=== PATIENT | female | born 1970 | race Caucasian/White ===

== ENCOUNTER → 2017-10-07 16:50 | Outpatient (CLI) | payer OTHER, SELFPAY ==
--- NOTE | 2017-10-07 16:54 | HPBI_ITS ---
MAMMOGRAPHY - BILATERAL SCREENING REASON FOR EXAM: Female, 47 years old. Routine annual screening examination. PERTINENT HISTORY: Grandmother with breast cancer. Aunt with breast cancer. TECHNIQUE: Digital bilateral breast briana (3D mammographic acquisition) in the CC and MLO projections. 2-D mediolateral oblique (MLO) and craniocaudad (CC) views of both breasts were obtained. CAD: Full Field Digital Mammography with Computer Added Detection was performed. COMPARISON: Comparison is made with prior examination dated November 21, 2015. FINDINGS: Breast Composition: The breasts are heterogeneously dense, which may obscure small masses. There are no dominant masses or suspicious calcifications. No other significant abnormalities are identified. There has been no significant change since the prior study. HPBI/SCREENING MAMM (CAD), BILAT IMPRESSION: Stable bilateral screening mammogram. Yearly follow-up mammogram recommended. (A) ASSESSMENT CATEGORY: BIRADS Category 1: Negative. A letter regarding these results will be sent to the patient by the facility within 30 days. Approximately 10% of breast cancers are not detected by mammography. A normal mammogram should not delay biopsy of a clinically suspicious abnormality. [id number] Electronically Signed: Jaydon Up MD at 8:28 EST Tel [phone], Service support ,
== END ==
PROVIDERS: Family Provider Internal Medicine; PCP Internal Medicine; Visit Provider Internal Medicine
DX: Z12.31 Encounter for screening mammogram for malignant neoplasm of breast (principal)
CPT/HCPCS: 77063; 77067

== ENCOUNTER 2019-06-01 16:04 | Emergency (ER) | payer OTHER, SELFPAY ==
[2019-06-01 16:07] VITALS: BP 162/98; PULSE 84; RESP 17; TEMP 36.8; O2SAT 97; BMI 26.4
--- NOTE | 2019-06-01 16:09 | RAD_ITS ---
STUDY: X-RAY - RIGHT WRIST REASON FOR EXAM: Female, 48 years old. Injury. TECHNIQUE: 3 view(s) of the wrist were obtained. COMPARISON: None. FINDINGS: Normal visualized distal radius and ulna. Normal radiocarpal articulation. Normal distal radioulnar articulation. Normal carpal bones. Normal carpal articulations. Normal carpometacarpal articulation of the thumb. Normal second through fifth carpometacarpal articulations. Normal visualized metacarpal bones. The soft tissue structures are unremarkable. There is no demonstrated acute fracture. RAD/Wrist min 3 Views IMPRESSION: Normal x-ray examination of the wrist. Electronically Signed: Jonathan Bloom MD at 16:24 EDT , Service support ,
--- NOTE | 2019-06-01 16:28 | ED.VISSUMM ---
- ER Visit Summary Date of Service: 06/01/19 Chief Complaint: [Injury to right wrist] History of Present Illness: The patient is a 48 F [the emergency department with an injury to the right wrist that initially occurred 2 weeks ago. Patient states that she slipped in her driveway and injured her wrist. Patient has history of osteoporosis. Patient yesterday lifted the bottom of a fish tank and noticed increased discomfort to the same area of her wrist. Today she was advised by coworkers to get her wrist evaluated. Patient is right-hand dominant.] Physical Examination: [Wrist-patient has point tenderness over the ulnar styloid. There is no obvious deformity. Patient has good range of motion flexion extension of the wrist. She is neurovascular intact distally. Normal range of motion of all digits. No pain over the distal radius.] Test Results: [X-rays of the right wrist obtained were normal] Emergency Department Course and Treatment: [Patient states that she has a wrist splint and does not need one from the emergency department.] Treatment Plan: [Patient will follow-up with her primary care physician in 5 to 7 days. Patient will use ibuprofen for discomfort.] Disposition: [Discharged home in stable condition.] Impression: [Right wrist sprain] This note was generated with [employer] dictation software. It may contain incorrect words, spelling, and punctuation that were not noted in review of the chart prior to signing ED Disposition - Plan for ED Patient: Referrals: Yanely Thayer DO [Primary Care Provider] -
--- NOTE | 2019-06-01 16:30 | ED.DEP ---
ED Disposition - Plan for ED Patient: Instructions: Wrist Sprain Referrals: Yanely Thayer DO [Primary Care Provider] - 5-7 Days
== END 2019-06-01 16:47 | disposition home or self-care (01) ==
LOC: ED 16:30
PROVIDERS: Emergency Provider Emergency Medicine; Family Provider Internal Medicine; PCP Internal Medicine
DX: S63.501A Unspecified sprain of right wrist, initial encounter (principal); W01.0XXA Fall on same level from slipping, tripping and stumbling without subsequent striking against object, initial encounter; Y93.9 Activity, unspecified; Y92.008 Other place in unspecified non-institutional (private) residence as the place of occurrence of the external cause; M81.0 Age-related osteoporosis without current pathological fracture; F32.9 Major depressive disorder, single episode, unspecified; F41.9 Anxiety disorder, unspecified; Z79.899 Other long term (current) drug therapy
CPT/HCPCS: 73110; 99282

== ENCOUNTER → 2019-11-28 10:22 | Outpatient (CLI) | payer OTHER, SELFPAY ==
--- NOTE | 2019-11-28 10:24 | BI_ITS ---
MAMMOGRAPHY - BILATERAL SCREENING REASON FOR EXAM: Female, 49 years old. Routine annual screening examination. PERTINENT HISTORY: Grandmother with breast cancer. Aunt with breast cancer. TECHNIQUE: Digital bilateral breast rowena (3D mammographic acquisition) in the CC and MLO projections. 2-D mediolateral oblique (MLO) and craniocaudad (CC) views of both breasts were obtained. CAD: Full Field Digital Mammography with Computer Added Detection was performed. COMPARISON: Comparison is made with prior study dated October 07, 2017 and November 21, 2015. FINDINGS: Breast Composition: The breasts are heterogeneously dense, which may obscure small masses. There are no dominant masses or suspicious calcifications. No other significant abnormalities are identified. There has been no significant change since the prior study. BI/SCREEN MAMM (CAD) W/ROWENA BILAT IMPRESSION: Stable bilateral screening mammogram. Yearly follow-up mammogram recommended. (A) ASSESSMENT CATEGORY: BIRADS Category 1: Negative. A letter regarding these results will be sent to the patient by the facility within 30 days. Approximately 10% of breast cancers are not detected by mammography. A normal mammogram should not delay biopsy of a clinically suspicious abnormality. [id number] Electronically Signed: Jaydon Up, at 11:40 EDT , Service support ,
--- NOTE | 2019-11-28 10:27 | BD_ITS ---
STUDY: DUAL ENERGY X-RAY ABSORPTIOMETRY / DXA REASON FOR EXAM: Female, 49 years old. 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 COMPARISON: Comparison is made with prior study dated June 17, 2017. FINDINGS: Lumbar Spine (L1-L4): g/cm2 (0.931) / T-score (-2.2) / Z-score (-1.7) Findings are suggestive of osteopenia with a high fracture risk. Right Femur Total: g/cm2 (0.749) / T-score (-2.0) / Z-score (-1.5) Right Femoral Neck: g/cm2 (0.682) / T-score (-2.6) / Z-score (-1.7) The T-Scores on the most recent prior examination were: Lumbar Spine (L1-L4): There has been improvement of bone density since the previous examination. Right Femur Total: which represents a worsening of 0.3%. BD/Dexa Bone Density Study IMPRESSION: The patient is considered osteoporotic as outlined below according to World See Organization (WHO) criteria with a high fracture risk. There has been of bone density since the previous examination. Reference Information: The T-score is the number of standard deviations above or below the standard which is normal for young adults at their peak bone mineral density. The World Health Organization (WHO) interprets the T-scores as follows: Above -1 Normal bone density Between -1 and -2.5 Osteopenia Equal to / or below -2.5 Osteoporosis As a practical clinical guideline, osteopenia may be graded as follows: Mild -1 through -1.5 Moderate -1.6 through -2.0 Severe -2.1 through -2.4 The Z-score is the number of standard deviations above or below age-matched controls. A Z-score of less than -1.5 would be considered abnormal. References: 1. NIH Osteoporosis and Related Bone Diseases http://www.osteo.org 2. International Society for Clinical Densitometry http://www.iscd.org 3. National Osteoporosis Foundation http://www.nof.org Electronically Signed: Jaydon Up, at 11:06 EDT , Service support ,
== END ==
PROVIDERS: PCP Internal Medicine; Referring Provider Internal Medicine; Visit Provider Internal Medicine
DX: M81.0 Age-related osteoporosis without current pathological fracture (principal); Z78.0 Asymptomatic menopausal state; Z12.31 Encounter for screening mammogram for malignant neoplasm of breast
CPT/HCPCS: 77063; 77067; 77080

== ENCOUNTER → 2022-04-07 | Outpatient (CLI) | payer OTHER, SELFPAY ==
--- NOTE | 2022-04-07 12:05 | BI_ITS ---
MAMMOGRAPHY - BILATERAL SCREENING 3-D TOMOSYNTHESIS REASON FOR EXAM: Female, 51 years old. Annual screening mammogram. PERTINENT HISTORY: Grandmother and aunt with breast cancer. TECHNIQUE: 2-D mammograms and 3-D Tomosynthesis of the breast (s) were performed. CAD was performed. COMPARISON: 11/28/2019, 10/07/2017, 11/21/2015. FINDINGS: The breast composition is heterogeneously dense that can obscure small breast masses. Several lymph nodes. No dense spiculated masses or suspicious microcalcifications are identified. No architectural distortion is identified. There is no skin thickening or retraction. BI/SCRN MAMM (CAD)W/ROWENA BILAT IMPRESSION: No interval change and no mammographic signs of malignancy. Routine yearly mammograms recommended. ASSESSMENT CATEGORY: BIRADS Category 2: Benign. A letter regarding these results will be sent to the patient by the facility within 30 days. FOLLOW UP RECOMMENDATION: Yearly follow up mammogram recommended. (A) Approximately 10% of breast cancers are not detected by mammography. A normal mammogram should not delay biopsy of a clinically suspicious abnormality. Electronically Signed: Sae Borja MD at 10:34 EDT ,
== END | disposition home or self-care (01) ==
LOC: OPBI 12:03
PROVIDERS: PCP Internal Medicine; Visit Provider Internal Medicine
DX: Z12.31 Encounter for screening mammogram for malignant neoplasm of breast (principal); Z80.3 Family history of malignant neoplasm of breast
CPT/HCPCS: 77063; 77067

== ENCOUNTER 2022-05-08 15:50 | Emergency (ER) | payer OTHER, SELFPAY ==
[2022-05-08 15:51] VITALS: BP 185/97; PULSE 77; RESP 16; TEMP 36.5; O2SAT 98; BMI 32.0
--- NOTE | 2022-05-08 16:33 | US_ITS ---
EXAM: US ABDOMEN LIMITED, RIGHT UPPER QUADRANT CLINICAL INDICATION: pain -- RT ABD PAIN TECHNIQUE: Real-time ultrasound of the right upper quadrant with image documentation. This report was created using [employer] report [employer] technology. COMPARISON: None. FINDINGS: LIVER: Liver is normal in size and echogenicity measuring 12.5 cm. No intrahepatic biliary ductal dilation. GALLBLADDER: Unremarkable. No shadowing gallstone. No gallbladder wall thickening is demonstrated. No pericholecystic fluid. Negative sonographic Mcmullen''s sign. COMMON BILE DUCT: Unremarkable as visualized. The proximal common bile duct is within normal limits for the patient''s age. PANCREAS: Unremarkable as visualized. No focal abnormality is demonstrated in the pancreas. No pancreatic ductal dilatation. RIGHT KIDNEY: Right kidney is normal in size and echogenicity measuring 10.3 x 5.5 x 5.3 cm. Renal cortical thickness is normal. Mild hydronephrosis. Shadowing renal calculi are noted measuring up to 8 mm in diameter. No focal lesion or perinephric collection is demonstrated. US/Gallbladder IMPRESSION: Right renal calculi with mild hydronephrosis. Electronically Signed: Ermelinda Cai MD at 19:19 EDT Reading Location ID and State: [id number] / Tel , Service support ,
--- NOTE | 2022-05-08 16:34 | EX.ED.DYSGE1 ---
HPI History of Present Illness Chief Complaint: Abd Pain Informant: patient Onset/Context/Timing Onset: Today Current Severity: Moderate Maximum Severity: Moderate Narrative Narrative: Patient present secondary to right upper quadrant abdominal pain with nausea and vomiting. She states symptoms for started after eating breakfast this morning. She had cereal and milk. After eating lunch pain worsened again. She is had nausea and vomiting. No fever. No known history of gallbladder disease. No urinary symptoms. [facility] Medical History (Updated 05/08/22 @ 20:[address] Dayana Bains MD) History of endometriosis Home Medications bupropion HCl 100 mg tablet 100 mg PO DAILY 06/01/19 [History Last Taken Unknown] calcium carbonate 600 mg-vitamin D3 5 mcg (200 unit) tablet 2 ea PO DAILY 06/01/19 [History Last Taken Unknown] escitalopram oxalate 20 mg tablet 20 mg PO DAILY 06/01/19 [History Last Taken Unknown] multivitamin 1 ea PO DAILY 06/01/19 [History Last Taken Unknown] hydrocodone-acetaminophen 5-325mg 5mg-325mg 1 tab PO Q6H PRN pain 3 days #10 tabs 05/08/22 [Rx Last Taken Unknown] ibuprofen 600 mg tablet 600 mg PO Q8H PRN PRN pain #20 tabs 05/08/22 [Rx Last Taken Unknown] ondansetron 4 mg disintegrating tablet 4 mg PO Q8H PRN nausea and vomiting #10 tabs 05/08/22 [Rx Last Taken Unknown] Allergy/AdvReac Type Severity Reaction Status Date / Time No Known Allergies Allergy Verified 05/08/22 15:52 Surgical History (Updated 05/08/22 @ 16:[address] Dayana Bains MD) History of hysterectomy Social History Smoking Status: Never smoker ROS ROS ED Constitutional Constitutional ED: Denies chills or fever(s) Eyes Eyes: Denies change in vision or discharge from eye(s) ENT ENT ED: Denies discharge from eye(s), rhinorrhea or sore throat Cardiovascular Cardiovascular: Denies chest pain or palpitations Respiratory/Chest Respiratory/Chest: Denies cough or dyspnea Gastrointestinal Gastrointestinal: Reports abdominal pain, nausea and vomiting; Denies diarrhea Genitourinary Genitourinary ED: Denies difficulty urinating or dysuria Musculoskeletal Musculoskeletal: Denies back pain or extremity pain Integumentary Denies Abrasions or rash Neurologic Neurologic: Denies headache(s) or weakness Psychiatric Psychiatric: Denies anxiety or depression Allergic/Immunologic Allergic/Immunologic ED: Denies lip swelling or urticaria EXAM Physical Exam Const Vital Signs: 05/08/22 15:51 05/08/22 18:51 Temperature 97.7 F L Temperature Source Temporal Pulse Rate 77 72 Respiratory Rate 16 18 Blood Pressure 185/97 H 176/93 H Blood Pressure Mean 126 120 Pulse Ox 98 96 Oxygen Delivery Method Room Air Room Air Positive well nourished and well developed General Appearance ED: well developed HEENT Reports normocephalic and head/scalp atraumatic Eyes PERRL and EOMs intact bilaterally Neck supple Chest Wall inspection of chest normal and palpation of chest normal Resp normal respiratory effort and clear to auscultation bilaterally Cardio regular rate and regular rhythm GI Palpation: soft and tender RUQ Back/Spine no CVA tenderness Extremity normal to inspection Neuro oriented x3 and no sensory deficits noted Sensorium / Orientation: alert Motor Exam: strength 5/5 throughout Psych mental status grossly normal Skin no rashes or lesions noted MDM MDM MDM Narrative Medical decision making narrative: Patient given morphine and Zofran along with IV fluids. Lab work obtained along with right upper quadrant ultrasound. Lab Data Attestation: I reviewed the patient's lab results. Labs: Laboratory Results - last 24 hr 05/08/22 05/08/22 16:51 16:51 WBC 10.1 RBC 4.91 Hgb 14.4 Hct 42.7 MCV 87.0 MCH 29.3 MCHC 33.7 RDW Std Deviation 41.9 RDW Coeff of Key 13.1 Plt Count 266 MPV 9.3 Immature Gran % (Auto) 0.200 Neut % (Auto) 83.1 H Lymph % (Auto) 11.6 L [place] % (Auto) 4.3 Eos % (Auto) 0.6 Baso % (Auto) 0.2 Absolute Neuts (auto) 8.4 H Absolute Lymphs (auto) 1.18 Nucleated RBC % 0 Sodium 142 Potassium 4.4 Chloride 109 H Carbon Dioxide 25.0 Anion Gap 8 BUN 20 H Creatinine 1.17 H Estim Creat Clear Calc 43.98 Est GFR (MDRD) Af Amer 62 Est GFR (MDRD) Non-Af 51 L BUN/Creatinine Ratio 17.1 Glucose 100 Calcium 9.7 Total Bilirubin 0.50 Direct Bilirubin 0.14 AST 25 ALT 35 Alkaline Phosphatase 99 Total Protein 8.1 Albumin 4.2 Globulin 3.9 Lipase 201 Radiography Diagnostic Testing: Clinical Impression(s) from Imaging Studies Gallbladder Ultrasound 05/08/22 16:33 IMPRESSION: Right renal calculi with mild hydronephrosis. Electronically Signed: Ermelinda Cai MD at 19:19 EDT , Treatment and Re-Evaluation Narrative: On repeat evaluation patient much improved. Lab work is unremarkable. Right upper quadrant ultrasound reveals right renal calculi with mild hydronephrosis. Test results are discussed with patient and family at bedside. I believe she likely does have a kidney stone, however with her symptoms well controlled at this time I do not think getting a CT scan at this time will change her treatment. If she is not improving and returns we can always obtain imaging at that time. Patient agrees with this plan. I will write her pain and nausea medication to sent to the pharmacy. Return instructions provided. Discharge Plan Triage Chief Complaint: Abd Pain ED Provider: Dayana Bains Dx/Rx/DC Orders Clinical Impression: Kidney stone Instructions: ED Kidney Stone w/ Colic Prescriptions: New ibuprofen 600 mg tablet 600 mg PO Q8H PRN PRN (Reason: pain) Qty: 20 0RF hydrocodone-acetaminophen 5-325 mg tablet 1 tab PO Q6H PRN (Reason: pain) 3 Days Qty: 10 0RF ondansetron 4 mg tablet,disintegrating 4 mg PO Q8H PRN (Reason: nausea and vomiting) Qty: 10 0RF No Action multivitamin 1 EACH tablet 1 ea PO DAILY calcium carbonate-vitamin D3 1 EACH tablet 2 ea PO DAILY bupropion HCl 100 MG tablet 100 mg PO DAILY escitalopram oxalate 20 MG tablet 20 mg PO DAILY Primary Care Provider: Yanely Thayer Referrals: Yusuf Ghosh MD [Med Staff - Active Staff] - 1 Week if not improving Yanely Thayer DO [Primary Care Provider] - Disposition Disposition: Home, Self Care
[2022-05-08] MEDS: Morphine 4 MG/ML Syringe IV (16:44)
[2022-05-08] MEDS: 0.9% Normal Saline 1,000 ML 150 ML IV (16:49)
[2022-05-08] MEDS: Ondansetron 4 MG/2 ML Vial IV (16:49)
[2022-05-08 17:03] LABS: Absolute Lymphocyte Count 1.18 X10^3/uL (0.83-4.51); Absolute Neutrophil Count 8.4 X10^3/uL (2.0-7.7); Basophil# 0.02 X10^3/uL; Basophil% 0.2 % (0-1); Eosinophil# 0.06 X10^3/uL; Eosinophils% 0.6 % (0-5); Hematocrit 42.7 % (37-47); Hemoglobin 14.4 g/dL (12.0-15.0); Lymphocyte # 1.18 X10^3/ul (0.83-4.51); Lymphocyte % 11.6 % (19-41); Mean Corp Hgb Conc 33.7 g/dL (32-36); Mean Corpuscular Hgb 29.3 pg (27.0-32.0); Mean Platelet Vol. 9.3 fl (6.2-12.0); Monocyte# 0.44 X10^3/uL; Monocyte% 4.3 % (0-10); NRBC Flagged by Analyzer 0 % (0-5); Neutrophil # 8.42 X10^3/uL (2.7-7.7); Neutrophil % 83.1 % (47-70); Platelet Count 266 K/mm3 (150-450); RBC Distribution Width CV 13.1 % (11.6-14.6); RBC Distribution Width SD 41.9 fl (35.1-43.9); Red Blood Count 4.91 M/mm3 (4.2-5.4); White Blood Count 10.1 K/mm3 (4.4-11.0)
[2022-05-08 17:20] LABS: AST(SGOT) 25 U/L (15-37); Alanine Aminotransfer ALT/SGPT 35 U/L (13-56); Albumin, Serum 4.2 g/dL (3.2-5.0); Alkaline Phosphatase 99 U/L (45-117); Anion Gap 8 (5-15); BUN 20 mg/dL (7-18); BUN/Creat Ratio 17.1 RATIO (10-20); Bilirubin, Direct 0.14 mg/dL (0.00-0.30); Calcium,Total 9.7 mg/dL (8.5-10.1); Chloride 109 mmol/L (98-107); Creatinine, Serum 1.17 mg/dL (0.55-1.02); EST Glomerular Filtration Rate 51 mL/min (>60); Est Glom Filt Rate - Afr Amer 62 mL/min (>60); Estimated Creatinine Clearance 43.98 ml/min; Globulin 3.9 g/dL (2.2-4.2); Glucose 100 mg/dL (74-106); Lipase 201 U/L (73-393); Potassium 4.4 mmol/L (3.5-5.1); Protein, Total 8.1 g/dL (6.4-8.2); Sodium Level 142 mmol/L (136-145)
[2022-05-08 18:51] VITALS: BP 176/93; PULSE 72; RESP 18; O2SAT 96
== END 2022-05-08 20:32 | disposition home or self-care (01) ==
PROVIDERS: Emergency Provider Emergency Medicine; PCP Internal Medicine; Visit Provider Emergency Medicine
DX: N20.0 Calculus of kidney (principal)
CPT/HCPCS: 76705; 80048; 80076; 83690; 85025; 96374; 96375; 99283; J7030; A4216; J2405

== ENCOUNTER → 2022-05-14 | Outpatient (CLI) | payer OTHER, SELFPAY ==
--- NOTE | 2022-05-14 15:45 | RAD_ITS ---
INDICATION: ABD PAIN EXAMINATION/TECHNIQUE: X-RAY - XR Abdomen 1 View: 2 images AP abdomen COMPARISON: May 28, 2022 FINDINGS: BOWEL GAS PATTERN: Nonspecific non-obstructive bowel gas pattern. No focal stomach or bowel distention. Large colonic stool burden. FREE AIR: Not well assessed on a supine view. ORGANOMEGALY: Not seen. CALCIFICATIONS: Right renal 7 mm 3 mm stones. No suspicious calcification along the expected ureteral course. Mild pelvic atherosclerosis. LOWER CHEST: Mild subsegmental atelectasis in the left lower lung.. BONES AND SOFT TISSUES: No acute pathology. Prior left femoral neck internal fixation without evidence of hardware failure. RAD/Abdomen Single View IMPRESSION: Large colonic stool burden as can be seen with constipation. Right nephrolithiasis. Non-obstructive bowel gas pattern. Electronically Signed: Jorge Luis Hall MD at 3:04 EDT ,
== END | disposition home or self-care (01) ==
LOC: RAD 15:36
PROVIDERS: PCP Internal Medicine; Referring Provider Registered Nurse; Visit Provider Registered Nurse
DX: R10.9 Unspecified abdominal pain (principal)
CPT/HCPCS: 74018

== ENCOUNTER 2022-06-10 11:46 | Day surgery (SDC) | payer OTHER, SELFPAY ==
--- NOTE | 2022-06-10 11:50 | RAD_ITS ---
INDICATION: PREOP EXAMINATION/TECHNIQUE: X-RAY - XR Abdomen 1 View COMPARISON: None FINDINGS: BOWEL GAS PATTERN: Non-obstructive. No bowel or stomach distention. FREE AIR: Not assessed on a single supine view. ORGANOMEGALY: Not seen. CALCIFICATIONS: 6 mm and 4 mm calcifications project over the right kidney. LOWER CHEST: No acute pathology. BONES AND SOFT TISSUES: No acute pathology. Intertrochanteric screws in the left proximal femur. RAD/Abdomen Single View IMPRESSION: Non-obstructive bowel gas pattern. 6 mm and 4 mm calcifications project over the right kidney. Electronically Signed: Kaden Fong MD at 18:05 EDT ,
[2022-06-10 12:29] VITALS: BP 152/89; PULSE 66; RESP 18; TEMP 36.3; O2SAT 100; BMI 29.2
[2022-06-10] MEDS: Lactated Ringers 1,000 ML 15 ML IV (12:39)
[2022-06-10] MEDS: Cefazolin 2 GM in 0.9% Normal Saline 100 ML IV (13:25)
--- NOTE | 2022-06-10 14:32 | PCM.HP.STD ---
HPI - General General Date of Service: 06/10/22 HPI Narrative FANY MULLER, is a 52 F who presents for treatment of a right kidney stone and stent placement [facility] Medical History (Updated 06/10/22 @ 14:[address] Yusuf Ghosh MD) Anxiety Depression Gastric reflux Heartburn High cholesterol History of echocardiogram History of endometriosis History of stress test Non-smoker Restless legs Wears glasses Home Medications bupropion HCl 100 mg tablet 100 mg PO DAILY 06/01/19 [History Last Taken 06/10/22 10:00] calcium carbonate 600 mg-vitamin D3 5 mcg (200 unit) tablet 2 ea PO DAILY 06/01/19 [History Last Taken Unknown] escitalopram oxalate 20 mg tablet 20 mg PO DAILY 06/01/19 [History Last Taken Unknown] multivitamin 1 ea PO DAILY 06/01/19 [History Last Taken Unknown] hydrocodone-acetaminophen 5-325mg 5mg-325mg 1 tab PO Q6H PRN pain 3 days #10 tabs 05/08/22 [Rx Last Taken Unknown] ibuprofen 600 mg tablet 600 mg PO Q8H PRN PRN pain #20 tabs 05/08/22 [Rx Last Taken Unknown] ondansetron 4 mg disintegrating tablet 4 mg PO Q8H PRN nausea and vomiting #10 tabs 05/08/22 [Rx Last Taken Unknown] buspirone 15 mg tablet 15 mg PO DAILY 06/03/22 [History Last Taken Unknown] rosuvastatin 10 mg tablet 10 mg PO DAILY 06/03/22 [History Last Taken Unknown] ciprofloxacin HCl 500 mg tablet (Cipro) 500 mg PO BID #6 tabs 06/10/22 [Rx Last Taken Unknown] oxycodone-acetaminophen 5 mg-325 mg tablet 1 tab PO Q6H PRN pain 7 days #14 tabs 06/10/22 [Rx Last Taken Unknown] Allergy/AdvReac Type Severity Reaction Status Date / Time adhesive tape AdvReac Rash Verified 06/10/22 12:24 Surgical History History of hysterectomy Social History Smoking Status: Never smoker Vital Signs Vital Signs Vital Signs: 06/10/22 12:26 06/10/22 12:29 Temperature 97.4 F L Temperature Source Temporal Pulse Rate 66 Respiratory Rate 18 Respiratory Pattern Normal Blood Pressure 152/89 H Blood Pressure Mean 110 Blood Pressure Source Monitor Blood Pressure Position Semi-Fowlers Blood Pressure Location Right Arm Pulse Ox 100 Oxygen Delivery Method Room Air Weight Weight: 74.843 kg Body Mass Index (BMI) 29.2
--- NOTE | 2022-06-10 14:33 | OP.PCM_ITS ---
Report of Operation Date of Procedure: 06/10/22 Pre-Operative Diagnosis: Right kidney stone Post-Operative Diagnosis: Same Surgery/Procedure Performed:: Cystoscopy right stent placement and right extracorporal shockwave lithotripsy Description of Surgical Findings:: Patient presents to the hospital for treatment of a kidney stone with shockwave lithotripsy. In the preoperative area and x-ray was done to confirm the location of the stone. The x-ray was reviewed and the stone location was reviewed. In the preoperative setting I spoke with the patient regarding the treatment of the stone how the treatment would be conducted and the expectations after surgery. The patient understands there is a risk of bleeding and infection. Also discussed the very rare risk of hematoma or damage to the kidney. We also discussed the risk that the shockwave machine will fail to break the stone adequately and that the patient may need other surgical procedures. We also discussed the possibility that the patient may need a stent after the procedure. After reviewing the procedure with the patient, the patient is signed the consent form all the patient's questions were addressed and was taken back to the operating room for treatment of a kidney stone. Patient was taken back to the operating room, patient was identified by the nursing staff, we identified the side of the treatment and the patient side of treatment had been marked by my initials. The patient underwent general anesthetic and was placed supine on the lithotripter table. We then used fluoroscopy to identify the stone on the Right side. The urethra and genitals were prepped and draped in usual sterile fashion. Using a 21 [place] rigid cystourethroscope the entire length of the urethra was normal then went into the bladder. Identified the trigone the left and right ureteral orifice. I then cannulated the right orifice and advanced a wire up into the kidney. I then backloaded a 5 [place] open ended catheter over the wire and injected contrast to delineate the anatomy. After the retrograde was performed I then used fluoroscopic images and guidance to advanced a wire up into the kidney and over the 0.038 glidewire I advanced a 6 [place] by 26 cm double pigtail stent. I then pulled the 0.038 Glidewire off and the stent coiled in the kidney bladder good position. The bladder was then drained. We confirmed the position of the stent by fluoroscopy. We then positioned the patient under the lithotripter and we used triangulation technique to identify the location of the stone and then we made sure that the stone was engaged in the F2 focal point of F2 Donier lithoprior machine. Once the patient was positioned appropriately and the stone was identified and placed in the F2 focal point of the lithotripter machine we then proceeded with shockwave lithotripsy. In the beginning the shockwave was delivered at a rate of 90 shocks per minute, we monitor the EKG for any ectopy. The power was slowly increased to 5 kV and subsequently at the 7 kV. We then proceeded with the treatment we move the therapy had around during the treatment to make sure the stone stayed in the F2 focal point during the entire treatment and after 3000 shockwaves were delivered to the stone under fluoroscopic guidance the treatment was completed. The patient was given instructions to call the office to make an a follow-up appointment with an xray to evaluate the success of the treatment, pateint understands that its possible the stones may need another procedure.At this point the patient's anesthetic was reversed patient was extubated and taken back to the PACU in stable condition. Surgeon: Yusuf Ghosh Type of Anesthesia: General Drains: stent Admit VTE Documentation VTE Present on Admission: No VTE Mechan Device Prophylaxis: SCD's VTE Pharm Prophylaxis ordered?: No
--- NOTE | 2022-06-10 14:33 | DCINST_ITS ---
Discharge Instructions Diet Discharge Diet: No restrictions Activity Discharge Activity: Return to Normal Activity Follow Up Care Please Follow Up With: Yusuf Ghosh MD When: call for appt next week to remove stent Test Results: Test results from this visit will be discussed in further detail at your follow- up appointment, if applicable. Discharge Plan Admission Primary Reason for Your Visit: cysto and right stent and right ESWL Attending Provider: Yusuf Ghosh Primary Care Provider: Yanely Thayer Discharge Orders/Prescriptions Prescriptions: New ciprofloxacin HCl [Cipro] 500 mg tablet 500 mg PO BID Qty: 6 0RF oxycodone-acetaminophen 5-325 mg tablet 1 tab PO Q6H PRN (Reason: pain) 7 Days Qty: 14 0RF No Action multivitamin 1 EACH tablet 1 ea PO DAILY calcium carbonate-vitamin D3 1 EACH tablet 2 ea PO DAILY bupropion HCl 100 MG tablet 100 mg PO DAILY escitalopram oxalate 20 MG tablet 20 mg PO DAILY ibuprofen 600 mg tablet 600 mg PO Q8H PRN PRN (Reason: pain) Qty: 20 0RF hydrocodone-acetaminophen 5-325 mg tablet 1 tab PO Q6H PRN (Reason: pain) 3 Days Qty: 10 0RF ondansetron 4 mg tablet,disintegrating 4 mg PO Q8H PRN (Reason: nausea and vomiting) Qty: 10 0RF buspirone 15 mg tablet 15 mg PO DAILY rosuvastatin 10 mg tablet 10 mg PO DAILY Referrals / Follow Up: Yusuf Ghosh MD [Med Staff - Active Staff] - Yanely Thayer DO [Primary Care Provider] - Disposition Disposition (needs filled in before D/C Order can be placed): Home, Self Care
[2022-06-10 14:34] VITALS: BP 152/89; BP 155/105; PULSE 92; RESP 16; TEMP 36.3; O2SAT 96
[2022-06-10 14:45] VITALS: BP 152/89; BP 160/88; PULSE 75; RESP 16; O2SAT 98
[2022-06-10 15:00] VITALS: BP 152/89; BP 164/87; PULSE 72; RESP 16; TEMP 36.3; O2SAT 97
[2022-06-10 15:30] VITALS: BP 152/89
== END 2022-06-10 15:30 | disposition home or self-care (01) ==
LOC: SDC 11:47 → AC 11:49
PROVIDERS: PCP Internal Medicine; Referring Provider Urology; Visit Provider Urology
PROC: (CPT 50590; principal; 2022-06-10 13:35)
DX: N20.0 Calculus of kidney (principal); I10 Essential (primary) hypertension; E78.00 Pure hypercholesterolemia, unspecified; F32.9 Major depressive disorder, single episode, unspecified; F41.9 Anxiety disorder, unspecified; Z90.710 Acquired absence of both cervix and uterus; Z79.899 Other long term (current) drug therapy
CPT/HCPCS: 74018; J7120; J2405

== ENCOUNTER → 2022-07-13 | Outpatient (CLI) | payer OTHER, SELFPAY ==
[2022-07-13 08:22] LABS: Cholesterol 162 mg/dL (200); High Density Lipoprotein 68 mg/dL; Triglycerides 127 mg/dL; Very Low Density Lipoprotein 25 mg/dL (5-40)
== END | disposition home or self-care (01) ==
LOC: LAB 06:43
PROVIDERS: PCP Internal Medicine; Referring Provider Internal Medicine; Visit Provider Internal Medicine
DX: E78.5 Hyperlipidemia, unspecified (principal)
CPT/HCPCS: 36415; 80061

== ENCOUNTER → 2023-04-09 | Outpatient (CLI) | payer OTHER, SELFPAY ==
--- NOTE | 2023-04-09 10:28 | BI_ITS ---
MAMMOGRAPHY - BILATERAL SCREENING REASON FOR EXAM: Female, 52 years old. Routine annual screening examination. PERTINENT HISTORY: Grandmother with breast cancer. Aunt with breast cancer. TECHNIQUE: Digital bilateral breast rowena (3D mammographic acquisition) in the CC and MLO projections. 2-D mediolateral oblique (MLO) and craniocaudad (CC) views of both breasts were obtained. CAD: Full Field Digital Mammography with Computer Added Detection was performed. COMPARISON: Comparison is made with prior study April 07, 2022 and November 28, 2019. FINDINGS: Breast Composition: The breasts are heterogeneously dense, which may obscure small masses. There are no dominant masses or suspicious calcifications. No other significant abnormalities are identified. There has been no significant change since the prior study. BI/SCRN MAMM (CAD)W/ROWENA BILAT IMPRESSION: Stable bilateral screening mammogram. Yearly follow-up mammogram recommended. (A) ASSESSMENT CATEGORY: BIRADS Category 1: Negative. A letter regarding these results will be sent to the patient by the facility within 30 days. Approximately 10% of breast cancers are not detected by mammography. A normal mammogram should not delay biopsy of a clinically suspicious abnormality. [id number] Electronically Signed: Jaydon Up MD at 11:22 EDT ,
== END | disposition home or self-care (01) ==
LOC: OPBI 10:27
PROVIDERS: PCP Internal Medicine; Referring Provider Internal Medicine; Visit Provider Internal Medicine
DX: Z12.31 Encounter for screening mammogram for malignant neoplasm of breast (principal)
CPT/HCPCS: 77063; 77067

== ENCOUNTER 2023-08-19 22:34 | Emergency (ER) | payer OTHER, SELFPAY ==
[2023-08-19 22:35] VITALS: BP 152/104; PULSE 103; RESP 16; TEMP 36.6; O2SAT 98; BMI 29.2
--- NOTE | 2023-08-19 22:49 | EKG12_ITS ---
Test Reason : OVERDOSE Blood Pressure : / mmHG Vent. Rate : 090 BPM Atrial Rate : 090 BPM P-R Int : 154 ms QRS Dur : 078 ms QT Int : 370 ms P-R-T Axes : 066 059 047 degrees QTc Int : 452 ms Normal sinus rhythm Nonspecific ST abnormality Abnormal ECG Confirmed by AUGUSTA REYES, BONNY ([id number]), city editor MARLEN FORD ([id number]) on 08/23/2023 11:26:56 A M Referred By: Confirmed By:GENE DERAS MD
[2023-08-19 22:58] VITALS: PULSE 92; RESP 16
--- NOTE | 2023-08-19 22:58 | EDS_ITS ---
HPI History of Present Illness Chief Complaint: Overdose Informant: patient and family Narrative Narrative: Presents here concerning accidental ingestion of her nighttime medications around 8 PM. She states her night medicines is Lexapro 20 mg and buspirone 15 mg. She states she started having dizziness and jitteriness with occasional nausea. No chest pains no racing heart. She states her medications are in a pillbox. I had family call they checked her pillbox for Wednesday medications were there. However she thinks she may have missed yesterday's dose and may have taken that today. Sometimes takes it at 8 PM and sometimes takes it before dinner. She has not had similar symptoms in the past. She denies suicidal homicidal ideations. Prior similar symptoms: Yes PFSH PFSH Medical History Anxiety Depression Gastric reflux Heartburn High cholesterol History of echocardiogram History of endometriosis History of stress test Non-smoker Restless legs Wears glasses Home Medications bupropion HCl 100 mg tablet 100 mg PO DAILY 06/01/19 [History Last Taken 06/10/22 10:00] calcium carbonate 600 mg-vitamin D3 5 mcg (200 unit) tablet 2 ea PO DAILY 06/01/19 [History Last Taken Unknown] escitalopram oxalate 20 mg tablet 20 mg PO DAILY 06/01/19 [History Last Taken Unknown] multivitamin 1 ea PO DAILY 06/01/19 [History Last Taken Unknown] hydrocodone-acetaminophen 5-325mg 5mg-325mg 1 tab PO Q6H PRN pain 3 days #10 tabs 05/08/22 [Rx Last Taken Unknown] ibuprofen 600 mg tablet 600 mg PO Q8H PRN PRN pain #20 tabs 05/08/22 [Rx Last Taken Unknown] ondansetron 4 mg disintegrating tablet 4 mg PO Q8H PRN nausea and vomiting #10 tabs 05/08/22 [Rx Last Taken Unknown] buspirone 15 mg tablet 15 mg PO DAILY 06/03/22 [History Last Taken Unknown] rosuvastatin 10 mg tablet 10 mg PO DAILY 06/03/22 [History Last Taken Unknown] ciprofloxacin HCl 500 mg tablet (Cipro) 500 mg PO BID #6 tabs 06/10/22 [Rx Last Taken Unknown] oxycodone-acetaminophen 5 mg-325 mg tablet 1 tab PO Q6H PRN pain 7 days #14 tabs 06/10/22 [Rx Last Taken Unknown] meclizine 25 mg tablet 25 mg PO 4X/DAY PRN PRN Dizziness #20 tabs 08/20/23 [Rx Last Taken Unknown] Allergy/AdvReac Type Severity Reaction Status Date / Time adhesive tape AdvReac Rash Verified 08/19/23 22:35 Surgical History History of hysterectomy Social History Smoking Status: Never smoker ROS ROS ED Constitutional Constitutional ED: Denies chills, fever(s) or sweats Eyes Eyes: Denies change in vision ENT ENT ED: Denies dysphagia or sore throat Cardiovascular Cardiovascular: Denies chest pain, leg edema, palpitations or racing heartbeat Respiratory/Chest Respiratory/Chest: Denies cough, dyspnea or dyspnea on exertion Gastrointestinal Gastrointestinal: Denies abdominal pain, diarrhea, nausea or vomiting Genitourinary Genitourinary ED: Denies dysuria, hematuria or urinary frequency Musculoskeletal Musculoskeletal: Denies back pain, extremity pain or neck pain Integumentary Denies rash or wounds Neurologic Neurologic: Reports other Details: Dizziness, jitteriness ; Denies headache(s), paresthesias or weakness Psychiatric Psychiatric: Denies suicidal ideation or suicidal thoughts EXAM Physical Exam Const Vital Signs: 08/19/23 22:35 08/19/23 22:58 08/20/23 00:38 Temperature 97.8 F Temperature Source Temporal Pulse Rate 103 H 92 77 Respiratory Rate 16 16 16 Blood Pressure 152/104 H 138/60 H Blood Pressure Mean 120 86 Pulse Ox 98 Positive well nourished and well developed Constitutional Narrative: Nontoxic upper extremity tremors. General Appearance ED: well developed and NAD HEENT Reports moist mucous membranes normocephalic and atraumatic Eyes PERRL, EOMs intact bilaterally and conjunctivae normal Eyes Narrative: No nystagmus General Eye ED: Yes normal appearance of both eyes Neck no lymphadenopathy and supple General: Negative for tenderness Chest Wall Chest: Negative for tenderness Resp normal respiratory effort and normal air movement Effort and Inspection: symmetric chest movement; Negative for respiratory distress Cardio regular rate, regular rhythm and no murmurs Peripheral Pulses: pulses 2+ throughout GI normal to inspection, nondistended, normoactive bowel sounds and non-tender Palpation: Negative for guarding or rebound tenderness present Back/Spine no CVA tenderness and no thoracic nor lumbar tenderness Extremity normal to inspection General Extremety ED: Negative for edema or tenderness General Extremity: Negative for edema Neuro oriented x3, CN's II-XII intact bilaterally and no sensory deficits noted Sensorium / Orientation: awake and alert Skin no rashes or lesions noted and no wounds MDM MDM MDM Narrative Medical decision making narrative: Interventions / MDM: Differential diagnosis: Vertigo, medication overdose Diagnosis considered but do not suspect: N/A My EKG interpretation: Sinus rate of 90, no ST or T wave changes QTc 452. Imaging independently reviewed and interpreted by myself: N/A External documents reviewed: N/A Test considered but not ordered:N/A ED course: Patient with tremors after ingestion of her medications. Unclear if she fully took an extra dose however tomorrow's medications were checked and was clear. She states she may have skipped yesterday's dose and that was empty. With her tremors nausea vertigo she was given Ativan. EKG sinus rhythm basic labs ordered and were normal. Reevaluation patient clinically was feeling better. Discussed if medication overdose this should improve in the morning. Discussed vertigo symptoms, she sent prescription for meclizine, discussed worsening vertigo symptoms to return to ED for reevaluation further testing. She had no current nystagmus. No focal deficits. All questions were answered. Re-evaluation: stable Disposition discussed with patient/family/significant other: Patient and significant other Case discussed with consulting clinician: N/A This note was generated with [employer] dictation software. It may contain incorrect words, spelling, and punctuation that were not noted in checking the note before signing. Lab Data Attestation: I reviewed the patient's lab results. Labs: Laboratory Results - last 24 hr 08/19/23 23:00 WBC 8.1 RBC 4.76 Hgb 13.9 Hct 41.7 MCV 87.6 MCH 29.2 MCHC 33.3 RDW Std Deviation 41.5 RDW Coeff of Key 13.0 Plt Count 271 MPV 9.3 Immature Gran % (Auto) 0.200 Neut % (Auto) 63.8 Lymph % (Auto) 26.2 [place] % (Auto) 7.6 Eos % (Auto) 1.6 Baso % (Auto) 0.6 Absolute Neuts (auto) 5.2 Absolute Lymphs (auto) 2.13 Nucleated RBC % 0 Sodium 137 Potassium 3.8 Chloride 105 Carbon Dioxide 28.0 Anion Gap 4 L BUN 21 H Creatinine 1.14 H Estim Creat Clear Calc 48.15 Est GFR (MDRD) Af Amer 64 Est GFR (MDRD) Non-Af 53 L BUN/Creatinine Ratio 18.4 Glucose 125 H Calcium 9.5 Discharge Plan Triage Chief Complaint: Overdose ED Provider: Efra Koehler Dx/Rx/DC Orders Clinical Impression: Dizziness, Overdose Instructions: ED Accidental Ingestion ..., ED Vertigo, Unspecified Prescriptions: New meclizine [meclizine] 25 mg tablet 25 mg PO 4X/DAY PRN PRN (Reason: Dizziness) Qty: 20 0RF No Action multivitamin 1 EACH tablet 1 ea PO DAILY calcium carbonate-vitamin D3 1 EACH tablet 2 ea PO DAILY bupropion HCl 100 MG tablet 100 mg PO DAILY escitalopram oxalate 20 MG tablet 20 mg PO DAILY ibuprofen 600 mg tablet 600 mg PO Q8H PRN PRN (Reason: pain) Qty: 20 0RF hydrocodone-acetaminophen 5-325 mg tablet 1 tab PO Q6H PRN (Reason: pain) 3 Days Qty: 10 0RF ondansetron 4 mg tablet,disintegrating 4 mg PO Q8H PRN (Reason: nausea and vomiting) Qty: 10 0RF buspirone 15 mg tablet 15 mg PO DAILY rosuvastatin 10 mg tablet 10 mg PO DAILY ciprofloxacin HCl [Cipro] 500 mg tablet 500 mg PO BID Qty: 6 0RF oxycodone-acetaminophen 5-325 mg tablet 1 tab PO Q6H PRN (Reason: pain) 7 Days Qty: 14 0RF Primary Care Provider: Yanely Thayer Referrals: Yanely Thayer DO [Primary Care Provider] - 3-5 Days if not improving Disposition Disposition: Home, Self Care Discharge Date/Time: 08/20/23 00:39
[2023-08-19] MEDS: LORazepam 2 MG/ML Syringe 1 MG IV (23:06)
[2023-08-19 23:07] LABS: Absolute Lymphocyte Count 2.13 X10^3/uL (0.83-4.51); Absolute Neutrophil Count 5.2 X10^3/uL (2.0-7.7); Basophil# 0.05 X10^3/uL; Basophil% 0.6 % (0-1); Eosinophil# 0.13 X10^3/uL; Eosinophils% 1.6 % (0-5); Hematocrit 41.7 % (37-47); Hemoglobin 13.9 g/dL (12.0-15.0); Lymphocyte # 2.13 X10^3/ul (0.83-4.51); Lymphocyte % 26.2 % (19-41); Mean Corp Hgb Conc 33.3 g/dL (32-36); Mean Corpuscular Hgb 29.2 pg (27.0-32.0); Mean Corpuscular Volume 87.6 fL (81-99); Mean Platelet Vol. 9.3 fl (6.2-12.0); Monocyte# 0.62 X10^3/uL; Monocyte% 7.6 % (0-10); NRBC Flagged by Analyzer 0 % (0-5); Neutrophil # 5.18 X10^3/uL (2.7-7.7); Neutrophil % 63.8 % (47-70); Platelet Count 271 K/mm3 (150-450); RBC Distribution Width SD 41.5 fl (35.1-43.9); Red Blood Count 4.76 M/mm3 (4.2-5.4); White Blood Count 8.1 K/mm3 (4.4-11.0)
[2023-08-19 23:24] LABS: Anion Gap 4 (5-15); BUN 21 mg/dL (7-18); BUN/Creat Ratio 18.4 RATIO (10-20); Calcium,Total 9.5 mg/dL (8.5-10.1); Chloride 105 mmol/L (98-107); Creatinine, Serum 1.14 mg/dL (0.55-1.02); EST Glomerular Filtration Rate 53 mL/min (>60); Est Glom Filt Rate - Afr Amer 64 mL/min (>60); Estimated Creatinine Clearance 48.15 ml/min; Glucose 125 mg/dL (74-106); Potassium 3.8 mmol/L (3.5-5.1); Sodium Level 137 mmol/L (136-145)
[2023-08-20 00:38] VITALS: BP 138/60; PULSE 77; RESP 16
== END 2023-08-20 00:39 | disposition home or self-care (01) ==
PROVIDERS: Emergency Provider Emergency Medicine; PCP Internal Medicine; Visit Provider Emergency Medicine
DX: T43.221A Poisoning by selective serotonin reuptake inhibitors, accidental (unintentional), initial encounter (principal); R42 Dizziness and giddiness
CPT/HCPCS: 80048; 85025; 93005; 96374; 99283; A4216

== ENCOUNTER → 2024-05-22 | Outpatient (CLI) | payer OTHER, SELFPAY ==
--- NOTE | 2024-05-22 15:41 | BI_ITS ---
MAMMOGRAPHY - BILATERAL SCREENING REASON FOR EXAM: Female, 53 years old. Routine annual screening examination. PERTINENT HISTORY: Grandmother with breast cancer. Aunt with breast cancer. TECHNIQUE: Digital bilateral breast rowena (3D mammographic acquisition) in the CC and MLO projections. 2-D mediolateral oblique (MLO) and craniocaudad (CC) views of both breasts were obtained. CAD: Full Field Digital Mammography with Computer Added Detection was performed. COMPARISON: Comparison is made with prior study April 09, 2023 and April 07, 2022. FINDINGS: Breast Composition: The breasts are heterogeneously dense, which may obscure small masses. There are no dominant masses or suspicious calcifications. Stable small benign-appearing bilateral axillary lymph nodes. No other significant abnormalities are identified. There has been no significant change since the prior study. BI/SCRN MAMM (CAD)W/ROWENA BILAT IMPRESSION: Stable bilateral screening mammogram. Yearly follow-up mammogram recommended. (A) ASSESSMENT CATEGORY: BIRADS Category 2: Benign. A letter regarding these results will be sent to the patient by the facility within 30 days. Approximately 10% of breast cancers are not detected by mammography. A normal mammogram should not delay biopsy of a clinically suspicious abnormality. [id number] Electronically Signed: Jaydon Up MD at 8:38 EDT ,
== END | disposition home or self-care (01) ==
LOC: OPBI 15:41
PROVIDERS: PCP Internal Medicine; Referring Provider Internal Medicine; Visit Provider Internal Medicine
DX: Z12.31 Encounter for screening mammogram for malignant neoplasm of breast (principal)
CPT/HCPCS: 77063; 77067

== ENCOUNTER 2024-05-26 08:36 | Day surgery (SDC) | payer OTHER, SELFPAY ==
[2024-05-26] VITALS (8 sets, daily range): BP systolic 89–158; BP diastolic 57–80; PULSE 51–67; RESP 16–18; TEMP 36.1–36.6; O2SAT 94–99; BMI 29.2
--- NOTE | 2024-05-26 08:57 | PRE.ANES_ITS ---
ASA Classification* ASA Classification ASA Classification: 2 Assessment & Plan Anesthesia* Anesthesia Assessment Anesthesia Assessment: Discussed sedation and/or anesthesia options, risks, benefits, and alternatives with patient/parents/legal guardian/POA. Questions invited. The patient/parents/legal guardian/POA seems to understand and agrees to proceed with anesthesia plan. Reviewed the physical assessment, medical history, allergy history and patient home medications list prior to surgery/procedure/anesthetic and documented any changes. Performed airway and anesthesia risk assessments. Anesthesia Type Anesthesia Type: MAC (see written pre anesthesia record for full assessment) Anesthesia Focused Assessment* Airway Assessment Mouth opens: >3 cm Mallampati Score: II Focused Labs Anesthesia Preop lab: CBC WBC 8.1 K/mm3 (4.4-11.0) 08/19/23 23:00 RBC 4.76 M/mm3 (4.2-5.4) 08/19/23 23:00 Hgb 13.9 g/dL (12.0-15.0) 08/19/23 23:00 Hct 41.7 % (37-47) 08/19/23 23:00 Plt Count 271 K/mm3 (150-450) 08/19/23 23:00 CHEMISTRY Potassium 3.8 mmol/L (3.5-5.1) 08/19/23 23:00 Sodium 137 mmol/L (136-145) 08/19/23 23:00 BUN 21 mg/dL (7-18) H 08/19/23 23:00 Creatinine 1.14 mg/dL (0.55-1.02) H 08/19/23 23:00 Glucose 125 mg/dL (74-106) H 08/19/23 23:00 COAG Pre-Assessment Diagnosis/Proposed Procedure Planned Operative Procedure(s): CSCOPE Anesthesia History 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 When Was Last Pacemaker Check QUESTION #4 FULL TEXT: You/Your Family Experience fever (hyperthermia) with Anesthesia Last Oral Intake Last Oral intake: Last Oral Intake NPO since Meds taken in AM with sips of water? 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 Female Yes 05/23/24 10:40 HX of Motion Sickness Yes 05/23/24 10:40 HX of N/V After Surgery Yes 05/23/24 10:40 Non-Smoker Yes 05/23/24 10:40 Duration of Surgery greater No 05/23/24 10:40 than 60 minutes Number of Risk Factors 4 05/23/24 10:40 PONV Score Severe Risk 05/23/24 10:40 Height & Weight Height & Weight: Anesthesia: Height & Weight Height 5 ft 3 in 05/15/24 16:05 Respiratory Assessment Respiratory Assessment - property maintenance technician: Respiratory Tract Infection Hx - property maintenance technician Hx Respiratory Tract Infection No 05/23/24 10:40 STOP Sleep Apnea STOP Sleep Apnea - property maintenance technician: STOP Sleep Apnea - property maintenance technician Hx Hypertension Yes: NO MEDS 05/23/24 10:40 Hx Sleep Apnea No 05/23/24 10:40 CPAP BIPAP Do you snore loudly (louder No 05/23/24 10:40 than talking or can be heard Do you often feel tired/ No 05/23/24 10:40 fatigued/ sleepy during daytime? Has anyone observed you stop No 05/23/24 10:40 breathing during sleep? STOP Results Negative 05/23/24 10:40 QUESTION #5 FULL TEXT : Do you snore loudly (louder than talking or can be heard through closed doors)? 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 Specify any problems Hx of Preganancy in last 3 N/A 05/23/24 10:40 Months Nurse Filling Out Transfusion NBUCHER 05/23/24 10:40 & Questions: Date: 05/23/24 05/23/24 10:40 Time: 10:42 05/23/24 10:40 Patient unable to answer at this time (ie. confused, unrespo /Reproduction History /Reproductive History - property maintenance technician: /Reproductive Hx- property maintenance technician Hx Now Gestational Age (in weeks): EDC: Hx Hx Para Hx Section SAB No 05/23/24 10:40 Active Medications Active Medications: Current Medications Generic Name Dose Route Start Last Admin Trade Name Freq PRN Reason Stop Dose Admin Lactated Ringer's 1,000 mls @ 15 mls/hr 05/26/24 08:45 IV .Q48H ANTHONY PFSH Medical History PONV (postoperative nausea and vomiting) History of kidney stones Family history of colon cancer Wears glasses Depression Anxiety High cholesterol Restless legs Gastric reflux Heartburn Non-smoker History of echocardiogram History of stress test History of endometriosis Home Medications ?Medication ?Instructions ?Recorded ?Last Taken ?Type bupropion HCl 100 mg tablet 100 mg PO DAILY 06/01/19 06/10/22 10:00 History calcium carbonate 600 mg-vitamin 2 ea PO DAILY 06/01/19 Unknown History D3 5 mcg (200 unit) tablet escitalopram oxalate 20 mg tablet 20 mg PO DAILY 06/01/19 Unknown History multivitamin 1 ea PO DAILY 06/01/19 Unknown History ibuprofen 600 mg tablet 600 mg PO Q8H PRN PRN pain #20 tabs 05/08/22 Unknown Rx buspirone 15 mg tablet 15 mg PO DAILY 06/03/22 Unknown History rosuvastatin 10 mg tablet 10 mg PO DAILY 06/03/22 Unknown History denosumab 60 mg/mL subcutaneous 60 mg subcut [id number] 05/15/24 Unknown History syringe (Prolia) Allergy/AdvReac Type Severity Reaction Status Date / Time adhesive tape AdvReac Rash Verified 05/23/24 10:39 Family History Grandfather Colon cancer Before 60yrs. Surgical History Hx of colonoscopy History of hysterectomy Social History household members: spouse current occupational status: employed current occupation: [id number] Smoking Status: Never smoker substance use type: does not use Review of Systems (Anesthesia) ROS Narrative System reviewed and no additional complaints, except as documented.
[2024-05-26] MEDS: Lactated Ringers 1,000 ML 15 ML IV (09:05)
--- NOTE | 2024-05-26 09:45 | HP.PCM_ITS ---
[facility] - General General Date of Service: 05/26/24 [facility] Narrative FANY MULLER, is a 53 F who presents for screening colonoscopy. Her last colonoscopy was about 10 years ago. She had no polyps at that time. She does have a family history of colon cancer in her paternal grandfather. It sounds as though some other family members had colon polyps. She herself denies any GI issues or complaints currently or recently. [facility] Medical History PONV (postoperative nausea and vomiting) History of kidney stones Family history of colon cancer Wears glasses Depression Anxiety High cholesterol Restless legs Gastric reflux Heartburn Non-smoker History of echocardiogram History of stress test History of endometriosis Home Medications ?Medication ?Instructions ?Recorded ?Last Taken ?Type bupropion HCl 100 mg tablet 100 mg PO DAILY 06/01/19 05/25/24 History calcium carbonate 600 mg-vitamin 2 ea PO DAILY 06/01/19 05/23/24 History D3 5 mcg (200 unit) tablet escitalopram oxalate 20 mg tablet 20 mg PO DAILY 06/01/19 05/26/24 History multivitamin 1 ea PO DAILY 06/01/19 05/25/24 History ibuprofen 600 mg tablet 600 mg PO Q8H PRN PRN pain #20 tabs 05/08/22 Unknown Rx buspirone 15 mg tablet 15 mg PO DAILY 06/03/22 05/26/24 History rosuvastatin 10 mg tablet 10 mg PO DAILY 06/03/22 05/25/24 History denosumab 60 mg/mL subcutaneous 60 mg subcut [id number] 05/15/24 05/23/24 History syringe (Prolia) Allergy/AdvReac Type Severity Reaction Status Date / Time adhesive tape AdvReac Rash Verified 05/26/24 09:02 Family History Grandfather Colon cancer Before 60yrs. Surgical History Hx of colonoscopy History of hysterectomy Social History household members: spouse current occupational status: employed current occupation: [employer] Smoking Status: Never smoker substance use type: does not use Vital Signs Vital Signs Vital Signs: 05/26/24 09:06 05/26/24 09:06 Temperature 97 F L Temperature Source Temporal Pulse Rate 67 Respiratory Rate 18 Respiratory Pattern Normal Blood Pressure 158/80 H Blood Pressure Mean 106 Blood Pressure Source Monitor Blood Pressure Position Semi-Fowlers Blood Pressure Location Right Arm Pulse Ox 99 Oxygen Delivery Method Room Air Weight Weight: 165 lb Body Mass Index (BMI) 29.2 Physical Exam Const alert, oriented x3 and no apparent distress General Appearance: cooperative and comfortable Orientation / Consciousness: awake and oriented to person HEENT normocephalic Eyes PERRL Resp Auscultation: clear to auscultation bilaterally Cardio regular rate and regular rhythm Assessment & Plan Assessment/Plan (1) Encounter for screening for malignant neoplasm of colon: PLAN: Plan The patient is a 53-year-old female who presents today for screening colonoscopy. She does have a family history of colon polyps and colon cancer. We discussed the details of the planned procedure including the risks, benefits and alternatives. She wishes to proceed. Colonoscopy will begin momentarily.
--- NOTE | 2024-05-26 10:27 | OP.CCLET_ITS ---
05/26/2024 Yanely Thayer [address] [place] [address] Re : Colonoscopy procedure for Tomeka Quarles Dear Dr. Thayer This procedure was performed on Sunday, May 26, 2024. My impressions and recommendations are as follows: Impressions : - The entire examined colon is normal on direct and retroflexion views. - No specimens collected. Recommendations : - Discharge patient to home (ambulatory). - High fiber diet indefinitely. - Repeat colonoscopy in 10 years for screening purposes. - Return to my office PRN. - Continue present medications. My findings are described in the full procedure note, which is enclosed. If I can be of further assistance, please feel free to contact me at . Sincerely, Pierre Espinoza MD 05/26/2024 10:26:23 AM This report has been signed electronically.
--- NOTE | 2024-05-26 10:27 | OP.COLON_ITS ---
Patient Name: Tomeka Quarles Procedure Date: 05/26/2024 9:45 AM Date of : 1970 Age: 53 Procedure: Colonoscopy Indications: Screening for colon cancer: Family history of colorectal cancer in distant relative(s) Providers: Pierre Espinoza MD Referring MD: Yanely Thayer Medicines: Propofol per Anesthesia Patient Profile: Refer to note in patient chart for documentation of history and physical. Last Colonoscopy: 10 years ago. Complications: No immediate complications. Estimated blood loss: None. Procedure: Pre-Anesthesia Assessment: - Prior to the procedure, a History and Physical was performed, and patient medications and allergies were reviewed. The patient's tolerance of previous anesthesia was also reviewed. The risks and benefits of the procedure and the sedation options and risks were discussed with the patient. All questions were answered, and informed consent was obtained. Prior Anticoagulants: The patient has taken no anticoagulant or antiplatelet agents. ASA Grade Assessment: II - A patient with mild systemic disease. After reviewing the risks and benefits, the patient was deemed in satisfactory condition to undergo the procedure. After I obtained informed consent, the scope was passed under direct vision. Throughout the procedure, the patient's blood pressure, pulse, and oxygen saturations were monitored continuously. The adult colonoscope was introduced through the anus and advanced to the cecum, identified by the appendiceal orifice, ileocecal valve and palpation. The ileocecal valve, appendiceal orifice, and rectum were photographed. The entire colon was well visualized. The colonoscopy was performed without difficulty. The patient tolerated the procedure well. The quality of the bowel preparation was adequate. Moderate Sedation: See the other procedure note for documentation of moderate sedation with intraservice time. Scope In: 9:55:28 AM Scope Withdrawal Time 0 hours 8 minutes 27 seconds Scope Out: 10:18:28 AM Total Procedure Duration Time 0 hours 23 minutes 0 seconds Findings: The perianal and digital rectal examinations were normal. The entire examined colon appeared normal on direct and retroflexion views. Impression: - The entire examined colon is normal on direct and retroflexion views. - No specimens collected. Recommendation: - Discharge patient to home (ambulatory). - High fiber diet indefinitely. - Repeat colonoscopy in 10 years for screening purposes. - Return to my office PRN. - Continue present medications. Procedure Code(s): --- Professional --- 81676, Colonoscopy, flexible; diagnostic, including collection of specimen(s) by brushing or washing, when performed (separate procedure) Diagnosis Code(s): --- Professional --- Z12.11, Encounter for screening for malignant neoplasm of colon Z80.0, Family history of malignant neoplasm of digestive organs CPT copyright 2021 [employer]. All rights reserved. The codes documented in this report are preliminary and upon cpc coder review may be revised to meet current compliance requirements. Pierre Espinoza MD 05/26/2024 10:26:23 AM This report has been signed electronically. Number of Addenda: 0 Note Initiated On: 05/26/2024 9:45 AM
--- NOTE | 2024-05-26 10:31 | PCM.POST.ANE ---
Anesthesia: Postop Eval I Current Vital Signs Temperature: 98 F Pulse Rate: 55 Blood Pressure: 89/67 Respiratory Rate: 16 Pulse Ox: 95 Oxygen Delivery Method: Room Air Assessment Airway patent: Yes Spontaneous unlabored respirations: Yes Mental status: Asleep nausea: No Vomiting: No Anesthesia Complication: No Fluid Hydration Crystalloid volume administer (ml): 600 Total IV fluid infused: 600 Progress Note Anesthesia document: Postop Eval 1 completed: Yes
--- NOTE | 2024-05-26 11:26 | PCM.POSTANE2 ---
Anesthesia Postop Eval I Sum Postop Eval Completion status Anesthesia document: Postop Eval 1 completed: Yes Anesthesia Postop Eval I Summary Anesthesia Postop Eval I Summary: Anesthesia Postop Eval I: Assessment Summary Airway patent Yes 05/26/24 10:32 [email or web address] Spontaneous unlabored Yes 05/26/24 10:32 [email or web address] respirations Mental status Asleep 05/26/24 10:32 [email or web address] nausea No 05/26/24 10:32 [email or web address] Vomiting No 05/26/24 10:32 [email or web address] Anesthesia Postop Eval I: Fluid Summary Crystalloid volume administer 600 05/26/24 10:32 [email or web address] (ml) Colloids volume administered ( ml) Blood Product volume administered (ml) Total IV fluid infused 600 05/26/24 10:32 [email or web address] Anesthesia Postop Eval I: Summary Notes Anesthesia Complication No 05/26/24 10:32 [email or web address] Anesthesia Complication Comment: Post-operative progress note Anesthesia: Postop Eval II Evaluation Mental status: Awake Pain Level: 0 nausea: No Vomiting: No
== END 2024-05-26 11:27 | disposition home or self-care (01) ==
LOC: EN 08:37 → AC 08:38
PROVIDERS: PCP Internal Medicine; Referring Provider Internal Medicine; Visit Provider Surgery
PROC: 0DJD8ZZ Inspection of Lower Intestinal Tract, Via Natural or Artificial Opening Endoscopic (ICD-10-PCS; CPT 45378; principal; 2024-05-26 09:40)
DX: Z12.11 Encounter for screening for malignant neoplasm of colon (principal); E78.00 Pure hypercholesterolemia, unspecified; F41.9 Anxiety disorder, unspecified; F32.A Depression, unspecified; Z80.0 Family history of malignant neoplasm of digestive organs; Z79.899 Other long term (current) drug therapy
CPT/HCPCS: 45378; J7120; J2405

== ENCOUNTER 2024-11-15 15:46 | Emergency (ER) | payer OTHER, SELFPAY ==
[2024-11-15 15:47] VITALS: BP 182/106; PULSE 71; RESP 15; TEMP 36.7; O2SAT 98; BMI 28.3
--- NOTE | 2024-11-15 16:42 | EX.ED.DYSGE1 ---
HPI History of Present Illness Chief Complaint: Flank Pain Informant: patient Narrative Narrative: Worsening pain right lower quadrant and groin for the past 48 hours. On and off symptoms for past month. No urinary symptoms. No nausea or vomiting. No fever chills or sweats. History of similar with kidney stones in the past 2 years ago required intervention followed by Dr. Ghosh. She takes calcium due to osteoporosis. Medications for anxiety depression. Denies history gastric ulcers or kidney injury. Has not taken any medications. Hysterectomy in the past. Prior similar symptoms: Yes PFSH PFSH Medical History PONV (postoperative nausea and vomiting) History of kidney stones Family history of colon cancer Wears glasses Depression Anxiety High cholesterol Restless legs Gastric reflux Heartburn Non-smoker History of echocardiogram History of stress test History of endometriosis Home Medications ?Medication ?Instructions ?Recorded ?Last Taken ?Type bupropion HCl 100 mg tablet 100 mg PO DAILY 06/01/19 05/25/24 History calcium 600 mg (as 2 ea PO DAILY 06/01/19 05/23/24 History carbonate)-vitamin D3 5 mcg (200 unit) tablet escitalopram oxalate 20 mg tablet 20 mg PO DAILY 06/01/19 05/26/24 History multivitamin 1 ea PO DAILY 06/01/19 05/25/24 History ibuprofen 600 mg tablet 600 mg PO Q8H PRN PRN pain #20 tabs 05/08/22 Unknown Rx buspirone 15 mg tablet 15 mg PO DAILY 06/03/22 05/26/24 History rosuvastatin 10 mg tablet 10 mg PO DAILY 06/03/22 05/25/24 History denosumab 60 mg/mL subcutaneous 60 mg subcut [id number] 05/15/24 05/23/24 History syringe (Prolia) Allergy/AdvReac Type Severity Reaction Status Date / Time adhesive tape AdvReac Rash Verified 11/15/24 15:48 Family History Grandfather Colon cancer Before 60yrs. Surgical History Hx of colonoscopy History of hysterectomy Social History household members: spouse current occupational status: employed current occupation: [employer] Smoking Status: Never smoker substance use type: does not use ROS ROS ED Constitutional Constitutional ED: Denies chills, fever(s) or sweats ENT ENT ED: Denies sore throat Cardiovascular Cardiovascular: Denies chest pain, leg edema, palpitations or racing heartbeat Respiratory/Chest Respiratory/Chest: Denies cough, dyspnea or dyspnea on exertion Gastrointestinal Gastrointestinal: Reports abdominal pain; Denies diarrhea, nausea or vomiting Genitourinary Genitourinary ED: Denies dysuria, hematuria or urinary frequency Musculoskeletal Musculoskeletal: Denies back pain, extremity pain or neck pain Integumentary Denies rash or wounds Neurologic Neurologic: Denies headache(s), paresthesias or weakness EXAM Physical Exam Const Vital Signs: 11/15/24 15:47 11/15/24 17:47 Temperature 98.1 F Temperature Source Temporal Pulse Rate 71 Respiratory Rate 15 Blood Pressure 182/106 H 184/85 H Blood Pressure Mean 131 118 Pulse Ox 98 Oxygen Delivery Method Room Air Positive well nourished and well developed General Appearance ED: well developed and NAD HEENT Reports moist mucous membranes normocephalic and atraumatic Eyes General Eye ED: Yes normal appearance of both eyes Neck full ROM Chest Wall Chest: Negative for tenderness Resp normal respiratory effort and normal air movement Effort and Inspection: symmetric chest movement; Negative for respiratory distress Cardio regular rate, regular rhythm and no murmurs Peripheral Pulses: pulses 2+ throughout GI normal to inspection, nondistended, normoactive bowel sounds and non-tender Palpation: Negative for guarding or rebound tenderness present Back/Spine no CVA tenderness Extremity normal to inspection General Extremety ED: Negative for edema or tenderness General Extremity: Negative for edema Neuro oriented x3 and no sensory deficits noted Sensorium / Orientation: awake and alert Skin no rashes or lesions noted and no wounds MDM MDM MDM Narrative Medical decision making narrative: Interventions / MDM: Differential diagnosis: Nephrolithiasis, abdominal pain. Diagnosis considered but do not suspect: Obstructive stone, appendicitis however CT negative. My EKG interpretation: N/A Imaging independently reviewed and interpreted by myself: CT abdomen pelvis: Left nephrolithiasis no obstructive uropathy on the right side. Normal appendix. External documents reviewed: N/A Test considered but not ordered:N/A ED course: Nontoxic similar presentation of kidney stones worsen over 48 hours. Initial declining medications however agreed with Toradol. Will check labs urine. Flank CT for further evaluation. CT negative for appendicitis or any obstructive uropathy. Left-sided nephrolithiasis. Urine leukocytes noted mild WBCs. She is asymptomatic. Urine culture sent. Will not treat last positive. Should continue Shahriar Motrin. She will follow-up with her PCP. All questions were answered. Re-evaluation: stable Disposition discussed with patient/family/significant other: Patient Case discussed with consulting clinician: N/A This note was generated with Impraise dictation software. It may contain incorrect words, spelling, and punctuation that were not noted in checking the note before signing. Lab Data Attestation: I reviewed the patient's lab results. Labs: Laboratory Results - last 24 hr 11/15/24 17:01 WBC 6.0 RBC 4.76 Hgb 14.4 Hct 41.8 MCV 87.8 MCH 30.3 MCHC 34.4 RDW Std Deviation 42.6 RDW Coeff of Key 13.2 Plt Count 259 MPV 9.4 Immature Gran % (Auto) 0.200 Neut % (Auto) 63.5 Lymph % (Auto) 26.1 [place] % (Auto) 8.4 Eos % (Auto) 1.3 Baso % (Auto) 0.5 Absolute Neuts (auto) 3.8 Absolute Lymphs (auto) 1.55 Nucleated RBC % 0 Sodium 135 Potassium 3.8 Chloride 100 Carbon Dioxide 23.2 Anion Gap 12 BUN 13 Creatinine 0.87 Estim Creat Clear Calc 68.93 Est GFR (MDRD) Non-Af 79 BUN/Creatinine Ratio 14.6 Glucose 91 Calcium 9.2 Urine Color Yellow Urine Clarity Clear Urine pH 6.0 Ur Specific [place] 1.020 Urine Protein Negative Urine Glucose (UA) Normal Urine Ketones Negative Urine Occult Blood Negative Urine Nitrite Negative Urine Bilirubin Negative Urine Urobilinogen Normal Ur Leukocyte Esterase 100 H Urine RBC 0-5 SEEN Urine WBC 10-25 SEEN Ur Squamous Epith Cells 0-5 SEEN Urine Bacteria 1+ Hyaline Casts 0-5 SEEN Urine Mucus 1+ Radiography Diagnostic Testing: Clinical Impression(s) from Imaging Studies Abdomen/Pelvis CT 11/15/24 17:10 IMPRESSION: 1. No acute process. 2. Left nephrolithiasis. One or more dose reduction techniques were used (e.g., Automated exposure control, adjustment of the mA and/or kV according to patient size, use of iterative reconstruction technique). Reading Location: [facility] Discharge Plan Triage Chief Complaint: Flank Pain ED Provider: Efra Koehler Dx/Rx/DC Orders Clinical Impression: Abdominal pain Instructions: Abdominal Pain Prescriptions: No Action Prolia 60 mg/mL syringe 60 mg subcut [id number] multivitamin 1 EACH tablet 1 ea PO DAILY calcium carbonate-vitamin D3 1 EACH tablet 2 ea PO DAILY bupropion HCl 100 MG tablet 100 mg PO DAILY escitalopram oxalate 20 MG tablet 20 mg PO DAILY ibuprofen 600 mg tablet 600 mg PO Q8H PRN PRN (Reason: pain) Qty: 20 0RF buspirone 15 mg tablet 15 mg PO DAILY rosuvastatin 10 mg tablet 10 mg PO DAILY Primary Care Provider: Yanely Thayer Referrals: Yanely Thayer DO [Primary Care Provider] - 1 Week Activity Restrictions/Additional Instructions: Your CT scan no kidney stones that is obstructive on right labs were normal. You have a nonobstructive left-sided stone in the kidney. Urine culture pending. Continue Shahriar Motrin as needed. Follow-up with your doctor. Normal appendix on CT. Print Language: Welsh Disposition Disposition: Home, Self Care Discharge Date/Time: 11/15/24 19:42
[2024-11-15] MEDS: 0.9% Normal Saline (500mL Bag) 500 ML 999 ML IV (17:02)
[2024-11-15] MEDS: Ketorolac 15 MG/ML Vial IV (17:02)
--- NOTE | 2024-11-15 17:10 | CT_ITS ---
PROCEDURE: ABDOMEN/PELVIS WITHOUT CONT REASON FOR EXAM: Pain, calculus TECHNIQUE: Multiple contiguous axial images through the abdomen and pelvis were obtained without the administration of intravenous contrast. Two-dimensional coronal and sagittal reformatted images were reconstructed. Low-dose imaging technique was utilized. COMPARISON: None. FINDINGS: Lung bases are clear. Unenhanced liver, spleen, pancreas and adrenal glands are intact. Gallbladder is contracted. No significant biliary ductal dilation. Punctate nonobstructing left renal calculus. A couple small left peripelvic cysts. No right renal calculi. No hydronephrosis. Urinary bladder is within normal limits. No bowel obstruction, focal bowel wall thickening or significant perienteric inflammation. Normal appendix. No pelvic free fluid. No free air. No abdominal aortic aneurysm or suspicious adenopathy. Superficial soft tissues are within normal limits. No acute osseous abnormality. 2 fixation screws in the left femoral neck. CT/Abdomen/Pelvis without Cont IMPRESSION: 1. No acute process. 2. Left nephrolithiasis. One or more dose reduction techniques were used (e.g., Automated exposure contr ol, adjustment of the mA and/or kV according to patient size, use of iterative reconstruction technique). Reading Location: [facility]
[2024-11-15 17:19] LABS: Absolute Lymphocyte Count 1.55 X10^3/uL (0.83-4.51); Absolute Neutrophil Count 3.8 X10^3/uL (2.0-7.7); Basophil# 0.03 X10^3/uL; Basophil% 0.5 % (0-1); Eosinophil# 0.08 X10^3/uL; Eosinophils% 1.3 % (0-5); Hematocrit 41.8 % (37-47); Hemoglobin 14.4 g/dL (12.0-15.0); Lymphocyte # 1.55 X10^3/ul (0.83-4.51); Lymphocyte % 26.1 % (19-41); Mean Corp Hgb Conc 34.4 g/dL (32-36); Mean Corpuscular Hgb 30.3 pg (27.0-32.0); Mean Corpuscular Volume 87.8 fL (81-99); Mean Platelet Vol. 9.4 fl (6.2-12.0); Monocyte% 8.4 % (0-10); NRBC Flagged by Analyzer 0 % (0-5); Neutrophil # 3.78 X10^3/uL (2.7-7.7); Neutrophil % 63.5 % (47-70); Platelet Count 259 K/mm3 (150-450); RBC Distribution Width CV 13.2 % (11.6-14.6); RBC Distribution Width SD 42.6 fl (35.1-43.9); Red Blood Count 4.76 M/mm3 (4.2-5.4)
[2024-11-15 17:40] LABS: Anion Gap 12 (5-15); BUN 13 mg/dL (4-19); BUN/Creat Ratio 14.6 RATIO (10-20); Calcium,Total 9.2 mg/dL (7.6-11.0); Carbon Dioxide 23.2 mmol/L (21.0-32.0); Chloride 100 mmol/L (98-108); Creatinine, Serum 0.87 mg/dL (0.70-1.20); EST Glomerular Filtration Rate 79 (>60); Estimated Creatinine Clearance 68.93 ml/min (50-250); Glucose 91 mg/dL (70-99); Potassium 3.8 mmol/L (3.3-5.1); Sodium Level 135 mmol/L (133-145)
[2024-11-15 17:47] VITALS: BP 184/85
[2024-11-15 17:54] LABS: Color, Urine Yellow (Yellow); Glucose, Dipstick Normal (Normal); Ketone-Dipstick Negative (Negative); Leukocyte Esterase-Dipstick 100 /ul (Negative); Nitrite-Dipstick Negative (Negative); Occult Blood-Urine Negative /ul (Negative); Protein-Dipstick Negative (Negative); Urine Bilirubin Dipstick Negative (Negative); Urine Clarity Clear (Clear); Urine Urobilinogen Normal (Normal)
[2024-11-15 18:26] LABS: Hyaline Cast 0-5 SEEN /lpf (0-5)
[2024-11-15 18:27] LABS: Bacteria 1+ /hpf (None Seen); Mucous, Urine 1+ /hpf (<or=2+); Red Blood Cells-Urine 0-5 SEEN /hpf (0-5); Squamous Epithelial Cells - UA 0-5 SEEN /hpf (5-10); White Blood Cells 10-25 SEEN /hpf (0-5)
--- NOTE | 2024-11-15 19:39 | ED.RN ---
This RN was informed through a [employer] WATCHER that the patient was very upset and had taken out her own IV and wanted to leave. The patient refused discharge vital signs at this time and states I am stressed, I have been here too long, I need to get home, the doctor already said I could leave. I'm fine but I need to leave. This RN educated the patient on the discharge paperwork and verified that the patient's IV site was intact, the patient denied any questions at this time, and left the department.
== END 2024-11-15 19:42 | disposition home or self-care (01) ==
PROVIDERS: Emergency Provider Emergency Medicine; PCP Internal Medicine; Visit Provider Emergency Medicine
DX: N20.0 Calculus of kidney (principal); M81.0 Age-related osteoporosis without current pathological fracture; F41.9 Anxiety disorder, unspecified; E78.00 Pure hypercholesterolemia, unspecified; F32.A Depression, unspecified; Z87.442 Personal history of urinary calculi; Z90.710 Acquired absence of both cervix and uterus; Z79.899 Other long term (current) drug therapy
CPT/HCPCS: 74176; 80048; 81001; 85025; 87077; 87086; 87088; 87186; 96374; 99283; A4216

== ENCOUNTER 2025-04-10 08:44 | Emergency (ER) | payer OTHER, SELFPAY ==
[2025-04-10 08:45] VITALS: BP 183/93; PULSE 72; RESP 16; TEMP 36; O2SAT 99; BMI 28.0
--- NOTE | 2025-04-10 08:50 | EX.ED.DYSGE1 ---
HPI History of Present Illness Chief Complaint: Flank Pain Informant: patient Onset/Context/Timing Onset: Days (2) Context: Sudden Onset Timing: Intermittent Quality: Stabbing Location: Left flank, left lower abdomen Worsened by: Nothing Relieved by: Curling up into a ball Narrative Narrative: Patient presents with left flank pain that began 2 days ago. Patient states she has a history of prior kidney stones. Patient states her pain is mainly over the left lower abdomen and left lower flank. Patient describes her pain as stabbing. Patient states it is better when she is able to curl up into a ball. Patient states nothing makes it worse. Patient denies any fevers or chills. Patient admits to some nausea and vomiting. Patient also admits to some urinary frequency but denies any dysuria or hematuria. [facility] Medical History PONV (postoperative nausea and vomiting) History of kidney stones Family history of colon cancer Wears glasses Depression Anxiety High cholesterol Restless legs Gastric reflux Heartburn Non-smoker History of echocardiogram History of stress test History of endometriosis Home Medications ?Medication ?Instructions ?Recorded ?Last Taken ?Type bupropion HCl 100 mg tablet 100 mg PO DAILY 06/01/19 05/25/24 History calcium 600 mg (as 2 ea PO DAILY 06/01/19 05/23/24 History carbonate)-vitamin D3 5 mcg (200 unit) tablet escitalopram oxalate 20 mg tablet 20 mg PO DAILY 06/01/19 05/26/24 History multivitamin 1 ea PO DAILY 06/01/19 05/25/24 History ibuprofen 600 mg tablet 600 mg PO Q8H PRN PRN pain #20 tabs 05/08/22 Unknown Rx buspirone 15 mg tablet 15 mg PO DAILY 06/03/22 05/26/24 History rosuvastatin 10 mg tablet 10 mg PO DAILY 06/03/22 05/25/24 History denosumab 60 mg/mL subcutaneous 60 mg subcut [id number] 05/15/24 05/23/24 History syringe (Prolia) hydrocodone-acetaminophen 5-325mg 1 tab PO Q6H PRN PRN Pain 3 days 04/10/25 Unknown Rx 5mg-325mg #10 TABLETS Allergy/AdvReac Type Severity Reaction Status Date / Time adhesive tape AdvReac Rash Verified 11/15/24 15:48 Family History Grandfather Colon cancer Before 60yrs. Surgical History Hx of colonoscopy History of hysterectomy Social History household members: spouse current occupational status: employed current occupation: [employer] Smoking Status: Never smoker substance use type: does not use ROS ROS ED Constitutional Constitutional ED: Denies chills or fever(s) Eyes Eyes: Denies blurry vision or change in vision ENT ENT ED: Denies rhinorrhea or sore throat Cardiovascular Cardiovascular: Denies chest pain or palpitations Respiratory/Chest Respiratory/Chest: Denies cough or dyspnea Gastrointestinal Gastrointestinal: Reports abdominal pain, nausea and vomiting; Denies diarrhea or melena Genitourinary Genitourinary ED: Reports urinary frequency; Denies dysuria or hematuria Musculoskeletal Musculoskeletal: Denies back pain or neck pain Integumentary Denies abscess or rash Neurologic Neurologic: Denies headache(s) or weakness Allergic/Immunologic Allergic/Immunologic ED: Denies mouth swelling or urticaria EXAM Physical Exam Const Vital Signs: 04/10/25 08:45 Temperature 96.8 F L Temperature Source Temporal Pulse Rate 72 Respiratory Rate 16 Blood Pressure 183/93 H Blood Pressure Mean 123 Pulse Ox 99 Oxygen Delivery Method Room Air Positive well nourished and well developed Constitutional Narrative: BMI is 28.1. General Appearance ED: well developed and NAD HEENT Reports moist mucous membranes Neck supple and no JVD Resp normal respiratory effort and clear to auscultation bilaterally Cardio regular rate and regular rhythm GI non-distended Palpation: soft and tender LLQ; Negative for guarding or rebound tenderness present Neuro oriented x3, CN's II-XII intact bilaterally and no sensory deficits noted Sensorium / Orientation: alert Motor Exam: strength 5/5 throughout Psych mental status grossly normal MDM MDM MDM Narrative Medical decision making narrative: Differential diagnosis includes ureteral calculus, pyelonephritis, diverticulitis, colitis, bowel obstruction, perforation, and urinary tract infection. CBC will be obtained to assess for leukocytosis and anemia. Basic metabolic profile will be obtained to assess for electrolyte abnormality and renal function. Urinalysis will be obtained to assess for urinary tract infection and hematuria. CT scan of the abdomen and pelvis will be obtained to assess for ureteral calculus, diverticulitis, bowel obstruction, perforation, and pyelonephritis. History & Record Review Additional record(s) reviewed:: Prior ED visit and Prior labs Lab Data Attestation: I reviewed the patient's lab results. Lab results narrative: CBC was reviewed and was within normal limits. Basic metabolic profile was reviewed and was essentially within normal limits. Urinalysis was reviewed. Occult blood was 250 with 50-100 red blood cells. Leukocyte esterase was 25. There are 0 white blood cells and 0 bacteria noted. Labs: Laboratory Results - last 24 hr 04/10/25 04/10/25 08:55 09:00 WBC 7.8 RBC 4.83 Hgb 14.5 Hct 42.1 MCV 87.2 MCH 30.0 MCHC 34.4 RDW Std Deviation 41.7 RDW Coeff of Key 13.1 Plt Count 239 MPV 9.6 Immature Gran % (Auto) 0.100 Neut % (Auto) 77.4 H Lymph % (Auto) 16.3 L [place] % (Auto) 4.9 Eos % (Auto) 0.8 Baso % (Auto) 0.5 Absolute Neuts (auto) 6.0 Absolute Lymphs (auto) 1.27 Nucleated RBC % 0 Sodium 138 Potassium 4.1 Chloride 102 Carbon Dioxide 23.2 Anion Gap 13 BUN 21 H Creatinine 1.13 Estim Creat Clear Calc 52.83 Est GFR (MDRD) Non-Af 57 L BUN/Creatinine Ratio 18.8 Glucose 106 H Calcium 9.5 Urine Color Yellow Urine Clarity Clear Urine pH 5.0 Ur Specific [place] 1.025 Urine Protein 30 H Urine Glucose (UA) Normal Urine Ketones Negative Urine Occult Blood 250 H Urine Nitrite Negative Urine Bilirubin Negative Urine Urobilinogen Normal Ur Leukocyte Esterase 25 H Urine RBC 50-100 SEEN Urine WBC 0 SEEN Ur Squamous Epith Cells 0 SEEN Urine Bacteria 0 SEEN Urine Mucus 0 SEEN Radiography Diagnostic Testing: Clinical Impression(s) from Imaging Studies Abdomen/Pelvis CT 04/10/25 09:04 IMPRESSION: Mild degree of left hydronephrosis and left hydroureter due to a punctate calculus in the left ureterovesical junction. The previously seen calculus in the inferior pole of the left kidney is not seen at this time. Reading Location: [facility] CT scan of the abdomen and pelvis was obtained. There is mild left hydronephrosis and hydroureter. There is a punctate calculus in the left ureterovesicular junction. There is no other acute abnormality. There is no free air or free fluid. This was interpreted by the radiologist and was also independently reviewed by myself. Treatment and Re-Evaluation :: Patient was given IV fluids, morphine, and Zofran. Patient is feeling better on reevaluation. Patient was advised of her findings. Patient was instructed to drink plenty of fluids. Patient was given a prescription for a short course of [place]. Patient was instructed to follow-up with her primary care physician in 5 to 7 days. Patient was also instructed to follow-up with her urologist in 3 to 5 days. Patient was instructed to return if worse in any way. Patient understood and was agreeable with the plan. All questions were answered. Discharge Plan Triage Chief Complaint: Flank Pain ED Provider: Antonino Gardner Dx/Rx/DC Orders Clinical Impression: Calculus of distal left ureter, Hydronephrosis of left kidney Instructions: ED Kidney Stone with Pain Prescriptions: New hydrocodone-acetaminophen 5-325 mg tablet 1 tab PO Q6H PRN PRN (Reason: Pain) 3 Days Qty: 10 0RF No Action Prolia 60 mg/mL syringe 60 mg subcut [id number] multivitamin 1 EACH tablet 1 ea PO DAILY calcium carbonate-vitamin D3 1 EACH tablet 2 ea PO DAILY bupropion HCl 100 MG tablet 100 mg PO DAILY escitalopram oxalate 20 MG tablet 20 mg PO DAILY ibuprofen 600 mg tablet 600 mg PO Q8H PRN PRN (Reason: pain) Qty: 20 0RF buspirone 15 mg tablet 15 mg PO DAILY rosuvastatin 10 mg tablet 10 mg PO DAILY Primary Care Provider: Yanely Thayer Referrals: Yusuf Ghosh MD [Med Staff - Active Staff] - 3-5 Days Yanely Thayer DO [Primary Care Provider] - 5-7 Days Print Language: Peruvian Disposition Disposition: Home, Self Care
--- NOTE | 2025-04-10 09:04 | CT_ITS ---
PROCEDURE: ABDOMEN/PELVIS WITHOUT CONT 04/10/2025 REASON FOR EXAM: LEFT FLANK PAIN TECHNIQUE: ABDOMEN/PELVIS WITHOUT CONT Noncontrast technique limits evaluation of the abdominal and pelvic viscera. Coronal and Sagittal reconstruction series were provided. One or more dose reduction techniques were used (e.g., Automated exposure control, adjustment of the mA and/or kV according to patient size, use of iterative reconstruction technique). RADIATION DOSE SUMMARY: CTDlvol: 8.04 mGy DLP: 385.41 mGycm COMPARISON: Prior study dated November 15, 2024. FINDINGS: Lung bases: The lung bases are clear. No evidence of coronary artery calcification. Liver: Normal size. No obvious mass. Gallbladder: I suspect small gallstones within the gallbladder lumen. Spleen: Normal size. Pancreas: Normal size. No surrounding inflammation. Adrenals: Unremarkable Kidneys: Mild degree of left hydronephrosis and left hydroureter due to a 2 mm calculus at the left ureterovesical junction. The previously seen calculus in the lower pole of the left kidney is not seen at this time within the kidney. Left parapelvic cysts. Bladder: Urinary bladder is empty. Reproductive Organs: Prior hysterectomy. Adnexal regions are unremarkable. Bowel: No bowel obstruction. Appendix: Unremarkable Lymph nodes: Unremarkable. Vasculature: Mild diffuse atherosclerotic calcifications are noted. Peritoneum / Retroperitoneum: Unremarkable Bones: No significant abnormality is seen. CT/Abdomen/Pelvis without Cont IMPRESSION: Mild degree of left hydronephrosis and left hydroureter due to a punctate calcu latrice in the left ureterovesical junction. The previously seen calculus in the inferior pole of the left kidney is not seen at this time. Reading Location: [id number]
[2025-04-10 09:16] LABS: Mucous, Urine 0 SEEN /hpf (<or=2+); Squamous Epithelial Cells - UA 0 SEEN /hpf (5-10)
[2025-04-10] MEDS: 0.9% Normal Saline (1000mL) 1,000 ML 1000 ML IV (09:17)
[2025-04-10 09:21] LABS: Hematocrit 42.1 % (37-47); Hemoglobin 14.5 g/dL (12.0-15.0); Immature Granulocytes Count 0.010 X10^3/uL (0.0-0.0); Mean Corp Hgb Conc 34.4 g/dL (32-36); Mean Corpuscular Volume 87.2 fL (81-99); Mean Platelet Vol. 9.6 fl (6.2-12.0); NRBC Flagged by Analyzer 0 % (0-5); Platelet Count 239 K/mm3 (150-450); RBC Distribution Width CV 13.1 % (11.6-14.6); RBC Distribution Width SD 41.7 fl (35.1-43.9); Red Blood Count 4.83 M/mm3 (4.2-5.4); White Blood Count 7.8 K/mm3 (4.4-11.0)
[2025-04-10 09:21] LABS: Color, Urine Yellow (Yellow); Glucose, Dipstick Normal (Normal); Ketone-Dipstick Negative (Negative); Leukocyte Esterase-Dipstick 25 /ul (Negative); Nitrite-Dipstick Negative (Negative); Occult Blood-Urine 250 /ul (Negative); Protein-Dipstick 30 mg/dl (Negative); Specific Gravity, Urine 1.025 (1.002-1.030); Urine Bilirubin Dipstick Negative (Negative)
[2025-04-10 09:30] LABS: Red Blood Cells-Urine 50-100 SEEN /hpf (0-5)
[2025-04-10 09:45] VITALS: BP 163/84; PULSE 64; RESP 18; TEMP 36; O2SAT 100
[2025-04-10 09:55] LABS: Anion Gap 13 (5-15); BUN 21 mg/dL (4-19); BUN/Creat Ratio 18.8 RATIO (10-20); Calcium,Total 9.5 mg/dL (7.6-11.0); Carbon Dioxide 23.2 mmol/L (21.0-32.0); Chloride 102 mmol/L (98-108); Estimated Creatinine Clearance 52.83 ml/min (50-250); Glucose 106 mg/dL (70-99); Potassium 4.1 mmol/L (3.3-5.1)
== END 2025-04-10 10:46 | disposition home or self-care (01) ==
PROVIDERS: Emergency Provider Emergency Medicine; PCP Internal Medicine; Visit Provider Emergency Medicine
DX: N13.2 Hydronephrosis with renal and ureteral calculous obstruction (principal); E78.00 Pure hypercholesterolemia, unspecified; Z87.442 Personal history of urinary calculi; K21.9 Gastro-esophageal reflux disease without esophagitis
CPT/HCPCS: 74176; 80048; 81001; 85025; 96361; 96374; 96375; 96376; 99283; A4216; J2405

== ENCOUNTER 2025-04-15 00:51 | Emergency (ER) | payer OTHER, SELFPAY ==
[2025-04-15 00:53] VITALS: BP 202/101; PULSE 72; RESP 22; TEMP 37; O2SAT 100; BMI 28.3
[2025-04-15] MEDS: 0.9% Normal Saline (1000mL) 1,000 ML 999 ML IV (01:20)
[2025-04-15] MEDS: Ketorolac 30 MG/ML Syringe IV (01:20)
[2025-04-15 01:23] LABS: Hematocrit 40.1 % (37-47); Hemoglobin 13.8 g/dL (12.0-15.0); Immature Granulocytes Count 0.040 X10^3/uL (0.0-0.0); Mean Corp Hgb Conc 34.4 g/dL (32-36); Mean Corpuscular Volume 87.2 fL (81-99); Mean Platelet Vol. 9.4 fl (6.2-12.0); NRBC Flagged by Analyzer 0 % (0-5); Platelet Count 243 K/mm3 (150-450); RBC Distribution Width CV 12.9 % (11.6-14.6); RBC Distribution Width SD 40.8 fl (35.1-43.9); Red Blood Count 4.60 M/mm3 (4.2-5.4); White Blood Count 10.6 K/mm3 (4.4-11.0)
[2025-04-15 01:24] LABS: Mucous, Urine 0 SEEN /hpf (<or=2+)
[2025-04-15 01:26] LABS: Color, Urine Yellow (Yellow); Glucose, Dipstick Normal (Normal); Ketone-Dipstick 15 mg/dl (Negative); Leukocyte Esterase-Dipstick 100 /ul (Negative); Nitrite-Dipstick Negative (Negative); Occult Blood-Urine 250 /ul (Negative); Protein-Dipstick 15 mg/dl (Negative); Specific Gravity, Urine 1.015 (1.002-1.030); Urine Bilirubin Dipstick Negative (Negative)
--- OUTSIDE RECORDS SUMMARY | 2025-04-15 01:44 | XMS RPT_ITS | CCD ---
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 Role Phone NORMAN KATE Unavailable Unavailable LAVINIA, NORMAN Unavailable Unavailable LAVINIA, NORMAN Unavailable Unavailable LAVINIA, NORMAN Unavailable Unavailable LAVINIA, NORMAN Unavailable Unavailable LAVINIA, NORMAN Unavailable Unavailable NO REFERRING DR Unavailable Unavailable LAVINIA, NORMAN Unavailable Unavailable LAVINIA, NORMAN Unavailable Unavailable [facility] Unavailable Unavailable LAVINIA, NORMAN Unavailable Unavailable LAVINIA, NORMAN Unavailable Unavailable LAVINIA, NORMAN Unavailable Unavailable LAVINIA, NORMAN Unavailable Unavailable LAVINIA, NORMAN Unavailable Unavailable LAVINIA, NORMAN Unavailable Unavailable Yanely Purdy Unavailable Jayce Arcos S Unavailable Julissa Chino Unavailable Solomon Alejandro Unavailable Yanely Purdy Unavailable Nickie Wagoner Unavailable Unavailable Roland, Neena L Unavailable Unavailable Unavailable Unavailable Yanely Purdy Unavailable Josselyn Jayce S Unavailable Julissa Chino Unavailable Solomon Alejandro Unavailable Yanely Purdy Unavailable Nickie Wagoner Unavailable Unavailable Long, Neena L Unavailable Unavailable Unavailable Unavailable Long, Neena L Unavailable Unavailable Justa, Nilda Unavailable Unavailable Collin Husain Unavailable Unavailable Lena López Unavailable Unavailable Yanely Purdy Primary Care Provider [phone] Yanely Purdy DO Unavailable Jayce Arcos DO S Unavailable [phone] Solomon Alejandro Unavailable Rajwinder DO, Yanely Unavailable Rene RN OTOLARYNGOLOGY, Lena Unavailable Unavailable Justa GLASS BEAD MAKER, Nilda Unavailable Unavailable Rodrigue RN OTOLARYNGOLOGY, Collin Unavailable Unavailable Neena Watkins RN Unavailable Unavailable Unavailable Unavailable Jay RN OTOLARYNGOLOGY, Manjula Unavailable Unavailable Rajwinder DO, Yanely Unavailable Alexandro GLASS BEAD MAKER, Codi Unavailable Unavailable Anna Rm Unavailable Caron RN OTOLARYNGOLOGY, Sandra Unavailable Unavailable Rajwinder DO, Yanely Fu Primary Care Provider Dr. Yanely Purdy Primary Care Provider [phone] Dr. Yuri Soto Attending Provider Ronald ROBLES, Aminata Unavailable Vilma De Souza MA Unavailable Unavailable Rajwinder DO, Yanely Fu Primary Care Provider YANELY PURDY Primary Care Unavailab le RAJWINDERYANELY Primary Care Unavailab le Rajwinder DO, Dr. Ny Primary Care Provider Zakia RAMIREZ, Dr. Kraus Emergency Provider Rajwinder RAMIREZ, Dr. Ny Primary Care Provider Jj RAMIREZ, Dr. Muñiz Emergency Provider [phone] Rajwinder Yanely Referring Unavailable Pierre Espinoza Attending Unavailable RajwinderYanely garcía Primary Care Unavailable Rajwinder Yanely Referring Unavailable Rajwinder, Yanely Primary Care Unavailable Rajwinder Yanely Attending Unavailable Rajwinder, Yanely Primary Care Unavailable Efra Koehler Attending Unavailable Rajwinder, Yanely Primary Care Unavailable Antonino Gardner Attending Unavailable Rajwinder, Yanely Primary Care Unavailable Yusuf Ghosh Attending Unavailable Latasha Irvin Attending Unavailable Rajwinder, Yanely Primary Care Unavailable Rajwinder, Yanely Primary Care Unavailable Wanek, Pierre A Consulting Unavailable Wanek, Pierre A Attending Unavailable Rajwinder, Yanely Referring Unavailable Allergies Allergy Classification Reported Allergen(s) Allergy Type Date of Onset Reaction(s) Facility (3 sources) Adhesive Tape; Translations: [adhesive tape] Propensity to adverse reactions Rash [facility] Repository Medications Current Medications Medication Drug Class(es) Dates Sig (Normalized) Sig (Original) acetaminophen 325 mg / HYDROcodone bitartrate 5 mg oral tablet (9 sources) Opioid Agonist Start: 04-10-2025 take 1 tablet by mouth every six hours as needed for pain Hydrocodone-Aceta minophen 5-325 mg tablet Active 1 {tbl} PO EVERY 6 HOURS NEEDED as needed for Pain 10 3 0 April 10, 2025 Calculus of distal left ureter Calculus of ureter Start: 05-08-2022 End: 05-15-2024 Hydrocodone-Acetaminophen 5- 325 mg tablet Discontinued 1 {tbl} PO EVERY 6 HOURS as needed for pain 10 3 0 May 08, 2022 May 15, 2024 4:00pm Calculus of kidney Calculus of kidney Start: 05-08-2022 take 1 tablet by albina th every six hours Hydrocodone-Acetaminophen Active 1 TABLE T PO EVERY 6 HOURS 10 3 May 08, 2022 buPROPion hydrochloride 100 mg oral tablet (20 sources) Aminoketone Start: 06-01-2019 take 1 tablet by mouth once daily Bupropion Hcl 100 MG tablet Active 100 mg PO DAILY June 01, 2019 12:00am Start: 05-30-2017 buPROPion SR ( WELLBUTRIN SR) 100 mg 12 hr tablet 05/30/2017 Active Comment on above: needs appt Mail order. calcium carbonate 1500 mg / cholecalciferol 200 unt oral tablet (8 sources) Vitamin D Start: 06-01-2019 Calcium Carbonate-Vitamin D3 1 EACH tablet Active 2 NMA PO DAILY June 01, 2019 12:00am Start: 06-01-2019 Calcium Carbon ate-Vitamin D3 Active 2 EACH PO DAILY May 31, 2019 11:00pm 1 ml denosumab 60 mg/ml prefilled syringe (20 sources) RANK Ligand Inhibitor Start: 05-15-2024 Denosuma b (Prolia) 60 mg/mL syringe Active 60 mg SC every 6 months May 15, 2024 12:00am Start: 05-04-2022 Prolia 60 mg/m L subcutaneous syringe 1 (one) Milliliter q6mo for 180 days Quantity: 1 {Milliliter} Refills: 1 Ordered: 23-Apr-2023 Yanely Purdy DO, DO, Kathleen Start : 23-Apr-2023 Active Comments: Mail order. DELIEVER TO PHYSICIAN OFFICE [address] [place] [address] Start: 04-09-2022 Prolia 60 MG/M L Subcutaneous Solution Prefilled Syringe 1 (one) Milliliter q6mo for 0 days Quantity: 1 {Milliliter} Refills: 1 Ordered: 09-Apr-2022 Gravius GLASS BEAD MAKER Nilda Start : 09-Apr-2022 Active Comments: Mail order. DELIEVER TO PHYSICIAN OFFICE [address] [place] [address] Start: 12-01-2019 Prolia 60 MG/M L Subcutaneous Solution Prefilled Syringe 1 (one) Milliliter q6mo for 0 days Quantity: 1 {Milliliter} Refills: 1 Ordered: 01-Dec-2019 Gravius GLASS BEAD MAKER, Nilda Start : 01-Dec-2019 Active Comments: Mail order. inject 60 mg by subc utaneous injection once denosumab (PROLIA) 60 mg/mL Inject 60 mg subcutaneously one time only. Active Comment on above: Mail order. DELIEVER TO PHYSICIA N OFFICE [address] [place] [address] Mail order. DELIEVER TO PHYSICIAN OFFICE [address] [place] [address] Inject 60 mg subcuta neously one time only. escitalopram 20 mg oral tablet (20 sources) Serotonin Reuptake Inhibitor Start: 08-22-20 18 take 1 tablet by mouth once daily Escitalopram Oxalate 20 MG tablet Active 20 mg PO DAILY June 01, 2019 12:00am Start: 06-14-2017 take 1 tablet by albina th once daily Lexapro 20 MG Oral Tablet 1 Tablet QD for 90 days Quantity: 90 {Tablet} Refills: 3 Ordered: 14-Jun-2017 Yanely Purdy DO, DO, Kathleen Start : 14-Jun-2017 Active Start: 03-15-2012 escitalopram ( LEXAPRO) 20 mg tablet take 1/2 pill qam 0 03/15/2012 Active Comment on above: Mail order. take 1/2 pill qam famotidine 10 mg oral tablet (5 sources) Histamine-2 Receptor Antagonist Start: 08-12-2009 famotidine(PEPCID AC 10 MG TAB) Take one tablet daily. 0 08/12/2009 Active Comment on above: Take one tablet connor y. ibuprofen 600 mg oral tablet (9 sources) Nonsteroidal Anti-inflammatory Drug Start: 05-08-2022 take 1 tablet by mouth every eight hours as needed for pain Ibuprofen 600 mg tablet Active 600 mg PO EVERY 8 HOURS NEEDED as needed for pain 20 0 May 08, 2022 12:00am Start: 05-24-2012 End: 06-23-2012 take 1 tablet by mouth every six hours as needed ibuprofen 600 mg tablet Take 1 tablet by mouth every 6 hours as needed for Pain. Take with food. 30 tablet 1 05/24/2012 06/23/2012 Discontinued (Course of therapy completed) Comment on above: Take 1 tablet by albina th every 6 hours as needed for Pain. Take with food. methylPREDNISolone (1 source) Corticosteroid Start: 04-21-20 End: 04-27-20 methylPREDNISolone (MEDROL, CARMEN,) 4 mg Dose-Pack Indications: Bee sting, accidental or unintentional, initial encounter Follow dosing instructions, take with food. 1 Package 0 04/21/2022 04/27/2022 Active Comment on above: Follow dosing instru ctions, take with food. MULTIVIT-MINERALS/FERROUS FUM (MULTI VITAMIN ORAL) (4 sources) MULTIVIT-MINERAL S/FERROUS FUM (MULTI VITAMIN ORAL) Take by mouth. Active MULTIVIT-MINERAL S/FERROUS FUM (MULTI VITAMIN ORAL) Take by mouth. 0 Active Comment on above: Take by mouth. Multivitamin 1 EACH tablet (2 sources) Start: 06-01-2019 Multivitamin 1 EACH tablet Active 1 NMA PO DAILY June 01, 2019 12:00am Multivitamin preparation (6 sources) Start: 06-01-2019 Multivitamin Active 1 EACH PO DAILY May 31, 2019 11:00pm Start: 06-01-2019 Multivitamin A ctive 1 EACH PO DAILY June 01, 2019 12:00am nitrofurantoin, macrocrystals 25 mg / nitrofurantoin, monohydrate 75 mg oral capsule (2 sources) Nitrofuran Antibacterial Start: 11-16-2024 End: 11-21-2024 take 1 capsule by mouth twice daily nitrofurantoin monohydrate and macrocrystal (MACROBID) 100 mg capsule Take 1 capsule by mouth two times a day for 5 days. 10 capsule 11/16/2024 11/21/2024 Active olopatadine 1 mg/ml ophthalmic solution (1 source) Histamine-1 Receptor Inhibitor Start: 01-24-2024 End: 02-23-2024 take 1 drop(s) into the eye(s) twice daily olopatadine (PATANOL) 0.1 % ophthalmic solution Indications: Acute conjunctivitis of both eyes, unspecified acute conjunctivitis type Use 1 Drop in both eyes two times a day for 30 days. 10 mL 0 01/24/2024 02/23/2024 Active omeprazole 20 mg delayed release oral capsule (20 sources) Proton Pump Inhibitor Start: 06-14-2017 omeprazole (PRILOSEC) 20 mg capsule 06/14/2017 Active Start: 06-14-2017 End: 11-22-2019 take 1 tablet by mouth twice daily PriLOSEC OTC 20 MG Oral Tablet Delayed Release [address] two times daily for 90 days Quantity: 180 {Tablet} Refills: 3 Ordered: 22-Nov-2019 Sandra Reardon LPN Start : 14-Jun-2017 End : 22-Nov-2019 Inactive rosuvastatin calcium 10 mg oral tablet (20 sources) HMG-CoA Reductase Inhibitor Start: 06-11-2023 take 1 tablet by mouth once daily at bedtime Crestor 10 mg oral tablet 1 (one) Tablet qhs for 90 days Quantity: 90 {Tablet} Refills: 1 Ordered: 11-Jun-2023 Yanely Purdy DO, DO, Kathleen Start : 11-Jun-2023 Active Comments: Mail order. Start: 06-11-2023 take 1 tablet by albina th once daily at bedtime Crestor 10 mg oral tablet 1 (one) Tablet qhs for 90 days Quantity: 90 {Tablet} Refills: 1 Ordered: 11-Jun-2023 Yanely Purdy DO, DO, Kathleen Start : 11-Jun-2023 Active Comments: Mail order. Start: 04-13-2022 take 1 tablet by albina th once daily Rosuvastatin 10 mg tablet Active 10 mg PO DAILY June 03, 2022 12:00am Comment on above: Take 10 mg by mouth daily at bedtime. Mail order. traMADol hydrochloride 50 mg oral tablet (20 sources) Opioid Agonist Start: 06-10-2017 traMADol (ULTRAM) 50 mg tablet 1 to 2 tab(s) every 8 hours as needed for pain. 30 tablet 06/10/2017 Active take 1 tablet by mouth once connor y TraMADol HCl 50 MG Oral Tablet 1 qd (50 MG) Inactive Comment on above: 1 to 2 tab(s) every 8 hours as needed for pain. Completed/Discontinued Medications Medication Drug Class(es) Dates Sig (Normalized) Sig (Original) acetaminophen 325 mg / oxyCODONE hydrochloride 5 mg oral tablet (11 sources) Opioid Agonist Start: 06-10-2022 End: 05-15-2024 Oxycodone-Acetamino phen 5-325 mg tablet Discontinued 1 {tbl} PO EVERY 6 HOURS as needed for pain 14 7 0 June 10, 2022 May 15, 2024 4:01pm History of constipation Calculus of ureter Personal history of other diseases of the digestive system Calculus of ureter Start: 06-10-2022 take 1 tablet by albina th every six hours Oxycodone-Acetaminophen Active 1 TABLET PO EVERY 6 HOURS 14 7 June 10, 2022 Start: 06-01-2017 oxyCODONE-acet aminophen (PERCOCET) 5-325 mg tablet 06/01/2017 Active Start: 05-24-2012 End: 06-23-2012 take 1-2 tablets by mouth every four hours as needed oxyCODONE-acetaminophen 5-325 mg tablet Take 1-2 tablets by mouth every 4 hours as needed. 40 tablet 0 05/24/2012 06/23/2012 Discontinued (Course of therapy completed) Comment on above: Take 1-2 tablets by mouth every 4 hours as needed. [id number] 200 actuat albuterol 0.09 mg/actuat metered dose inhaler (20 sources) beta2-Adrenergic Agonist Start: 08-10-2011 End: 07-05-2012 take 2 puff(s) by inhalation three times daily PROAIR HFA, 108 (90 Base)MCG/ACT (Inhalation Aerosol Solution) 2 (two) Puff(s) tid for 0 days Quantity: 1 {Aerosol_Soln} Refills: 0 Ordered: 05-Jul-2012 Nickie Wagoner RN Start : 10-Aug-2011 End : 05-Jul-2012 Inactive Start: 08-10-2011 End: 07-05-2012 take 2 puff(s) by inhalation three times daily PROAIR HFA, 108 (90 Base)MCG/ACT (Inhalation Aerosol Solution) 2 (two) Puff(s) tid for 0 days Quantity: 1 {Aerosol_Soln} Refills: 0 Ordered: 05-Jul-2012 Nickie Wagoner RN Start : 10-Aug-2011 End : 05-Jul-2012 Inactive amoxicillin 875 mg / clavulanate 125 mg oral tablet (20 sources) Penicillin-class Antibacterial Start: 08-01-2012 End: 08-15-2012 take 1 tablet by mouth twice daily AUGMENTIN, 875-125MG (Oral Tablet) 1 Tablet bid for 14 days Quantity: 28 {Tablet} Refills: 0 Ordered: 01-Aug-2012 Anna Rm Start : 01-Aug-2012 End : 15-Aug-2012 Inactive azithromycin 250 mg oral tablet (20 sources) Macrolide Antimicrobial Start: 06-29-2011 End: 07-05-2012 ZITHROMAX Z-CARMEN, 250MG (Oral Tablet) 1 Tablet TAD for 0 days Quantity: 1 {Package(s)} Refills: 0 Ordered: 05-Jul-2012 Nickie Wagoner RN Start : 29-Jun-2011 End : 05-Jul-2012 Inactive busPIRone hydrochloride 15 mg oral tablet (20 sources) Start: 06-03-2022 take 1 tablet by mouth once daily Buspirone 15 mg tablet Active 15 mg PO DAILY June 03, 2022 12:00am Start: 02-17-2021 take 1 tablet by albina th twice daily busPIRone HCl 15 MG Oral Tablet 1 (one) Tablet bid for 0 days Quantity: 180 {Tablet} Refills: 2 Ordered: 19-Jun-2022 Yanely Purdy DO, DO, Kathleen Start : 19-Jun-2022 Active Comments: Mail order. Comment on above: Mail order. calcium carbonate 1500 mg oral tablet (1 source) Start: 02-11-2010 End: 09-13-2014 calcium carbonate(CALCIUM 600 600 MG (1,500 MG) TAB) Take one(1) tablet two(2) times daily. 0 02/11/2010 09/13/2014 Discontinued (Discontinued by Patient) Comment on above: Take one(1) tablet t wo(2) times daily. Caltrate 600+D Plus Minerals 600-800 MG-UNIT Oral Tablet (20 sources) Start: 12-01-2019 take 600-800 tablets by mouth once daily Caltrate 600+D Plus Minerals 600-800 MG-UNIT Oral Tablet 1 (one) Tablet qd for 30 days Quantity: 30 {Tablet} Refills: 3 Ordered: 22-Jul-2020 Rajwinder RAMIREZ Yanely Rodriguezraquel RAMIREZ Yanely Start : 01-Dec-2019 Active Start: 12-01-2019 take 600-800 tablets by mouth once daily Caltrate 600+D Plus Minerals 600-800 MG-UNIT Oral Tablet 1 (one) Tablet qd for 30 days Quantity: 30 {Tablet} Refills: 3 Ordered: 01-Dec-2019 Rajwinder RAMIREZ Yanely RajwinderFede garcía DOeen Start : 01-Dec-2019 Active cholecalciferol 0.025 mg oral tablet (20 sources) Vitamin D Start: 12-01-2019 take 1 tablet by mouth once daily Vitamin D3 25 MCG (1000 UT) Oral Tablet 1 (one) Tablet qd for 30 days Quantity: 30 {Tablet} Refills: 3 Ordered: 22-Jul-2020 Rajwinder Yanely RajwinderFede garcía DOeen Start : 01-Dec-2019 Active Start: 07-11-2012 End: 04-16-2014 take 2 tablets by mouth once daily VITAMIN D3, 2000UNIT (Oral Tablet) 2 (two) Tablet qd for 0 days Quantity: 60 {Tablet} Refills: 0 Ordered: 16-Apr-2014 Start : 11-Jul-2012 End : 16-Apr-2014 Discontinued cholecalciferol, vitamin D3, 100 mcg (4,000 unit) cap Take by mouth. Active Comment on above: Take by mouth. ciprofloxacin 500 mg oral tablet (6 sources) Quinolone Antimicrobial Start: 2021 End: 2023 take 1 tablet by mouth twice daily Ciprofloxacin Hcl (Cipro) 500 mg tablet Discontinued 500 mg PO TWICE A DAY 6 0 June 10, 2022 12:00am May 15, 2024 4:00pm citalopram 20 mg oral tablet (20 sources) Serotonin Reuptake Inhibitor End: 2006 take 1 tablet by mouth once daily CITALOPRAM HYDROBROMIDE, 20MG (Oral Tablet) 1 qd for 0 days Refills: 0 Ordered: 25-Feb-2007 SHARON Curry LPN End : 25-Feb-2007 Inactive codeine phosphate 2 mg/ml / guaiFENesin 20 mg/ml oral solution (20 sources) Opioid Agonist Start: 2010 End: 2011 CHERATUSSIN AC, 100-10MG/5ML (Oral Syrup) 1 Teaspoon(s) qhs prn for 0 days Quantity: 6 {Ounce(s)} Refills: 0 Ordered: 05-Jul-2012 Nickie Wagoner RN Start : 29-Jun-2011 End : 05-Jul-2012 Inactive Comments: six ounces Comment on above: six ounces docusate sodium 100 mg oral capsule (1 source) Start: 2011 End: 2014 take 1 capsule by mouth twice daily docusate sodium (COLACE) 100 mg capsule Take 1 capsule by mouth twice daily. 60 capsule 2 05/24/2012 09/13/2014 Discontinued (Course of therapy completed) Comment on above: Take 1 capsule by [facility] twice daily. Ferrous Sulfate (SLOW FE) 47.5 mg iron TbER (1 source) Start: 2011 End: 2011 take 1 tablet by mouth once daily Ferrous Sulfate (SLOW FE) 47.5 mg iron TbER Take 1 tablet by mouth once daily. 0 05/17/2012 06/23/2012 Discontinued (Discontinued by Patient) Comment on above: Take 1 tablet by [facility] once daily. meclizine hydrochloride 25 mg oral tablet (3 sources) Antiemetic Start: 2022 End: 2023 take 1 tablet by mouth four times daily as needed for dizziness Meclizine 25 mg tablet Discontinued 25 mg PO 4 TIMES DAILY NEEDED as needed for Dizziness 20 0 August 20, 2023 1:00am May 15, 2024 4:00pm medroxyPROGESTERone acetate 400 mg/ml injectable suspension (20 sources) Progestin Start: 2009 End: 2009 DEPO-PROVERA, 400MG/ML (Intramuscular Suspension) 1 Suspension q 3 mo for 30 days Refills: 0 Ordered: 08-Sep-2010 Nickie Wagoner RN Start : 16-Jun-2010 End : 16-Jul-2010 Inactive melatonin 3 mg oral tablet (1 source) Start: 2011 End: 2014 melatonin 3 mg Tab Take 3 tablets qhs as needed for sleep 0 03/15/2012 09/13/2014 Discontinued (Discontinued by Patient) Comment on above: Take 3 tablets qhs a s needed for sleep Multivitamin Childrens Oral Tablet Chewable (20 sources) Start: 2019 take 1 tablet by mouth once daily Multivitamin Childrens Oral Tablet Chewable 1 (one) Tablet qd for 30 days Quantity: 30 {Tablet} Refills: 2 Ordered: 14-Apr-2023 Yanely Purdy DO, DO, Kathleen Start : 01-Dec-2019 Active Start: 12-01-2019 take 1 tablet by albina th once daily Multivitamin Childrens Oral Tablet Chewable 1 (one) Tablet qd for 30 days Quantity: 30 {Tablet} Refills: 2 Ordered: 09-Apr-2022 Yanely Purdy DO, DO, Kathleen Start : 01-Dec-2019 Active Start: 12-01-2019 take 1 tablet by albina th once daily Multivitamin Childrens Oral Tablet Chewable 1 (one) Tablet qd for 30 days Quantity: 30 {Tablet} Refills: 2 Ordered: 17-Dec-2021 Yanely Purdy DO, DO, Kathleen Start : 01-Dec-2019 Active Start: 12-01-2019 take 1 tablet by albina th once daily Multivitamin Childrens Oral Tablet Chewable 1 (one) Tablet qd for 30 days Quantity: 30 {Tablet} Refills: 2 Ordered: 10-Feb-2021 Yanely Purdy DO, DO, Kathleen Start : 01-Dec-2019 Active Start: 12-01-2019 take 1 tablet by albina th once daily Multivitamin Childrens Oral Tablet Chewable 1 (one) Tablet qd for 30 days Quantity: 30 {Tablet} Refills: 2 Ordered: 22-Jul-2020 Yanely Purdy DO, DO, Kathleen Start : 01-Dec-2019 Active Start: 12-01-2019 take 1 tablet by albina th once daily Multivitamin Childrens Oral Tablet Chewable 1 (one) Tablet qd for 30 days Quantity: 30 {Tablet} Refills: 2 Ordered: 01-Dec-2019 Yanely Purdy DO, DO, Kathleen Start : 01-Dec-2019 Active nitrofurantoin, macrocrystals 100 mg oral capsule (1 source) Nitrofuran Antibacterial Start: 06-06-2012 End: 06-23-2012 take 1 capsule by mouth twice daily nitrofurantoin (MACRODANTIN) 100 mg capsule Take 1 capsule by mouth twice daily. 10 capsule 0 06/06/2012 06/23/2012 Discontinued (Course of therapy completed) Comment on above: Take 1 capsule by [facility] twice daily. ofloxacin 3 mg/ml ophthalmic solution (20 sources) Quinolone Antimicrobial Start: 11-05-2015 End: 11-12-2015 OCUFLOX, 0.3% (Ophthalmic Solution) 1 (one) Solution UAD for 7 days Quantity: 2 {Bottle} Refills: 0 Ordered: 05-Nov-2015 Marciano Hayden MD Start : 05-Nov-2015 End : 12-Nov-2015 Inactive Comments: 1- 2 drops in both eyesevery 4 hours for 2 days thenevery 6 hours for 5 days.Total 7 days Comment on above: 1- 2 drops in both e yesevery 4 hours for 2 days thenevery 6 hours for 5 days.Total 7 days ondansetron 4 mg disintegrating oral tablet (8 sources) Serotonin-3 Receptor Antagonist Start: 05-08-2022 End: 05-15-2024 take 1 tablet by mouth every eight hours as needed for nausea and vomiting Ondansetron 4 mg tablet,disintegrat ing Discontinued 4 mg PO Q8H as needed for nausea and vomiting 10 0 May 08, 2022 12:00am May 15, 2024 4:01pm polymyxin b [id number] unt/ml / trimethoprim 1 mg/ml ophthalmic solution (20 sources) Dihydrofolate Reductase Inhibitor Antibacterial, Polymyxin-class Antibacterial Start: 08-28-2011 End: 07-05-2012 take 1 drop(s) into the eye(s) four times daily POLYMYXIN B-TRIMETHOPRIM, 84527-1.1UNIT/ML-% (Ophthalmic Solution) 1 Drop(s) qid for 0 days Quantity: 1 {Solution} Refills: 0 Ordered: 05-Jul-2012 Nickie Wagoner RN Start : 28-Aug-2011 End : 05-Jul-2012 Inactive sulfamethoxazole 800 mg / trimethoprim 160 mg oral tablet (1 source) Dihydrofolate Reductase Inhibitor Antibacterial, Sulfonamide Antimicrobial Start: 06-01-2012 End: 06-04-2012 take 1 tablet by mouth twice daily sulfamethoxazole-t rimethoprim (BACTRIM DS) 800-160 mg per tablet Take 1 tablet by mouth twice daily for 3 days. 6 tablet 0 06/01/2012 06/04/2012 Comment on above: Take 1 tablet by albina twice daily for 3 days. 28 actuat teriparatide 0.02 mg/actuat pen injector (20 sources) Parathyroid Hormone Analog Start: 02-06-2019 End: 11-22-2019 inject 1 mL by subcutaneous injection once daily Forteo 600 MCG/2.4ML Subcutaneous Solution 1 (one) Milliliter sc qd for 0 days Quantity: 30 {Milliliter} Refills: 5 Ordered: 22-Nov-2019 Sandra Reardon LPN Start : 06-Feb-2019 End : 22-Nov-2019 Inactive Comments: Mail order. Start: 02-06-2019 End: 11-22-2019 inject 1 mL by subcutaneous injection once daily Forteo 600 MCG/2.4ML Subcutaneous Solution 1 (one) Milliliter sc qd for 0 days Quantity: 30 {Milliliter} Refills: 3 Ordered: 22-Nov-2019 Sandra Reardon LPN Start : 06-Feb-2019 End : 22-Nov-2019 Inactive Comments: 20mcg sq qd Start: 06-20-2018 End: 11-22-2019 inject 1 mL by subcutaneous injection once daily Forteo 600 MCG/2.4ML Subcutaneous Solution 1 (one) Milliliter sc qd for 0 days Quantity: 30 {Milliliter} Refills: 3 Ordered: 22-Nov-2019 Sandra Reardon LPN Start : 06-Feb-2019 End : 22-Nov-2019 Inactive Comments: 20mcg sq qd Comment on above: 20mcg sq qd Mail order. Inject subcutaneousl y. TYMLOS, 80mcg (Subcutaneous Injectable) (Free Text) (20 sources) Start: 11-12-2017 End: 11-19-2017 TYMLOS, 80mcg (Subcutaneous Injectable) (Free Text) 1 (one) Injectable daily injection for 30 days Quantity: 1 {Package} Refills: 5 Ordered: 19-Nov-2017 Nickie Wagoner RN Start : 12-Nov-2017 End : 19-Nov-2017 Inactive Start: 11-12-2017 End: 11-19-2017 TYMLOS, 80mcg (Subcutaneous Injectable) (Free Text) 1 (one) Injectable daily injection for 30 days Quantity: 1 {Package} Refills: 5 Ordered: 19-Nov-2017 Nickie Wagoner RN OTOLARYNGOLOGY Start : 12-Nov-2017 End : 19-Nov-2017 Inactive Problems Active Problems Problem Classification Problem Date Documented Date Episodic/Chronic Administrative/social admission (3 sources) Medical examinations/reports status; Translations: [Well woman exam (Renamed from Encounter for well woman exam)] 06-24-2017 Episodic Comment on above: Grandfather had colo n cancer < age 50. Ref[address] Dr Martindmother had breast cancer <60. Last mammogram 1.5 years ago.MAYA:before hystercetromy.Most recent labs in 2011review labs with the patient.Hemoglobin 14, hematocrit 41.7, WBC 4.1, platelets 270.Sodium 143, potassium 4.3, chloride , bicarbonate 23, creatinine 0.84, glucose 81.AST 21 ELT 17 ALP 90 total bili 0.3.Hemoglobin A1c 5.1 TSH 1.43.Vitamin D 42.9. LDL 125 Anxiety disorders (20 sources) Anxiety; Translations: [Anxiety] 06-24-2017 Chronic Comment on above: Started Wellbutrin 1 00 BID 2 weeks ago and PHQ 9 improved from 13 to 5 today.Some dry mouth, but more functional at work, sadness improved, sleeping betterLexapro 20 mg once a daySeen Anna chino every 2 weeksDenies any suicidal or homicidal ideations.Lexapro 20 mg once a day for the last 4 or 5 years.Sadness, loss of interest in her daily activities. Adopted son 16 yrs old has mental health issues(drugs and alcohol) 2 years ago had ideas that she could see the future that bad things are going to happen in the future.Sister(2 years younger) has schizophrenia, on off medications. Lexapro 20 mg once a day for the last 4 or 5 years.Sadness, loss of interest in her daily activities. Adopted son 16 yrs old has mental health issues(drugs and alcohol) 2 years ago had ideas that she could see the future that bad things are going to happen in the future.Sister(2 years younger) has schizophrenia, on off medications. Calculus of urinary tract (16 sources) Kidney stone; Translations: [Calculus of kidney] Onset: 5 05-16-2022 Episodic Chronic obstructive pulmonary disease and bronchiectasis (20 sources) Bronchitis; Translations: [Bronchitis] 06-24-2017 Episodic Chronic obstructive pulmonary disease and bronchiectasis (12 sources) Chronic obstructive pulmonary disease and bronchiectasis Conditions associated with dizziness or vertigo (3 sources) Dizziness; Translations: [Dizziness and giddiness] 08-20-2023 Episodic Coronary atherosclerosis and other heart disease (20 sources) Coronary atherosclerosis and other heart disease Deficiency and other anemia (20 sources) Iron deficiency anemia, unspecified; Translations: [Iron deficiency anemia] 06-24-2017 Episodic Comment on above: RAJIV took care of iro n defic Deficiency and other anemia (13 sources) Iron deficiency anemia; Translations: [Iron Deficiency Anemia,Unspecified (280.9)] Episodic Disorders of lipid metabolism (20 sources) Hyperlipidemia; Translations: [Hyperlipidemia] 06-24-2017 Chronic Comment on above: LDL 125 elevatedTC 2 07TG 68HDl 68 Endometriosis (20 sources) Endometriosis, site unspecified; Translations: [ENDOMETRIOSIS, NOS] 06-24-2017 Chronic Endometriosis (20 sources) Endometriosis Esophageal disorders (20 sources) Gastroesophageal reflux disease; Translations: [GERD (gastroesophageal reflux disease)] 06-24-2017 Chronic Comment on above: Stableprilosec 20 mg BID.Dietary counselling. Fever of unknown origin (20 sources) Fever; Translations: [Fever] Resolved: 9 08-19-2015 Episodic Fracture of lower limb (20 sources) Fracture of phalanx of foot; Translations: [Closed fracture of femoral condyle of femur] Resolved: 2 06-24-2017 Episodic Comment on above: Xray: non displaced fracture of distal phalynx of 2nd toe of left foot.Not requiring any NSAIDbuddy tapeswelling and pain has decresed Genitourinary symptoms and ill-defined conditions (1 source) Dysuria; Translations: [Dysuria] Episodic Immunizations and screening for infectious disease (20 sources) Need for prophylactic vaccination and inoculation against influenza; Translations: [Needs influenza immunization] 07-22-2020 Episodic Inflammation, infection of eye (20 sources) Eye infection; Translations: [Conjunctivitis] Resolved: 7 06-24-2017 Episodic Comment on above: Ocuflox Eye drops 0. 3 %: 1- 2 drops in both eyesevery 4 hours for 2 days thenevery 6 hours for 5 days.Total 7 daysPatient instructed to instill medication in inner aspect of lower eyelid. Infection is easily spread to unaffected eye and to other household members. Frequent handwashing can limint the spread of ocular infections.Eye secretions are contagious for 24-48 hours after therapy begins. If no improvement in 24 hours, develops eye pain or change in vision pt should call office for referral or see eye doctor TREV.bilateral pink eye 10/16/15 presents again with BL pink eye.Started with gritty sensation in the rt eye 2 days ago and now having gritty sensation in the left eye.Crusting in the eyes this AM.No eye pain or visual problems. 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 Denies nasal congestion, sinus pain, postnasal drip, ear ache, fever, nausea, vomiting, lesly, cough, rash. denies allergies left eye Inflammation; infection of eye (except that caused by tuberculosis or sexually transmitteddisease) (20 sources) Eye infection; Translations: [Infection of both eyes] Resolved: 7 09-19-2018 Chronic Comment on above: Ocuflox Eye drops 0. 3 %: 1- 2 drops in both eyesevery 4 hours for 2 days thenevery 6 hours for 5 days.Total 7 daysPatient instructed to instill medication in inner aspect of lower eyelid. Infection is easily spread to unaffected eye and to other household members. Frequent handwashing can limint the spread of ocular infections.Eye secretions are contagious for 24-48 hours after therapy begins. If no improvement in 24 hours, develops eye pain or change in vision pt should call office for referral or see eye doctor TREV.bilateral pink eye 10/16/15 presents again with BL pink eye.Started with gritty sensation in the rt eye 2 days ago and now having gritty sensation in the left eye.Crusting in the eyes this AM.No eye pain or visual problems. 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 Denies nasal congestion, sinus pain, postnasal drip, ear ache, fever, nausea, vomiting, lesly, cough, rash. denies allergies Malaise and fatigue (20 sources) Malaise and fatigue; Translations: [Other malaise and fatigue] Resolved: 2 06-24-2017 Episodic Menstrual disorders (20 sources) Amenorrhea; Translations: [Amenorrhea] 06-24-2017 Chronic Nutritional deficiencies (20 sources) Vitamin D deficiency, unspecified; Translations: [Vitamin D deficiency] 06-24-2017 Chronic Osteoporosis (20 sources) Osteoporosis; Translations: [Osteoporosis] 06-24-2017 Chronic Comment on above: had secondary work u p in past -- Other and unspecified benign neoplasm (20 sources) Lipoma (clinical); Translations: [Lipoma] 06-24-2017 Episodic Other circulatory disease (20 sources) Elevated blood pressure; Translations: [Elevated blood pressure reading] 02-10-2021 Episodic Other connective tissue disease (20 sources) Pain in lower limb; Translations: [Leg pain] Resolved: 7 06-24-2017 Episodic Other diseases of kidney and ureters (1 source) Hydronephrosis; Translations: [Unspecified hydronephrosis] 04-10-2025 Episodic Other female genital disorders (8 sources) History of gynecological disorder; Translations: [Personal history of other diseases of the female genital tract] 05-08-2022 Episodic Other gastrointestinal disorders (8 sources) H/O: gastrointestinal disease; Translations: [Personal history of other diseases of the digestive system] 10-03-2013 Episodic Other injuries and conditions due to external causes (20 sources) Unspecified injury of left foot, initial encounter; Translations: [Injury of toe of left foot] Resolved: 06-24-2017 Episodic Comment on above: Xray left footWearin g sandals and someone stepped on her left middle toe, blue, Able to move her left toe. Other lower respiratory disease (20 sources) Wheezing; Translations: [Wheezing] Resolved: 7 06-24-2017 Episodic Other lower respiratory disease (20 sources) Cough; Translations: [Cough] Resolved: 7 06-24-2017 Episodic Other nervous system disorders (20 sources) Paresthesia 06-24-2017 Episodic Other nervous system disorders (10 sources) Paresthesia of upper limb; Translations: [Numbness and tingling of right arm] 04-14-2023 Episodic Comment on above: carpal tunnel vs cer vical radiculopathy. getting xrays. nsaids Other non-traumatic joint disorders (20 sources) Knee pain; Translations: [Pain in unspecified knee] Resolved: 7 06-24-2017 Episodic Comment on above: resolved with [facility] Arcos. Other nutritional; endocrine; and metabolic disorders (18 sources) Body mass index 25-29 - overweight; Translations: [BMI 25.0-25.9,adult] Resolved: 0 06-24-2017 Chronic Comment on above: DIET AND EXERCISE: - health recomendations that are to be followed unless otherwise told unable to do are 10,000 steps a day (can buy a pedometer at [employer]), -5 days of week of 30 mins of cardiotraining (increase heartrate around 110-130 and sweating in 10 min), twice a week of 15 min weight lifting. Keep track of daily food intake, watch portion control, must make lifestyle change and not just diet.-limit sugars to 20-30 grams a day. Avoid soda, pop and white starches. Replace refined grains (white bread, white rice, refined sweet cereal with whole grain(whole wheat, whole grain, brown rice, whole grain cereal, oatmeal, barley, bulgar, popcorn oat cereal,muesli cereal, rye quinoa, whole grain anything) Avoid pasta, potatoes, corn syrups. Avoid pasta if you have to have any use spiralizer/spagetti squash/zuchini for pasta and quinoa for rice.(recommend 1/3 of grains whole grains, about 30 gm a day)-Avoid red meat, processed meats. Clean eating is recommend with lean protein like fish, chicken, turkey, lean redmeat (only 2-3 servings a week), baked broiled or grilled.1-2 servings of oily fish per week is recommended to decrease cardiovascular disease.- Type of fat is more important than total fat.Trans fats are linked to coronary heart disease. Saturated fats to avoid are meat, dairy, chips, pastries, hydrogenated veg. oilPolyunsaturated fats are protective , in foods like nuts, avocados, olives- 2 cups of fruit and 2 cups of veggies a day ,double the vegetables over fruits. Fruits and vegetables are a high source of fiber-Eat from refrigerator not pantry. Shop from the outside aisle and produce and not inner aisle.Weigh yourself daily, lose 1-2 pounds per week. In three months if unable to loose atleast 4 pounds a month, then need to talk about further treatment strategies.Can join [facility] programme with [facility] for nutrition counselling. Other nutritional; endocrine; and metabolic disorders (20 sources) Body mass index 25-29 - overweight; Translations: [BMI 27.0-27.9,adult] Resolved: 0 07-26-2020 Episodic Comment on above: DIET AND EXERCISE: - health recomendations that are to be followed unless otherwise told unable to do are 10,000 steps a day (can buy a pedometer at [employer]), -5 days of week of 30 mins of cardiotraining (increase heartrate around 110-130 and sweating in 10 min), twice a week of 15 min weight lifting. Keep track of daily food intake, watch portion control, must make lifestyle change and not just diet.-limit sugars to 20-30 grams a day. Avoid soda, pop and white starches. Replace refined grains (white bread, white rice, refined sweet cereal with whole grain(whole wheat, whole grain, brown rice, whole grain cereal, oatmeal, barley, bulgar, popcorn oat cereal,muesli cereal, rye quinoa, whole grain anything) Avoid pasta, potatoes, corn syrups. Avoid pasta if you have to have any use spiralizer/spagetti squash/zuchini for pasta and quinoa for rice.(recommend 1/3 of grains whole grains, about 30 gm a day)-Avoid red meat, processed meats. Clean eating is recommend with lean protein like fish, chicken, turkey, lean redmeat (only 2-3 servings a week), baked broiled or grilled.1-2 servings of oily fish per week is recommended to decrease cardiovascular disease.- Type of fat is more important than total fat.Trans fats are linked to coronary heart disease. Saturated fats to avoid are meat, dairy, chips, pastries, hydrogenated veg. oilPolyunsaturated fats are protective , in foods like nuts, avocados, olives- 2 cups of fruit and 2 cups of veggies a day ,double the vegetables over fruits. Fruits and vegetables are a high source of fiber-Eat from refrigerator not pantry. Shop from the outside aisle and produce and not inner aisle.Weigh yourself daily, lose 1-2 pounds per week. In three months if unable to loose atleast 4 pounds a month, then need to talk about further treatment strategies.Can join [facility] programme with [facility] for nutrition counselling. Other nutritional; endocrine; and metabolic disorders (20 sources) Overweight in adulthood with body mass index of 25 or more but less than 30; Translations: [BMI 27.0-27.9,adult] Resolved: 0 12-17-2021 Episodic Comment on above: DIET AND EXERCISE: - health recomendations that are to be followed unless otherwise told unable to do are 10,000 steps a day (can buy a pedometer at sport stores), -5 days of week of 30 mins of cardiotraining (increase heartrate around 110-130 and sweating in 10 min), twice a week of 15 min weight lifting. Keep track of daily food intake, watch portion control, must make lifestyle change and not just diet.-limit sugars to 20-30 grams a day. Avoid soda, pop and white starches. Replace refined grains (white bread, white rice, refined sweet cereal with whole grain(whole wheat, whole grain, brown rice, whole grain cereal, oatmeal, barley, bulgar, popcorn oat cereal,muesli cereal, rye quinoa, whole grain anything) Avoid pasta, potatoes, corn syrups. Avoid pasta if you have to have any use spiralizer/spagetti squash/zuchini for pasta and quinoa for rice.(recommend 1/3 of grains whole grains, about 30 gm a day)-Avoid red meat, processed meats. Clean eating is recommend with lean protein like fish, chicken, turkey, lean redmeat (only 2-3 servings a week), baked broiled or grilled.1-2 servings of oily fish per week is recommended to decrease cardiovascular disease.- Type of fat is more important than total fat.Trans fats are linked to coronary heart disease. Saturated fats to avoid are meat, dairy, chips, pastries, hydrogenated veg. oilPolyunsaturated fats are protective , in foods like nuts, avocados, olives- 2 cups of fruit and 2 cups of veggies a day ,double the vegetables over fruits. Fruits and vegetables are a high source of fiber-Eat from refrigerator not pantry. Shop from the outside aisle and produce and not inner aisle.Weigh yourself daily, lose 1-2 pounds per week. In three months if unable to loose atleast 4 pounds a month, then need to talk about further treatment strategies.Can join [facility] programme with [facility] for nutrition counselling. Other skin disorders (20 sources) Changes in skin texture; Translations: [Skin texture changes] 06-24-2017 Episodic Comment on above: lipoma versus varico sity vs clot (unlikely) but will doppler for peace of mind Other upper respiratory infections (20 sources) Chronic sinusitis; Translations: [Sinusitis, chronic] 06-24-2017 Chronic Other upper respiratory infections (20 sources) Acute pharyngitis; Translations: [Pharyngitis, acute] 06-24-2017 Episodic Comment on above: for over a monthdrin ks little water Poisoning by nonmedicinal substances (1 source) Bee sting; Translations: [Toxic effect of venom of bees, accidental (unintentional), initial encounter] Episodic Poisoning by other medications and drugs (3 sources) Poisoning by unspecified drugs, medicaments and biological substances, accidental (unintentional), initial encounter; Translations: [Overdose] 08-20-2023 Episodic Residual codes; unclassified (20 sources) Body mass index (BMI) 24.0-24.9, adult; Translations: [Body mass index 20-24 - normal] Resolved: 0 06-24-2017 Episodic Residual codes; unclassified (11 sources) Needs influenza immunization; Translations: [Need for prophylactic vaccination and inoculation against influenza] 06-24-2017 Episodic Residual codes; unclassified (20 sources) Family history of malignant neoplasm of breast; Translations: [Family history of malignant neoplasm of breast in first degree relative] 06-24-2017 Episodic Comment on above: paternal side Residual codes; unclassified (20 sources) Postmenopausal state; Translations: [Postmenopausal] 06-24-2017 Episodic Comment on above: surgical Residual codes; unclassified (20 sources) Influenza-like symptoms; Translations: [Flu-like symptoms] Resolved: 1 07-22-2020 Episodic Residual codes; unclassified (20 sources) Influenza vaccination declined; Translations: [Influenza vaccination declined (Renamed from Refused influenza vaccine)] 07-26-2020 Episodic Residual codes; unclassified (20 sources) Non-smoker; Translations: [Non-smoker] 02-10-2021 Episodic Residual codes; unclassified (4 sources) Viral syndrome; Translations: [Flu-like symptoms] Resolved: 1 04-25-2022 Episodic Spondylosis; intervertebral disc disorders; other back problems (10 sources) Cervical radiculopathy; Translations: [Cervical radiculopathy] 04-14-2023 Episodic Comment on above: get xray, could be c arpal tunnel. cock-up splint. f/u in a 1-2 months or if worsens come sooner. don't think need NCS yet, acute episode and no prior c/o Unclassified (20 sources) Family history of malignant neoplasm of gastrointestinal tract; Translations: [Needs influenza immunization] Onset: 2 06-24-2017 Episodic Comment on above: surgical grandfather had CRC prior to age 50Colonoscopy february 09, Per Dr Alejandro moderate-high risk of CRC paternal side Unclassified (2 sources) Unknown / UNK(Unknown) Onset: 7 Unclassified (20 sources) Family history of breast cancer in first degree relative Unclassified (20 sources) Encounter for screening mammogram for breast cancer (Renamed from Encounter for screening mammogram for malignant neoplasm of breast) Unclassified (20 sources) Influenza vaccination declined (Renamed from Refused influenza vaccine) Unclassified (20 sources) Unclassified (20 sources) Non-smoker; Translations: [Non-smoker] 06-24-2017 Unclassified (20 sources) Postmenopausal Unclassified (20 sources) Closed nondisplaced fracture of condyle of left femur with routine healing, subsequent encounter Unclassified (20 sources) BMI 24.0-24.9, adult Unclassified (20 sources) GENERAL SYMPTOMS; OTHER MALAISE AND FATIGUE (780.79) Unclassified (20 sources) BMI 27.0-27.9,adult Unclassified (19 sources) Breast cancer screening Unclassified (20 sources) BMI 29.0-29.9,adult Unclassified (13 sources) BRONCHITIS, NOT SPECIFIED ACUTE OR CHRONIC (490.) Unclassified (20 sources) Elevated blood pressure reading Past or Other Problems Problem Classification Problem Date Documented Date Episodic/Chronic Abdominal pain (20 sources) Abdominal pain; Translations: [Unspecified abdominal pain] Onset: 02-11-2010 Resolved: 04-09-2022 02-11-2010 Episodic Comment on above: has Gerd and Rt lowe r quad pain Headache, including migraine (20 sources) Headache; Translations: [Headache] Resolved: 11-22-2019 06-24-2017 Episodic Headache; including migraine (20 sources) Headache; including migraine Hemorrhoids (20 sources) Hemorrhoids; Translations: [Hemorrhoids] Resolved: 06-16-2010 06-18-2015 Episodic Residual codes; unclassified (11 sources) H/O: hysterectomy; Translations: [Hysterectomy] Onset: 05-23-2012 06-24-2017 Episodic Unclassified (20 sources) Breast neoplasm screening status; Translations: [Patient encounter status] Onset: 06-14-2024 06-24-2017 Episodic Comment on above: grandmother had Br t old to call if age<60.Last mammo 1.5 yrs ago Unclassified (1 source) L FEMUR NECK FX Onset: 05-29-2017 Unclassified (20 sources) 2 Adopted children 06-24-2017 Unclassified (20 sources) Unspecified Diagnosis 11-12-2017 Unclassified (20 sources) BMI 25.0-25.9,adult Unclassified (20 sources) Skin texture changes Unclassified (12 sources) Pregnancies (); Translations: [Pregnancies ()] 06-24-2017 Comment on above: 0 Unclassified (12 sources) Screening status; Translations: [Screening for hyperlipidemia] 06-24-2017 Unclassified (20 sources) Fracture, phalanx, foot Unclassified (20 sources) Conjunctivitis NOS (372.30) Unclassified (20 sources) Trauma left toe Unclassified (20 sources) Infection of both eyes Unclassified (20 sources) D&C 06-24-2017 Unclassified (20 sources) Well woman exam (Renamed from Encounter for well woman exam) Unclassified (11 sources) Influenza vaccination declined; Translations: [Influenza vaccination declined (Renamed from Refused influenza vaccine)] 06-24-2017 Unclassified (11 sources) Non-smoker; Translations: [Non-smoker] 06-24-2017 Unclassified (20 sources) Patient encounter status; Translations: [Encounter for screening mammogram for breast cancer (Renamed from Encounter for screening mammogram for malignant neoplasm of breast)] 06-24-2017 Comment on above: grandmother had Br t old to call if age<60.Last mammo 1.5 yrs ago Grandfather had colo n cancer < age 50. Ref[address] Dr Gironother had breast cancer <60. Last mammogram 1.5 years ago.MAYA:before hystercetromy.Most recent labs in 2011review labs with the patient.Hemoglobin 14, hematocrit 41.7, WBC 4.1, platelets 270.Sodium 143, potassium 4.3, chloride , bicarbonate 23, creatinine 0.84, glucose 81.AST 21 ELT 17 ALP 90 total bili 0.3.Hemoglobin A1c 5.1 TSH 1.43.Vitamin D 42.9. LDL 125 Unclassified (8 sources) Body mass index 20-24 - normal; Translations: [BMI 24.0-24.9, adult] Resolved: 11-22-2019 06-24-2017 Unclassified (8 sources) Injury of toe of left foot; Translations: [Trauma left toe] 06-24-2017 Comment on above: Xray left footWearin g sandals and someone stepped on her left middle toe, blue, Able to move her left toe. Unclassified (18 sources) Flu-like symptoms Unclassified (20 sources) Pregnancies (); Translations: [Pregnancies ()] 02-10-2021 Comment on above: 0 Results Test Name Value Interpretation Reference Range Facility Abdomen/Pelvis without Conto n 04-10-2025 Abdomen/Pelvis without Cont [facility] [address] [place] [id number] Abdomen/Pelvis without Cont MR#: [id number] Acct: [id number] Name: TOMEKA QUARLES Rep #: [id number] : 1970 F 54 From: Jaydon suarez MD PCP: Dr. Yanely Purdy, DO Status: REG ER Study: Abdomen/Pelvis without Cont Date of Exam: 01/28 Exam# [id number] Ordering Dr: Antonino Gardner DO PROCEDURE: ABDOMEN/PELVIS WITHOUT CONT 04/10/2025 REASON FOR EXAM: LEFT FLANK PAIN TECHNIQUE: ABDOMEN/PELVIS WITHOUT CONT Noncontrast technique limits evaluation of the abdominal and pelvic viscera. Coronal and Sagittal reconstruction series were provided. One or more dose reduction techniques were used (e.g., Automated exposure control, adjustment of the mA and/or kV according to patient size, use of iterative reconstruction technique). RADIATION DOSE SUMMARY: CTDlvol: 8.04 mGy DLP: 385.41 mGycm COMPARISON: Prior study dated November 15, 2024. FINDINGS: Lung bases: The lung bases are clear. No evidence of coronary artery calcification. Liver: Normal size. No obvious mass. Gallbladder: I suspect small gallstones within the gallbladder lumen. Spleen: Normal size. Pancreas: Normal size. No surrounding inflammation. Adrenals: Unremarkable Kidneys: Mild degree of left hydronephrosis and left hydroureter due to a 2 mm calculus at the left ureterovesical junction. The previously seen calculus in the lower pole of the left kidney is not seen at this time within the kidney. Left parapelvic cysts. Bladder: Urinary bladder is empty. Reproductive Organs: Prior hysterectomy. Adnexal regions are unremarkable. Bowel: No bowel obstruction. Appendix: Unremarkable Lymph nodes: Unremarkable. Vasculature: Mild diffuse atherosclerotic calcifications are noted. Peritoneum / Retroperitoneum: Unremarkable Bones: No significant abnormality is seen. CT/Abdomen/Pelvis without Cont IMPRESSION: Mild degree of left hydronephrosis and left hydroureter due to a punctate calculus in the left ureterovesical junction. The previously seen calculus in the inferior pole of the left kidney is not seen at this time. Reading Location: [id number] CC: Dr. Antonino Gardner, DO; Dr. Yanely Purdy, DO Job Change Crew Member: Signed Normal [facility] Absolute lymphocyte countOrd ered By: Antonino Gardner on 04-10-2025 Lymphocytes Auto (Unsp spec) [#/Vol] 1.27 10*3/uL 0.83-4.51 [facility] Absolute neutrophil countOrd ered By: Antonino Gardner on 04-10-2025 Neutrophils (Bld) [#/Vol] 6.0 10*3/uL 2.0-7.7 [facility] Anion gap in Serum or Plasma Ordered By: Antonino Gardner on 04-10-2025 Anion gap [Moles/Vol] 13 mmol/L 5-15 [facility] Automated blood erythrocyte countOrdered By: Antonino Gardner on 04-10-2025 RBC (Bld) [#/Vol] 4.83 10*6/uL Normal 4.2-5.4 [facility] Comment on above: Performed By: #### L 100.0100, L500.2500 #### [facility] [address] [facility] [address] Automated blood hematocrit ( percentage)Ordered By: Antonino Gardner on 04-10-2025 Hematocrit (Bld) [Volume fraction] 42.1 % Normal 37-47 [facility] Comment on above: Performed By: #### L 100.0100, L500.2500 #### [facility] [address] [place], [place], [id number] Automated lymphocyte count a s percentage of total leukocytesOrdered By: Antonino Gardner on 04-10-2025 Lymphocytes/100 WBC Auto (Unsp spec) 16.3 % Low 19-41 [facility] BUN/creatinine ratioOrdered By: Antonino Gardner on 04-10-2025 Urea nitrogen/Creatinine [Mass ratio] 18.8 mg/mg 10- [facility] Basic Metabolic Profile (BMP )on 04-10-2025 BUN/CRE 18.8 RATIO Normal - [facility] Comment on above: Performed By: #### L 100.0100, L500.2500 #### [facility] [address] [place], [address] ECRCL 52.83 ml/min Normal 50-250 [facility] Comment on above: Performed By: #### L 100.0100, L500.2500 #### [facility] [address] [place], [address] GAP 13 Normal 5-15 [facility] Comment on above: Performed By: #### L 100.0100, L500.2500 #### [facility] [address] [place], [address] Potassium [Moles/Vol] 4.1 mmol/L Normal 3.3-5.1 [facility] Comment on above: Performed By: #### L 100.0100, L500.2500 #### [facility] [address] [place], [address] Basophil percentageOrdered B y: Antonino Jj on 04-10-2025 Basophils/100 WBC (Bld) 0.5 % Normal 0-1 [facility] Comment on above: Performed By: #### L 100.0100, L500.2500 #### [facility] [address], [address] Bilirubin Test strip Ql (U)O rdered By: Antonino Gardner on 04-10-2025 Bilirubin Ql (U) Negative Negative [facility] CBC W/Diff, Automatedon Absolute Lymph 1.27 X10 3/uL Normal 0.83-4.51 [facility] Comment on above: Performed By: #### L 100.0100, L500.2500 #### [facility] [address] [place], [address] Absolute Neut 6.0 X10 3/uL Normal 2.0-7.7 [facility] Comment on above: Performed By: #### L 100.0100, L500.2500 #### [facility] [address] [place], [address] IG% 0.100 Normal 0.0-0.9 [facility] Comment on above: Result Comment: IG% - Immature Granulocytes (promyelocytes, myelocytes and metamyelocytes) > 1% indicates that a LEFT SHIFT is Present. Performed By: #### L 100.0100, L500.2500 #### [facility] [address] [place], [address] Lymphocytes/100 WBC (Bld) 16.3 % Low 19-41 [facility] Comment on above: Performed By: #### L 100.0100, L500.2500 #### [facility] [address] [place], [address] Nucleated RBC (Bld) [#/Vol] 0 10*3/uL Normal 0-5 [facility] Comment on above: Performed By: #### L 100.0100, L500.2500 #### [facility] [address] [place], [address] RDW SD 41.7 fl Normal 35.1-43.9 [facility] Comment on above: Performed By: #### L 100.0100, L500.2500 #### [facility] [address] [place], [address] Carbon dioxide, total [Moles /volume] in Central venous bloodOrdered By: Antonino Gardner on 04-10-2025 CO2 [Moles/Vol] 23.2 mmol/L Normal 21.0-32.0 [facility] Comment on above: Performed By: #### L 100.0100, L500.2500 #### [facility] [address] [place], [address] Chloride assayOrdered By: Joaquín Gardner on 04-10-2025 Chloride [Moles/Vol] 102 mmol/L Normal 98-108 [facility] Comment on above: Performed By: #### L 100.0100, L500.2500 #### [facility] [address] [place], [address] Emergency Department Summary on 04-10-2025 Emergency Department Summary [facility] Medical Records Department [address] [place] [address] Emergency Department Summary 04/10/25 MR#: [id number] Acct: [id number] Name: TOMEKA QUARLES Linda Rep #: [id number] : 1970 54 From: Antonino Gardner DO PCP: Dr. Yanely Purdy, DO Status:DEP ER Location: ED HPI History of Present Illness Chief Complaint: Flank Pain Informant: patient Onset/Context/Timing Onset: Days (2) Context: Sudden Onset Timing: Intermittent Quality: Stabbing Location: Left flank, left lower abdomen Worsened by: Nothing Relieved by: Curling up into a ball Narrative Narrative: Patient presents with left flank pain that began 2 days ago. Patient states she has a history of prior kidney stones. Patient states her pain is mainly over the left lower abdomen and left lower flank. Patient describes her pain as stabbing. Patient states it is better when she is able to curl up into a ball. Patient states nothing makes it worse. Patient denies any fevers or chills. Patient admits to some nausea and vomiting. Patient also admits to some urinary frequency but denies any dysuria or hematuria. [facility] Medical History PONV (postoperative nausea and vomiting) History of kidney stones Family history of colon cancer Wears glasses Depression Anxiety High cholesterol Restless legs Gastric reflux Heartburn Non-smoker History of echocardiogram History of stress test History of endometriosis Home Medications ???Medication ???Instructions ???Recorded ???Last Taken ???Type bupropion HCl 100 mg tablet 100 mg PO DAILY 06/01/19 05/25/24 History calcium 600 mg (as 2 ea PO DAILY 06/01/19 05/23/24 Hi story carbonate)-vitamin D3 5 mcg (200 unit) tablet escitalopram oxalate 20 mg tablet 20 mg PO DAILY 06/01/19 05/26/24 History multivitamin 1 ea PO DAILY 06/01/19 05/25/24 Hi story ibuprofen 600 mg tablet 600 mg PO Q8H PRN PRN pain #20 tab s 05/08/22 Unknown Rx buspirone 15 mg tablet 15 mg PO DAILY 06/03/22 05/26/24 H istory rosuvastatin 10 mg tablet 10 mg PO DAILY 06/03/22 05/25/24 H istory denosumab 60 mg/mL subcutaneous 60 mg subcut [id number] 05/15/24 History syringe (Prolia) hydrocodone-acetaminophen 5-325mg 1 tab PO Q6H PRN PRN Pain 3 days 04/10/25 Unknown Rx 5mg-325mg #10 TABLETS Allergy/AdvReac Type Severity Reaction Status Date / Time adhesive tape AdvReac Rash Verified 11/15/24 15:48 Family History Grandfather Colon cancer Before 60yrs. Surgical History Hx of colonoscopy History of hysterectomy Social History household members: spouse current occupational status: employed current occupation: [employer] Smoking Status: Never smoker substance use type: does not use ROS ROS ED Constitutional Constitutional ED: Denies chills or fever(s) Eyes Eyes: Denies blurry vision or change in vision ENT ENT ED: Denies rhinorrhea or sore throat Cardiovascular Cardiovascular: Denies chest pain or palpitations Respiratory/Chest Respiratory/Chest: Denies cough or dyspnea Gastrointestinal Gastrointestinal: Reports abdominal pain, nausea and vomiting; Denies diarrhea or melena Genitourinary Genitourinary ED: Reports urinary frequency; Denies dysuria or hematuria Musculoskeletal Musculoskeletal: Denies back pain or neck pain Integumentary Denies abscess or rash Neurologic Neurologic: Denies headache(s) or weakness Allergic/Immunologic Allergic/Immunologic ED: Denies mouth swelling or urticaria EXAM Physical Exam Const Vital Signs: 04/10/25 08:45 Temperature 96.8 F L Temperature Source Temporal Pulse Rate 72 Respiratory Rate 16 Blood Pressure 183/93 H Blood Pressure Mean 123 Pulse Ox 99 Oxygen Delivery Method Room Air Positive well nourished and well developed Constitutional Narrative: BMI is 28.1. General Appearance ED: well developed and NAD HEENT Reports moist mucous membranes Neck supple and no JVD Resp normal respiratory effort and clear to auscultation bilaterally Cardio regular rate and regular rhythm GI non-distended Palpation: soft and tender LLQ; Negative for guarding or rebound tenderness present Neuro oriented x3, CN's II-XII intact bilaterally and no sensory deficits noted Sensorium / Orientation: alert Motor Exam: strength 5/5 throughout Psych mental status grossly normal MDM MDM MDM Narrative Medical decision making narrative: Differential diagnosis includes ureteral calculus, pyelonephritis, diverticulitis, colitis, bowel obstruction, perforation, and urinary tract infection. (more content not included)... Normal [facility] Eosinophil percentageOrdered By: Antonino Gardner on 04-10-2025 Eosinophils/100 WBC (Bld) 0.8 % Normal 0-5 [facility] Comment on above: Performed By: #### L 100.0100, L500.2500 #### [facility] [address] [place], [address] Erythrocyte distribution wid th ratioOrdered By: Antonino Gardner on 04-10-2025 Erythrocyte distribution width (RBC) [Ratio] 13.1 % Normal 11.6-14.6 [facility] Comment on above: Performed By: #### L 100.0100, L500.2500 #### [facility] [address] [place], [address] Erythrocyte distribution wid th standard deviationOrdered By: Antonino Gardner on 04-10-2025 Erythrocyte distribution width (RBC) [Ratio] 41.7 fl 35.1-43.9 [facility] Glomerular filtration rate ( GFR) estimation/1.73 sq m using serum, plasma, or whole bOrdered By: Antonino Gardner on 04-10-2025 GFR/1.73 sq M.predicted among non-blacks MDRD (S/P/Bld) [Vol rate/Area] 57 mL/min/{1.73_m2} Low >60 [facility] Comment on above: mL/min/1.73m2 CKD-EP I Creatinine Equation (2020) Result Comment: mL/m in/1.73m2 CKD-EPI Creatinine Equation (2020) Performed By: #### L 100.0100, L500.2500 #### [facility] [address] [place], [address] Hemoglobin measurementOrdere d By: Antonino Gardner on 04-10-2025 Hemoglobin (Bld) [Mass/Vol] 14.5 g/dL Normal 12.0-15.0 [facility] Comment on above: Performed By: #### L 100.0100, L500.2500 #### [facility] [address] [place], [address] Immature granulocytes/100 WB C Auto (Bld)Ordered By: Antonino Gardner on 04-10-2025 Immature granulocytes/100 WBC (Bld) 0.100 % 0.0-0.9 [facility] Comment on above: IG% - Immature Granu locytes (promyelocytes, myelocytes and metamyelocytes) > 1% indicates that a LEFT SHIFT is Present. Ketones Test strip Ql (U)Ord ered By: Antonino Gardner on 04-10-2025 Ketones Ql (U) Negative Negative [facility] MCV (mean corpuscular volume ) determinationOrdered By: Antonino Gardner on 04-10-2025 MCV (RBC) [Entitic vol] 87.2 fL Normal 81-99 [facility] Comment on above: Performed By: #### L 100.0100, L500.2500 #### [facility] [address] [place], [place], [id number] Mean corpuscular hemoglobin (MCH) determinationOrdered By: Antonino Gardner on 04-10-2025 MCH (RBC) [Entitic mass] 30.0 pg Normal 27.0-32.0 [facility] Comment on above: Performed By: #### L 100.0100, L500.2500 #### [facility] [address] [place], [address] Mean corpuscular hemoglobin concentration (MCHC) determinationOrdered By: Antonino Gardner on 04-10-2025 MCHC (RBC) [Mass/Vol] 34.4 g/dL Normal 32-36 [facility] Comment on above: Performed By: #### L 100.0100, L500.2500 #### [facility] [address] [place], [address] Mean platelet volume determi nationOrdered By: Antonino Gardner on 04-10-2025 Platelet mean volume (Bld) [Entitic vol] 9.6 fL Normal 6.2-12.0 [facility] Comment on above: Performed By: #### L 100.0100, L500.2500 #### [facility] [address] [place], [place], [id number] Microscopic analysis of urin e for red blood cells (RBC)Ordered By: Antonino Gardner on 04-10-2025 Microscopic analysis of urine for red blood cells (RBC) 50-100 SEEN /hpf 0-5 [facility] Monocyte percentageOrdered B y: Antonino Gardner on 04-10-2025 Monocytes/100 WBC (Bld) 4.9 % Normal 0-10 [facility] Comment on above: Performed By: #### L 100.0100, L500.2500 #### [facility] [address], [place], [id number] Mucus LM Ql (Urine sed)Order ed By: Antonino Gardner on 04-10-2025 Mucus Ql (Urine sed) 0 SEEN /hpf [facility] Neutrophil percentageOrdered By: Antonino Gardner on 04-10-2025 Neutrophils/100 WBC (Bld) 77.4 % High 47-70 [facility] Comment on above: Performed By: #### L 100.0100, L500.2500 #### [facility] [address], [place], [id number] Nitrite Test strip Ql (U)Ord ered By: Antonino Gardner on 04-10-2025 Nitrite Ql (U) Negative Negative [facility] Nucleated red blood cell per centageOrdered By: Antonino Gardner on 04-10-2025 Nucleated RBC/100 WBC (Bld) [Ratio] 0 % 0-5 [facility] Platelet countOrdered By: Joaquín Gardner on 04-10-2025 Platelets (Bld) [#/Vol] 239 10*3/uL Normal 150-450 [facility] Comment on above: Performed By: #### L 100.0100, L500.2500 #### [facility] [address] [place], [address] Potassium measurement (mass/ volume)Ordered By: Antonino Gardner on 04-10-2025 Potassium (Unsp spec) [Mass/Vol] 4.1 mmol/L 3.3-5.1 [facility] Protein Test strip Ql (U)Ord ered By: Antonino Gardner on 04-10-2025 Protein Ql (U) 30 mg/dl High Negative [facility] Serum creatinine measurement (mass/volume)Ordered By: Antonino Gardner on 04-10-2025 Creatinine [Mass/Vol] 1.13 mg/dL Normal 0.70-1.20 [facility] Comment on above: Performed By: #### L 100.0100, L500.2500 #### [facility] [address] [place], [address] Serum glucose measurement (m ass/volume)Ordered By: Antonino Gardner on 04-10-2025 Glucose [Mass/Vol] 106 mg/dL High 70-99 [facility] Comment on above: Performed By: #### L 100.0100, L500.2500 #### [facility] [address] [place], [address] Serum or plasma calcium paulette urement (mass/volume)Ordered By: Antonino Gardner on 04-10-2025 Calcium [Mass/Vol] 9.5 mg/dL Normal 7.6-11.0 [facility] Comment on above: Performed By: #### L 100.0100, L500.2500 #### [facility] [address] [place], [address] Serum or plasma urea nitroge n measurement (mass/volume)Ordered By: Antonino Gardner on 04-10-2025 Urea nitrogen [Mass/Vol] 21 mg/dL High 4-19 [facility] Comment on above: Performed By: #### L 100.0100, L500.2500 #### [facility] [address] [place], [address] Sodium levelOrdered By: Antonino Gardner on 04-10-2025 Sodium [Moles/Vol] 138 mmol/L Normal 133-145 [facility] Comment on above: Performed By: #### L 100.0100, L500.2500 #### [facility] [address] [place], [address] Squamous epithelial cells de tection in urine sediment by light microscopyOrdered By: Antonino Gardner on 04-10-2025 Epithelial cells.squamous LM Ql (Urine sed) 0 SEEN /hpf 5-10 [facility] Urinalysis, Completeon 04-10 RBC 50-100 SEEN Normal 0-5 [facility] Comment on above: Order Comment: CLEAN CATCH Performed By: #### L 400.0001 #### [facility] [address] [place], [address] BACTERIA 0 SEEN Normal None Seen [facility] Comment on above: Order Comment: CLEAN CATCH Performed By: #### L 400.0001 #### [facility] [address] [place], [address] EPI,SQUAMOUS 0 SEEN Normal 5-10 [facility] Comment on above: Order Comment: CLEAN CATCH Performed By: #### L 400.0001 #### [facility] [address] [place], [address] Mucus Ql (Urine sed) 0 SEEN Normal [facility] Comment on above: Order Comment: CLEAN CATCH Performed By: #### L 400.0001 #### [facility] [address] [place], [address] WBC 0 SEEN Normal 0-5 [facility] Comment on above: Order Comment: CLEAN CATCH Performed By: #### L 400.0001 #### [facility] [address] [place], [address] Urine clarityOrdered By: Kamilah Gardner on 04-10-2025 Clarity (U) Clear Clear [facility] Urine color determinationOrd ered By: Antonino Gardner on 04-10-2025 Color (U) Yellow Yellow [facility] Urine glucose detectionOrder ed By: Antonino Gardner on 04-10-2025 Glucose Ql (U) Normal mg/dl Normal [facility] Urine leukocyte esterase det ection by dipstickOrdered By: Antonino Gardner on 04-10-2025 Leukocyte esterase Test strip Ql (U) 25 /ul High Negative [facility] Urine pHOrdered By: Antonino rhodes on 04-10-2025 pH (U) 5.0 [pH] 5.0 - 8.0 [facility] Urine sediment bacteria coun t by microscopy (number/high power field)Ordered By: Antonino Gardner on 04-10-2025 Bacteria LM.HPF (Urine sed) [#/Area] 0 /[HPF] None Seen [facility] Urine specific gravity measu rementOrdered By: Antonino Gardner on 04-10-2025 Specific gravity (U) [Rel density] 1.025 1.002-1.03 0 [facility] Urine urobilinogen measureme ntOrdered By: Antonino Gardner on 04-10-2025 Urobilinogen Ql (U) Normal mg/dl Normal [facility] White blood cell (WBC) count Ordered By: Antonino Gardner on 04-10-2025 WBC (Bld) [#/Vol] 7.8 10*3/uL Normal 4.4-11.0 [facility] Comment on above: Performed By: #### L 100.0100, L500.2500 #### [facility] [address] [place], [place], [id number] White blood cell countOrdere d By: Antonino Gardner on 04-10-2025 White blood cell count 0 SEEN /hpf 0-5 [facility] Urine Cultureon 11-17-2024 URC Escherichia coli Redford Count 11,000-25,000 Escherichia coli: REACTION Ampicillin Islt MABEL <=2 Ampicillin+Sulbac Islt MABEL <=2 S Cefepime Islt MABEL <=0.12 S cefTRIAXone Islt MABEL <=0.25 S Ciprofloxacin Islt MABEL <=0.06 S B-Lactamase Extended Susc Islt NEG Gentamicin Islt MABEL <=1 S levoFLOXacin Islt MABEL <=0.12 S Meropenem Islt MABEL <=0.25 S Nitrofurantoin Islt MABEL <=16 S Pip+Tazo Islt MABEL <=4 S TMP SMX Islt MABEL <=20 S Normal [facility] Comment on above: Performed By: #### M 100.2200 ####[facility] [id number] [place], [address] BACTERIAL VAGINOSIS NAATon 0 11-16-2024 Lactobacillus crispatus+gasseri+kal senii + Gardnerella vaginalis + Atopobium vaginae rRNA SOY+probe Ql (Vag fld) Not detected Normal Not detected [facility] Comment on above: Order Comment: Speci men Type: SWAB Ordering Facility: [facility] Address: [address] [place] [address] Performed By: #### 3 6902-5, BVAMP #### [facility] CLIA [id number] [address] [place] [address] [place] Bacteria Ur Culton Bacteria identified Cx Nom (U) ORGANISM ID: 1 10,000 -<50,000 CFU/ml Mixed microbiota No further workup. Mixed microbiota can be due to???urine???contaminatio n with skin bacteria at time of collection or presence of a long-term urinary catheter. If a new culture is needed, please consider re-education of the patient on proper midstream collection technique or straight catheterization for???urine???collection. Normal [facility] Comment on above: Performed By: #### 6 30-4 #### [facility] CLIA [id number] [address] [place] [address] [place] C. trachomatis+N. gonorrhoea e DNA SOY+probe Ql (Unsp spec)on 11-16-2024 C. trachomatis rRNA SOY+probe Ql (Unsp spec) Not detected Normal Not detected [facility] Comment on above: Order Comment: Speci men Type: SWAB Ordering Facility: [facility] Address: [address] [place] [address] Performed By: #### 3 6902-5, BVAMP #### [facility] CLIA [id number] [address] [place] [address] [place] N. gonorrhoeae rRNA SOY+probe Ql (Unsp spec) Not detected Normal Not detected [facility] Comment on above: Order Comment: Speci men Type: SWAB Ordering Facility: [facility] Address: [address] [place] [address] Performed By: #### 3 6902-5, BVAMP #### [facility] CLIA [id number] [address] [place] [address] [place] LLUVIA/TRICHOMONAS NAATon 0 11-16-2024 C. glabrata RNA SOY+probe Ql (Vag fld) Not detected Normal Not detected [facility] Comment on above: Order Comment: Speci men Type: SWAB Ordering Facility: [facility] Address: [address] [place] [address] Performed By: #### C VTV #### [facility] CLIA [id number] [address] [place] [address] [place] Lluvia sp DNA SOY+probe Ql (Vag fld) Not detected Normal Not detected [facility] Comment on above: Order Comment: Speci men Type: SWAB Ordering Facility: [facility] Address: [address] [place] [address] Result Comment: The Lluvia species group target includes C. albicans, C. tropicalis, C. parapsilosis, and C. dubliniensis. Performed By: #### C VTV #### [facility] CLIA [id number] [address] [place] [address] [place] T. vaginalis DNA SOY+probe Ql (Unsp spec) Not detected Normal Not detected [facility] Comment on above: Order Comment: Speci men Type: SWAB Ordering Facility: [facility] Address: [address] [place] [address] Performed By: #### C VTV #### [facility] CLIA [id number] [address] [place] [address] [place] CNOVon 03-13-2025 CNOV Office Visit (UCWSTR ) ----- TOMEKA QUARLES ([id number]) 1970 F Date Time Provider Department 11/16/24 1:00 PM ALAINA SCHUMACHER [facility] During your visit today, we recorded the following information about you: Temperature Pulse Respiration Blood pressure 98.4 degrees 75/minute 20/minute 169/102 Weight 76 kg Alaina Schumacher PA 11/16/2024 1:00 PM Signed [facility] Subjective Tomeka Quarles is a 54 year old female. Patient presents with: UTI: R lower abd pain x 3 days HPI 54-year-old female presents for right lower abdominal pain. Patient was seen yesterday at the emergency room and had a CT scan done which was negative. She was concerned about a kidney stone, but CT was normal. She also had a urine done which she states was told was abnormal, they were waiting for urine culture. Patient comes in today due to concern for UTI. She states she started getting dysuria this morning. She denies any fevers, vomiting, back pain. No vaginal discharge or itching. She states she has had kidney stones in the past which is why she thought this pain yesterday was due to that. She states the abdominal pain today is improved. She has not taken anything for symptoms. ER did not give her any prescriptions. No other complaint PAST MEDICAL HISTORY Diagnosis Date Depression Dysmenorrhea Dyspareunia Endometriosis Endometriosis 05/23/12 stage II GERD (gastroesophageal reflux disease) PAST SURGICAL HISTORY Procedure Laterality Date DILATION AND CURETTAGE DXAND/THER NONOBSTETRIC menorhagia EXTRACTION, ERUPTED TOOTH OR EXPOSED ROOT (ELEVATION AND/OR FORCEPS REMOVAL) 1986 wisdom teeth HYSTERECTOMY HX 05/23/2012 endometriosis LAPS ABD PRTMANDOMENTUM DX W/WO SPEC BR/WA SPX [place], [place]. endo., stage III PAST SURGICAL HISTORY OF Left 05/30/2017 Left hip ALLERGIES Patient has no known allergies. MEDICATIONS buPROPion SR (WELLBUTRIN SR) 100 mg 12 hr tablet busPIRone (BUSPAR) 15 mg tablet Take 15 mg by mouth two times a day. denosumab (PROLIA) 60 mg/mL Inject 60 mg subcutaneously one time only. rosuvastatin (CRESTOR) 10 mg tablet Take 10 mg by mouth daily at bedtime. Teriparatide 20 mcg/dose (600mcg/2.4mL) Inject subcutaneously. (Patient not taking: Reported on 04/21/2022) omeprazole (PRILOSEC) 20 mg capsule (Patient not taking: Reported on 04/21/2022) cholecalciferol, vitamin D3, 100 mcg (4,000 unit) cap Take by mouth. MULTIVIT-MINERALS/FERROUS FUM (MULTI VITAMIN ORAL) Take by mouth. oxyCODONE-acetaminophen (PERCOCET) 5-325 mg tablet (Patient not taking: Reported on 01/24/2024) traMADol (ULTRAM) 50 mg tablet 1 to 2 tab(s) every 8 hours as needed for pain. (Patient not taking: Reported on 04/21/2022) escitalopram (LEXAPRO) 20 mg tablet take 1/2 pill qam (Patient taking differently: Take 20 mg by mouth once daily.) famotidine(PEPCID AC 10 MG TAB) Take one tablet daily. (Patient not taking: Reported on 01/24/2024) FAMILY HISTORY Problem Relation Age of Onset Hypertension Mother Cancer Father skin Heart Father stent inserted Cancer Paternal Grandfather colon Breast Cancer Paternal Grandmother Stroke Maternal Grandfather other (scizophrenia) Sister Breast Cancer Paternal Aunt lump removed precancerous lesion Social History Tobacco Use Smoking status: Never Smokeless tobacco: Never Substance Use Topics Alcohol use: Yes Comment: occ Drug use: No Review of Systems Constitutional: Negative for chills and fever. HENT: Negative for congestion, ear pain and sore throat. Respiratory: Negative for cough and shortness of breath. Cardiovascular: Negative for chest pain. Gastrointestinal: Positive for abdominal pain. Negative for diarrhea and vomiting. Genitourinary: Positive for dysuria. Negative for frequency, hematuria and urgency. Objective BP 169/102 Pulse 75 Temp 36.9 ?C (98.4 ?F) Resp 20 Wt 76 kg (167 lb 8.8 oz) LMP 02/25/2012 SpO2 99% BMI 29.68 kg/m? Physical Exam Vitals and nursing note reviewed. Constitutional: General: She is not in acute distress. Appearance: Normal appearance. She is not toxic-appearing. HENT: Nose: Nose normal. Mouth/Throat: Mouth: Mucous membranes are moist. Eyes: Conjunctiva/sclera: Conjunctivae normal. Cardiovascular: Rate and Rhythm: Normal rate and regular rhythm. Pulmonary: Effort: Pulmonary effort is normal. Breath sounds: Normal breath sounds. Abdominal: General: Abdomen is flat. Palpations: Abdomen is soft. Tenderness: There is no abdominal tenderness. There is no right CVA tenderness, left CVA tenderness, guarding or rebound. Skin: General: Skin is warm and dry. Neurological: Mental Status: She is alert. ASSESSMENT/PLAN: 1. Pelvic pain - ICD9: ICP8582, ICD10: R10.2 -Reviewed prior now that patient brought from ER yesterday. She had lab testing and CT com (more content not included)... Normal [facility] UA DIP, URINE (POC)on 2024 BILIRUBIN UA (POCT) Negative Negative [facility] CLARITY UA (POCT) Cloudy [facility] COLOR UA (POCT) Dark yellow [facility] GLUCOSE UA (POCT) Negative Negative mg/dL [facility] Hemoglobin Ql (U) Large Abnormal Negative [facility] Interpretation and review of laboratory results Abnormal [facility] KETONE UA (POCT) Negative Negative mg/dL [facility] LEUKOCYTES UA (POCT) Small Abnormal Negative [facility] NITRITE UA (POCT) Negative Negative [facility] PH UA (POCT) 6 4.5 - 8.0 [facility] Protein Ql (U) 30 mg/dL Abnormal Negative [facility] SPECIFIC GRAVITY UA (POCT) 1.02 1.005 - 1.030 [facility] UROBILINOGEN UA (POCT) 1 Normal E.U./dL [facility] Location:[facility], [address], [place], [address] [facility] POINT OF CARE [facility] Abdomen/Pelvis without Conto n 11-15-2024 Abdomen/Pelvis without Cont [facility] [address] [place] [address] Abdomen/Pelvis without Cont MR#: [id number] Acct: [id number] Name: TOMEKA QUARLES Rep #: [id number] : 1970 F 54 From: Prosper Lee PCP: Dr. Yanely Purdy DO Status: REG ER Study: Abdomen/Pelvis without Cont Date of Exam: 11/04 10/31 Exam# [id number] Ordering Dr: Efra Koehler DO PROCEDURE: ABDOMEN/PELVIS WITHOUT CONT REASON FOR EXAM: Pain, calculus TECHNIQUE: Multiple contiguous axial images through the abdomen and pelvis were obtained without the administration of intravenous contrast. Two-dimensional coronal and sagittal reformatted images were reconstructed. Low-dose imaging technique was utilized. COMPARISON: None. FINDINGS: Lung bases are clear. Unenhanced liver, spleen, pancreas and adrenal glands are intact. Gallbladder is contracted. No significant biliary ductal dilation. Punctate nonobstructing left renal calculus. A couple small left peripelvic cysts. No right renal calculi. No hydronephrosis. Urinary bladder is within normal limits. No bowel obstruction, focal bowel wall thickening or significant perienteric inflammation. Normal appendix. No pelvic free fluid. No free air. No abdominal aortic aneurysm or suspicious adenopathy. Superficial soft tissues are within normal limits. No acute osseous abnormality. 2 fixation screws in the left femoral neck. CT/Abdomen/Pelvis without Cont IMPRESSION: 1. No acute process. 2. Left nephrolithiasis. One or more dose reduction techniques were used (e.g., Automated exposure control, adjustment of the mA and/or kV according to patient size, use of iterative reconstruction technique). Reading Location: [facility] CC: Dr. Yanely Purdy DO; Dr. Efra Koehler DO Job Change Crew Member: Signed Normal [facility] Absolute neutrophil countOrd ered By: Efra Koehler on 11-15-2024 Neutrophils (Bld) [#/Vol] 3.8 10*3/uL 2.0-7.7 [facility] Anion gap in Serum or Plasma Ordered By: Efra Koehler on 11-15-2024 Anion gap [Moles/Vol] 12 mmol/L 5-15 [facility] BUN/creatinine ratioOrdered By: Efra Koehler on 11-15-2024 Urea nitrogen/Creatinine [Mass ratio] 14.6 mg/mg - [facility] Basic Metabolic Profile (BMP )on 11-15-2024 BUN/CRE 14.6 RATIO Normal - [facility] Comment on above: Performed By: #### L 100.0100, L500.2500 #### [facility] [address] [place], [address] Calcium [Mass/Vol] 9.2 mg/dL Normal 7.6-11.0 [facility] Comment on above: Performed By: #### L 100.0100, L500.2500 #### [facility] [address] [place], [address] Chloride [Moles/Vol] 100 mmol/L Normal 98-108 [facility] Comment on above: Performed By: #### L 100.0100, L500.2500 #### [facility] [address] [place], [address] CO2 [Moles/Vol] 23.2 mmol/L Normal 21.0-32.0 [facility] Comment on above: Performed By: #### L 100.0100, L500.2500 #### [facility] [address] [place], [address] Creatinine [Mass/Vol] 0.87 mg/dL Normal 0.70-1.20 [facility] Comment on above: Performed By: #### L 100.0100, L500.2500 #### [facility] [address] [place], [address] ECRCL 68.93 ml/min Normal 50-250 [facility] Comment on above: Performed By: #### L 100.0100, L500.2500 #### [facility] [address] [place], [address] GAP 12 Normal 5-15 [facility] Comment on above: Performed By: #### L 100.0100, L500.2500 #### [facility] [address] [place], [address] GFR/1.73 sq M.predicted among non-blacks MDRD (S/P/Bld) [Vol rate/Area] 79 mL/min/{1.73_m2} Normal >60 [facility] Comment on above: Result Comment: mL/m in/1.73m2 CKD-EPI Creatinine Equation (2020) Performed By: #### L 100.0100, L500.2500 #### [facility] [address] [place], [address] Glucose [Mass/Vol] 91 mg/dL Normal 70-99 [facility] Comment on above: Performed By: #### L 100.0100, L500.2500 #### [facility] [address] [place], [address] Potassium [Moles/Vol] 3.8 mmol/L Normal 3.3-5.1 [facility] Comment on above: Performed By: #### L 100.0100, L500.2500 #### [facility] [address] [place], [address] Sodium [Moles/Vol] 135 mmol/L Normal 133-145 [facility] Comment on above: Performed By: #### L 100.0100, L500.2500 #### [facility] [address] [place], [address] Urea nitrogen [Mass/Vol] 13 mg/dL Normal 4-19 [facility] Comment on above: Performed By: #### L 100.0100, L500.2500 #### [facility] [address] [place], [address] Basophil percentageOrdered B y: Efra Koehler on 11-15-2024 Basophils/100 WBC (Bld) 0.5 % 0-1 [facility] Bilirubin Test strip Ql (U)O rdered By: Efra Koehler on 11-15-2024 Bilirubin Ql (U) Negative Negative [facility] CBC W/Diff, Automatedon 11-04 Absolute Lymph 1.55 X10 3/uL Normal 0.83-4.51 [facility] Comment on above: Performed By: #### L 100.0100, L500.2500 #### [facility] [address] [place], [address] Absolute Neut 3.8 X10 3/uL Normal 2.0-7.7 [facility] Comment on above: Performed By: #### L 100.0100, L500.2500 #### [facility] [address] [place], [address] Basophils/100 WBC (Bld) 0.5 % Normal 0-1 [facility] Comment on above: Performed By: #### L 100.0100, L500.2500 #### [facility] [address] [place], [address] Eosinophils/100 WBC (Bld) 1.3 % Normal 0-5 [facility] Comment on above: Performed By: #### L 100.0100, L500.2500 #### [facility] [address] [place], [address] Erythrocyte distribution width (RBC) [Ratio] 13.2 % Normal 11.6-14.6 [facility] Comment on above: Performed By: #### L 100.0100, L500.2500 #### [facility] [address] [place], [address] Hematocrit (Bld) [Volume fraction] 41.8 % Normal 37-47 [facility] Comment on above: Performed By: #### L 100.0100, L500.2500 #### [facility] [address] [place], [address] Hemoglobin (Bld) [Mass/Vol] 14.4 g/dL Normal 12.0-15.0 [facility] Comment on above: Performed By: #### L 100.0100, L500.2500 #### [facility] [address] [place], [address] IG% 0.200 Normal 0.0-0.9 [facility] Comment on above: Result Comment: IG% - Immature Granulocytes (promyelocytes, myelocytes and metamyelocytes) > 1% indicates that a LEFT SHIFT is Present. Performed By: #### L 100.0100, L500.2500 #### [facility] [address] [place], [address] Lymphocytes/100 WBC (Bld) 26.1 % Normal 19-41 [facility] Comment on above: Performed By: #### L 100.0100, L500.2500 #### [facility] [address] [place], [address] MCH (RBC) [Entitic mass] 30.3 pg Normal 27.0-32.0 [facility] Comment on above: Performed By: #### L 100.0100, L500.2500 #### [facility] [address] [place], [address] MCHC (RBC) [Mass/Vol] 34.4 g/dL Normal 32-36 [facility] Comment on above: Performed By: #### L 100.0100, L500.2500 #### [facility] [address] [place], [address] MCV (RBC) [Entitic vol] 87.8 fL Normal 81-99 [facility] Comment on above: Performed By: #### L 100.0100, L500.2500 #### [facility] [address] [place], [address] Monocytes/100 WBC (Bld) 8.4 % Normal 0-10 [facility] Comment on above: Performed By: #### L 100.0100, L500.2500 #### [facility] [address] [place], [address] Neutrophils/100 WBC (Bld) 63.5 % Normal 47-70 [facility] Comment on above: Performed By: #### L 100.0100, L500.2500 #### [facility] [address] [place], [address] Nucleated RBC (Bld) [#/Vol] 0 10*3/uL Normal 0-5 [facility] Comment on above: Performed By: #### L 100.0100, L500.2500 #### [facility] [address] [place], [address] Platelet mean volume (Bld) [Entitic vol] 9.4 fL Normal 6.2-12.0 [facility] Comment on above: Performed By: #### L 100.0100, L500.2500 #### [facility] [address] [place], [address] Platelets (Bld) [#/Vol] 259 10*3/uL Normal 150-450 [facility] Comment on above: Performed By: #### L 100.0100, L500.2500 #### [facility] [address] [place], [address] RBC (Bld) [#/Vol] 4.76 10*6/uL Normal 4.2-5.4 [facility] Comment on above: Performed By: #### L 100.0100, L500.2500 #### [facility] [address] [place], [address] RDW SD 42.6 fl Normal 35.1-43.9 [facility] Comment on above: Performed By: #### L 100.0100, L500.2500 #### [facility] [address] [place], [address] WBC (Bld) [#/Vol] 6.0 10*3/uL Normal 4.4-11.0 [facility] Comment on above: Performed By: #### L 100.0100, L500.2500 #### [facility] [address] [place], [address] Carbon dioxide, total [Moles /volume] in Central venous bloodOrdered By: Efra Koehler on 11-15-2024 CO2 [Moles/Vol] 23.2 mmol/L 21.0-32.0 [facility] Chloride assayOrdered By: Jm Koehler on 11-15-2024 Chloride [Moles/Vol] 100 mmol/L 98-108 [facility] Emergency Department Summary on 11-15-2024 Emergency Department Summary [facility] Medical Records Department [address] [place] [address] Emergency Department Summary 11/15/24 MR#: [id number] Acct: [id number] Name: TOMEKA QUARLES Rep #: [id number] : 1970 [id number] From: Efra Goldman PCP: Dr. Yanely Purdy, DO Status:DEP ER Location: ED HPI History of Present Illness Chief Complaint: Flank Pain Informant: patient Narrative Narrative: Worsening pain right lower quadrant and groin for the past 48 hours. On and off symptoms for past month. No urinary symptoms. No nausea or vomiting. No fever chills or sweats. History of similar with kidney stones in the past 2 years ago required intervention followed by Dr. hGosh. She takes calcium due to osteoporosis. Medications for anxiety depression. Denies history gastric ulcers or kidney injury. Has not taken any medications. Hysterectomy in the past. Prior similar symptoms: Yes PFSH PFSH Medical History PONV (postoperative nausea and vomiting) History of kidney stones Family history of colon cancer Wears glasses Depression Anxiety High cholesterol Restless legs Gastric reflux Heartburn Non-smoker History of echocardiogram History of stress test History of endometriosis Home Medications ???Medication ???Instructions ???Recorded ???Last Taken ???Type bupropion HCl 100 mg tablet 100 mg PO DAILY 06/01/19 05/25/24 History calcium 600 mg (as 2 ea PO DAILY 06/01/19 05/23/24 Hi story carbonate)-vitamin D3 5 mcg (200 unit) tablet escitalopram oxalate 20 mg tablet 20 mg PO DAILY 06/01/19 05/26/24 History multivitamin 1 ea PO DAILY 06/01/19 05/25/24 Hi story ibuprofen 600 mg tablet 600 mg PO Q8H PRN PRN pain #20 tab s 05/08/22 Unknown Rx buspirone 15 mg tablet 15 mg PO DAILY 06/03/22 05/26/24 H istory rosuvastatin 10 mg tablet 10 mg PO DAILY 06/03/22 05/25/24 H istory denosumab 60 mg/mL subcutaneous 60 mg subcut [id number] 05/15/24 History syringe (Prolia) Allergy/AdvReac Type Severity Reaction Status Date / Time adhesive tape AdvReac Rash Verified 11/15/24 15:48 Family History Grandfather Colon cancer Before 60yrs. Surgical History Hx of colonoscopy History of hysterectomy Social History household members: spouse current occupational status: employed current occupation: [employer] Smoking Status: Never smoker substance use type: does not use ROS ROS ED Constitutional Constitutional ED: Denies chills, fever(s) or sweats ENT ENT ED: Denies sore throat Cardiovascular Cardiovascular: Denies chest pain, leg edema, palpitations or racing heartbeat Respiratory/Chest Respiratory/Chest: Denies cough, dyspnea or dyspnea on exertion Gastrointestinal Gastrointestinal: Reports abdominal pain; Denies diarrhea, nausea or vomiting Genitourinary Genitourinary ED: Denies dysuria, hematuria or urinary frequency Musculoskeletal Musculoskeletal: Denies back pain, extremity pain or neck pain Integumentary Denies rash or wounds Neurologic Neurologic: Denies headache(s), paresthesias or weakness EXAM Physical Exam Const Vital Signs: 11/15/24 15:47 11/15/24 17:47 Temperature 98.1 F Temperature Source Temporal Pulse Rate 71 Respiratory Rate 15 Blood Pressure 182/106 H 184/85 H Blood Pressure Mean 131 118 Pulse Ox 98 Oxygen Delivery Method Room Air Positive well nourished and well developed General Appearance ED: well developed and NAD HEENT Reports moist mucous membranes normocephalic and atraumatic Eyes General Eye ED: Yes normal appearance of both eyes Neck full ROM Chest Wall Chest: Negative for tenderness Resp normal respiratory effort and normal air movement Effort and Inspection: symmetric chest movement; Negative for respiratory distress Cardio regular rate, regular rhythm and no murmurs Peripheral Pulses: pulses 2+ throughout GI normal to inspection, nondistended, normoactive bowel sounds and non-tender Palpation: Negative for guarding or rebound tenderness present Back/Spine no CVA tenderness Extremity normal to inspection General Extremety ED: Negative for edema or tenderness General Extremity: Negative for edema Neuro oriented x3 and no sensory deficits noted Sensorium / Orientation: awake and alert Skin no rashes or lesions noted and no wounds MDM MDM MDM Narrative Medical decision making narrative: Interventions / MDM: Differential diagnosis: Nephrolithiasis, abdominal pain. Diagnosis considered but do not suspect: Obstructive stone, appendicitis however CT negative. My EKG interpretation: N/A Imaging (more content not included)... Normal [facility] Eosinophil percentageOrdered By: Efra Koehler on 11-15-2024 Eosinophils/100 WBC (Bld) 1.3 % 0-5 [facility] Epithelial cells.squamous LM Ql (Urine sed)Ordered By: Efra Koehler on 11-15-2024 Epithelial cells.squamous LM.HPF (Urine sed) [#/Area] 0 /[HPF] 5-10 [facility] Erythrocyte distribution wid th ratioOrdered By: Efra Koehler on 11-15-2024 Erythrocyte distribution width (RBC) [Ratio] 13.2 % 11.6-14.6 [facility] Erythrocyte distribution wid th standard deviationOrdered By: Efra Koehler on 11-15-2024 Erythrocyte distribution width (RBC) [Entitic vol] 42.6 fL 35.1-43.9 [facility] Estimation of creatinine armaan aranceOrdered By: Efra Koehler on 11-15-2024 Estimated Creatinine Clearance Calc 68.93 ml/min 50-250 [facility] GFR/1.73 sq M.predicted diego g non-blacks MDRD (S/P/Bld) [Vol rate/Area]Ordered By: Efra Koehler on 11-15-2024 Estimated GFR (MDRD) Non-Af Amer 79 >60 [facility] Comment on above: mL/min/1.73m2 CKD-EP I Creatinine Equation (2020) Glucose Ql (U)Ordered By: Jm Koehler on 11-15-2024 Urine Glucose (UA) Normal mg/dl Normal [facility] Hematocrit Auto (Bld) [Volum e fraction]Ordered By: Efra Koehler on 11-15-2024 Hematocrit (Bld) [Volume fraction] 41.8 % 37-47 [facility] Hemoglobin measurementOrdere d By: Efra Koehler on 11-15-2024 Hemoglobin (Bld) [Mass/Vol] 14.4 g/dL 12.0-15.0 [facility] Hyaline casts LM.LPF (Urine sed) [#/Area]Ordered By: Efra Koehler on 11-15-2024 Hyaline casts LM Ql (Urine sed) 0-5 SEEN /lpf 0-5 [facility] Immature granulocytes/100 WB C Auto (Bld)Ordered By: Efra Koheler on 11-15-2024 Immature granulocytes/100 WBC (Bld) 0.200 % 0.0-0.9 [facility] Comment on above: IG% - Immature Granu locytes (promyelocytes, myelocytes and metamyelocytes) > 1% indicates that a LEFT SHIFT is Present. Ketones Test strip Ql (U)Ord ered By: Efra Koehler on 11-15-2024 Ketones Ql (U) Negative Negative [facility] Lymphocytes Auto (Unsp spec) [#/Vol]Ordered By: Efra Koehler on 11-15-2024 Lymphocytes (Bld) [#/Vol] 1.55 10*3/uL 0.83-4.51 [facility] Lymphocytes/100 WBC Auto (Un sp spec)Ordered By: Efra Koehler on 11-15-2024 Lymphocytes/100 WBC (Bld) 26.1 % 19-41 [facility] MCV (mean corpuscular volume ) determinationOrdered By: Efra Koehler on 11-15-2024 MCV (RBC) [Entitic vol] 87.8 fL 81-99 [facility] Mean corpuscular hemoglobin (MCH) determinationOrdered By: Efra Koehler on 11-15-2024 MCH (RBC) [Entitic mass] 30.3 pg 27.0-32.0 [facility] Mean corpuscular hemoglobin concentration (MCHC) determinationOrdered By: Efra Koehler on 11-15-2024 MCHC (RBC) [Mass/Vol] 34.4 g/dL 32-36 [facility] Mean platelet volume determi nationOrdered By: Efra Koehler on 11-15-2024 Platelet mean volume (Bld) [Entitic vol] 9.4 fL 6.2-12.0 [facility] Microscopic analysis of urin e for red blood cells (RBC)Ordered By: Efra Koehler on 11-15-2024 Urine RBC 0-5 SEEN /hpf 0-5 [facility] Monocyte percentageOrdered B y: Efra Koehler on 11-15-2024 Monocytes/100 WBC (Bld) 8.4 % 0-10 [facility] Mucus LM Ql (Urine sed)Order ed By: Efra Koehler on 11-15-2024 Mucus Ql (Urine sed) 1+ /hpf [facility] Neutrophil percentageOrdered By: Efra Koehler on 11-15-2024 Neutrophils/100 WBC (Bld) 63.5 % 47-70 [facility] Nitrite Test strip Ql (U)Ord ered By: Efra Koehler on 11-15-2024 Nitrite Ql (U) Negative Negative [facility] Nucleated red blood cell per centageOrdered By: Efra Koehler on 11-15-2024 Nucleated RBC/100 WBC (Bld) [Ratio] 0 % 0-5 [facility] Platelet countOrdered By: Jm Koehler on 11-15-2024 Platelets (Bld) [#/Vol] 259 10*3/uL 150-450 [facility] Potassium (Unsp spec) [Mass/ Vol]Ordered By: Efra Koehler on 11-15-2024 Potassium [Moles/Vol] 3.8 mmol/L 3.3-5.1 [facility] Protein Test strip Ql (U)Ord ered By: Efra Koehler on 11-15-2024 Protein Ql (U) Negative Negative [facility] RBC Auto (Bld) [#/Vol]Ordere d By: Efra Koehler on 11-15-2024 RBC (Bld) [#/Vol] 4.76 10*6/uL 4.2-5.4 [facility] Serum creatinine measurement (mass/volume)Ordered By: Efra Koehler on 11-15-2024 Creatinine [Mass/Vol] 0.87 mg/dL 0.70-1.20 [facility] Serum glucose measurement (m ass/volume)Ordered By: Efra Koehler on 11-15-2024 Glucose [Mass/Vol] 91 mg/dL 70-99 [facility] Serum or plasma calcium paulette urement (mass/volume)Ordered By: Efra Koehler on 11-15-2024 Calcium [Mass/Vol] 9.2 mg/dL 7.6-11.0 [facility] Serum or plasma urea nitroge n measurement (mass/volume)Ordered By: Efra Koehler on 11-15-2024 Urea nitrogen [Mass/Vol] 13 mg/dL 4-19 [facility] Sodium levelOrdered By: Efra Koehler on 11-15-2024 Sodium [Moles/Vol] 135 mmol/L 133-145 [facility] Urinalysis, Completeon 11-15 BACTERIA 1+ /hpf Normal None Seen [facility] Comment on above: Order Comment: NINO CTOR TO SPECIFY Performed By: #### L 400.0001 #### [facility] [address] [place], [place], [id number] EPI,SQUAMOUS 0-5 SEEN Normal 5-10 [facility] Comment on above: Order Comment: NINO CTOR TO SPECIFY Performed By: #### L 400.0001 #### [facility] [address] [place], [address] Mucus Ql (Urine sed) 1+ /hpf Normal [facility] Comment on above: Order Comment: NINO CTOR TO SPECIFY Performed By: #### L [id number] #### [facility] [address] [place], [address] RBC 0-5 SEEN Normal 0-5 [facility] Comment on above: Order Comment: NINO CTOR TO SPECIFY Performed By: #### L [id number] #### [facility] [address] [place], [address] WBC 10-25 SEEN Normal 0-5 [facility] Comment on above: Order Comment: NINO CTOR TO SPECIFY Performed By: #### L [id number] #### [facility] [address] [place], [place], [address] CAST,HYALINE 0-5 SEEN Normal 0-5 [facility] Comment on above: Order Comment: NINO CTOR TO SPECIFY Performed By: #### L [id number] #### [facility] [address] [place], [place], [id number] Urine blood detectionOrdered By: Efra Koehler on 11-15-2024 Urine Occult Blood Negative Negative [facility] Urine clarityOrdered By: Jese Koehler on 11-15-2024 Clarity (U) Clear Clear [facility] Urine color determinationOrd ered By: Efra Koehler on 11-15-2024 Color (U) Yellow Yellow [facility] Urine leukocyte esterase det ection by dipstickOrdered By: Efra Koehler on 11-15-2024 Leukocyte esterase Test strip Ql (U) 100 /ul High Negative [facility] Urine pHOrdered By: Efra Koehler on 11-15-2024 pH (U) 6.0 [pH] 5.0 - 8.0 [facility] Urine sediment bacteria coun t by microscopy (number/high power field)Ordered By: Efra Koehler on 11-15-2024 Bacteria LM.HPF (Urine sed) [#/Area] 1 /[HPF] None Seen [facility] Urine specific gravity measu rementOrdered By: Efra Koehler on 11-15-2024 Specific gravity (U) [Rel density] 1.020 1.002-1.03 0 [facility] Urobilinogen Ql (U)Ordered B y: Efra Koehler on 11-15-2024 Urine Urobilinogen Normal mg/dl Normal [facility] White blood cell (WBC) count Ordered By: Efra Koehler on 11-15-2024 WBC (Bld) [#/Vol] 6.0 10*3/uL 4.4-11.0 [facility] White blood cell countOrdere d By: Efra Koehler on 11-15-2024 Urine WBC 10-25 SEEN /hpf 0-5 [facility] Colonoscopy Reporton 024 Colonoscopy Report [facility] Medical Records Department [address] [place] [address] Colonoscopy Report MR#: [id number] Acct: [id number] Name: TOMEKA QUARLES Rep #: [id number] : 1970 53 From: Pierre Espinoza MD PCP: Dr. Yanely Purdy, DO Status:REG [facility] Patient Name: Tomeka Quarles Procedure Date: 05/26/2024 9:45 AM Date of : 1970 Age: 53 Procedure: Colonoscopy Indications: Screening for colon cancer: Family history of colorectal cancer in distant relative(s) Providers: Pierre Espinoza MD Referring MD: Yanely Purdy Medicines: Propofol per Anesthesia Patient Profile: Refer to note in patient chart for documentation of history and physical. Last Colonoscopy: 10 years ago. Complications: No immediate complications. Estimated blood loss: None. Procedure: Pre-Anesthesia Assessment: - Prior to the procedure, a History and Physical was performed, and patient medications and allergies were reviewed. The patient's tolerance of previous anesthesia was also reviewed. The risks and benefits of the procedure and the sedation options and risks were discussed with the patient. All questions were answered, and informed consent was obtained. Prior Anticoagulants: The patient has taken no anticoagulant or antiplatelet agents. ASA Grade Assessment: II - A patient with mild systemic disease. After reviewing the risks and benefits, the patient was deemed in satisfactory condition to undergo the procedure. After I obtained informed consent, the scope was passed under direct vision. Throughout the procedure, the patient's blood pressure, pulse, and oxygen saturations were monitored continuously. The adult colonoscope was introduced through the anus and advanced to the cecum, identified by the appendiceal orifice, ileocecal valve and palpation. The ileocecal valve, appendiceal orifice, and rectum were photographed. The entire colon was well visualized. The colonoscopy was performed without difficulty. The patient tolerated the procedure well. The quality of the bowel preparation was adequate. Moderate Sedation: See the other procedure note for documentation of moderate sedation with intraservice time. Scope In: 9:55:28 AM Scope Withdrawal Time 0 hours 8 minutes 27 seconds Scope Out: 10:18:28 AM Total Procedure Duration Time 0 hours 23 minutes 0 seconds Findings: The perianal and digital rectal examinations were normal. The entire examined colon appeared normal on direct and retroflexion views. Impression: - The entire examined colon is normal on direct and retroflexion views. - No specimens collected. Recommendation: - Discharge patient to home (ambulatory). - High fiber diet indefinitely. - Repeat colonoscopy in 10 years for screening purposes. - Return to my office PRN. - Continue present medications. Procedure Code(s): --- Professional --- 68458, Colonoscopy, flexible; diagnostic, including collection of specimen(s) by brushing or washing, when performed (separate procedure) Diagnosis Code(s): --- Professional --- Z12.11, Encounter for screening for malignant neoplasm of colon Z80.0, Family history of malignant neoplasm of digestive organs CPT copyright 2021 [employer]. All rights reserved. The codes documented in this report are preliminary and upon dairy clerk review may be revised to meet current compliance requirements. Pierre Espinoza MD 05/26/2024 10:26:23 AM This report has been signed electronically. Number of Addenda: 0 Note Initiated On: 05/26/2024 9:45 AM 05/26/24 1026 Date Pierre Espinoza MD Cosigner Signature: Date (if indicated) CC: Dr. Yanely Purdy DO; Dr. Pierre Espinoza MD Date Dictated: 05/26/2445 Date Transcribed: Job Change Crew Member: BRUCE Signed Normal [facility] MR/POSTOP.Rosemarie 05-26-2024 MR/POSTOP.[facility] Medical Records Department [address] [place] [address] Anesthesia Postop Eval I 05/26/24 1031 MR#: [id number] Acct: [id number] Name: TOMEKA QUARLES Rep #: [id number] : 1970 53 From: Sae Sweet PCP: Dr. Yanely Purdy, DO Status:REG SDC Y Race: C Location: [place] [address] Anesthesia: Postop Eval I Current Vital Signs Temperature: 98 F Pulse Rate: 55 Blood Pressure: 89/67 Respiratory Rate: 16 Pulse Ox: 95 Oxygen Delivery Method: Room Air Assessment Airway patent: Yes Spontaneous unlabored respirations: Yes Mental status: Asleep nausea: No Vomiting: No Anesthesia Complication: No Fluid Hydration Crystalloid volume administer (ml): 600 Total IV fluid infused: 600 Progress Note Anesthesia document: Postop Eval 1 completed: Yes 05/26/24 1032 Date Sae Morris Signature: Date CC: Signed Normal [facility] MR/[id number] 05-26-2024 [facility] Medical Records Department [address] [place] [address] Anesthesia Postop Eval II 05/26/24 1126 MR#: [id number] Acct: [id number] Name: TOMEKA QUARLES Rep #: [id number] : 1970 53 From: Antonino Dunham MD PCP: Dr. Yanely Purdy, DO Status:REG SDC Y Race: C Location: [place] [address] Anesthesia Postop Eval I Sum Postop Eval Completion status Anesthesia document: Postop Eval 1 completed: Yes Anesthesia Postop Eval I Summary Anesthesia Postop Eval I Summary: Anesthesia Postop Eval I: Assessment Summary Airway patent Yes 05/26/24 10:32 [email or web address] Spontaneous unlabored Yes 05/26/24 10:32 [email or web address] respirations Mental status Asleep 05/26/24 10:32 [email or web address] nausea No 05/26/24 10:32 [email or web address] Vomiting No 05/26/24 10:32 [email or web address] Anesthesia Postop Eval I: Fluid Summary Crystalloid volume administer 600 05/26/24 10:32 [email or web address] (ml) Colloids volume administered ( ml) Blood Product volume administered (ml) Total IV fluid infused 600 05/26/24 10:32 [email or web address] Anesthesia Postop Eval I: Summary Notes Anesthesia Complication No 05/26/24 10:32 [email or web address] Anesthesia Complication Comment: Post-operative progress note Anesthesia: Postop Eval II Evaluation Mental status: Awake Pain Level: 0 nausea: No Vomiting: No 05/26/24 1126 Date Antonino Dunham MD Cosigner Signature: Date CC: Signed Normal [facility] SCRN MAMM (CAD)W/ROWENA BILATo n 05-22-2024 SCRN MAMM (CAD)W/ROWENA [facility] Imaging Services [address] [place], [place] [id number] SCRN MAMM (CAD)W/ROWENA BILAT MR#: [id number] Acct: [id number] Name: TOMEKA QUARLES Rep #: [id number] : 1970 F 53 From: Jaydon suarez MD PCP: Dr. Yanely Purdy, DO Status: REG CLI Study: SCRN MAMM (CAD)W/ROWENA BILAT Date of Exam: 05/07 02/27 Exam# [id number] Ordering Dr: Yanely Purdy DO [id number] MAMMOGRAPHY - BILATERAL SCREENING REASON FOR EXAM: Female, 53 years old. Routine annual screening examination. PERTINENT HISTORY: Grandmother with breast cancer. Aunt with breast cancer. TECHNIQUE: Digital bilateral breast rowena (3D mammographic acquisition) in the CC and MLO projections. 2-D mediolateral oblique (MLO) and craniocaudad (CC) views of both breasts were obtained. CAD: Full Field Digital Mammography with Computer Added Detection was performed. COMPARISON: Comparison is made with prior study April 09, 2023 and April 07, 2022. FINDINGS: Breast Composition: The breasts are heterogeneously dense, which may obscure small masses. There are no dominant masses or suspicious calcifications. Stable small benign-appearing bilateral axillary lymph nodes. No other significant abnormalities are identified. There has been no significant change since the prior study. BI/SCRN MAMM (CAD)W/ROWENA BILAT IMPRESSION: Stable bilateral screening mammogram. Yearly follow-up mammogram recommended. (A) ASSESSMENT CATEGORY: BIRADS Category 2: Benign. A letter regarding these results will be sent to the patient by the facility within 30 days. Approximately 10% of breast cancers are not detected by mammography. A normal mammogram should not delay biopsy of a clinically suspicious abnormality. [id number] Electronically Signed: Jaydon Up MD at 8:38 EDT , CC: Dr. 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 Acute conjunctivitis of both eyes, unspecified acute conjunctivitis type - ICD9: 372.00, ICD10: H10.33 Allergic - see medication orders - course and contagiousness issues discussed, including hand washing. - Instructed to call if high fever, development of periorbital redness or swelling, eye pain, visual changes, concerns or if symptoms persist. - OLOPATADINE 0.1 % EYE DROPS - Follow-up with your PCP in 3-5 days if symptoms have not improved or sooner if symptoms worsen - Discussed red flags and need for immediate medical evaluation if any occur. - Discussed supportive care treatment with fluids, rest and analgesia. - Discussed expected course of illness KAREN Cash Kathy, APRN.CNP 01/24/2024 4:29 PM Signed Subjective Eye Problem Pertinent negatives include no fever or rash. Tomeka Quarles is a 53 year old female who presents with bilateral eye redness for the past 2 days. She states she was exposed to pink eye over a week ago. She denies drainage from her eyes. States her eyes were stinging today when she had her windows rolled down in her car. She rolled them up and the stinging resolved. She has not had any medication for this at home. States occasionally has blurred vision due to increased tearing. Review of Systems Constitutional: Negative for fever. HENT: Negative for ear pain. Eyes: Positive for blurred vision, pain (stinging) and redness. Negative for double vision, photophobia and discharge. Skin: Negative for itching and rash. BP 170/100 Pulse 75 Temp 36.9 ?C (98.4 ?F) Resp 21 Wt 78 kg (171 lb 15.3 oz) LMP 02/25/2012 SpO2 97% BMI 30.46 kg/m? PAST MEDICAL HISTORY Diagnosis Date Depression Dysmenorrhea Dyspareunia Endometriosis Endometriosis 05/23/12 stage II GERD (gastroesophageal reflux disease) PAST SURGICAL HISTORY Procedure Laterality Date DILATION AND CURETTAGE DXAND/THER NONOBSTETRIC menorhagia EXTRACTION, ERUPTED TOOTH OR EXPOSED ROOT (ELEVATION AND/OR FORCEPS REMOVAL) 1986 wisdom teeth HYSTERECTOMY HX 05/23/2012 endometriosis LAPS ABD PRTMANDOMENTUM DX W/WO SPEC BR/WA SPX [place], [place]. endo., stage III PAST SURGICAL HISTORY OF Left 05/30/2017 Left hip ALLERGIES Patient has no known allergies. MEDICATIONS denosumab (PROLIA) 60 mg/mL Inject 60 mg subcutaneously one time only. rosuvastatin (CRESTOR) 10 mg tablet Take 10 mg by mouth daily at bedtime. cholecalciferol, vitamin D3, 100 mcg (4,000 unit) cap Take by mouth. MULTIVIT-MINERALS/FERROUS FUM (MULTI VITAMIN ORAL) Take by mouth. buPROPion SR (WELLBUTRIN SR) 100 mg 12 hr tablet escitalopram (LEXAPRO) 20 mg tablet take 1/2 pill qam olopatadine (PATANOL) 0.1 % ophthalmic solution Use 1 Drop in both eyes two times a day for 30 days. Teriparatide 20 mcg/dose (600mcg/2.4mL) Inject subcutaneously. (Patient not taking: Reported on 04/21/2022) omeprazole (PRILOSEC) 20 mg capsule (Patient not taking: Reported on 04/21/2022) oxyCODONE-acetaminophen (PERCOCET) 5-325 mg tablet (Patient not taking: Reported on 01/24/2024) traMADol (ULTRAM) 50 mg tablet 1 to 2 tab(s) every 8 hours as needed for pain. (Patient not taking: Reported on 04/21/2022) famotidine(PEPCID AC 10 MG TAB) Take one tablet daily. (Patient not taking: Reported on 01/24/2024) FAMILY HISTORY Problem Relation Age of Onset Hypertension Mother Cancer Father skin Heart Father stent inserted Cancer Paternal Grandfather colon Breast Cancer Paternal Grandmother Stroke Maternal Grandfather other (scizophrenia) Sister Breast Cancer Paternal Aunt lump removed precancerous lesion Social History Tobacco Use Smoking status: Never Smokeless tobacco: Never Substance Use Topics Alcohol use: Yes Comment: occ Drug use: No Objective Physical Exam Vitals and nursing note reviewed. Constitutional: Appearance: Normal appearance. Eyes: General: Lids are normal. Vision grossly intact. Gaze aligned appropriately. No allergic shiner. Right eye: No foreign body, discharge or hordeolum. Left eye: No foreign body, discharge or hordeolum. Extraocular Movements: Extraocular movements intact. Conjunctiva/sclera: Conjunctivae normal. Right eye: Right conjunctiva is not injected. No chemosis, exudate or hemorrhage. Left eye: Left conjunctiva is not injected. No chemosis, exudate or hemorrhage. Cardiovascular: Rate and Rhythm: Normal rate. Pulmonary: Effort (more content not included)... Normal [facility] Absolute lymphocyte countOrd ered By: Efra Koehler on 08-19-2023 Lymphocytes Auto (Unsp spec) [#/Vol] 2.13 10*3/uL 0.83-4.51 [facility] Basophil percentageOrdered B y: Efra Koehler on 08-19-2023 Basophils/100 WBC (Bld) 0.6 % 0-1 [facility] Chloride [Moles/Vol] 105 mmol/L 98-107 [facility] Eosinophils/100 WBC (Bld) 1.6 % 0-5 [facility] Glucose [Mass/Vol] 125 mg/dL 74-106 [facility] Comment on above: Fasting Glucose resu lt from 100 to 125 mg/dL suggests IMPAIRED HOMEOSTASIS per A.D.A. criteria. Neutrophils (Bld) [#/Vol] 5.2 10*3/uL 2.0-7.7 [facility] Neutrophils/100 WBC (Bld) 63.8 % 47-70 [facility] Potassium [Moles/Vol] 3.8 mmol/L 3.5-5.1 [facility] Sodium [Moles/Vol] 137 mmol/L 136-145 [facility] WBC (Bld) [#/Vol] 8.1 10*3/uL 4.4-11.0 [facility] Blood erythrocytes count (nu mber/volume)Ordered By: Efra Koehler on 08-19-2023 RBC (Bld) [#/Vol] 4.76 10*6/uL 4.2-5.4 [facility] Blood hemoglobin measurement (mass/volume)Ordered By: Efra Koehler on 08-19-2023 Hemoglobin (Bld) [Mass/Vol] 13.9 g/dL 12.0-15.0 [facility] Blood lymphocytes/100 leukoc ytesOrdered By: Efra Koehler on 08-19-2023 Lymphocytes/100 WBC (Bld) 26.2 % 19-41 [facility] Blood monocytes/100 leukocyt esOrdered By: Efra Koehler on 08-19-2023 Monocytes/100 WBC (Bld) 7.6 % 0-10 [facility] Blood platelet mean volumeOr dered By: Efra Koehler on 08-19-2023 Platelet mean volume (Bld) [Entitic vol] 9.3 fL 6.2-12.0 [facility] Determination of erythrocyte mean corpuscular volume (MCV)Ordered By: Efra Koehler on 08-19-2023 MCV (RBC) [Entitic vol] 87.6 fL 81-99 [facility] Hematocrit Auto (Bld) [Volum e fraction]Ordered By: Efra Koehler on 08-19-2023 Hematocrit (Bld) [Volume fraction] 41.7 % 37-47 [facility] Laboratory - Chemistry and C hemistry - challengeOrdered By: Efra Koehler on 08-19-2023 CO2 [Moles/Vol] 28.0 mmol/L 21.0-32.0 [facility] Urea nitrogen/Creatinine [Mass ratio] 18.4 mg/mg 10-20 [facility] - Hematology and Cell countsOrdered By: Efra Koehler on 08-19-2023 Erythrocyte distribution width (RBC) [Entitic vol] 41.5 fL 35.1-43.9 [facility] Erythrocyte distribution width (RBC) [Ratio] 13.0 % 11.6-14.6 [facility] Immature granulocytes/100 WBC (Bld) 0.200 % 0.0-0.9 [facility] Comment on above: IG% - Immature Granu locytes (promyelocytes, myelocytes and metamyelocytes) > 1% indicates that a LEFT SHIFT is Present. MCH (RBC) [Entitic mass] 29.2 pg 27.0-32.0 [facility] Nucleated RBC/100 WBC (Bld) [Ratio] 0 % 0-5 [facility] MCHC Auto (RBC) [Mass/Vol]Or dered By: Efra Koehler on 08-19-2023 MCHC (RBC) [Mass/Vol] 33.3 g/dL 32-36 [facility] No Panel InformationOrdered By: Efra Koehler on 08-19-2023 Estimated Creatinine Clearance Calc 48.15 ml/min [facility] Estimated GFR (MDRD) Amer 64 mL/min >60 [facility] Comment on above: GFR Calc Estimated GFR (MDRD) Non-Af Amer 53 mL/min >60 [facility] Comment on above: Non- GFR Calc Platelets bldOrdered By: Jese Koehler on 08-19-2023 Platelets (Bld) [#/Vol] 271 10*3/uL 150-450 [facility] Serum or plasma calcium paulette urement (mass/volume)Ordered By: Efra Koehler on 08-19-2023 Calcium [Mass/Vol] 9.5 mg/dL 8.5-10.1 [facility] Serum or plasma creatinine m easurement (mass/volume)Ordered By: Efra Koehler on 08-19-2023 Creatinine [Mass/Vol] 1.14 mg/dL 0.55-1.02 [facility] Comment on above: The validity of the calculated GFR & GFRAA in patients over 70 years has not been determined. Clinical correlation is essential. Serum or plasma urea nitroge n measurement (mass/volume)Ordered By: Efra Koehler on 08-19-2023 Urea nitrogen [Mass/Vol] 21 mg/dL 7-18 [facility] Thin prep Papanicolaou smear with manual screeningOrdered By: Efra Koehler on 08-19-2023 Thin prep Papanicolaou smear with manual screening 4 5-15 [facility] Basophil percentageon 2021 Cholesterol [Mass/Vol] 162 mg/dL <200 [facility] Work Phone: Comment on above: <200 mg/dL Desirable 200-240 mg/dL Borderline >240 mg/dL High Risk Triglyceride [Mass/Vol] 127 mg/dL <199 [facility] Work Phone: Comment on above: The drugs N-Acetylcy steine and Metamizole may falsely depress this assay.Serum Triglycerides Reference Interval Normal <150 mg/dL Borderline high 150 - 199 mg/dL High 200 - 499 mg/dL Very High > or = 500 mg/dL Serum or plasma cholesterol in HDL measurement (mass/volume)on 07-13-2022 Cholesterol in HDL [Mass/Vol] 68 mg/dL >40 [facility] Work Phone: Comment on above: The drugs N-Acetylcy steine and Metamizole may falsely depress this assay. Reference Range HDL <40 mg/dL Low HDL Cholesterol HDL >or= 60 mg/dL High HDL Cholesterol Serum or plasma cholesterol in VLDL measurement (mass/volume)on 07-13-2022 Cholesterol in VLDL [Mass/Vol] 25 mg/dL 5-40 [facility] Work Phone: Serum or plasma low density lipoprotein (LDL) cholesterol measurement (mass/volume)on 07-13-2022 Cholesterol in LDL [Mass/Vol] 69 mg/dL 0-130 [facility] Work Phone: Absolute lymphocyte counton 05-08-2022 Lymphocytes Auto (Unsp spec) [#/Vol] 1.18 10*3/uL 0.83-4.51 [facility] Work Phone: Basophil percentageon 2021 Basophils/100 WBC (Bld) 0.2 % 0-1 [facility] Work Phone: Bilirubin [Mass/Vol] 0.50 mg/dL 0.20-1.00 [facility] Work Phone: Comment on above: For patients on eltr ombopag therapy, use of Dimension [place] TBIL is not recommended. Chloride [Moles/Vol] 109 mmol/L 98-107 [facility] Work Phone: Eosinophils/100 WBC (Bld) 0.6 % 0-5 [facility] Work Phone: Glucose [Mass/Vol] 100 mg/dL 74-106 [facility] Work Phone: Comment on above: Fasting Glucose resu lt from 100 to 125 mg/dL suggests IMPAIRED HOMEOSTASIS per A.D.A. criteria. Neutrophils (Bld) [#/Vol] 8.4 10*3/uL 2.0-7.7 [facility] Work Phone: Neutrophils/100 WBC (Bld) 83.1 % 47-70 [facility] Work Phone: Potassium [Moles/Vol] 4.4 mmol/L 3.5-5.1 [facility] Work Phone: Protein [Mass/Vol] 8.1 g/dL 6.4-8.2 [facility] Work Phone: Sodium [Moles/Vol] 142 mmol/L 136-145 [facility] Work Phone: WBC (Bld) [#/Vol] 10.1 10*3/uL 4.4-11.0 [facility] Work Phone: Blood erythrocytes count (nu mber/volume)on 05-08-2022 RBC (Bld) [#/Vol] 4.91 10*6/uL 4.2-5.4 [facility] Work Phone: Blood hemoglobin measurement (mass/volume)on 05-08-2022 Hemoglobin (Bld) [Mass/Vol] 14.4 g/dL 12.0-15.0 [facility] Work Phone: Blood lymphocytes/100 leukoc yteson 05-08-2022 Lymphocytes/100 WBC (Bld) 11.6 % 19-41 [facility] Work Phone: Blood monocytes/100 leukocyt eson 05-08-2022 Monocytes/100 WBC (Bld) 4.3 % 0-10 [facility] Work Phone: Blood platelet mean volumeon 05-08-2022 Platelet mean volume (Bld) [Entitic vol] 9.3 fL 6.2-12.0 [facility] Work Phone: Determination of erythrocyte mean corpuscular volume (MCV)on 05-08-2022 MCV (RBC) [Entitic vol] 87.0 fL 81-99 [facility] Work Phone: Direct bilirubinon Bilirubin.direct [Mass/Vol] 0.14 mg/dL 0.00-0.30 [facility] Work Phone: Hematocrit Auto (Bld) [Volum e fraction]on 05-08-2022 Hematocrit (Bld) [Volume fraction] 42.7 % 37-47 [facility] Work Phone: Laboratory - Chemistry and C hemistry - challengeon 05-08-2022 ALP [Catalytic activity/Vol] 99 U/L 45-117 [facility] Work Phone: ALT [Catalytic activity/Vol] 35 U/L 13-56 [facility] Work Phone: CO2 [Moles/Vol] 25.0 mmol/L 21.0-32.0 [facility] Work Phone: Globulin (S) [Mass/Vol] 3.9 g/dL 2.2-4.2 [facility] [facility] Work Phone: Lipase [Catalytic activity/Vol] 201 U/L 73-393 [facility] Work Phone: Urea nitrogen/Creatinine [Mass ratio] 17.1 mg/mg 10-20 [facility] Work Phone: Laboratory - Hematology and Cell countson 05-08-2022 Erythrocyte distribution width (RBC) [Entitic vol] 41.9 fL 35.1-43.9 [facility] Work Phone: Erythrocyte distribution width (RBC) [Ratio] 13.1 % 11.6-14.6 [facility] Work Phone: Immature granulocytes/100 WBC (Bld) 0.200 % 0.0-0.9 [facility] Work Phone: Comment on above: IG% - Immature Granu locytes (promyelocytes, myelocytes and metamyelocytes) > 1% indicates that a LEFT SHIFT is Present. MCH (RBC) [Entitic mass] 29.3 pg 27.0-32.0 [facility] Work Phone: Nucleated RBC/100 WBC (Bld) [Ratio] 0 % 0-5 [facility] Work Phone: MCHC Auto (RBC) [Mass/Vol]on 05-08-2022 MCHC (RBC) [Mass/Vol] 33.7 g/dL 32-36 [facility] Work Phone: No Panel Informationon 05-08 Estimated Creatinine Clearance Calc 43.98 ml/min [facility] Work Phone: Estimated GFR (MDRD) Amer 62 mL/min >60 [facility] Work Phone: Comment on above: GFR Calc Estimated GFR (MDRD) Non-Af Amer 51 mL/min >60 [facility] Work Phone: Comment on above: Non- GFR Calc Platelets bldon 05-08-2022 Platelets (Bld) [#/Vol] 266 10*3/uL 150-450 [facility] Work Phone: Serum or plasma albumin paulette urement (mass/volume)on 05-08-2022 Albumin [Mass/Vol] 4.2 g/dL 3.2-5.0 [facility] Work Phone: Serum or plasma calcium paulette urement (mass/volume)on 05-08-2022 Calcium [Mass/Vol] 9.7 mg/dL 8.5-10.1 [facility] Work Phone: Serum or plasma creatinine m easurement (mass/volume)on 05-08-2022 Creatinine [Mass/Vol] 1.17 mg/dL 0.55-1.02 [facility] Work Phone: Comment on above: The validity of the calculated GFR & GFRAA in patients over 70 years has not been determined. Clinical correlation is essential. Serum or plasma urea nitroge n measurement (mass/volume)on 05-08-2022 Urea nitrogen [Mass/Vol] 20 mg/dL 7-18 [facility] Work Phone: Thin prep Papanicolaou smear with manual screeningon 05-08-2022 Thin prep Papanicolaou smear with manual screening 25 U/L 15-37 [facility] Work Phone: Thin prep Papanicolaou smear with manual screening 8 5-15 [facility] Work Phone: CALCIFIDIOL (87382) VIT D 25 Ordered By: Billet Inspector on 04-09-2022 25-hydroxyvitamin D [Mass/Vol] 49.6 ng/mL Normal 30.0-100.0 [facility] Work Phone: Comment on above: Vitamin D deficiency has been defined by the [place] of[place] and an Endocrine Society practice guideline as alevel of serum 25-OH vitamin D less than 20 ng/mL (1,2).The Endocrine Society went on to further define vitamin Dinsufficiency as a level between 21 and 29 ng/mL (2).1. IOM ([place] of Medicine). 2010. Dietary reference intakes for calcium and D. [place]: The National Academies Press.2. Natalia MF, Jacklyn NC, Cinthya PEÑA, et al. Evaluation, treatment, and prevention of vitamin D deficiency: an Endocrine Society clinical practice guideline. JCEM. 2010; 96(7):1911-30. PATIENT WAS FASTINGP ERFORMED BY: [employer]70 [facility]GenErl[facility] [id number] CBC W/AUTO DIFF WBC (04106)O rdered By: Billet Inspector on 04-09-2022 Basophils (Bld) [#/Vol] 0.0 10*3/uL Normal 0.0-0.2 [facility]; [facility] Work Phone: Comment on above: PATIENT WAS FASTINGP ERFORMED BY: [employer]70 [address] [facility] [id number] Basophils/100 WBC (Bld) 0 % Normal [facility]; [facility] Work Phone: Comment on above: PATIENT WAS FASTINGP ERFORMED BY: [facility] Jxqrlr9417 [address]is RoadDublin [place] [id number] Eosinophils (Bld) [#/Vol] 0.1 10*3/uL Normal 0.0-0.4 [facility]; [facility] Work Phone: Comment on above: PATIENT WAS FASTINGP ERFORMED BY: [facility] Pabtbm4745 [address] RoadDublin [place] [id number] Eosinophils/100 WBC (Bld) 2 % Normal [facility]; [facility] Work Phone: Comment on above: PATIENT WAS FASTINGP ERFORMED BY: [facility] Qpsluq1796 [address] Roadblin [place] [id number] Erythrocyte distribution width (RBC) [Ratio] 13.0 % Normal 11.7-15.4 [facility]; [facility] Work Phone: Comment on above: PATIENT WAS FASTINGP ERFORMED BY: LabMemorial Healthcare6370 Mathis RoadErlanger [facility] [id number] Hematocrit (Bld) [Volume fraction] 42.0 % Normal 34.0-46.6 [facility]; [facility] Work Phone: Comment on above: PATIENT WAS FASTINGP ERFORMED BY: [facility] Dstsrh4876 Math[address] RoadCone Health Annie Penn Hospitalin [place] [id number] Hemoglobin (Bld) [Mass/Vol] 14.2 g/dL Normal 11.1-15.9 [facility]; [facility] Work Phone: Comment on above: PATIENT WAS FASTINGP ERFORMED BY: [facility] Fysisc7296 [address] RoadDublin [place] [id number] Immature granulocytes (Bld) [#/Vol] 0.0 10*3/uL Normal 0.0-0.1 [facility]; [facility] Work Phone: Comment on above: PATIENT WAS FASTINGP ERFORMED BY: [facility] Bmafsy7615 [address] RoadDublin [place] [id number] Immature granulocytes/100 WBC (Bld) 0 % Normal [facility]; [facility] Work Phone: Comment on above: PATIENT WAS FASTINGP ERFORMED BY: BEKAH [facility] Cqsqxg7528 [address] RoadDublin [place] [id number] Lymphocytes (Bld) [#/Vol] 1.4 10*3/uL Normal 0.7-3.1 [facility]; [facility] Work Phone: Comment on above: PATIENT WAS FASTINGP ERFORMED BY: CB [facility] Jcmzib8579 [address] RoadDublin [place] [id number] Lymphocytes/100 WBC (Bld) 28 % Normal [facility]; [facility] Work Phone: Comment on above: PATIENT WAS FASTINGP ERFORMED BY: BEKAH [facility] Bjbocm1140 [address] Roadblin [place] [id number] MCH (RBC) [Entitic mass] 29.5 pg Normal 26.6-33.0 [facility]; [facility] Work Phone: Comment on above: PATIENT WAS FASTINGP ERFORMED BY: [facility] Jcuxkr6663 [address] RoadDublin [place] [id number] MCHC (RBC) [Mass/Vol] 33.8 g/dL Normal 31.5-35.7 [facility] prehensive Internal Medicine; [facility] Work Phone: Comment on above: PATIENT WAS FASTINGP ERFORMED BY: BEKAH [facility] Vwkchd5082 [address] RoadDublin [place] [id number] MCV (RBC) [Entitic vol] 87 fL Normal 79-97 [facility]; [facility] Work Phone: Comment on above: PATIENT WAS FASTINGP ERFORMED BY: BEKAH [facility] Wlrupl4124 [address] RoadDublin [place] [id number] Monocytes (Bld) [#/Vol] 0.4 10*3/uL Normal 0.1-0.9 [facility]; [facility] Work Phone: Comment on above: PATIENT WAS FASTINGP ERFORMED BY: [facility] Qckxdv8647 [address] RoadDublin [place] [id number] Monocytes/100 WBC (Bld) 7 % Normal [facility]; [facility] Work Phone: Comment on above: PATIENT WAS FASTINGP ERFORMED BY: BEKAH [facility] Ahnwba7959 [address] RoadDublin [place] [id number] Neutrophils (Bld) [#/Vol] 3.1 10*3/uL Normal 1.4-7.0 [facility]; [facility] Work Phone: Comment on above: PATIENT WAS FASTINGP ERFORMED BY: BEKAH [facility] Xocqvj6850 [address] RoadDublin [place] [id number] Neutrophils/100 WBC (Bld) 63 % Normal [facility]; [facility] Work Phone: Comment on above: PATIENT WAS FASTINGP ERFORMED BY: BEKAH [facility] Iihfju3059 [address] RoadDublin [place] [id number] Platelets (Bld) [#/Vol] 270 10*3/uL Normal 150-450 [facility]; [facility] Work Phone: Comment on above: PATIENT WAS FASTINGP ERFORMED BY: BEKAH [facility] Dusasg9614 [address] RoadDublin [place] [id number] RBC (Bld) [#/Vol] 4.81 10*6/uL Normal 3.77-5.28 [facility]; [facility] Work Phone: Comment on above: PATIENT WAS FASTINGP ERFORMED BY: BEKAH [facility] Dcmapp8955 [address] RoadDublin [place] [id number] WBC (Bld) [#/Vol] 5.0 10*3/uL Normal 3.4-10.8 [facility]; [facility] Work Phone: Comment on above: PATIENT WAS FASTINGP ERFORMED BY: BEKAH [facility] Ttzfvg6037 [address] RoadDublin [place] [id number] FERRITIN ([id number])Ordered By: Billet Inspector on 04-09-2022 Ferritin [Mass/Vol] 133 ng/mL Normal 15-150 Compr ensive [facility]; [facility] Work Phone: Comment on above: PATIENT WAS FASTINGP ERFORMED BY: BEKAH [facility] Rvwdan6708 [address] RoadDublin [place] [id number] IRON BINDING CAPACITY (TIBC) (05138)Ordered By: Billet Inspector on 04-09-2022 Iron [Mass/Vol] 121 ug/dL Normal 27-159 [facility]; [facility] Work Phone: Comment on above: PATIENT WAS FASTINGP ERFORMED BY: CB [facility] Luyblw6295 [address] RoadDublin [place] [id number] Iron binding capacity [Mass/Vol] 256 ug/dL Normal 250-450 [facility]; [facility] Work Phone: Comment on above: PATIENT WAS FASTINGP ERFORMED BY: CB [facility] Yulalq4252 [address] RoadDublin [place] [id number] Iron binding capacity.unsaturated [Mass/Vol] 135 ug/dL Normal 131-425 [facility]; [facility] Work Phone: Comment on above: PATIENT WAS FASTINGP ERFORMED BY: CB [facility] Vfivke1999 [address] RoadDublin [place] [id number] Iron saturation [Mass fraction] 47 % Normal 15-55 [facility]; [facility] Work Phone: Comment on above: PATIENT WAS FASTINGP ERFORMED BY: CB [facility] Xryewc9820 [address] RoadDublin [place] [id number] LIPID PANEL (60315)Ordered B y: Billet Inspector on 04-09-2022 Cholesterol [Mass/Vol] 242 mg/dL Abnormal 100-199 [facility]; [facility] Work Phone: Comment on above: PATIENT WAS FASTINGP ERFORMED BY: CB [facility] Cyhwar7356 [address] RoadDublin [place] [id number] Cholesterol in HDL [Mass/Vol] 61 mg/dL Normal [facility]; [facility] Work Phone: Comment on above: PATIENT WAS FASTINGP ERFORMED BY: CB [facility] Pdbzvc6615 [address] RoadDublin [place] [id number] Triglyceride [Mass/Vol] 104 mg/dL Normal 0-149 [facility]; [facility] Work Phone: Comment on above: PATIENT WAS FASTINGP ERFORMED BY: CB [facility] Kqidqe0765 [address] RoadDublin [place] [id number] LIPID PANEL (27145) 18 mg/dL Normal 5-40 [facility]; [facility] Work Phone: Comment on above: PATIENT WAS FASTINGP ERFORMED BY: CB [facility] Ieqnhp6817 [address] RoadDublin [place] [id number] LIPID PANEL (34871) 163 mg/dL Abnormal 0-99 [facility]; [facility] Work Phone: Comment on above: PATIENT WAS FASTINGP ERFORMED BY: CB [facility] Wdfiqp9291 [address] RoadDublin [place] [id number] LIPID PANEL (94020) 2.7 {ratio} Normal 0.0-3.2 [facility]; [facility] Work Phone: Comment on above: LDL/HDL Ratio Men Wo men 1/2 Avg.Risk 1.0 1.5 Avg.Risk 3.6 3.2 2X Avg.Risk 6.2 5.0 3X Avg.Risk 8.0 6.1 PATIENT WAS FASTINGP ERFORMED BY: BEKAH [facility] Vwogfc1515 [address] RoadDublin [place] [id number] METABOLIC PANEL, COMPREHENSI VE (46433)Ordered By: Billet Inspector on 04-09-2022 Albumin [Mass/Vol] 4.6 g/dL Normal 3.8-4.9 [facility]; [facility] Work Phone: Comment on above: PATIENT WAS FASTINGP ERFORMED BY: CB [facility] Xqgqex1387 [address] RoadDublin [place] [id number] Albumin/Globulin [Mass ratio] 1.8 {ratio} Normal 1.2-2.2 [facility]; [facility] Work Phone: Comment on above: PATIENT WAS FASTINGP ERFORMED BY: CB [facility] Zbutrc5529 [address] RoadDublin [place] [id number] ALP [Catalytic activity/Vol] 114 U/L Normal 44-121 [facility]; [facility] Work Phone: Comment on above: PATIENT WAS FASTINGP ERFORMED BY: CB [facility] Nnxcnz7564 [address] RoadDublin [place] [id number] ALT [Catalytic activity/Vol] 19 U/L Normal 0-32 [facility]; [facility] Work Phone: Comment on above: PATIENT WAS FASTINGP ERFORMED BY: CB [facility] Rzbzeq4434 [address] RoadDublin [place] [id number] AST [Catalytic activity/Vol] 24 U/L Normal 0-40 [facility]; [facility] Work Phone: Comment on above: PATIENT WAS FASTINGP ERFORMED BY: CB [facility] Gbdroj6868 [address] RoadDublin [place] [id number] Bilirubin [Mass/Vol] 0.5 mg/dL Normal 0.0-1.2 Comp rehensive [facility]; [facility] Work Phone: Comment on above: PATIENT WAS FASTINGP ERFORMED BY: CB [facility] Mkkwrz0826 [address] RoadDublin [place] [id number] Calcium [Mass/Vol] 9.9 mg/dL Normal 8.7-10.[address] [facility]; [facility] Work Phone: Comment on above: PATIENT WAS FASTINGP ERFORMED BY: CB [facility] Xrvtcc6076 [address] RoadDublin [place] [id number] Chloride [Moles/Vol] 100 mmol/L Normal 96-106 Comp rehensive [facility]; [facility] Work Phone: Comment on above: PATIENT WAS FASTINGP ERFORMED BY: CB [facility] Vjsjzn7510 [address] RoadDublin [place] [id number] CO2 [Moles/Vol] 24 mmol/L Normal 20-29 [facility]; [facility] Work Phone: Comment on above: PATIENT WAS FASTINGP ERFORMED BY: CB [facility] Rfqsgc5548 [address] RoadDublin [place] [id number] Creatinine [Mass/Vol] 1.00 mg/dL Normal 0.57-1.00 [facility] prehensive Internal Medicine; [facility] Work Phone: Comment on above: PATIENT WAS FASTINGP ERFORMED BY: BEKAH [facility] Dciioc0598 [address] RoadDublin [place] [id number] GFR/1.73 sq M.predicted among non-blacks MDRD (S/P/Bld) [Vol rate/Area] 67 mL/min/{1.73_m2} Normal Comprehensiv e [facility]; [facility] Work Phone: Comment on above: PATIENT WAS FASTINGP ERFORMED BY: BEKAH [facility] Rexfyz2175 [address] RoadDublin [place] [id number] Globulin (S) [Mass/Vol] 2.5 g/dL Normal 1.5-4.5 [facility]; [facility] Work Phone: Comment on above: PATIENT WAS FASTINGP ERFORMED BY: BEKAH [facility] Etdgop4833 [address] RoadDublin [place] [id number] Glucose [Mass/Vol] 86 mg/dL Normal 65-[address] [facility]; [facility] Work Phone: Comment on above: PATIENT WAS FASTINGP ERFORMED BY: BEKAH [facility] Uhetyt8891 [address] RoadDublin [place] [id number] Potassium [Moles/Vol] 4.6 mmol/L Normal 3.5-5.2 [facility] prehensive Internal Medicine; [facility] Work Phone: Comment on above: PATIENT WAS FASTINGP ERFORMED BY: BEKAH [facility] Xrtfve0176 [address] RoadDublin [place] [id number] Protein [Mass/Vol] 7.1 g/dL Normal 6.0-8.5 [facility]; [facility] Work Phone: Comment on above: PATIENT WAS FASTINGP ERFORMED BY: CB [facility] Sqsgyq9985 [address] RoadDublin [place] [id number] Sodium [Moles/Vol] 137 mmol/L Normal 134-[address] [facility] ecu healthive [facility]; [facility] Work Phone: Comment on above: PATIENT WAS FASTINGP ERFORMED BY: [facility] Pwlcys2849 [address] RoadDublin [place] [id number] Urea nitrogen [Mass/Vol] 13 mg/dL Normal 6-24 [facility]; [facility] Work Phone: Comment on above: PATIENT WAS FASTINGP ERFORMED BY: [employer] Control SystemsJersey Shore University Medical CenterTytudx2466 [facility] [id number] Urea nitrogen/Creatinine [Mass ratio] 13 mg/mg Normal 9-23 [facility]; [facility] Work Phone: Comment on above: PATIENT WAS FASTINGP ERFORMED BY: [employer] Control SystemsJersey Shore University Medical CenterWsockg8558 [facility] [id number] TSH ([id number])Ordered By: Yohobuy Tugboat Operator on 04-09-2022 TSH Qn 1.630 {uIU/mL} Normal 0.450-4.50 0 [facility]; [facility] Work Phone: Comment on above: PATIENT WAS FASTINGP ERFORMED BY: [employer] Control SystemsJersey Shore University Medical CenterIwvmqa0642 [facility] [id number] HELICO PYLORI, STOOL, INFCT ANTIGEN (32298)Ordered By: Billet Inspector on 12-17-2021 H. pylori Ag IA Ql (Stl) Negative Normal [facility]; [facility] Work Phone: Comment on above: PATIENT NOT FASTINGP ERFORMED BY: [employer] SystemsSaint Francis Medical CenterGlvhfznggn1080 [facility] [id number] Information: SRC:ST CALCIFIDIOL (54622) VIT D 25 Ordered By: Billet Inspector on 02-10-2021 25-hydroxyvitamin D [Mass/Vol] 39.7 ng/mL Normal 30.0-100.0 [facility]; [facility] Work Phone: Comment on above: Vitamin D deficiency has been defined by the [place] of[place]icine and an Endocrine Society practice guideline as alevel of serum 25-OH vitamin D less than 20 ng/mL (1,2).The Endocrine Society went on to further define vitamin Dinsufficiency as a level between 21 and 29 ng/mL (2).1. IOM ([place] of [place]). 2010. Dietary reference intakes for calcium and D. [place]: The National Academies Press.2. Natalia MF, Jacklyn THOMPSON, Cinthya PEÑA, et al. Evaluation, treatment, and prevention of vitamin D deficiency: an Endocrine Society clinical practice guideline. JCEM. 2010; 96(7):1911-30. PATIENT WAS FASTINGP ERFORMED BY: [facility] Cwmzgz9953 [address] RoadDublin [place] [id number] CBC W/AUTO DIFF WBC (63436)O rdered By: Billet Inspector on 02-10-2021 Basophils (Bld) [#/Vol] 0.0 10*3/uL Normal 0.0-0.2 [facility]; [facility] Work Phone: Comment on above: PATIENT WAS FASTINGP ERFORMED BY: [facility] Syodey7132 [address] RoadDublin [place] [id number] Basophils/100 WBC (Bld) 1 % Normal [facility]; [facility] Work Phone: Comment on above: PATIENT WAS FASTINGP ERFORMED BY: [facility] Ptuxrd7846 [address] RoadDublin [place] [id number] Eosinophils (Bld) [#/Vol] 0.1 10*3/uL Normal 0.0-0.4 [facility]; [facility] Work Phone: Comment on above: PATIENT WAS FASTINGP ERFORMED BY: [facility] Xbvamx9372 [address] RoadDublin [place] [id number] Eosinophils/100 WBC (Bld) 2 % Normal [facility]; [facility] Work Phone: Comment on above: PATIENT WAS FASTINGP ERFORMED BY: [facility] Vbddwe2700 [address] RoadDublin [place] [id number] Erythrocyte distribution width (RBC) [Ratio] 13.1 % Normal 11.7-15.4 [facility]; [facility] Work Phone: Comment on above: PATIENT WAS FASTINGP ERFORMED BY: [facility] Mtynho3945 [address] RoadDublin [place] [id number] Hematocrit (Bld) [Volume fraction] 40.4 % Normal 34.0-46.6 [facility]; [facility] Work Phone: Comment on above: PATIENT WAS FASTINGP ERFORMED BY: LabResearch [facility] Center Gnurzs7701 [address] RoadDublin [place] [id number] Hemoglobin (Bld) [Mass/Vol] 13.6 g/dL Normal 11.1-15.9 [facility]; [facility] Work Phone: Comment on above: PATIENT WAS FASTINGP ERFORMED BY: LabSaint Louis University HospitalRphjgt7337 [address] RoadDublin [place] [id number] Immature granulocytes (Bld) [#/Vol] 0.0 10*3/uL Normal 0.0-0.1 [facility]; [facility] Work Phone: Comment on above: PATIENT WAS FASTINGP ERFORMED BY: LabResearch Medical Center Bnbvuy7103 [address] RoadDublin [place] [id number] Immature granulocytes/100 WBC (Bld) 0 % Normal [facility]; [facility] Work Phone: Comment on above: PATIENT WAS FASTINGP ERFORMED BY: LabCorewell Health Blodgett Hospital6370 [address] RoadDublin [place] [id number] Lymphocytes (Bld) [#/Vol] 1.2 10*3/uL Normal 0.7-3.1 [facility]; [facility] Work Phone: Comment on above: PATIENT WAS FASTINGP ERFORMED BY: LabCorewell Health Blodgett Hospital6370 [address] RoadDublin [place] [id number] Lymphocytes/100 WBC (Bld) 21 % Normal [facility]; [facility] Work Phone: Comment on above: PATIENT WAS FASTINGP ERFORMED BY: [facility] Wxejda9135 [address] RoadDublin [place] [id number] MCH (RBC) [Entitic mass] 29.9 pg Normal 26.6-33.0 [facility]; [facility] Work Phone: Comment on above: PATIENT WAS FASTINGP ERFORMED BY: LabResearch Medical Center Uznggq9325 [address] RoadDublin [place] [id number] MCHC (RBC) [Mass/Vol] 33.7 g/dL Normal 31.5-35.7 [facility] prehensive Internal Medicine; [facility] Work Phone: Comment on above: PATIENT WAS FASTINGP ERFORMED BY: CB [facility] Hvjuul8645 [address] RoadDublin [place] [id number] MCV (RBC) [Entitic vol] 89 fL Normal 79-97 [facility]; [facility] Work Phone: Comment on above: PATIENT WAS FASTINGP ERFORMED BY: CB [facility] Esxady1201 [address] RoadDublin [place] [id number] Monocytes (Bld) [#/Vol] 0.4 10*3/uL Normal 0.1-0.9 [facility]; [facility] Work Phone: Comment on above: PATIENT WAS FASTINGP ERFORMED BY: CB [facility] Rgelan5610 [address] RoadDublin [place] [id number] Monocytes/100 WBC (Bld) 7 % Normal [facility]; [facility] Work Phone: Comment on above: PATIENT WAS FASTINGP ERFORMED BY: CB [facility] Tfwbpa6904 [address] RoadDublin [place] [id number] Neutrophils (Bld) [#/Vol] 4.0 10*3/uL Normal 1.4-7.0 [facility]; [facility] Work Phone: Comment on above: PATIENT WAS FASTINGP ERFORMED BY: CB [facility] Pseflh2723 [address] RoadDublin [place] [id number] Neutrophils/100 WBC (Bld) 69 % Normal [facility]; [facility] Work Phone: Comment on above: PATIENT WAS FASTINGP ERFORMED BY: CB [facility] Ggawrm4716 [address] RoadDublin [place] [id number] Platelets (Bld) [#/Vol] 281 10*3/uL Normal 150-450 [facility]; [facility] Work Phone: Comment on above: PATIENT WAS FASTINGP ERFORMED BY: CB [facility] Fuxuux3921 [address] RoadDublin [place] [id number] RBC (Bld) [#/Vol] 4.55 10*6/uL Normal 3.77-5.28 [facility]; [facility] Work Phone: Comment on above: PATIENT WAS FASTINGP ERFORMED BY: BEKAH LabDonna Sutherland6370 [address] RoadDublin [place] [id number] WBC (Bld) [#/Vol] 5.8 10*3/uL Normal 3.4-10.8 [facility]put[facility]; [facility] Work Phone: Comment on above: PATIENT WAS FASTINGP ERFORMED BY: BEKAH LabCobrittany Qmqtgh4668 [address] RoadDublin [place] [id number] LIPID PANEL ([id number])Ordered B y: Billet Inspector on 02-10-2021 Cholesterol [Mass/Vol] 212 mg/dL Abnormal 100-199 [facility]; [facility] Work Phone: Comment on above: PATIENT WAS FASTINGP ERFORMED BY: BEKAH Kellylin6370 [address] RoadDublin [place] [id number] Cholesterol in HDL [Mass/Vol] 57 mg/dL Normal [facility]; [facility] Work Phone: Comment on above: PATIENT WAS FASTINGP ERFORMED BY: BEKAH LabDonna KellyTcucmy0718 [address]is RoadDublin [place] [id number] Triglyceride [Mass/Vol] 116 mg/dL Normal 0-149 [facility]; [facility] Work Phone: Comment on above: PATIENT WAS FASTINGP ERFORMED BY: BEKAH LabCobrittany Diqxsz5650 [address] RoadDublin [place] [id number] LIPID PANEL (05580) 21 mg/dL Normal 5-40 [facility]; [facility] Work Phone: Comment on above: PATIENT WAS FASTINGP ERFORMED BY: BEKAH [facility] Frmvts9861 [address] RoadDublin [place] [id number] LIPID PANEL (11651) 134 mg/dL Abnormal 0-99 Compr ensive Internal Medicine; [facility] Work Phone: Comment on above: PATIENT WAS FASTINGP ERFORMED BY: BEKAH [facility] Itedpd9881 [address] RoadDublin [place] [id number] LIPID PANEL (29823) 2.4 {ratio} Normal 0.0-3.2 [facility] Internal Medicine; [facility] Work Phone: Comment on above: LDL/HDL Ratio Men Wo men 1/2 Avg.Risk 1.0 1.5 Avg.Risk 3.6 3.2 2X Avg.Risk 6.2 5.0 3X Avg.Risk 8.0 6.1 PATIENT WAS FASTINGP ERFORMED BY: BEKAH Sutherland6370 [facility] [id number] METABOLIC PANEL, COMPREHENSI VE (53535)Ordered By: Billet Inspector on 02-10-2021 Albumin [Mass/Vol] 4.4 g/dL Normal 3.8-4.9 [facility] Internal Medicine; [facility] Work Phone: Comment on above: PATIENT WAS FASTINGP ERFORMED BY: BEKAH Sutherland6370 [facility] [id number] Albumin/Globulin [Mass ratio] 1.8 {ratio} Normal 1.2-2.2 [facility]; [facility] Work Phone: Comment on above: PATIENT WAS FASTINGP ERFORMED BY: BEKAH Sutherland6370 [facility] [id number] ALP [Catalytic activity/Vol] 79 U/L Normal 48-121 [facility]; [facility] Work Phone: Comment on above: PATIENT WAS FASTINGP ERFORMED BY: BEKAH Sutherland6370 [facility] [id number] ALT [Catalytic activity/Vol] 22 U/L Normal 0-32 [facility]; [facility] Work Phone: Comment on above: PATIENT WAS FASTINGP ERFORMED BY: BEKAH Sutherland6370 [facility] [id number] AST [Catalytic activity/Vol] 27 U/L Normal 0-40 [facility]; [facility] Work Phone: Comment on above: PATIENT WAS FASTINGP ERFORMED BY: BEKAH Kellylin6370 [facility] [id number] Bilirubin [Mass/Vol] 0.3 mg/dL Normal 0.0-1.2 [facility] rehensive Internal Medicine; [facility] Work Phone: Comment on above: PATIENT WAS FASTINGP ERFORMED BY: [facility]6370 [facility] [id number] Calcium [Mass/Vol] 9.2 mg/dL Normal 8.7-10.2 [facility] Internal [facility]; [facility] Work Phone: Comment on above: PATIENT WAS FASTINGP ERFORMED BY: [facility]6370 [facility] [id number] Chloride [Moles/Vol] 107 mmol/L Abnormal 96-106 Comp rehensive Internal Medicine; [facility] Work Phone: Comment on above: PATIENT WAS FASTINGP ERFORMED BY: [facility]6370 [facility] [id number] CO2 [Moles/Vol] 24 mmol/L Normal 20-29 [facility]; [facility] Work Phone: Comment on above: PATIENT WAS FASTINGP ERFORMED BY: [facility]6370 [facility] [id number] Creatinine [Mass/Vol] 1.03 mg/dL Abnormal 0.57-1.00 [facility] prehensive Internal Medicine; [facility] Work Phone: Comment on above: PATIENT WAS FASTINGP ERFORMED BY: [facility]6370 [facility] [id number] GFR/1.73 sq M.predicted among blacks CKD-EPI (S/P/Bld) [Vol rate/Area] 72 mL/min/1.73 Normal [facility]; [facility] Work Phone: Comment on above: [facility] currently reports eGFR in compliance with the current recommendations of the National Kidney Foundation. [facility] will update reporting as new guidelines are published from the NKF-ASN Task force. PATIENT WAS FASTINGP ERFORMED BY: [facility]6370 [facility] [id number] GFR/1.73 sq M.predicted among non-blacks CKD-EPI (S/P/Bld) [Vol rate/Area] 63 mL/min/1.73 Normal [facility]; [facility] Work Phone: Comment on above: PATIENT WAS FASTINGP ERFORMED BY: [facility] Cdohdd7738 [address] [facility]in [place] [id number] Globulin (S) [Mass/Vol] 2.4 g/dL Normal 1.5-4.5 [facility] Internal Medicine; [facility] Work Phone: Comment on above: PATIENT WAS FASTINGP ERFORMED BY: [facility] Mdmsky[address] [facility]in [place] [id number] Glucose [Mass/Vol] 85 mg/dL Normal 65-99 [facility] Internal Medicine; [facility] Work Phone: Comment on above: PATIENT WAS FASTINGP ERFORMED BY: [facility] Nnowss60[address] [facility] [id number] Potassium [Moles/Vol] 5.1 mmol/L Normal 3.5-5.2 [facility] prehensive Internal Medicine; [facility] Work Phone: Comment on above: PATIENT WAS FASTINGP ERFORMED BY: [facility] Laieqh3470 [facility]in [place] [id number] Protein [Mass/Vol] 6.8 g/dL Normal 6.0-8.5 [facility] Internal Medicine; [facility] Work Phone: Comment on above: PATIENT WAS FASTINGP ERFORMED BY: [facility]Co Weotag[address] [facility]in [place] [id number] Sodium [Moles/Vol] 142 mmol/L Normal 134-144 [facility] Internal Medicine; [facility] Work Phone: Comment on above: PATIENT WAS FASTINGP ERFORMED BY: [facility] Ueftfg[address] [facility]blin [place] [id number] Urea nitrogen [Mass/Vol] 15 mg/dL Normal 6-24 [facility] Internal Medicine; [facility] Work Phone: Comment on above: PATIENT WAS FASTINGP ERFORMED BY: BEKAH [place] Jlbomh[address] [facility] [id number] Urea nitrogen/Creatinine [Mass ratio] 15 mg/mg Normal 9-23 [facility]; [facility] Work Phone: Comment on above: PATIENT WAS FASTINGP ERFORMED BY: [facility]Co Jiswtt7571 [facility] [id number] MICROALBUMINOrdered By: [employer] em Tugboat Operator on 02-10-2021 Albumin DL <= 20 mg/L (U) [Mass/Vol] 9.5 ug/mL Normal [facility]; [facility] Work Phone: Comment on above: PATIENT WAS FASTINGP ERFORMED BY: BEKAH Kellylin6370 [facility] [id number] Albumin/Creatinine (U) [Mass ratio] 6 {mg/g_creat} Normal 0-29 [facility]; [facility] Work Phone: Comment on above: Normal: 0 - 29 Moder ately increased: 30 - 300 Severely increased: >300 PATIENT WAS FASTINGP ERFORMED BY: BEKAH Georgette Snoven9262 [facility] [id number] Creatinine (U) [Mass/Vol] 161.0 mg/dL Normal [facility]; [facility] Work Phone: Comment on above: PATIENT WAS FASTINGP ERFORMED BY: LabAriana Ojnava3198 [facility] [id number] TSH (59940)Ordered By: [employer] m Tugboat Operator on 02-10-2021 TSH Qn 2.160 {uIU/mL} Normal 0.450-4.50 0 [facility]; [facility] Work Phone: Comment on above: PATIENT WAS FASTINGP ERFORMED BY: BEKAH Georgette Iggcbc2220 [facility] [id number] 2019 Novel Coronavirus (COVI D-19), SOY (27438)Ordered By: Billet Inspector on 07-22-20202018 Novel Coronavirus (COVID-19), SOY (86520) Not Detected Normal [facility] Work Phone: Comment on above: This nucleic acid am plification test was developed and its performancecharacteristics determined by [employer]. Nucleic acidamplification tests include PCR and TMA. This test has not been FDAcleared or approved. This test has been authorized by FDA under anEmergency Use Authorization (EUA). This test is only authorized forthe duration of time the declaration that circumstances existjustifying the authorization of the emergency use of in vitrodiagnostic tests for detection of SARS-CoV-2 virus and/or diagnosisof COVID-19 infection under section 564(b)(1) of the Act, 21 U.S.C.360bbb-3(b) (1), unless the authorization is terminated or revokedsooner.When diagnostic testing is negative, the possibility of a falsenegative result should be considered in the context of a patient'srecent exposures and the presence of clinical signs and symptomsconsistent with COVID-19. An individual without symptoms of COVID-19and who is not shedding SARS-CoV-2 virus would expect to have anegative (not detected) result in this assay. PATIENT NOT FASTINGP ERFORMED BY: [employer] Coenom3595 [facility] [id number] 2018 Novel Coronavirus (COVID-19), SOY (92910) Not detected Normal [facility]; [facility] Work Phone: Comment on above: This nucleic acid am plification test was developed and its performancecharacteristics determined by [employer]. Nucleic acidamplification tests include PCR and TMA. This test has not been FDAcleared or approved. This test has been authorized by FDA under anEmergency Use Authorization (EUA). This test is only authorized forthe duration of time the declaration that circumstances existjustifying the authorization of the emergency use of in vitrodiagnostic tests for detection of SARS-CoV-2 virus and/or diagnosisof COVID-19 infection under section 564(b)(1) of the Act, 21 U.S.C.360bbb-3(b) (1), unless the authorization is terminated or revokedsooner.When diagnostic testing is negative, the possibility of a falsenegative result should be considered in the context of a patient'srecent exposures and the presence of clinical signs and symptomsconsistent with COVID-19. An individual without symptoms of COVID-19and who is not shedding SARS-CoV-2 virus would expect to have anegative (not detected) result in this assay. PATIENT NOT FASTINGP ERFORMED BY: [employer] Datam3595 [facility] [id number] Influenza A&B Viral Culture (84477)Ordered By: Billet Inspector on 07-22-2020 FLUV identified Org specific cx Nom (Unsp spec) FLUABN Normal [facility] Work Phone: Comment on above: Negative:No Influenz a A or B detected. PATIENT NOT FASTINGP ERFORMED BY: [employer] Ushsqr7059 [facility] [id number] Information: SRC:NL CALCIFIDIOL (59276) VIT D 25 Ordered By: Billet Inspector on 11-22-2019 25-Hydroxyvitamin D2+25-Hydroxyvitamin D3 [Mass/Vol] 51.7 ng/mL Normal 30.0-100.0 [facility] Work Phone: Comment on above: Vitamin D deficiency has been defined by the [place] of[place]icine and an Endocrine Society practice guideline as alevel of serum 25-OH vitamin D less than 20 ng/mL (1,2).The Endocrine Society went on to further define vitamin Dinsufficiency as a level between 21 and 29 ng/mL (2).1. IOM ([place] of Medicine). 2010. Dietary reference intakes for calcium and D. [place]: The National Academies Press.2. Natalia MF, Jacklyn [place], Davey-Raghu PEÑA, et al. Evaluation, treatment, and prevention of vitamin D deficiency: an Endocrine Society clinical practice guideline. JCEM. 2010; 96(7):1911-30. PATIENT WAS FASTINGP ERFORMED BY: [employer]CoIPS [employer] Xnfxau3219 [facility] [id number] CBC W/AUTO DIFF WBC (17153)O rdered By: Billet Inspector on 11-22-2019 Basophils (Bld) [#/Vol] 0.0 {x10E3/uL} Normal 0.0-0.2 [facility] Work Phone: Comment on above: PATIENT WAS FASTINGP ERFORMED BY: BEKAH LabCobrittany KellyFciuyq4570 [address] RoadDublin [place] [id number] Basophils (Bld) [#/Vol] 0.0 10*3/uL Normal 0.0-0.2 [facility]; [facility] Work Phone: Comment on above: PATIENT WAS FASTINGP ERFORMED BY: BEKAH LabCo Xgxlow6439 [address] RoadDublin [place] [id number] Basophils/100 WBC (Bld) 1 % Normal [facility] Work Phone: Comment on above: PATIENT WAS FASTINGP ERFORMED BY: BEKAH [facility] Eglcra5648 [address] RoadDublin [place] [id number] Eosinophils (Bld) [#/Vol] 0.1 {x10E3/uL} Normal 0.0-0.4 [facility] Work Phone: Comment on above: PATIENT WAS FASTINGP ERFORMED BY: BEKAH [facility] Qljjyi1013 [address] RoadDublin [place] [id number] Eosinophils (Bld) [#/Vol] 0.1 10*3/uL Normal 0.0-0.4 [facility]; [facility] Work Phone: Comment on above: PATIENT WAS FASTINGP ERFORMED BY: [facility] Tcwrfn3724 [address] RoadDublin [place] [id number] Eosinophils/100 WBC (Bld) 3 % Normal [facility] Work Phone: Comment on above: PATIENT WAS FASTINGP ERFORMED BY: BEKAH LabCo Qcuuwv9753 [address] RoadDublin [place] [id number] Erythrocyte distribution width (RBC) [Ratio] 13.1 % Normal 11.7-15.4 [facility] Work Phone: Comment on above: PATIENT WAS FASTINGP ERFORMED BY: [facility] Cgcatc4600 [address] RoadDublin [place] [id number] Hematocrit (Bld) [Volume fraction] 41.9 % Normal 34.0-46.6 [facility] Work Phone: Comment on above: PATIENT WAS FASTINGP ERFORMED BY: BEKAH Georgettebrittany Cnvwce9512 [facility] [id number] Hemoglobin (Bld) [Mass/Vol] 14.1 g/dL Normal 11.1-15.9 [facility] Work Phone: Comment on above: PATIENT WAS FASTINGP ERFORMED BY: BEKAH [facility] Iryqct9726 [facility] [id number] Immature granulocytes (Bld) [#/Vol] 0.0 {x10E3/uL} Normal 0.0-0.1 [facility] Work Phone: Comment on above: PATIENT WAS FASTINGP ERFORMED BY: BEKAH [facility] Hxgyzw[address] [id number] Immature granulocytes (Bld) [#/Vol] 0.0 10*3/uL Normal 0.0-0.1 [facility]; [facility] Work Phone: Comment on above: PATIENT WAS FASTINGP ERFORMED BY: BEKAH [facility] Tisupv6028 [facility] [id number] Immature granulocytes/100 WBC (Bld) 0 % Normal [facility] Work Phone: Comment on above: PATIENT WAS FASTINGP ERFORMED BY: BEKAH [facility] Ekvfwd2759 [facility] [id number] Lymphocytes (Bld) [#/Vol] 1.2 {x10E3/uL} Normal 0.7-3.1 [facility] Work Phone: Comment on above: PATIENT WAS FASTINGP ERFORMED BY: [facility] Cvyoan6878 [facility] [id number] Lymphocytes (Bld) [#/Vol] 1.2 10*3/uL Normal 0.7-3.1 [facility]; [facility] Work Phone: Comment on above: PATIENT WAS FASTINGP ERFORMED BY: BEKAH [facility] [facility]bl[facility] [place] [id number] Lymphocytes/100 WBC (Bld) 23 % Normal [facility] Work Phone: Comment on above: PATIENT WAS FASTINGP ERFORMED BY: BEKAH Georgette Upafko4[address] [facility] Hospitalbl[facility] [place] [id number] MCH (RBC) [Entitic mass] 29.4 pg Normal 26.6-33.0 [facility] Work Phone: Comment on above: PATIENT WAS FASTINGP ERFORMED BY: [facility] [facility]in [place] [id number] MCHC (RBC) [Mass/Vol] 33.7 g/dL Normal 31.5-35.7 [facility] Internal Medicine Work Phone: Comment on above: PATIENT WAS FASTINGP ERFORMED BY: BEKAH [facility]6370 [facility] [id number] MCV (RBC) [Entitic vol] 87 fL Normal 79-97 [facility] Work Phone: Comment on above: PATIENT WAS FASTINGP ERFORMED BY: [facility] [facility]in [place] [id number] Monocytes (Bld) [#/Vol] 0.4 {x10E3/uL} Normal 0.1-0.9 [facility] Work Phone: Comment on above: PATIENT WAS FASTINGP ERFORMED BY: [facility] [facility] [place] [id number] Monocytes (Bld) [#/Vol] 0.4 10*3/uL Normal 0.1-0.9 [facility]; [facility] Work Phone: Comment on above: PATIENT WAS FASTINGP ERFORMED BY: [facility]Core[facility]6370 [address] RoadDublin [place] [id number] Monocytes/100 WBC (Bld) 8 % Normal [facility] Work Phone: Comment on above: PATIENT WAS FASTINGP ERFORMED BY: [facility] Clare6370 [address]Dublin [place] [id number] Neutrophils (Bld) [#/Vol] 3.3 {x10E3/uL} Normal 1.4-7.0 [facility] Work Phone: Comment on above: PATIENT WAS FASTINGP ERFORMED BY: BEKAH [facility] Awzvpc0513 [address] RoadDublin [place] [id number] Neutrophils (Bld) [#/Vol] 3.3 10*3/uL Normal 1.4-7.0 [facility]; [facility] Work Phone: Comment on above: PATIENT WAS FASTINGP ERFORMED BY: BEKAH [facility] Lduuli4856 [address] RoadDublin [place] [id number] Neutrophils/100 WBC (Bld) 65 % Normal [facility] Work Phone: Comment on above: PATIENT WAS FASTINGP ERFORMED BY: BEKAH LabCobrittany KellyWmiyru7161 [address] RoadDublin [place] [id number] Platelets (Bld) [#/Vol] 277 {x10E3/uL} Normal 150-450 [facility] Work Phone: Comment on above: PATIENT WAS FASTINGP ERFORMED BY: BEKAH [facility] Kmpvmb5150 [address] RoadDublin [place] [id number] Platelets (Bld) [#/Vol] 277 10*3/uL Normal 150-450 [facility]; [facility] Work Phone: Comment on above: PATIENT WAS FASTINGP ERFORMED BY: CB [facility] Lmtfhv1608 [address] RoadDublin [place] [id number] RBC (Bld) [#/Vol] 4.80 {x10E6/uL} Normal 3.77-5.28 [facility] Internal Medicine Work Phone: Comment on above: PATIENT WAS FASTINGP ERFORMED BY: CB [facility] Wrfehf2265 [address] RoadDublin [place] [id number] RBC (Bld) [#/Vol] 4.80 10*6/uL Normal 3.77-5.28 [facility] Internal Medicine; [facility] Work Phone: Comment on above: PATIENT WAS FASTINGP ERFORMED BY: BEKAH LabCo Qvnesk8474 [address] RoadDublin [place] [id number] WBC (Bld) [#/Vol] 5.0 {x10E3/uL} Normal 3.4-10.8 [facility] prehensive Internal Medicine Work Phone: Comment on above: PATIENT WAS FASTINGP ERFORMED BY: [facility] Elvnrz2797 [address] RoadDublin [place] [id number] WBC (Bld) [#/Vol] 5.0 10*3/uL Normal 3.4-10.8 [facility] Internal Medicine; [facility] Work Phone: Comment on above: PATIENT WAS FASTINGP ERFORMED BY: BEKAH [facility] Bkxktf7821 [address] RoadDublin [place] [id number] LIPID PANEL (16066)Ordered B y: Billet Inspector on 11-22-2019 Cholesterol [Mass/Vol] 195 mg/dL Normal 100-199 [facility] Work Phone: Comment on above: PATIENT WAS FASTINGP ERFORMED BY: BEKAH [facility] Gtgtnv4972 [address] RoadDublin [place] [id number] Cholesterol in HDL [Mass/Vol] 53 mg/dL Normal [facility] Work Phone: Comment on above: PATIENT WAS FASTINGP ERFORMED BY: BEKAH [facility] Coufzb4061 [address] RoadDublin [place] [id number] Cholesterol in LDL [Mass/Vol] 128 mg/dL Abnormal 0-99 [facility] Work Phone: Comment on above: PATIENT WAS FASTINGP ERFORMED BY: BEKAH [facility] Qlofep5479 [address] [facility]bl[facility] [place] [id number] Cholesterol in LDL/Cholesterol in HDL [Mass ratio] 2.4 {ratio} Normal 0.0-3.2 [facility] Work Phone: Comment on above: LDL/HDL Ratio Men Wo men 1/2 Avg.Risk 1.0 1.5 Avg.Risk 3.6 3.2 2X Avg.Risk 6.2 5.0 3X Avg.Risk 8.0 6.1 PATIENT WAS FASTINGP ERFORMED BY: BEKAH [facility] Gsfyec1611 [address] RoadDublin [place] [id number] Cholesterol in VLDL [Mass/Vol] 14 mg/dL Normal 5-40 [facility] Work Phone: Comment on above: PATIENT WAS FASTINGP ERFORMED BY: BEKAH [facility] Cnwqam3181 [address] RoadDublin [place] [id number] Triglyceride [Mass/Vol] 72 mg/dL Normal 0-149 [facility] Work Phone: Comment on above: PATIENT WAS FASTINGP ERFORMED BY: BEKAH [facility] Nlszbp0587 [address] RoadDublin [place] [id number] METABOLIC PANEL, COMPREHENSI VE (85294)Ordered By: Billet Inspector on 11-22-2019 Albumin [Mass/Vol] 4.4 g/dL Normal 3.8-4.9 [facility] Internal Medicine Work Phone: Comment on above: PATIENT WAS FASTINGP ERFORMED BY: BEKAH [facility] Gpltus6412 [address] RoadDublin [place] [id number] Albumin/Globulin [Mass ratio] 1.8 {ratio} Normal 1.2-2.2 [facility] Work Phone: Comment on above: PATIENT WAS FASTINGP ERFORMED BY: BEKAH [facility] Rqyvbg3833 [address] RoadDublin [place] [id number] ALP [Catalytic activity/Vol] 86 [iU]/L Normal 39-117 [facility] Work Phone: Comment on above: PATIENT WAS FASTINGP ERFORMED BY: BEKAH [facility] Sfkxjq7914 [address] RoadDublin [place] [id number] ALP [Catalytic activity/Vol] 86 U/L Normal 39-117 [facility]; [facility] Work Phone: Comment on above: PATIENT WAS FASTINGP ERFORMED BY: BEKAH [facility] Pwoqkp2674 [address] RoadDublin [place] [id number] ALT [Catalytic activity/Vol] 19 [iU]/L Normal 0-32 [facility] Work Phone: Comment on above: PATIENT WAS FASTINGP ERFORMED BY: BEKAH [facility] Iutope3956 [address] RoadDublin [place] [id number] ALT [Catalytic activity/Vol] 19 U/L Normal 0-32 [facility]; [facility] Work Phone: Comment on above: PATIENT WAS FASTINGP ERFORMED BY: CB [facility] Lptqhu7121 [address] RoadDublin [place] [id number] AST [Catalytic activity/Vol] 25 [iU]/L Normal 0-40 [facility] Internal Medicine Work Phone: Comment on above: PATIENT WAS FASTINGP ERFORMED BY: CB [facility] Mhytdn5072 [address] RoadDublin [place] [id number] AST [Catalytic activity/Vol] 25 U/L Normal 0-40 [facility]; [facility] Internal Medicine Work Phone: Comment on above: PATIENT WAS FASTINGP ERFORMED BY: [facility] Aonjjv7646 [address] RoadDublin [place] [id number] Bilirubin [Mass/Vol] 0.3 mg/dL Normal 0.0-1.2 [facility] Internal Medicine Work Phone: Comment on above: PATIENT WAS FASTINGP ERFORMED BY: [facility] Fjfkef4875 [address] RoadDublin [place] [id number] Calcium [Mass/Vol] 9.5 mg/dL Normal 8.7-10.2 [facility] Internal Medicine Work Phone: Comment on above: PATIENT WAS FASTINGP ERFORMED BY: [facility] Egafno0993 [address] RoadDublin [place] [id number] Chloride [Moles/Vol] 103 mmol/L Normal 96-106 [facility] Internal Medicine Work Phone: Comment on above: PATIENT WAS FASTINGP ERFORMED BY: CB [facility] Kxtoxi0331 [address] RoadDublin [place] [id number] CO2 [Moles/Vol] 24 mmol/L Normal 20-29 [facility] Internal Medicine Work Phone: Comment on above: PATIENT WAS FASTINGP ERFORMED BY: CB [facility] Tvktvh5376 [address] RoadDublin [place] [id number] Creatinine [Mass/Vol] 1.00 mg/dL Normal 0.57-1.00 [facility] Work Phone: Comment on above: PATIENT WAS FASTINGP ERFORMED BY: BEKAH [facility] Qiqcee[address] [facility]in [place] [id number] GFR/1.73 sq M predicted among blacks CKD-EPI (S/P/Bld) [Vol rate/Area] 75 mL/min/1.73 Normal [facility] Work Phone: Comment on above: PATIENT WAS FASTINGP ERFORMED BY: CB [facility] Aexocv4253 [address] Roadblin [place] [id number] GFR/1.73 sq M predicted among non-blacks CKD-EPI (S/P/Bld) [Vol rate/Area] 65 mL/min/1.73 Normal [facility] Work Phone: Comment on above: PATIENT WAS FASTINGP ERFORMED BY: BEKAH [facility] Tyiccl1680 [facility] [id number] Globulin (S) [Mass/Vol] 2.5 g/dL Normal 1.5-4.5 [facility] Internal Medicine Work Phone: Comment on above: PATIENT WAS FASTINGP ERFORMED BY: BEKAH [facility] Pvhqka3919 [facility] [id number] Glucose [Mass/Vol] 92 mg/dL Normal 65-99 [facility] Internal Medicine Work Phone: Comment on above: PATIENT WAS FASTINGP ERFORMED BY: [employer]Co Kejwvt9788 [facility] [id number] Potassium [Moles/Vol] 4.6 mmol/L Normal 3.5-5.2 [facility] Internal Medicine Work Phone: Comment on above: PATIENT WAS FASTINGP ERFORMED BY: [facility] Kbiwmm9900 [address] [facility] [place] [id number] Protein [Mass/Vol] 6.9 g/dL Normal 6.0-8.5 [facility] Internal Medicine Work Phone: Comment on above: PATIENT WAS FASTINGP ERFORMED BY: [facility] Mwofaf6562 [address] [facility] [id number] Sodium [Moles/Vol] 141 mmol/L Normal 134-144 [facility] Internal Medicine Work Phone: Comment on above: PATIENT WAS FASTINGP ERFORMED BY: [employer]6370 [facility] [id number] Urea nitrogen [Mass/Vol] 21 mg/dL Normal 6-24 [facility] Work Phone: Comment on above: PATIENT WAS FASTINGP ERFORMED BY: [employer]6370 [facility] [id number] Urea nitrogen/Creatinine [Mass ratio] 21 mg/mg Normal 9-23 [facility] Work Phone: Comment on above: PATIENT WAS FASTINGP ERFORMED BY: [employer]6370 [facility] [id number] CNOVon 07-23-2017 CNOV Office Visit (AGHWG1) RENZOANDREW NE ([id number]) 1970 [facility] Time Provider Yxcuggrdlx13/17/17 10:15 AM NORMAN KATE AGHWG1 During your visit today, we recorded the following information about you: Respiration Weight Height 14/minute 63.5 kg 1.6 Ashley Kate MD 07/23/2017 12:22 PM SignedFollow-up Patient Visit Tomekatone Quarles is a 47 year old female who presents to follow up for Closedfracture of neck of left femur with routine healing, subsequent encounter(primary encounter diagnosis)She is back at work and doing well, denies any pain, ambulating with a cane,has a slight limp from left leg being shorter, she is getting a shoe lift today.Current or previous treatment regimens: NSAIDSMedications:Current Outpatient Prescriptions:Teriparatid e (FORTEO) 20 mcg/dose - 600 mcg/2.4 mL pnij Inject subcutaneously.omeprazole (PRILOSEC) 20 mg capsulecholecalciferol, vitamin D3, (VITAMIN D3) 4,000 unit cap Take by mouth.MULTIVIT-MINERALS/F ERROUS FUM (MULTI VITAMIN ORAL) Take by mouth.buPROPion SR (WELLBUTRIN SR) 100 mg 12 hr tablettraMADol (ULTRAM) 50 mg tablet 1 to 2 tab(s) every 8 hours as needed for pain.escitalopram (LEXAPRO) 20 mg tablet take 1/2 pill qamfamotidine(PEPCID AC 10 MG TAB) Take one tablet daily.oxyCODONE-acetamino phen (PERCOCET) 5-325 mg tabletNo current facility-administered medications for this visit.Allergies: ALLERGIESNo Known AllergiesPhysical Examination:Resp 14 Ht 5' 3ANDquot; (1.60m) Wt 140 lb (63.5kg) LMP 02/25/2012 BMI24.81 kg/(m2).Left hip no pain with ROM, Left leg 1.5 cm shorter than the right on supinemeasurement, NVIImages: AP pelvis and lateral of the left hip shows stable screw placement andfracture fixation from previous xrays, shortening at fracture site is stable,no evidence of AVNOxford Score: see reportAssessment and Plan:1. Closed fracture of neck of left femur with routine healing, subsequentencounter - ICD9: V54.13, ICD10: S72.002DShoe lift per therapyWean off cane prnAvoid high impact activities, WBATFor pain management purposes they may take OTC NSAIDs such as Advil or Aleve,and Tylenol if tolerated and if the patient knows of no allergies orcontraindications. The risks and complications of these medications werediscussed. The patient understands that if they are currently taking a NSAIDsor are prescribed one in the future they should not take Advil, Aleve,ibuprofen, naproxen or other OTC NSAIDs.?They were also told that if any unusual symptoms develop, that the medicationshould be stopped immediately and that their primary care physician as well asour office should be notified. If they take this medication fci, theyunderstand the need for medication monitoring through their primary carephysician. They are aware of the potential risks and side effects of thismedication as well as the expected benefits, and wishes to proceed with its use.Return in about 6 weeks (around 09/03/2017).Ginette Reynoso Provider: NORMAN KATE [[id number]]Allergies As of Date: 07/23/2017(No Known Allergies)Date Reviewed: 07/23/2017Reviewed by: Norman Kate - Fully AssessedReason for Visit: Follow Up [171] Cmt: Left hip surgery on 05/30/2017Primary Visit Diagnosis:Closed fracture of neck of left femur with routine healing, subsequent encounter [S72.002D]Order(s):XR HIP 1V UNIL W PELVIS WHEN PERFORMED () [[id number]] Order #: [id number] as of 07/23/2017 Sig: TERIPARATIDE 20 MCG/DOSE (600* Inject subcutaneously. OMEPRAZOLE 20 MG CAPSULE,EMELYN* CHOLECALCIFEROL (VITAMIN D3) * Take by mouth. MULTI VITAMIN ORAL Take by mouth. BUPROPION HCL SR 100 MG TABLE* TRAMADOL 50 MG TABLET 1 to 2 tab(s) every 8 hours a* * ESCITALOPRAM 20 MG TABLETtake 1/2 pill qam * PEPCID AC 10 MG TABLET Take one tablet daily. OXYCODONE-ACETAMINOPHEN 5 MG-*Problem List As Of Date 07/23/2017 Noted Resolved Abdominal Pain, Unspecified Site [R10.9] INVALID FOR*Disposition: Return in about 6 weeks (around 09/03/2017).Follow-up and Disposition History RecordedEncounter Number: [id number] Status:Closed by NORMAN KATE MD on 07/23/17 [facility] PROGRESSon 07-23-2017 PROGRESS HNO ID: [id number] thor: Norman Aguilarice: (none)Author Type: PhysicianType: Progress NotesFiled: 07/23/2017 12:22 PMNote Text:Follow-up Patient Visit Tomeka Quarles is a 47 year old female who presents to follow up forClosed fracture of neck of left femur with routine healing, subsequentencounter (primary encounter diagnosis)She is back at work and doing well, denies any pain, ambulating with acane, has a slight limp from left leg being shorter, she is getting a shoelift today.Current or previous treatment regimens: NSAIDSMedications:Current Outpatient Prescriptions:Teriparatid e (FORTEO) 20 mcg/dose - 600 mcg/2.4 mL pnij Injectsubcutaneously.omep razole (PRILOSEC) 20 mg capsulecholecalciferol, vitamin D3, (VITAMIN D3) 4,000 unit cap Take by mouth.MULTIVIT-MINERALS/F ERROUS FUM (MULTI VITAMIN ORAL) Take by mouth.buPROPion SR (WELLBUTRIN SR) 100 mg 12 hr tablettraMADol (ULTRAM) 50 mg tablet 1 to 2 tab(s) every 8 hours as needed forpain.escitalopram (LEXAPRO) 20 mg tablet take 1/2 pill qamfamotidine(PEPCID AC 10 MG TAB) Take one tablet daily.oxyCODONE-acetamino phen (PERCOCET) 5-325 mg tabletNo current facility-administered medications for this visit.Allergies: ALLERGIESNo Known AllergiesPhysical Examination:Resp 14 Ht 5' 3 (1.60m) Wt 140 lb (63.5kg) LMP 02/25/2012 BMI24.81 kg/(m2).Left hip no pain with ROM, Left leg 1.5 cm shorter than the right onsupine measurement, NVIImages: AP pelvis and lateral of the left hip shows stable screw placementand fracture fixation from previous xrays, shortening at fracture site isstable, no evidence of AVNOxford Score: see reportAssessment and Plan:1. Closed fracture of neck of left femur with routine healing, subsequentencounter - ICD9: V54.13, ICD10: S72.002DShoe lift per therapyWean off cane prnAvoid high impact activities, WBATFor pain management purposes they may take OTC NSAIDs such as Advil orAleve, and Tylenol if tolerated and if the patient knows of no allergiesor contraindications. The risks and complications of these medicationswere discussed. The patient understands that if they are currently takinga NSAIDs or are prescribed one in the future they should not take Advil,Aleve, ibuprofen, naproxen or other OTC NSAIDs.?They were also told that if any unusual symptoms develop, that themedication should be stopped immediately and that their primary carephysician as well as our office should be notified. If they take thismedication technician terminal and repeater, they understand the need for medication monitoringthrough their primary care physician. They are aware of the potentialrisks and side effects of this medication as well as the expectedbenefits, and wishes to proceed with its use.Return in about 6 weeks (around 09/03/2017).Norman Kate [facility] Office Visit (AGHWG1) ANDREW QUARLES JODY ([id number]) 1970 FDate Time Provider Yjjujsfkla83/27/17 11:30 AM NORMAN KATE AGHWG1 During your visit today, we recorded the following information about you: Respiration Weight Height 14/minute 63.5 kg 1.6 mPaul MD Lavinia 07/02/2017 12:50 PM SignedFollow-up Patient Visit Tomeka Quarles is a 47 year old female who presents to follow up for Closedfracture of neck of left femur with routine healing, subsequent encounter(primary encounter diagnosis)She is getting around with a cane, back at work, occasional discomfort, biggestcomplaint is limb length discrepancyCurrent or previous treatment regimens: physical therapy, occupational therapyand NSAIDSMedications:Current Outpatient Prescriptions:omeprazole (PRILOSEC) 20 mg capsulecholecalciferol, vitamin D3, (VITAMIN D3) 4,000 unit cap Take by mouth.MULTIVIT-MINERALS/F ERROUS FUM (MULTI VITAMIN ORAL) Take by mouth.buPROPion SR (WELLBUTRIN SR) 100 mg 12 hr tablettraMADol (ULTRAM) 50 mg tablet 1 to 2 tab(s) every 8 hours as needed for pain.escitalopram (LEXAPRO) 20 mg tablet take 1/2 pill qamfamotidine(PEPCID AC 10 MG TAB) Take one tablet daily.oxyCODONE-acetamino phen (PERCOCET) 5-325 mg tabletNo current facility-administered medications for this visit.Allergies: ALLERGIESNo Known AllergiesPhysical Examination:Resp 14 Ht 5' 3ANDquot; (1.60m) Wt 140 lb (63.5kg) LMP 02/25/2012 BMI24.81 kg/(m2).Incision well healed, left leg 1.5cm shorter than right, no pain with log rollor hip flexion, NVIImages: AP pelvis and lateral of the left hip taken today show stable fixationof hardware across left femoral neck fracture no evidence of AVN, left legshorter than the rightOxford Score: see reportAssessment and Plan:1. Closed fracture of neck of left femur with routine healing, subsequentencounter - ICD9: V54.13, ICD10: S72.002DContinue home exerciseShe is going to obtain a shoe lift for her left shoeWean off cane as neededFor pain management purposes they may take OTC NSAIDs such as Advil or Aleve,and Tylenol if tolerated and if the patient knows of no allergies orcontraindications. The risks and complications of these medications werediscussed. The patient understands that if they are currently taking a NSAIDsor are prescribed one in the future they should not take Advil, Aleve,ibuprofen, naproxen or other OTC NSAIDs.?They were also told that if any unusual symptoms develop, that the medicationshould be stopped immediately and that their primary care physician as well asour office should be notified. If they take this medication fci, theyunderstand the need for medication monitoring through their primary carephysician. They are aware of the potential risks and side effects of thismedication as well as the expected benefits, and wishes to proceed with its use.She did get a DEXA scan which revealed osteopenia and is on supplementation forthatFU in 3 weeksReturn in about 3 weeks (around 07/23/2017).Ginette Reynoso Provider: NORMAN KATE [[id number]]Allergies As of Date: 07/02/2017(No Known Allergies)Date Reviewed: 07/02/2017Reviewed by: Norman Kate - Fully AssessedReason for Visit: Follow Up [171] Cmt: Left femur surgery on 05/30/2017Primary Visit Diagnosis:Closed fracture of neck of left femur with routine healing, subsequent encounter [S72.002D]Order(s):XR PELVIS 2V INLET/OUTLET [[id number]] Order #: [id number] as of 07/02/2017 Sig: OMEPRAZOLE 20 MG CAPSULE,EMELYN* CHOLECALCIFEROL (VITAMIN D3) * Take by mouth. MULTI VITAMIN ORAL Take by mouth. BUPROPION HCL SR 100 MG TABLE* TRAMADOL 50 MG TABLET 1 to 2 tab(s) every 8 hours a* * ESCITALOPRAM 20 MG TABLETtake 1/2 pill qam * PEPCID AC 10 MG TABLET Take one tablet daily. OXYCODONE-ACETAMINOPHEN 5 MG-*Problem List As Of Date 07/02/2017 Noted Resolved Abdominal Pain, Unspecified Site [R10.9] INVALID FOR*Disposition: Return in about 3 weeks (around 07/23/2017).Follow-up and Disposition History RecordedEncounter Number: [id number] Status:Closed by NORMAN KATE MD on 07/02/17 [facility] PROGRESSon 07-02-2017 PROGRESS HNO ID: [id number] thor: Norman Gray: (none)Author Type: PhysicianType: Progress NotesFiled: 07/02/2017 12:50 PMNote Text:Follow-up Patient Visit Tomeka Quarles is a 47 year old female who presents to follow up forClosed fracture of neck of left femur with routine healing, subsequentencounter (primary encounter diagnosis)She is getting around with a cane, back at work, occasional discomfort,biggest complaint is limb length discrepancyCurrent or previous treatment regimens: physical therapy, occupationaltherapy and NSAIDSMedications:Current Outpatient Prescriptions:omeprazole (PRILOSEC) 20 mg capsulecholecalciferol, vitamin D3, (VITAMIN D3) 4,000 unit cap Take by mouth.MULTIVIT-MINERALS/F ERROUS FUM (MULTI VITAMIN ORAL) Take by mouth.buPROPion SR (WELLBUTRIN SR) 100 mg 12 hr tablettraMADol (ULTRAM) 50 mg tablet 1 to 2 tab(s) every 8 hours as needed forpain.escitalopram (LEXAPRO) 20 mg tablet take 1/2 pill qamfamotidine(PEPCID AC 10 MG TAB) Take one tablet daily.oxyCODONE-acetamino phen (PERCOCET) 5-325 mg tabletNo current facility-administered medications for this visit.Allergies: ALLERGIESNo Known AllergiesPhysical Examination:Resp 14 Ht 5' 3 (1.60m) Wt 140 lb (63.5kg) LMP 02/25/2012 BMI24.81 kg/(m2).Incision well healed, left leg 1.5cm shorter than right, no pain with logroll or hip flexion, NVIImages: AP pelvis and lateral of the left hip taken today show stablefixation of hardware across left femoral neck fracture no evidence of AVN,left leg shorter than the rightOxford Score: see reportAssessment and Plan:1. Closed fracture of neck of left femur with routine healing, subsequentencounter - ICD9: V54.13, ICD10: S72.002DContinue home exerciseShe is going to obtain a shoe lift for her left shoeWean off cane as neededFor pain management purposes they may take OTC NSAIDs such as Advil orAleve, and Tylenol if tolerated and if the patient knows of no allergiesor contraindications. The risks and complications of these medicationswere discussed. The patient understands that if they are currently takinga NSAIDs or are prescribed one in the future they should not take Advil,Aleve, ibuprofen, naproxen or other OTC NSAIDs.?They were also told that if any unusual symptoms develop, that themedication should be stopped immediately and that their primary carephysician as well as our office should be notified. If they take thismedication fci, they understand the need for medication monitoringthrough their primary care physician. They are aware of the potentialrisks and side effects of this medication as well as the expectedbenefits, and wishes to proceed with its use.She did get a DEXA scan which revealed osteopenia and is onsupplementation for thatFU in 3 weeksReturn in about 3 weeks (around 07/23/2017).Norman Kate MD [facility] URINE CALCIUM TAMMY TIMED 24 Hour ([id number])Ordered By: Billet Inspector on 06-28-2017 Calcium mass conc (24H U) 26.1 mg/dL Normal [facility] Work Phone: Comment on above: PATIENT NOT FASTINGP ERFORMED BY: [employer]rp Ieuclw4365 Math[address] Roadblin [place] [id number] Calcium mass/time (24H U) 221.9 {mg/24_hr} Normal 100.0-300. 0 [facility] Work Phone: Comment on above: PATIENT NOT FASTINGP ERFORMED BY: [facility] Jyhykz0834 [facility] [id number] C-REACTIVE PROTEIN (86170)Or dered By: Billet Inspector on 06-24-2017 CRP mass conc 2.7 mg/L Normal 0.0-4.9 Comprehensi Internal Medicine Work Phone: Comment on above: PATIENT WAS FASTINGP ERFORMED BY: [employer] Jkippv2731 [facility] [id number] BY: [employer] [id number] CALCIUM SERUM (17536)Ordered By: Billet Inspector on 06-24-2017 Calcium mass conc 9.7 mg/dL Normal 8.7-10.2 Compreh [facility] Internal Medicine Work Phone: Comment on above: PATIENT WAS FASTINGP ERFORMED BY: BEKAH LabLogFire6370 [facility] [id number] BY: [employer] [id number] CBC (AUTO) (85940)Ordered By : Billet Inspector on 06-24-2017 Erythrocyte distribution width Auto Ratio (RBC) 13.9 % Normal 12.3-15.4 [facility] Work Phone: Erythrocyte distribution width Ratio (RBC) 13.9 % Normal 12.3-15.4 [facility] Work Phone: Comment on above: PATIENT WAS FASTINGP ERFORMED BY: LabSportsBeep Xvnjpu9864 [facility] [id number] BY: [employer] [id number] Hematocrit Auto Volume Fraction (Bld) 39.0 % Normal 34.0-46.6 Comprehens kelly Internal Medicine Work Phone: Hematocrit Volume Fraction (Bld) 39.0 % Normal 34.0-46.6 [facility] Work Phone: Comment on above: PATIENT WAS FASTINGP ERFORMED BY: BEKAH [employer] Communications SystemsJersey Shore University Medical CenterRqegip4597 [facility] [id number] BY: [employer] [id number] Hemoglobin mass conc (Bld) 13.0 g/dL Normal 11.1-15.9 [facility] Work Phone: Comment on above: PATIENT WAS FASTINGP ERFORMED BY: BEKAH [employer] Pkjpjv44[address] [place] [address] [id number] BY: [employer] [id number] MCH Auto Entitic mass (RBC) 29.5 pg Normal 26.6-33.0 [facility] Work Phone: MCH Entitic mass (RBC) 29.5 pg Normal 26.6-33.0 [facility] Work Phone: Comment on above: PATIENT WAS FASTINGP ERFORMED BY: BEKAH [employer] [id number] BY: [employer] [id number] MCHC Auto mass conc (RBC) 33.3 g/dL Normal 31.5-35.7 [facility] Work Phone: MCHC mass conc (RBC) 33.3 g/dL Normal 31.5-35.7 Comp [facility] Internal Medicine Work Phone: Comment on above: PATIENT WAS FASTINGP ERFORMED BY: ENDYM[employer] [address] [id number] BY: [employer] [id number] MCV Auto Entitic volume (RBC) 88 fL Normal 79-97 [facility] Work Phone: MCV Entitic volume (RBC) 88 fL Normal 79-97 [facility] Work Phone: Comment on above: PATIENT WAS FASTINGP ERFORMED BY: BEKAH [facility] Tnlveb4332 [address] [facility] [id number] BY: Lab[address] [id number] Platelets #/vol (Bld) 272 {x10E3/uL} Normal 150-379 [facility] Work Phone: Comment on above: PATIENT WAS FASTINGP ERFORMED BY: BEKAH [facility] Orntex0820 [address] [facility] [id number] BY: LabCo[address] [id number] Platelets (Bld) [#/Vol] 272 10*3/uL Normal 150-379 [facility]; [facility] Work Phone: Comment on above: PATIENT WAS FASTINGP ERFORMED BY: BEKAH [facility] Bkcugn3624 [facility] [id number] BY: [address] [id number] Platelets Auto #/vol (Bld) 272 {x10E3/uL} Normal 150-379 [facility] Work Phone: RBC #/vol (Bld) 4.41 {x10E6/uL} Normal 3.77-5.28 [facility] Internal Medicine Work Phone: Comment on above: PATIENT WAS FASTINGP ERFORMED BY: BEKAH [facility] Jfvrlx1420 [facility] [id number] BY: Lab[address] [id number] RBC (Bld) [#/Vol] 4.41 10*6/uL Normal 3.77-5.28 [facility]; [facility] Work Phone: Comment on above: PATIENT WAS FASTINGP ERFORMED BY: BEKAH [facility] Xzoyvt9487 [address] [facility] [id number] BY: LabCo[address] [id number] RBC Auto #/vol (Bld) 4.41 {x10E6/uL} Normal 3.77-5.28 [facility] Work Phone: WBC #/vol (Bld) 4.3 {x10E3/uL} Normal 3.4-10.8 [facility] Internal Medicine Work Phone: Comment on above: PATIENT WAS FASTINGP ERFORMED BY: [employer] Communications SystemsMescalero Service UnitEutmti9247 [facility] [id number] BY: [employer] [id number] WBC (Bld) [#/Vol] 4.3 10*3/uL Normal 3.4-10.8 [facility] Internal Medicine; [facility] Work Phone: Comment on above: PATIENT WAS FASTINGP ERFORMED BY: [employer] Iiweyy2840 [facility] [id number] BY: [employer] [id number] WBC Auto #/vol (Bld) 4.3 {x10E3/uL} Normal 3.4-10.8 [facility] Internal Medicine Work Phone: FERRITIN ([id number])Ordered By: Billet Inspector on 06-24-2017 Ferritin mass conc 94 ng/mL Normal 15-150 [facility] Internal Medicine Work Phone: Comment on above: PATIENT WAS FASTINGP ERFORMED BY: [employer] Xteimg0130 [facility] [id number] BY: [employer] [id number] HEPATIC FUNCTION PANEL (8007 6)Ordered By: Billet Inspector on 06-24-2017 Albumin mass conc 4.3 g/dL Normal 3.5-5.5 [facility] Internal Medicine Work Phone: Comment on above: PATIENT WAS FASTINGP ERFORMED BY: [employer] Vqgbpf9320 [facility] [id number] BY: LabCo[address] [id number] ALP [Catalytic activity/Vol] 95 U/L Normal 39-117 [facility]; [facility] Work Phone: Comment on above: PATIENT WAS FASTINGP ERFORMED BY: BEKAH [facility] Hxwbhk4692 Mathis RoadDublin [place] [id number] BY: Lab[address] [id number] ALP enzyme act/vol 95 [iU]/L Normal 39-117 [facility] Internal Medicine Work Phone: Comment on above: PATIENT WAS FASTINGP ERFORMED BY: BEKAH [facility] Ndyuab1785 [address] RoadCone Health [facility] Hospitalin [place] [id number] BY: Lab[address] [id number] ALT [Catalytic activity/Vol] 15 U/L Normal 0-32 [facility]; [facility] Internal Medicine Work Phone: Comment on above: PATIENT WAS FASTINGP ERFORMED BY: BEKAH [facility] Ohmfri1353 [address] RoadCone Health [facility] Hospitalin [place] [id number] BY: [address] [id number] ALT enzyme act/vol 15 [iU]/L Normal 0-32 [facility] Internal Medicine Work Phone: Comment on above: PATIENT WAS FASTINGP ERFORMED BY: BEKAH [facility] Salewu7257 [address] [facility] [place] [id number] BY: LabCo[address] [id number] AST [Catalytic activity/Vol] 20 U/L Normal 0-40 [facility]; [facility] Internal Medicine Work Phone: Comment on above: PATIENT WAS FASTINGP ERFORMED BY: BEKAH [facility] Whcmzr5163 [address]is RoadDublin [place] [id number] BY: Lab[address] [id number] AST enzyme act/vol 20 [iU]/L Normal 0-40 [facility] Internal Medicine Work Phone: Comment on above: PATIENT WAS FASTINGP ERFORMED BY: BEKAH [facility] Xqjokt9399 [address]is RoadDublin [place] [id number] BY: LabCo[address] [id number] Bilirubin mass conc 0.3 mg/dL Normal 0.0-1.2 Compr [facility] Internal Medicine Work Phone: Comment on above: PATIENT WAS FASTINGP ERFORMED BY: CB [facility] Edvkfd9211 Mathis RoadCone Health [facility] Hospitalin [place] [id number] BY: LabCo[address] [id number] Bilirubin.direct mass conc 0.11 mg/dL Normal 0.00-0.40 [facility] Work Phone: Comment on above: PATIENT WAS FASTINGP ERFORMED BY: BEKAH [facility] Eevwhn5583 [facility] [id number] BY: [facility]Co[address] [id number] IRON BINDING CAPACITY (TIBC) ([id number])Ordered By: Billet Inspector on 06-24-2017 Iron binding capacity mass conc 252 ug/dL Normal 250-450 [facility] Work Phone: Comment on above: PATIENT WAS FASTINGP ERFORMED BY: CB [facility] Qwmjzm0275 [facility] [id number] BY: [facility] [id number] Iron binding capacity.unsaturated mass conc 149 ug/dL Normal 131-425 [facility] Work Phone: Comment on above: PATIENT WAS FASTINGP ERFORMED BY: CB [facility] Lkltzn1595 [facility] [place] [id number] BY: [address] [id number] Iron mass conc 103 ug/dL Normal 27-159 Comprehens kelly Internal Medicine Work Phone: Comment on above: PATIENT WAS FASTINGP ERFORMED BY: CB [facility] Mqobeg8686 [facility] [place] [id number] BY: [facility] [address] [id number] Iron saturation mass fraction 41 % Normal 15-55 [facility] Work Phone: Comment on above: PATIENT WAS FASTINGP ERFORMED BY: CB [facility] Qyglis3915 [facility] [id number] BY: BN [facility] [address] [id number] LIPID PANEL ([id number])Ordered B y: Billet Inspector on 06-24-2017 Cholesterol in HDL mass conc 65 mg/dL Normal [facility] Work Phone: Comment on above: PATIENT WAS FASTINGP ERFORMED BY: CB [facility] Cllcbb2124 [facility] [id number] BY: [facility] [address] [id number] Cholesterol in LDL mass conc 117 mg/dL Abnormal 0-99 [facility] Work Phone: Comment on above: PATIENT WAS FASTINGP ERFORMED BY: CB [facility] Frufar5631 [facility] [id number] BY: [facility] [address] [id number] Cholesterol in LDL/Cholesterol in HDL mass ratio 1.8 {ratio_units} Normal 0.0-3.2 [facility] Work Phone: Comment on above: LDL/HDL Ratio Men Wo men 1/2 Avg.Risk 1.0 1.5 Avg.Risk 3.6 3.2 2X Avg.Risk 6.2 5.0 3X Avg.Risk 8.0 6.1 PATIENT WAS FASTINGP ERFORMED BY: CB [facility] Drgnxa2720 [facility] [id number] BY: [facility] [address] [id number] Cholesterol in VLDL mass conc 16 mg/dL Normal 5-40 [facility] Work Phone: Comment on above: PATIENT WAS FASTINGP ERFORMED BY: CB [facility] Xpmwze9116 Mathis RoadDublin [place] [id number] BY: [address] [id number] Cholesterol mass conc 198 mg/dL Normal 100-199 [facility] Internal Medicine Work Phone: Comment on above: PATIENT WAS FASTINGP ERFORMED BY: CB [facility] Syulww4297 Mathis RoadDublin [place] [id number] BY: [facility] [address] [id number] Triglyceride mass conc 79 mg/dL Normal 0-149 [facility] Internal Medicine Work Phone: Comment on above: PATIENT WAS FASTINGP ERFORMED BY: CB [facility] Esjuco7051 Math[address] RoadDublin [place] [id number] BY: [address] [id number] PARATHORMONE ([id number])Ordered By: Billet Inspector on 06-24-2017 Parathyrin.intact mass conc 20 pg/mL Normal 15-65 [facility] Internal Medicine Work Phone: Comment on above: PATIENT WAS FASTINGP ERFORMED BY: CB [facility] Iezldq0832 [address] RoadDublin [place] [id number] BY: [address] [id number] PHOSPHORUS ([id number])Ordered By : Billet Inspector on 06-24-2017 Phosphate mass conc 3.3 mg/dL Normal 2.5-4.5 [facility] Internal Medicine Work Phone: Comment on above: PATIENT WAS FASTINGP ERFORMED BY: CB [facility] Lgmvcv0621 [address] RoadDublin [place] [id number] BY: [address] [id number] SED RATE ERYTHROCYTE ([id number]) Ordered By: Billet Inspector on 06-24-2017 ESR Velocity (Bld) 6 mm/h Normal 0-32 Compre [facility] Internal Medicine Work Phone: Comment on above: PATIENT WAS FASTINGP ERFORMED BY: CB [facility] Gvndop9288 [facility] [id number] BY: [address] [id number] SPEP ([id number])Ordered By: Syst em Tugboat Operator on 06-24-2017 Albumin mass conc 4.1 g/dL Normal 2.9-4.4 [facility] Internal Medicine Work Phone: Comment on above: PATIENT WAS FASTINGP ERFORMED BY: CB [facility] Opcqtq2767 [facility] [id number] BY: [facility] [id number] Albumin/Globulin mass ratio 1.4 {ratio} Normal 0.7-1.7 [facility] Work Phone: Comment on above: PATIENT WAS FASTINGP ERFORMED BY: CB [facility] Tzrzbz1444 [facility] [id number] BY: [facility] [id number] Alpha 1 globulin Elph mass conc 0.3 g/dL Normal 0.0-0.4 [facility] Work Phone: Comment on above: PATIENT WAS FASTINGP ERFORMED BY: CB [facility] Ciqfwd2636 [facility] [id number] BY: [facility] [address] [id number] Alpha 2 globulin Elph mass conc 0.7 g/dL Normal 0.4-1.0 [facility] Work Phone: Comment on above: PATIENT WAS FASTINGP ERFORMED BY: CB [facility] Ggljpb1316 [facility] [id number] BY: [address] [id number] Beta globulin Elph mass conc 0.9 g/dL Normal 0.7-1.3 [facility] Work Phone: Comment on above: PATIENT WAS FASTINGP ERFORMED BY: CB [facility] Gbnccj3969 [facility] [id number] BY: [address] [id number] Gamma globulin Elph mass conc 1.1 g/dL Normal 0.4-1.8 [facility] Work Phone: Comment on above: PATIENT WAS FASTINGP ERFORMED BY: CB [facility] Qtmfxd8317 [facility] [id number] BY: [address] [id number] Globulin Calculated mass conc (S) 3.0 g/dL Normal 2.2-3.9 [facility] Work Phone: Globulin mass conc (S) 3.0 g/dL Normal 2.2-3.9 [facility] Work Phone: Comment on above: PATIENT WAS FASTINGP ERFORMED BY: CB [facility] Thxzrs4097 [facility] [id number] BY: [address] [id number] Laboratory comment Dontae (Report) SPR Normal [facility] Work Phone: Comment on above: Protein electrophore sis scan will follow via computer, mail, orcourier delivery. PATIENT WAS FASTINGP ERFORMED BY: CB [facility] Bsawuy2924 [facility] [id number] BY: [address] [id number] Protein mass conc 7.1 g/dL Normal 6.0-8.5 Compreh ensive Internal Medicine Work Phone: Comment on above: PATIENT WAS FASTINGP ERFORMED BY: CB [facility] Plhftq1429 [facility] [id number] BY: [address] [id number] Protein.monoclonal Elph mass conc Not Observed Normal [facility] Work Phone: Comment on above: PATIENT WAS FASTINGP ERFORMED BY: CB [facility] Ogvwbo5360 [address] [facility] [id number] BY: [address] [id number] TSH ([id number])Ordered By: Xtera Communicationse m Tugboat Operator on 06-24-2017 Thyrotropin Qn 1.940 {uIU/mL} Normal 0.450-4.50 0 [facility] Work Phone: Comment on above: PATIENT WAS FASTINGP ERFORMED BY: CB [facility] Harmqf5606 [facility] [id number] BY: [address] [id number] UPEP (11210)Ordered By: [employer] em Tugboat Operator on 06-24-2017 Albumin/Protein.total Elph mass fraction (U) 26.2 % Normal [facility] Work Phone: Comment on above: PATIENT WAS FASTINGP ERFORMED BY: CB [facility] Paorcm7331 [facility] [id number] BY: [address] [id number] Alpha 1 globulin/Protein.tota l Elph mass fraction (U) 8.3 % Normal [facility] Work Phone: Comment on above: PATIENT WAS FASTINGP ERFORMED BY: CB [facility] Zrsnkk6195 [facility] [id number] BY: [address] [id number] Alpha 2 globulin/Protein.tota l Elph mass fraction (U) 22.1 % Normal [facility] Work Phone: Comment on above: PATIENT WAS FASTINGP ERFORMED BY: CB [facility] Gkppum2948 [facility] [id number] BY: [address] [id number] Beta globulin/Protein.tota l Elph mass fraction (U) 29.7 % Normal [facility] Work Phone: Comment on above: PATIENT WAS FASTINGP ERFORMED BY: CB [facility] Mmmhkf8510 [address] RoadDublin [place] [id number] BY: [address] [id number] Gamma globulin/Protein.tota l Elph mass fraction (U) 13.6 % Normal [facility] Work Phone: Comment on above: PATIENT WAS FASTINGP ERFORMED BY: [employer] [facility] Hiffrp1371 [address] RoadDublin [place] [id number] BY: [address] [id number] Protein mass conc (U) 8.7 mg/dL Normal [facility] Work Phone: Comment on above: PATIENT WAS FASTINGP ERFORMED BY: CB [facility] Iugavn8992 [address] Roadblin [place] [id number] BY: [address] [id number] Protein.monoclonal/Pr otein.total Elph mass fraction (U) Not Observed Normal [facility] Work Phone: Comment on above: PATIENT WAS FASTINGP ERFORMED BY: [employer] [facility] Gnqbne6612 [facility] [facility] [place] [id number] BY: [address] [id number] VITAMIN D, 1, 25-DIHYDROXY ( [id number])Ordered By: Billet Inspector on 06-24-2017 Calcitriol mass conc 52.3 pg/mL Normal 19.9-79.[address] [facility] [address] [facility] Work Phone: Comment on above: PATIENT WAS FASTINGP ERFORMED BY: CB [facility] Pfflkb8414 [address] RoadDublin [place] [id number] BY: [address] [id number] Vitamin D Hydroxy (55637)Ord ered By: Billet Inspector on 06-24-2017 25-Hydroxyvitamin D2+25-Hydroxyvitamin D3 mass conc 32.2 ng/mL Normal 30.0-100.0 [facility] Work Phone: Comment on above: Vitamin D deficiency has been defined by the [place] of[place]icine and an Endocrine Society practice guideline as alevel of serum 25-OH vitamin D less than 20 ng/mL (1,2).The Endocrine Society went on to further define vitamin Dinsufficiency as a level between 21 and 29 ng/mL (2).1. IOM ([place] of Medicine). 2010. Dietary reference intakes for calcium and D. [place]: The National Academies Press.2. Natalia MF, Jacklyn THOMPSON, Cinthya PEÑA, et al. Evaluation, treatment, and prevention of vitamin D deficiency: an Endocrine Society clinical practice guideline. JCEM. 2010; 96(7):1911-30. PATIENT WAS FASTINGP ERFORMED BY: CB [facility] Lkverx0110 [facility] [id number] BY: BN [facility] [address] [id number] [facility]ITALMarilyn 06-14-2017 CNPN Telephone (AGPOB1) RENZOANDREW NE ([id number]) 1970 FDate Time Provider Yrvoreqror13/9/17 [facility] KATE [facility] During your visit today, we recorded the following information about you:Jorge Luis Mclean 06/14/2017 12:05 PM SignedPatient requesting Rx for shower chair. Last visit 06/10/17, next visit07/02/17, procedure 05/27/17 CRPP of her left FNF.Jorge Luis McleanOctober 2016 12:04 PMFollow-up Patient Visit Tomeka Quarles is a 47 year old female who presents to follow up for Nodiagnosis found.She is 2 weeks out from CRPP of her left FNF. Ambulating with the use ofcrutches. She has minimal complaints of pain. Feels a little shorter in herleft leg than right leg. Undergoing home PT.Current or previous treatment regimens: physical therapy, occupational therapyand NSAIDSMedications:buPROPi on SR (WELLBUTRIN SR) 100 mg 12 hr tablet,oxyCODONE-acetamin ophen (PERCOCET) 5-325 mg tablet,traMADol (ULTRAM) 50 mg tablet, 1 to 2 tab(s) every 8 hours as needed for pain.escitalopram (LEXAPRO) 20 mg tablet,take 1/2 pill qamfamotidine(PEPCID AC 10 MG TAB), Take one tablet daily.No current facility-administered medications for this visit.Allergies: ALLERGIESNo Known AllergiesPhysical Examination:LMP 02/25/2012Incision lateral left thigh with steris CDI, left leg slightly shorter than theright, less than 3 mm, minimal discomfort with left hip ROM,Images: AP pelvis and lateral of the left hip show stable hardware fixation ofthe left FNF with slight compression at the fracture site, no evidence ofhealing at this point. Hardware and reduction appear to be stable from previousxrays in the hospitalOxford Score: see reportAssessment and Plan:Continue WBAT with the crutchesHome PTOk to sleep on side, no need for hip dislocation precautionsTramadol Rx prnOk to drive off narcoticsNo Follow-up on file.Shagufta Reynoso As of Date: 06/14/2017(No Known Allergies)Date Reviewed: 06/10/2017Reviewed by: Norman Kate - Fully AssessedReason for Visit: Shower Chair [Other]Primary Visit Diagnosis:Closed fracture of neck of left femur with routine healing, subsequent encounter [S72.002D]Order(s):BATH/S HOWER CHAIR [[id number]] Order #: [id number] as of 06/14/2017 Sig: BUPROPION HCL SR 100 MG TABLE* OXYCODONE-ACETAMINOPHEN 5 MG-* TRAMADOL 50 MG TABLET 1 to 2 tab(s) every 8 hours a* * ESCITALOPRAM 20 MG TABLETtake 1/2 pill qam * PEPCID AC 10 MG TABLET Take one tablet daily.Problem List As Of Date 06/14/2017 Noted Resolved Abdominal Pain, Unspecified Site [R10.9] INVALID FOR* Status:Closed by NORMAN KATE MD on 06/14/17 [facility] CNOVon 06-10-2017 CNOV Office Visit (AGHWN) CLAYTON QUARLES ([id number]) 1970 FDate Time Provider Okqhsjkubt65/5/17 9:30 AM NORMAN KATE AGHWN During your visit today, we recorded the following information about you: Respiration Weight Height 16/minute 63.5 kg 1.6 mPaul MD Lavinia 06/10/2017 10:00 AM SignedFollow-up Patient Visit Tomeka Quarles is a 47 year old female who presents to follow up for Closedfracture of neck of left femur with routine healing, subsequent encounter(primary encounter diagnosis)She is 2 weeks out from CRPP of her left FNF. Ambulating with the use ofcrutches. She has minimal complaints of pain. Feels a little shorter in herleft leg than right leg. Undergoing home PT.Current or previous treatment regimens: physical therapy, occupational therapyand NSAIDSMedications:Current Outpatient Prescriptions:buPROPion SR (WELLBUTRIN SR) 100 mg 12 hr tabletescitalopram (LEXAPRO) 20 mg tablet take 1/2 pill qamfamotidine(PEPCID AC 10 MG TAB) Take one tablet daily.oxyCODONE-acetamino phen (PERCOCET) 5-325 mg tabletNo current facility-administered medications for this visit.Allergies: ALLERGIESNo Known AllergiesPhysical Examination:Resp 16 Ht 5' 3ANDquot; (1.60m) Wt 140 lb (63.5kg) LMP 02/25/2012 BMI24.81 kg/(m2).Incision lateral left thigh with steris CDI, left leg slightly shorter than theright, less than 3 mm, minimal discomfort with left hip ROM,Images: AP pelvis and lateral of the left hip show stable hardware fixation ofthe left FNF with slight compression at the fracture site, no evidence ofhealing at this point. Hardware and reduction appear to be stable from previousxrays in the hospitalOxford Score: see reportAssessment and Plan:1. Closed fracture of neck of left femur with routine healing, subsequentencounter - ICD9: V54.13, ICD10: S72.002DContinue WBAT with the crutchesHome PTOk to sleep on side, no need for hip dislocation precautionsTramadol Rx prnOk to drive off narcoticsReturn in about 2 weeks (around 06/24/2017).ISABELA Reynosoefmonica Provider: SELF [200]Allergies As of Date: 06/10/2017(No Known Allergies)Date Reviewed: 06/10/2017Reviewed by: Norman Kate - Fully AssessedReason for Visit: Surgical Followup [104] Cmt: Left hipPrimary Visit Diagnosis:Closed fracture of neck of left femur with routine healing, subsequent encounter [S72.002D]Order(s):XR HIP 1V LT [[id number]] Order #: [id number] traMADol (ULTRAM) 50 mg tablet1 to 2 tab(s) every 8 hours as needed for pain.Disp: 30 tabletRfl: 0Prescriptions as of 06/10/2017 Sig: BUPROPION HCL SR 100 MG TABLE* * ESCITALOPRAM 20 MG TABLETtake 1/2 pill qam * PEPCID AC 10 MG TABLET Take one tablet daily. OXYCODONE-ACETAMINOPHEN 5 MG-* TRAMADOL 50 MG TABLET 1 to 2 tab(s) every 8 hours a*Medication notes this encounter OXYCODONE-ACETAMINOPHEN 5 MG-325 MG TABLET >> Kenzie VARGHESE 06/10/2017 9:27 AM >> KENZIE MEANS Jun 10, 2017 9:27 AM No longer takingProblem List As Of Date 06/10/2017 Noted Resolved Abdominal Pain, Unspecified Site [R10.9] INVALID FOR*Prescriptions ordered this encounter Disp Refills Start End TRAMADOL 50 MG TABLET 30 t* 0 06/10/2017 Class: Print RX Si to 2 tab(s) every 8 hours as needed for pain.Disposition: Return in about 2 weeks (around 06/24/2017).Follow-up and Disposition History RecordedLetter Text Orthopedics [address], [facility] [id number], [facility] [id number] [facility], [facility] [id number], [facility] [id number] [facility], [place] [id number] ([phone] [email or web address] 06/10/2017Janelletony Quarles1970To whom it may concern:This is to certify that Tomeka Quarles is under my care and was seen in theoffice today. Mr. Quarles had to drive Tomeka to the appointment.Please feel free to contact my office if you have any questions or concerns.Thank you for your assistance in this matter.Norman Kate MDElectronically signed to expedite Ana Espitia MDTrauma, Adult Reconstructive SurgeryESPERANZA Xavierdenver Disorders AND Spine SurgerySteven Mayers DPM, FACFASFoot and Ankle SurgeryTony Jackson MDGeneral Orthopedics, Osteoporosis,Knee AND Hip ReplacementRaantonia Hummel [facility], Sports MedicineNeosho [facility], [facility] Medicine AND Arthroscopy,Knee AND Shoulder SurgeryVilma Pulliam DPMFoot AND Ankle SurgeryJonny Yuen MDOrthopedic TraumaJonny Zuniga MDHand SurgerySandeep Navarrete, [facility] Sports MedicineStecentral harn[facility] Db, [facility] Centerlder / Elbow ReconstructionDenver Rea [facility] Sports MedicineSteven Welch [facility] Medicine AND Arthroscopy,Knee AND Shoulder SurgeryViet Mohan SurgeryMELBA Garciaedical / Non-Operative OrthopedicsJohanna Burgess, [facility] Centerlder and Elbow ReconstructionThshani Dalal MDArthritis, Hip AND Knee ReplacementMaria Alejandra Freeman MDFoot AND Ankle Surgery, Geriatric Fracture, Orthopedic TraumaGregory MD YulianaTotal Joint AND TraumaPhilip MD DelOrthopedic Trauma, Fractures AND Sports MedicineNorman Kate MDGeneral OrthopedicsKnee and Hip ReplacementESPERANZA Cadenaeleanor slater hospital/[facility] MedicineKnee and Shoulder SurgeryEncounter Number: [id number] Status:Closed by NORMAN KATE MD on 06/10/17 [facility] PROGRESSon 06-10-2017 PROGRESS HNO ID: [id number] thor: Norman Haskinservice: (none)Author Type: PhysicianType: Progress NotesFiled: 06/10/2017 10:00 AMNote Text:Follow-up Patient Visit Tomeka Quarles is a 47 year old female who presents to follow up forClosed fracture of neck of left femur with routine healing, subsequentencounter (primary encounter diagnosis)She is 2 weeks out from CRPP of her left FNF. Ambulating with the use ofcrutches. She has minimal complaints of pain. Feels a little shorter inher left leg than right leg. Undergoing home PT.Current or previous treatment regimens: physical therapy, occupationaltherapy and NSAIDSMedications:Current Outpatient Prescriptions:buPROPion SR (WELLBUTRIN SR) 100 mg 12 hr tabletescitalopram (LEXAPRO) 20 mg tablet take 1/2 pill qamfamotidine(PEPCID AC 10 MG TAB) Take one tablet daily.oxyCODONE-acetamino phen (PERCOCET) 5-325 mg tabletNo current facility-administered medications for this visit.Allergies: ALLERGIESNo Known AllergiesPhysical Examination:Resp 16 Ht 5' 3 (1.60m) Wt 140 lb (63.5kg) LMP 02/25/2012 BMI24.81 kg/(m2).Incision lateral left thigh with steris CDI, left leg slightly shorterthan the right, less than 3 mm, minimal discomfort with left hip ROM,Images: AP pelvis and lateral of the left hip show stable hardwarefixation of the left FNF with slight compression at the fracture site, noevidence of healing at this point. Hardware and reduction appear to bestable from previous xrays in the hospitalOxford Score: see reportAssessment and Plan:1. Closed fracture of neck of left femur with routine healing, subsequentencounter - ICD9: V54.13, ICD10: S72.002DContinue WBAT with the crutchesHome PTOk to sleep on side, no need for hip dislocation precautionsTramadol Rx prnOk to drive off narcoticsReturn in about 2 weeks (around 06/24/2017).Norman Kate MD [facility] OPERATIVE REPORTon 7 OPERATIVE REPORT [facility] Operative ReportSURGEON: Norman Kate CLAYTON UMANZOREMRN: [id number] ACCTNUM: [id number] OF SURGERY: 05/29/2017DATE OF : 1970 SEX/AGE: F/46[facility] [id number] DATE: 05/29/2017DATE OF SURGERY: 05/29/2017SURGEON: DAVE ReynosoREOPERATIVE DIAGNOSIS: Left femoral neck fracture.POSTOPERATIVE DIAGNOSIS: Left femoral neck fracture.OPERATION: Closed reduction, percutaneous pinning, left femoral neck fracture.SPORTS COMMENTATOR: Taras Tate MD and Vernon Wu MDANESTHESIA: General.SPECIAL MEDICATIONS: The patient received 2 g of Ancef intravenously within 30 minutes of incision. Thepatient received 30 mL of 0.5% Marcaine without epinephrine at closure as a local anesthetic.HISTORY OF PRESENT ILLNESS: The patient is a 46-year-old female who was running in the 3TEN8 and noticed some left hip pain. She had no history of antecedent pain prior to this. She was unable toambulate and was brought to [facility] Emergency Department prior to finishing the race, and she wasdiagnosed with a partially displaced left femoral neck fracture. She was admitted to my service. I recommendedclosed reduction and percutaneous pinning of her left hip femoral neck fracture. I explained all risks, benefits,complications, and alternatives, and she elected to proceed.OPERATIVE PROCEDURE: The patient was identified in the preoperative holding area. All final questions wereanswered. Preoperative huddle was performed with the patient's family present. She was taken back to theoperating room, moved over onto the OR table. She was sedated and intubated by anesthesia staff. They werein charge of her head, neck, and airway throughout the remainder of the case. She was positioned on thefracture table. All bony prominences were well padded. Her left lower extremity was placed in a traction boot.Traction internal rotation were pulled on the left lower extremity. C-arm fluoroscopy was brought in at this pointto check reduction. I was pleased with the reduction in the AP as well as lateral planes. The left lower extremitywas pre-prepped with alcohol as well as Hibiclens. The left lower extremity was then prepped and draped insterile orthopedic fashion. Prior to incision, a time-out was performed according to [facility] Surgicalsafety standards. Incision was marked out on the lateral aspect of her hip approximately 3 cm in length. Thiswas done with the assistance of C-arm fluoroscopy. Following time out, incision was made down through skinand subcutaneous tissue. I was able to palpate the lateral cortex of the femur. Position of the inferior calcar pinwas found by C-arm fluoroscopy. This pin was then placed. Position was checked by C-arm fluoroscopy in bothplanes and I was pleased with this. 2 superior screws, 1 posterior and 1 anterior were then placed, and I waspleased with the position of these on fluoroscopy. Lateral cortex was drilled and three 7.3 mL cannulated screwsfully threaded were then placed. The guidewires were removed. Final x-rays were taken. I was pleased with thefracture reduction and position of all hardware. The wound was thoroughly irrigated. 30 mL 0.5% Marcaine withepinephrine were used as a local anesthetic. The fascia was closed with 0 Vicryl. Subcutaneous layer wasclosed with 2-0 Vicryl and the skin was closed with 3-0 Monocryl. Finally, a sterile silver dressing was Page [address] [place] [address] Operative ReportPATIENT NAME: EDA QUARLES#: [id number] ACCTNUM: [id number]. The patient was awoken from anesthesia, and taken to recovery room in stable condition. I waspresent for all critical portions of this case. Signed: Jey REYNOSO MD 06/04/2017 15:24 EDTPW:modlD: 05/30/2017 09:40:32T: 05/31/2017 00:10:06Job #: [id number] Page 2 of 1 Normal [facility] OPERATIVE REPORT PDF Normal [facility] Basic Panelon 06-01-2017 Creatinine 0.85 mg/dL Normal 0.51-0.95 [facility] Comment on above: Performed By: #### C BCD1 ####[facility] [place], [place] [address] Anion gap 8 mmol/L Normal 8-16 [facility] Comment on above: Performed By: #### C BCD1 ####[facility] [place], [place] [address] CO2 27 mmol/L Normal 21-32 [facility] Comment on above: Performed By: #### C BCD1 ####[address] [address] Glucose mass conc 86 mg/dL Normal 70-99 [facility] Comment on above: Performed By: #### C BCD1 ####[address] [address] Urea nitrogen 13 mg/dL Normal 7-18 [facility] Comment on above: Performed By: #### C BCD1 ####[address] [address] Calcium 8.0 mg/dL Low 8.5-10.1 [facility] Comment on above: Performed By: #### C BCD1 ####[address] [address] Chloride 109 mmol/L High 98-107 [facility] Comment on above: Performed By: #### C BCD1 ####[address] [address] Potassium molar conc 4.0 mmol/L Normal 3.5-5.1 [facility] Comment on above: Performed By: #### C BCD1 ####[address] [address] Sodium 140 mmol/L Normal 136-145 [facility] Comment on above: Performed By: #### C BCD1 ####[address] [address] CNDSon 06-01-2017 CNDS HNO ID: [id number] thor: Nuvpreet (Res) BhandalService: Orthopaedic SurgeryAuthor Type: ResidentType: Discharge SummariesFiled: 06/30/2017 8:19 AMNote Text:[facility] - Discharge SummaryPATIENT NAME: REESE QUARLES: [id number] CSN: [id number] OF : 1970 SEX/AGE: F/46PATIENT TYPE: I HOSP SVC: LOCATION: [id number] DATE: 05/29/2017 DISCHARGE DATE: 06/01/2017ADMITTING DIAGNOSIS: Left femoral neck fracture.DISCHARGE DIAGNOSIS: Left femoral neck fracture.CONSULTATIONS: [facility].PROCEDURES: Closed reduction, percutaneous pinning, left femoral neck.BRIEF HISTORY OF PRESENT ILLNESS AND HOSPITAL COURSE: This is [id number] female who was [place] the [employer] and noticed someleft hip pain. She denies any history of pain prior. She was unable toambulate and [facility]br[facility]. She wasdiagnosed with a proximally displaced femoral neck fracture. She wasadmitted to the Orthopedic Service. She underwent the above procedure onhospital day 1. The patient was made touchdown weightbearing to the leftlower extremity and transitioned weightbearing as tolerated. The patientwas placed on aspirin 325 mg b.i.d. PT and OT saw the patient andrecommended home with family assistance. The patient was placed onaspirin 325 mg b.i.d. for DVT prophylaxis. The patient wasdischarged home in stable condition on 06/01/2017.DISCHARGE MEDICATIONS: See discharge MRF. The patient was discharged onaspirin 325 mg b.i.d. for DVT prophylaxis.FOLLOWUP: Follow up Dr. Kate in 2-3 weeks.The patient was discharged home in stable condition on 06/01/2017.DISCHARGE INSTRUCTIONS: Included to call the office or come to theemergency department for any fevers, chills, or redness around theincision site.Vernon Wu MDNB:modlD: 06/29/2017 13:16:10T: 06/29/2017 13:57:02Job #: [id number] [facility] CNDS HNO ID: [id number] thor: Norman Gray: Orthopaedic SurgeryAuthor Type: PhysicianType: Discharge SummariesFiled: 06/30/2017 8:38 AMNote Text:[facility] - Discharge SummaryPATIENT NAME: EDA QUARLESN: [id number] CSN: [id number] OF : 1970 SEX/AGE: F/46PATIENT TYPE: I HOSP [facility]: LOCATION: [id number] DATE: 05/29/2017 DISCHARGE DATE: 06/01/2017REASON FOR ADMISSION: Left hip fracture.BRIEF HISTORY OF PRESENT ILLNESS: The patient is a 46-year-old female whowas running in the [employer] and she began experiencing pain in theleft hip, felt a pop, and was unable to ambulate and presented to [facility] where she was found to have left femoral neckfracture.HOSPITAL COURSE: Hospital day 1, the patient was taken to the operatingroom for a closed reduction and percutaneous pinning of her left femoralneck fracture by Dr. Norman Kate. Details of the procedure can be foundon dictated operative report. Following procedure, the patient wasstable and extubated. She was transferred to the PACU where she remainedstable and subsequently transferred to the floor. Postop day 1, thepatient was doing well. She was weightbearing as tolerated in the leftlower extremity. She was started on aspirin for DVTprophylaxis. She was seen and evaluated by Physical and OccupationalTherapy who recommended home at discharge. Postop day 2, the patientcontinued doing well and was discharged to home.CONSULTATIONS ON ADMISSION: [facility].PROCEDURES ON ADMISSION: On 05/29/2017, the patient underwent closedreduction and percutaneous pinning of left femoral neck fracture.Details can be found in dictated operative report.DISCHARGE MEDICATIONS: Please see discharge MRF.DISCHARGE INSTRUCTIONS: The patient was discharged home. She is tofollow up with Dr. Kate in 7-10 days. She is to call or return for anyfevers, chills, nausea, vomiting, diarrhea, numbness, tingling,uncontrolled pain, chest pain, shortness of breath, or difficultybreathing.DISCH ARGE DISPOSITION: Stable to home.Taras Tate MD dictating Rick Kate MDJE:modlD: 06/29/2017 10:59:23T: 06/29/2017 11:40:41Job #: [id number] Normal [facility] Hemogramon 06-01-2017 Erythrocyte distribution width Auto Ratio (RBC) 13.7 % Normal 11.7-14.4 [facility] Comment on above: Performed By: #### C BCD1 ####[facility] [place], [place] [address] Erythrocytes (RBC) 3.42 mil/cmm Low 3.93-5.22 [facility] Comment on above: Performed By: #### C BCD1 ####[address] [address] Hematocrit (HCT) 31.0 % Low 34.1-44.9 [facility] Comment on above: Performed By: #### C BCD1 ####[address] [address] Hemoglobin mass conc (Bld) 10.2 g/dL Low 11.2-15.7 [facility] Comment on above: Performed By: #### C BCD1 ####[address] [address] MCH 29.8 pg Normal 25.6-32.2 [facility] Comment on above: Performed By: #### C BCD1 ####[address] [address] MCHC mass conc (RBC) 32.9 % Normal 31.6-34.8 [facility] Comment on above: Performed By: #### C BCD1 ####[address] [address] MCV 90.6 fL Normal 79.4-94.8 [facility] Comment on above: Performed By: #### C BCD1 ####[address] [address] Platelet mean volume (PMV) 9.7 fL Normal 9.4-12.3 [facility] Comment on above: Performed By: #### C BCD1 ####[address] [address] Platelets 152 thou/cmm Low 182-369 [facility] Comment on above: Performed By: #### C BCD1 ####[address] [address] RDW SD 45.4 fl Normal 36.4-46.3 [facility] Comment on above: Performed By: #### C BCD1 ####[place] [address] WBC (Leukocytes) 5.22 thou/cmm Normal 3.98-10.04 [facility] Comment on above: Performed By: #### C BCD1 ####[place] [address] MDRD GFRon 06-01-2017 eGFR (non-black) mL/min/{1.73_m2} Normal >60mL/m in/ 1.73m2 [facility] Comment on above: Result Comment: If t he patient is , multiply the result by 1.210. Performed By: #### C BCD1 ####[place] [address] ABO/Rh Confirmationon 2016 ABO group A Normal [facility] Comment on above: Performed By: #### C BCD1 ####[place] [address] RH Type Positive Normal [facility] Comment on above: Performed By: #### C BCD1 ####[place] [address] Basic Panelon 05-31-2017 Creatinine 0.96 mg/dL High 0.51-0.95 [facility] Comment on above: Performed By: #### C BCD1 ####[place] [address] Anion gap 9 mmol/L Normal 8-16 [facility] Comment on above: Performed By: #### C BCD1 ####[place] [address] Calcium 7.9 mg/dL Low 8.5-10.1 [facility] Comment on above: Performed By: #### C BCD1 ####[place] [address] CO2 25 mmol/L Normal 21-32 [facility] Comment on above: Performed By: #### C BCD1 ####[facility] [place], [place] [address] Glucose mass conc 90 mg/dL Normal 70-99 [facility] Comment on above: Performed By: #### C BCD1 ####[facility] [place], [place] [address] Urea nitrogen 16 mg/dL Normal 7-18 [facility] Comment on above: Performed By: #### C BCD1 ####[address] [address] Chloride 109 mmol/L High 98-107 [facility] Comment on above: Performed By: #### C BCD1 ####[address] [address] Potassium molar conc 3.7 mmol/L Normal 3.5-5.1 [facility] Comment on above: Performed By: #### C BCD1 ####[place] [address] Sodium 139 mmol/L Normal 136-145 [facility] Comment on above: Performed By: #### C BCD1 ####[place] [address] Hemogramon 05-31-2017 Erythrocyte distribution width Auto Ratio (RBC) 13.3 % Normal 11.7-14.4 [facility] Comment on above: Performed By: #### C BCD1 ####[place] [address] Erythrocytes (RBC) 3.56 mil/cmm Low 3.93-5.22 [facility] Comment on above: Performed By: #### C BCD1 ####[place] [address] Hematocrit (HCT) 32.0 % Low 34.1-44.9 [facility] Comment on above: Performed By: #### C BCD1 ####[place] [address] Hemoglobin mass conc (Bld) 10.7 g/dL Low 11.2-15.7 [facility] Comment on above: Performed By: #### C BCD1 ####[facility] [place], [place] [address] MCH 30.1 pg Normal 25.6-32.2 [facility] Comment on above: Performed By: #### C BCD1 ####[facility] [place], [place] [address] MCHC mass conc (RBC) 33.4 % Normal 31.6-34.8 [facility] Comment on above: Performed By: #### C BCD1 ####[address] [address] MCV 89.9 fL Normal 79.4-94.8 [facility] Comment on above: Performed By: #### C BCD1 ####[place] [address] Platelet mean volume (PMV) 9.6 fL Normal 9.4-12.3 [facility] Comment on above: Performed By: #### C BCD1 ####[address] [address] Platelets 154 thou/cmm Low 182-369 [facility] Comment on above: Performed By: #### C BCD1 ####[address] [address] RDW SD 44.6 fl Normal 36.4-46.3 [facility] Comment on above: Performed By: #### C BCD1 ####[place] [address] WBC (Leukocytes) 6.42 thou/cmm Normal 3.98-10.04 [facility] Comment on above: Performed By: #### C BCD1 ####[place] [address] MDRD GFRon 05-31-2017 eGFR (non-black) mL/min/{1.73_m2} Normal >60mL/m in/ 1.73m2 [facility] Comment on above: Result Comment: If t he patient is , multiply the result by 1.210. Performed By: #### C BCD1 ####[facility] [place], [place] [address] Basic Panelon 05-30-2017 Creatinine 1.10 mg/dL High 0.51-0.95 [facility] Comment on above: Performed By: #### P 8 ####[facility] [place], [place] [address] Glucose mass conc 92 mg/dL Normal 70-99 [facility] Comment on above: Performed By: #### P 8 ####[facility] [place], [place] [address] Urea nitrogen 23 mg/dL High 7-18 [facility] Comment on above: Performed By: #### P 8 ####[address] [address] Anion gap 10 mmol/L Normal 8-16 [facility] Comment on above: Performed By: #### P 8 ####[address] [address] Calcium 8.9 mg/dL Normal 8.5-10.1 [facility] Comment on above: Performed By: #### P 8 ####[address] [address] CO2 26 mmol/L Normal 21-32 [facility] Comment on above: Performed By: #### P 8 ####[address] [address] Chloride 105 mmol/L Normal 98-107 [facility] Comment on above: Performed By: #### P 8 ####[address] [address] Potassium molar conc 3.8 mmol/L Normal 3.5-5.1 [facility] Comment on above: Performed By: #### P 8 ####[address] [address] Sodium 137 mmol/L Normal 136-145 [facility] Comment on above: Performed By: #### P 8 ####[address] [address] FLUORO OVER 1 HOURon 017 FLUORO OVER 1 HOUR Performed at [facility] APPROVED BY: Jeronimo Schumacher MD IMPRESSION: 2 minutes 41 seconds of fluoroscopy time was utilized for this exam. Normal [facility] HIP UNIL 2-3 VIEWS WITH PELV IS WHEN PERFORMEDon 05-30-2017 HIP UNIL 2-3 VIEWS WITH PELVIS WHEN PERFORMED Performed at [facility] APPROVED BY: Hector Edmonds MD EXAMINATION: INTRAOPERATIVE AND POSTOPERATIVE LEFT HIP X-RAYS EXAM DATE: 05/30/2017 08:27 (accession [id number]), 05/30/2017 10:20 (accession [id number]) TECHNIQUE: Total 2 AP and lateral intraoperative, fluoroscopic spot views of the left hip obtained for documentation purposes. Total fluoroscopy time 2 minutes 41 seconds. Postoperative AP view of the pelvis and AP and lateral views of the left hip were obtained. HISTORY: Left femoral neck fracture pinning. COMPARISON: Left hip x-rays the previous day. FINDINGS (combined) : Fine bony detail is limited on the intraoperative views. Images demonstrate interval placement of 3 orthopedic pins stabilizing left femoral neck fracture, with improved, near-anatomic alignment. Postoperative images demonstrate stabilization of left femoral neck fracture with 3 orthopedic pins, with improved, near-anatomic alignment. Postoperative soft tissue swelling and gas laterally. IMPRESSION (combined): Surgical fixation of left femoral neck fracture, with improved, near-anatomic alignment. Intraoperative images obtained for fluoroscopic documentation purposes. Please refer to the operative report for full procedural description. Normal [facility] Hemogramon 05-30-2017 Erythrocyte distribution width Auto Ratio (RBC) 13.4 % Normal 11.7-14.4 [facility] Comment on above: Performed By: #### C BC1 ####[facility] [place], [place] [address] Erythrocytes (RBC) 4.41 mil/cmm Normal 3.93-5.22 [facility] Comment on above: Performed By: #### C BC1 ####[facility] [place], [place] [address] Hematocrit (HCT) 38.8 % Normal 34.1-44.9 [facility] Comment on above: Performed By: #### C BC1 ####[facility] [place], [place] [address] Hemoglobin mass conc (Bld) 13.2 g/dL Normal 11.2-15.7 [facility] Comment on above: Performed By: #### C BC1 ####[facility] [place] [address] MCH 29.9 pg Normal 25.6-32.2 [facility] Comment on above: Performed By: #### C BC1 ####[place] [address] MCHC mass conc (RBC) 34.0 % Normal 31.6-34.8 [facility] Comment on above: Performed By: #### C BC1 ####[place] [address] MCV 88.0 fL Normal 79.4-94.8 [facility] Comment on above: Performed By: #### C BC1 ####[place] [address] Platelet mean volume (PMV) 9.6 fL Normal 9.4-12.3 [facility] Comment on above: Performed By: #### C BC1 ####[place] [address] Platelets 213 thou/cmm Normal 182-369 [facility] Comment on above: Performed By: #### C BC1 ####[place] [address] RDW SD 43.6 fl Normal 36.4-46.3 [facility] Comment on above: Performed By: #### C BC1 ####[place] [address] WBC (Leukocytes) 7.29 thou/cmm Normal 3.98-10.04 [facility] Comment on above: Performed By: #### C BC1 ####[place] [address] MDRD GFRon 05-30-2017 eGFR (non-black) 52.80 mL/min/{1.73_m2} Normal > 60mL/min/ 1.73m2 [facility] Comment on above: Result Comment: If t he patient is , multiply the result by 1.210. Performed By: #### G FR ####[place] [address] Protimeon 05-30-2017 INR Coag RelTime (PPP) 1.07 {INR} Normal [facility] Comment on above: Result Comment: Shawn dard Therapy 2.0-3.0High Dose 2.5-3.5 Performed By: #### P T ####[place] [address] Prothrombin time (PT) Coag time (PPP) 11.4 s Normal 9.3-11.9 [facility] Comment on above: Performed By: #### P T ####[place] [address] Total 25-OH Vitamin Don 05-08 Total 25-OH Vitamin D 33.0 ng/mL Normal 30.0-100.0 [facility] Comment on above: Performed By: #### 2 5VD1 ####[place] [address] Type and Screenon 05-30-2017 ABO group A Normal [facility] Comment on above: Performed By: #### T &S ####[place] [address] Antibody Screen Negative Normal [facility] Comment on above: Performed By: #### T &S ####[place] [address] Comment See Below Normal [facility] Comment on above: Result Comment: Scre en &/or Xmatch expires in 3 days at 12 midnight. Redrawpatient at that time. Performed By: #### T &S ####[place] [address] RH Type Positive Normal [facility] Comment on above: Performed By: #### T &S ####[place] [address] Basic Panelon 05-29-2017 Creatinine 0.86 mg/dL Normal 0.51-0.95 [facility] Comment on above: Performed By: #### P 8 ####[facility] [place], [place] [address] Anion gap 12 mmol/L Normal 8-16 [facility] Comment on above: Performed By: #### P 8 ####[facility] [place], [place] [address] CO2 23 mmol/L Normal 21-32 [facility] Comment on above: Performed By: #### P 8 ####[facility] [place], [place] [address] Glucose mass conc 90 mg/dL Normal 70-99 [facility] Comment on above: Performed By: #### P 8 ####[facility] [place] [address] Urea nitrogen 18 mg/dL Normal 7-18 [facility] Comment on above: Performed By: #### P 8 ####[place] [address] Calcium 9.2 mg/dL Normal 8.5-10.1 [facility] Comment on above: Performed By: #### P 8 ####[address] [address] Chloride 104 mmol/L Normal 98-107 [facility] Comment on above: Performed By: #### P 8 ####[place] [address] Potassium molar conc 3.6 mmol/L Normal 3.5-5.1 [facility] Comment on above: Performed By: #### P 8 ####[facility] [place] [address] Sodium 135 mmol/L Low 136-145 [facility] Comment on above: Performed By: #### P 8 ####[place] [address] HIP UNIL 2-3 VIEWS WITH PELV IS WHEN PERFORMEDon 05-29-2017 HIP UNIL 2-3 VIEWS WITH PELVIS WHEN PERFORMED Performed at [facility] APPROVED BY: Hector Edmonds MD EXAMINATION: LEFT HIP X-RAYS EXAM DATE: 05/29/2017 13:58 TECHNIQUE: AP view of the pelvis and AP and lateral views of the left hip were obtained. HISTORY: Left hip pain while running a marathon, left leg gave out. Unable to bear weight. COMPARISON: None available. FINDINGS: There is an acute transverse left femoral neck fracture. No dislocation. The left femoral head is mildly internally rotated. The soft tissues appear unremarkable. IMPRESSION: Acute left femoral neck fracture. Normal [facility] Hemogram/Diffon 05-29-2017 Basophils Auto #/vol (Bld) 0.02 thou/cmm Normal 0.01-0.08 [facility] Comment on above: Result Comment: Smea r scanned; tech agrees with automated differential Performed By: #### C BCD1 ####[address] [address] Basophils/100 WBC Auto (Bld) 0.2 % Normal [facility] Comment on above: Performed By: #### C BCD1 ####[address] [address] Eosinophils 0.00 thou/cmm Normal 0.00-0.31 [facility] Comment on above: Performed By: #### C BCD1 ####[address] [address] Eosinophils/100 leukocytes 0.0 % Normal [facility] Comment on above: Performed By: #### C BCD1 ####[address] [address] Immature Grans 0.50 % Normal [facility] Comment on above: Performed By: #### C BCD1 ####[address] [address] Immature Grans # 0.06 thou/cmm High 0.00-0.05 [facility] Comment on above: Performed By: #### C BCD1 ####[address] [address] Lymphocytes 0.62 thou/cmm Low 1.18-3.74 [facility] Comment on above: Performed By: #### C BCD1 ####[address] [address] Lymphocytes/100 leukocytes 5.5 % Normal [facility] Comment on above: Performed By: #### C BCD1 ####[facility] [place], [place] [address] Monocytes 0.55 thou/cmm Normal 0.27-0.70 [facility] Comment on above: Performed By: #### C BCD1 ####[facility] [place], [place] [address] Monocytes/100 leukocytes 4.9 % Normal [facility] Comment on above: Performed By: #### C BCD1 ####[facility] [place], [place] [address] Seg Neutrophil 88.9 % Normal [facility] Comment on above: Performed By: #### C BCD1 ####[place] [address] Seg. Neut.# 10.04 thou/cmm High 1.56-6.13 [facility] Comment on above: Performed By: #### C BCD1 ####[place] [address] Erythrocyte distribution width Auto Ratio (RBC) 13.0 % Normal 11.7-14.4 [facility] Comment on above: Performed By: #### C BCD1 ####[place] [address] Erythrocytes (RBC) 4.68 mil/cmm Normal 3.93-5.22 [facility] Comment on above: Performed By: #### C BCD1 ####[place] [address] Hematocrit (HCT) 40.5 % Normal 34.1-44.9 [facility] Comment on above: Performed By: #### C BCD1 ####[place] [address] Hemoglobin mass conc (Bld) 13.9 g/dL Normal 11.2-15.7 [facility] Comment on above: Performed By: #### C BCD1 ####[place] [address] MCH 29.7 pg Normal 25.6-32.2 [facility] Comment on above: Performed By: #### C BCD1 ####[facility] [place], [place] [address] MCHC mass conc (RBC) 34.3 % Normal 31.6-34.8 [facility] Comment on above: Performed By: #### C BCD1 ####[address] [address] MCV 86.5 fL Normal 79.4-94.8 [facility] Comment on above: Performed By: #### C BCD1 ####[address] [address] Platelet mean volume (PMV) 9.7 fL Normal 9.4-12.3 [facility] Comment on above: Performed By: #### C BCD1 ####[address] [address] Platelets 247 thou/cmm Normal 182-369 [facility] Comment on above: Performed By: #### C BCD1 ####[place] [address] RDW SD 40.7 fl Normal 36.4-46.3 [facility] Comment on above: Performed By: #### C BCD1 ####[address] [address] WBC (Leukocytes) 11.29 thou/cmm High 3.98-10.04 [facility] Comment on above: Performed By: #### C BCD1 ####[address] [address] MDRD GFRon 05-29-2017 eGFR (non-black) mL/min/{1.73_m2} Normal >60mL/m in/ 1.73m2 [facility] Comment on above: Result Comment: If t he patient is , multiply the result by 1.210. Performed By: #### G FR ####[address] [address] CBC, PLATELETS & MANUAL DIFF (88445)Ordered By: Billet Inspector on 10-18-2015 Basophils #/vol (Bld) 0.0 {x10E3/uL} Normal 0.0-0.2 [facility] Work Phone: Comment on above: PATIENT WAS FASTINGP ERFORMED BY: BEKAH [place] 6385970 [facility] [id number] BY: [address] [id number] Information: P36651, 682254 Basophils (Bld) [#/Vol] 0.0 10*3/uL Normal 0.0-0.2 [facility]; [facility] Work Phone: Comment on above: PATIENT WAS FASTINGP ERFORMED BY: BEKAH [facility] HospitalSportsBeep Xxscqz5258 [facility] [id number] BY: StemCyte[address] [id number] Information: N04904, 625111 Basophils Auto #/vol (Bld) 0.0 {x10E3/uL} Normal 0.0-0.2 [facility] Work Phone: Basophils/100 WBC (Bld) 1 % Normal [facility] Work Phone: Comment on above: PATIENT WAS FASTINGP ERFORMED BY: BEKAH [facility] HospitalDonna KellyYoibsm46[address] [id number] BY: [address] [id number] Information: G99897, 734010 Basophils/100 WBC Auto (Bld) 1 % Normal [facility] Work Phone: Eosinophils #/vol (Bld) 0.2 {x10E3/uL} Normal 0.0-0.4 [facility] Work Phone: Comment on above: PATIENT WAS FASTINGP ERFORMED BY: BEKAH [place] 6385970 [facility] [id number] BY: [address] [id number] Information: Q53257, 850678 Eosinophils (Bld) [#/Vol] 0.2 10*3/uL Normal 0.0-0.4 [facility]; [facility] Work Phone: Comment on above: PATIENT WAS FASTINGP ERFORMED BY: BEKAH [employer] Nluuxw7402 [facility] [id number] BY: [employer] [id number] Information: H75698 045540 Eosinophils Auto #/vol (Bld) 0.2 {x10E3/uL} Normal 0.0-0.4 [facility] Work Phone: Eosinophils/100 WBC (Bld) 4 % Normal [facility] Work Phone: Comment on above: PATIENT WAS FASTINGP ERFORMED BY: [employer] Kolgkr2425 [facility] [id number] BY: [employer] [id number] Information: H18892, 334401 Eosinophils/100 WBC Auto (Bld) 4 % Normal [facility] Work Phone: Erythrocyte distribution width Auto Ratio (RBC) 13.8 % Normal 12.3-15.4 [facility] Work Phone: Erythrocyte distribution width Ratio (RBC) 13.8 % Normal 12.3-15.4 [facility] Work Phone: Comment on above: PATIENT WAS FASTINGP ERFORMED BY: AlgonomicsJersey Shore University Medical CenterTlfyth7365 [facility] [id number] BY: [employer] [id number] Information: T67283, 059657 Hematocrit Auto Volume Fraction (Bld) 41.7 % Normal 34.0-46.6 Comprehens kelly [facility] Work Phone: Hematocrit Volume Fraction (Bld) 41.7 % Normal 34.0-46.6 [facility] Work Phone: Comment on above: PATIENT WAS FASTINGP ERFORMED BY: [facility]6370 [facility] [id number] BY: [address] [id number] Information: K41700, 956370 Hemoglobin mass conc (Bld) 14.0 g/dL Normal 11.1-15.9 [facility] Work Phone: Comment on above: PATIENT WAS FASTINGP ERFORMED BY: [place] 7113870 [facility] [id number] BY: [address] [id number] Information: V96850, 300834 Immature granulocytes #/vol (Bld) 0.0 {x10E3/uL} Normal 0.0-0.1 [facility] Work Phone: Comment on above: PATIENT WAS FASTINGP ERFORMED BY: [place] 7113870 [facility] [id number] BY: [address] [id number] Information: N80614, 897809 Immature granulocytes (Bld) [#/Vol] 0.0 10*3/uL Normal 0.0-0.1 [facility]; [facility] Work Phone: Comment on above: PATIENT WAS FASTINGP ERFORMED BY: [facility]6370 [facility] [id number] BY: [address] [id number] Information: Z75366, 099628 Immature granulocytes/100 WBC (Bld) 0 % Normal [facility] Work Phone: Comment on above: PATIENT WAS FASTINGP ERFORMED BY: [facility]6370 [facility] [id number] BY: [address] [id number] Information: V88102, 708864 Lymphocytes #/vol (Bld) 0.9 {x10E3/uL} Normal 0.7-3.1 [facility] Work Phone: Comment on above: PATIENT WAS FASTINGP ERFORMED BY: BEKAH [facility] Doxabh1959 [facility] [id number] BY: [address] [id number] Information: J51645, 960582 Lymphocytes (Bld) [#/Vol] 0.9 10*3/uL Normal 0.7-3.1 [facility]; [facility] Work Phone: Comment on above: PATIENT WAS FASTINGP ERFORMED BY: BEKAH [employer]SportsBeep Axodla1012 [facility] [id number] BY: [facility] CenterSportsBeep[address] [id number] Information: G90277, 202842 Lymphocytes Auto #/vol (Bld) 0.9 {x10E3/uL} Normal 0.7-3.1 [facility] Work Phone: Lymphocytes/100 WBC (Bld) 23 % Normal [facility] Work Phone: Comment on above: PATIENT WAS FASTINGP ERFORMED BY: [employer] Communications SystemsMegan Ville 6339670 [facility] [id number] BY: [address] [id number] Information: Z93636, 560595 Lymphocytes/100 WBC Auto (Bld) 23 % Normal [facility] Work Phone: MCH Auto Entitic mass (RBC) 28.9 pg Normal 26.6-33.0 [facility] Work Phone: MCH Entitic mass (RBC) 28.9 pg Normal 26.6-33.0 [facility] Work Phone: Comment on above: PATIENT WAS FASTINGP ERFORMED BY: LabSportsBeepMegan [place]ille 6339670 [facility] [id number] BY: BN LabCo[address] [id number] Information: U37199, 951823 MCHC Auto mass conc (RBC) 33.6 g/dL Normal 31.5-35.7 [facility] Work Phone: MCHC mass conc (RBC) 33.6 g/dL Normal 31.5-35.7 Comp rehensive Internal Medicine Work Phone: Comment on above: PATIENT WAS FASTINGP ERFORMED BY: [employer] Zvijfe1027 [facility] [id number] BY: [employer] [id number] Information: L99061, 811307 MCV Auto Entitic volume (RBC) 86 fL Normal 79-97 [facility] Work Phone: MCV Entitic volume (RBC) 86 fL Normal 79-97 [facility] Work Phone: Comment on above: PATIENT WAS FASTINGP ERFORMED BY: [employer] Snrrqm2625 [facility] [id number] BY: [employer] [id number] Information: I23846, 445663 Monocytes #/vol (Bld) 0.4 {x10E3/uL} Normal 0.1-0.9 [facility] Work Phone: Comment on above: PATIENT WAS FASTINGP ERFORMED BY: [employer] Communications SystemsJersey Shore University Medical CenterWkikod9588 [facility] [id number] BY: [employer] [id number] Information: I44021, 769817 Monocytes (Bld) [#/Vol] 0.4 10*3/uL Normal 0.1-0.9 [facility]; [facility] Work Phone: Comment on above: PATIENT WAS FASTINGP ERFORMED BY: [employer] Ylohwf9295 [facility] [id number] BY: [employer] [id number] Information: R17518, 808702 Monocytes Auto #/vol (Bld) 0.4 {x10E3/uL} Normal 0.1-0.9 [facility] Work Phone: Monocytes/100 WBC (Bld) 9 % Normal [facility] Work Phone: Comment on above: PATIENT WAS FASTINGP ERFORMED BY: [employer] Communications SystemsMegan Ville 6339670 [facility] [id number] BY: [employer] [id number] Information: C87267, 208159 Monocytes/100 WBC Auto (Bld) 9 % Normal [facility] Work Phone: Neutrophils #/vol (Bld) 2.6 {x10E3/uL} Normal 1.4-7.0 [facility] Work Phone: Comment on above: PATIENT WAS FASTINGP ERFORMED BY: AlgonomicsM[place] 6339670 [facility] [id number] BY: [employer] [id number] Information: L37340, 869819 Neutrophils (Bld) [#/Vol] 2.6 10*3/uL Normal 1.4-7.0 [facility]; [facility] Work Phone: Comment on above: PATIENT WAS FASTINGP ERFORMED BY: [employer] Communications SystemsJersey Shore University Medical CenterJhxirk9681 [facility] [id number] BY: StemCyte[address] [id number] Information: M70393, 136332 Neutrophils Auto #/vol (Bld) 2.6 {x10E3/uL} Normal 1.4-7.0 [facility] Work Phone: Neutrophils/100 WBC (Bld) 63 % Normal [facility] Work Phone: Comment on above: PATIENT WAS FASTINGP ERFORMED BY: BEKAH [facility] Qhplaa6507 [facility] [id number] BY: [employer] [id number] Information: C57314, 120816 Neutrophils/100 WBC Auto (Bld) 63 % Normal [facility] Work Phone: Platelets #/vol (Bld) 270 {x10E3/uL} Normal 150-379 [facility] Work Phone: Comment on above: PATIENT WAS FASTINGP ERFORMED BY: BEKAH [facility] Lsxnvb8946 [facility] [id number] BY: [employer] [id number] Information: V61117, 257692 Platelets (Bld) [#/Vol] 270 10*3/uL Normal 150-379 [facility]; [facility] Work Phone: Comment on above: PATIENT WAS FASTINGP ERFORMED BY: BEKAH [facility] Pbndks8994 [facility] [id number] BY: [employer] [id number] Information: P80549, 275186 Platelets Auto #/vol (Bld) 270 {x10E3/uL} Normal 150-379 [facility] Work Phone: RBC #/vol (Bld) 4.85 {x10E6/uL} Normal 3.77-5.28 [facility] Internal Medicine Work Phone: Comment on above: PATIENT WAS FASTINGP ERFORMED BY: BEKAH LabSportsBeeprp Glaags7617 [facility] [id number] BY: [address] [id number] Information: B69029, 188455 RBC (Bld) [#/Vol] 4.85 10*6/uL Normal 3.77-5.28 [facility]; [facility] Work Phone: Comment on above: PATIENT WAS FASTINGP ERFORMED BY: BEKAH [facility] Roptge6863 [facility] [id number] BY: [address] [id number] Information: F19659, 308180 RBC Auto #/vol (Bld) 4.85 {x10E6/uL} Normal 3.77-5.28 [facility] Work Phone: WBC #/vol (Bld) 4.1 {x10E3/uL} Normal 3.4-10.8 [facility] Internal Medicine Work Phone: Comment on above: PATIENT WAS FASTINGP ERFORMED BY: BEKAH [facility] Ofcveu5791 [facility] [id number] BY: [address] [id number] Information: X50801, 806647 WBC (Bld) [#/Vol] 4.1 10*3/uL Normal 3.4-10.8 [facility] Internal [facility]; [facility] Internal Medicine Work Phone: Comment on above: PATIENT WAS FASTINGP ERFORMED BY: BEKAH [facility] Xilket9702 [facility] [id number] BY: [address] [id number] Information: [id number], 969929 WBC Auto #/vol (Bld) 4.1 {x10E3/uL} Normal 3.4-10.8 [facility] Internal Medicine Work Phone: FERRITIN (56660)Ordered By: Billet Inspector on 10-18-2015 Ferritin mass conc 77 ng/mL Normal 15-150 [facility] Internal Medicine Work Phone: Comment on above: PATIENT WAS FASTINGP ERFORMED BY: [facility] Ubwpzt6235 [facility] [id number] BY: [address] [id number] Hemoglobin Glyclated (HGB A1 C) (56067)Ordered By: Billet Inspector on 10-18-2015 Hemoglobin A1c/Hemoglobin.total mass fraction (Bld) 5.1 % Normal 4.8-5.6 Comprehensiv e Internal Medicine Work Phone: Comment on above: . Pre-diabetes: 5.7 - 6.4 Diabetes: >6.4 Glycemic control for adults with diabetes: <7.0 PATIENT WAS FASTINGP ERFORMED BY: CB [facility] Ivwhez9570 Mathis RoadDublin [place] [id number] BY: Lab[address] [id number] IRON BINDING CAPACITY (TIBC) (79133)Ordered By: Billet Inspector on 10-18-2015 Iron binding capacity mass conc 233 ug/dL Abnormal 250-450 [facility] Work Phone: Comment on above: PATIENT WAS FASTINGP ERFORMED BY: CB [facility] Cchwlh1610 Mathis RoadDublin [place] [id number] BY: [facility] [address] [id number] Iron binding capacity.unsaturated mass conc 144 ug/dL Normal 131-425 [facility] Work Phone: Comment on above: PATIENT WAS FASTINGP ERFORMED BY: CB [facility] Irjybz1357 Mathis RoadDublRobley Rex VA Medical Center [id number] BY: [facility] [address] [id number] Iron mass conc 89 ug/dL Normal 27-159 Comprehens kelly Internal Medicine Work Phone: Comment on above: PATIENT WAS FASTINGP ERFORMED BY: CB [facility] Oyfxqt6343 Mathis RoadDublin [place] [id number] BY: [facility] [address] [id number] Iron saturation mass fraction 38 % Normal 15-55 [facility] Work Phone: Comment on above: PATIENT WAS FASTINGP ERFORMED BY: CB [facility] Owvyjp9021 Mathis RoadDublin [place] [id number] BY: [employer] [id number] LIPID PANEL (81632)Ordered B y: Billet Inspector on 10-18-2015 Cholesterol in HDL mass conc 68 mg/dL Normal [facility] Work Phone: Comment on above: According to ATP-III Guidelines, HDL-C >59 mg/dL is considered anegative risk factor for CHD. PATIENT WAS FASTINGP ERFORMED BY: [employer] LabSportsBeeprp Prtmiw8332 [facility] [id number] BY: [employer] [id number] Cholesterol in LDL mass conc 125 mg/dL Abnormal 0-99 [facility] Work Phone: Comment on above: PATIENT WAS FASTINGP ERFORMED BY: [employer]6370 [facility] [id number] BY: [employer] Iiohijrerg[address] [id number] Cholesterol in LDL/Cholesterol in HDL mass ratio 1.8 {ratio_units} Normal 0.0-3.2 [facility] Work Phone: Comment on above: LDL/HDL Ratio Men Wo men 1/2 Avg.Risk 1.0 1.5 Avg.Risk 3.6 3.2 2X Avg.Risk 6.2 5.0 3X Avg.Risk 8.0 6.1 PATIENT WAS FASTINGP ERFORMED BY: Algonomicsrp Tbbwes6970 [facility] [id number] BY: [employer] [id number] Cholesterol in VLDL mass conc 14 mg/dL Normal 5-40 [facility] Work Phone: Comment on above: PATIENT WAS FASTINGP ERFORMED BY: Algonomicsrp Tqbfru1914 [facility] [id number] BY: [employer] [id number] Cholesterol mass conc 207 mg/dL Abnormal 100-199 Com prehensive Internal Medicine Work Phone: Comment on above: PATIENT WAS FASTINGP ERFORMED BY: CB [facility] Xwnezc2442 [address] [facility] [id number] BY: LabCo[address] [id number] Triglyceride mass conc 68 mg/dL Normal 0-149 [facility] Work Phone: Comment on above: PATIENT WAS FASTINGP ERFORMED BY: CB [facility] Rojcmh0441 [facility] [id number] BY: LabCo[address] [id number] METABOLIC PANEL, COMPREHENSI VE (95400)Ordered By: Billet Inspector on 10-18-2015 Albumin mass conc 4.7 g/dL Normal 3.5-5.5 Compreh ensive Internal Medicine Work Phone: Comment on above: PATIENT WAS FASTINGP ERFORMED BY: CB [facility] Iejdwd5960 [facility] [id number] BY: LabCo[address] [id number] Albumin/Globulin mass ratio 2.0 {ratio} Normal 1.1-2.5 [facility] Work Phone: Comment on above: PATIENT WAS FASTINGP ERFORMED BY: CB [facility] Jiusbu8410 [facility] [id number] BY: LabCo[address] [id number] ALP [Catalytic activity/Vol] 90 U/L Normal 39-117 [facility]; [facility] Work Phone: Comment on above: PATIENT WAS FASTINGP ERFORMED BY: CB [facility] Pfpnop3776 [facility] [id number] BY: Lab[address] [id number] ALP enzyme act/vol 90 [iU]/L Normal 39-117 Compre [facility] Internal Medicine Work Phone: Comment on above: PATIENT WAS FASTINGP ERFORMED BY: CB [facility] Gyqsps0291 Mathis RoadDublin [place] [id number] BY: LabCo[address] [id number] ALT [Catalytic activity/Vol] 17 U/L Normal 0-32 [facility]; [facility] Internal Medicine Work Phone: Comment on above: PATIENT WAS FASTINGP ERFORMED BY: CB [facility] Agsebt4956 Mathis RoadDublin [place] [id number] BY: LabCo[address] [id number] ALT enzyme act/vol 17 [iU]/L Normal 0-32 [facility] Internal Medicine Work Phone: Comment on above: PATIENT WAS FASTINGP ERFORMED BY: BEKAH [facility] Ymjzen2308 Mathis RoadDublin [place] [id number] BY: Lab[address] [id number] AST [Catalytic activity/Vol] 21 U/L Normal 0-40 [facility] Internal Medicine; [facility] Internal Medicine Work Phone: Comment on above: PATIENT WAS FASTINGP ERFORMED BY: BEKAH [facility] Blpymh9145 [address] RoadDublin [place] [id number] BY: Lab[address] [id number] AST enzyme act/vol 21 [iU]/L Normal 0-40 [facility] Internal Medicine Work Phone: Comment on above: PATIENT WAS FASTINGP ERFORMED BY: CB [facility] Aujvke0217 [address]is RoadDublin [place] [id number] BY: Lab[address] [id number] Bilirubin mass conc 0.3 mg/dL Normal 0.0-1.2 [facility] Internal Medicine Work Phone: Comment on above: PATIENT WAS FASTINGP ERFORMED BY: CB [facility] Vkjslh0377 Mathis RoadDublin [place] [id number] BY: LabCo[address] [id number] Calcium mass conc 9.5 mg/dL Normal 8.7-10.2 Compreh ensive Internal Medicine Work Phone: Comment on above: PATIENT WAS FASTINGP ERFORMED BY: BEKAH [facility] Nnirpb7283 [address] [facility] [id number] BY: [facility] [address] [id number] Chloride molar conc 102 mmol/L Normal 97-108 Compr ehensive Internal Medicine Work Phone: Comment on above: PATIENT WAS FASTINGP ERFORMED BY: BEKAH [facility] Pbpbon3831 [facility] [id number] BY: LabCo[address] [id number] CO2 molar conc 23 mmol/L Normal 18-29 Comprehens kelly Internal Medicine Work Phone: Comment on above: PATIENT WAS FASTINGP ERFORMED BY: BEKAH [facility] Zjlyzw0608 [facility] [id number] BY: LabCo[address] [id number] Creatinine mass conc 0.84 mg/dL Normal 0.57-1.00 Comp rehensive Internal Medicine Work Phone: Comment on above: PATIENT WAS FASTINGP ERFORMED BY: BEKAH [facility] Lutsbo6437 [facility] [id number] BY: LabCo[address] [id number] GFR/1.73 sq M predicted among blacks CKD-EPI vol rate/area (S/P/Bld) 96 mL/min/1.73 Normal Comprehensiv e Internal Medicine Work Phone: Comment on above: PATIENT WAS FASTINGP ERFORMED BY: BEKAH [facility] Mkviky8183 [facility] [id number] BY: LabCo[address] [id number] GFR/1.73 sq M predicted among non-blacks CKD-EPI vol rate/area (S/P/Bld) 83 mL/min/1.73 Normal [facility] Work Phone: Comment on above: PATIENT WAS FASTINGP ERFORMED BY: BEKAH [facility] Laxzql5006 [facility] [id number] BY: [address] [id number] Globulin Calculated mass conc (S) 2.4 g/dL Normal 1.5-4.5 [facility] Work Phone: Globulin mass conc (S) 2.4 g/dL Normal 1.5-4.5 [facility] Work Phone: Comment on above: PATIENT WAS FASTINGP ERFORMED BY: BEKAH [facility] Fgkcqj0490 [facility] [id number] BY: [address] [id number] Glucose mass conc 89 mg/dL Normal 65-99 Compreh ensive Internal Medicine Work Phone: Comment on above: PATIENT WAS FASTINGP ERFORMED BY: BEKAH [facility] Ibjsrn8849 [facility] [id number] BY: [address] [id number] Potassium molar conc 4.3 mmol/L Normal 3.5-5.2 Comp rehensive Internal Medicine Work Phone: Comment on above: PATIENT WAS FASTINGP ERFORMED BY: BEKAH [facility] Eofwhp9587 [facility] [id number] BY: [address] [id number] Protein mass conc 7.1 g/dL Normal 6.0-8.5 Compreh ensive Internal Medicine Work Phone: Comment on above: PATIENT WAS FASTINGP ERFORMED BY: CB [facility] Pdqmfr5900 [facility] [id number] BY: [employer] [id number] Sodium molar conc 143 mmol/L Normal 134-144 Compreh ensive Internal Medicine Work Phone: Comment on above: PATIENT WAS FASTINGP ERFORMED BY: [facility] Vtejqw9558 [address] RoadDublin [place] [id number] BY: [address] [id number] Urea nitrogen mass conc 17 mg/dL Normal 6-24 [facility] Work Phone: Comment on above: PATIENT WAS FASTINGP ERFORMED BY: [facility] Chtzzi9749 [address] RoadDublin [place] [id number] BY: [employer]em[employer] [id number] Urea nitrogen/Creatinine mass ratio 20 mg/mg Normal 9- [facility] Work Phone: Comment on above: PATIENT WAS FASTINGP ERFORMED BY: LabSportsBeep Joxsxm5403 [address] RoadDublin [place] [id number] BY: Stem[employer]te[address] [id number] TSH (THYROID STIMULATING HOR ELIA) ([id number])Ordered By: Billet Inspector on 10-18-2015 Thyrotropin Qn 1.430 {uIU/mL} Normal 0.450-4.50 0 [facility] Work Phone: Comment on above: PATIENT WAS FASTINGP ERFORMED BY: [facility] Xhwbjx0657 [address] RoadDublin [place] [id number] BY: [address] [id number] VITAMIN D, 1, 25-DIHYDROXY ( 60684)Ordered By: Billet Inspector on 10-18-2015 Calcitriol mass conc 42.9 pg/mL Normal 19.9-79.3 Comp rehensive Internal Medicine Work Phone: Comment on above: PATIENT WAS FASTINGP ERFORMED BY: [facility] Ytvkxx2292 [address] RoadDublin [place] [id number] BY: [facility]1447 [facility] [id number] DEMETRIUS CULTURE-OTHER (77895)Ord ered By: Billet Inspector on 08-01-2012 Bacteria identified Respiratory culture Nom (Unsp spec) Final report Normal [facility] Work Phone: Comment on above: PATIENT NOT FASTINGP ERFORMED BY: LabCoJersey Shore University Medical CenterDcpcak2390 [facility] [id number] Information: SRC:THRCristal [id number] Bacteria identified Respiratory culture Nom (Unsp spec) RRF Normal [facility] Work Phone: Comment on above: Routine respiratory jose PATIENT NOT FASTINGP ERFORMED BY: StemCyteNatalie Ville 8997970 [facility] [id number] Information: SRC:MICHELINE [id number] Rapid Strep Test, Office ([phone])on 08-01-2012 S. pyogenes Ag EIA Ql (Throat) Negative Normal [facility]; [facility] Work Phone: Rapid Strep Test, Office ([phone])Ordered By: Martha Bess on 08-01-2012 S. pyogenes Ag IA Ql (Unsp spec) Negative Normal [facility] Work Phone: FERRITIN ([phone])Ordered By: Billet Inspector on 07-05-2012 Ferritin mass conc 87 ng/mL Normal 13-150 [facility] Internal Medicine Work Phone: Comment on above: PATIENT NOT FASTINGP ERFORMED BY: [facility] [facility] [id number] IRON BINDING CAPACITY (TIBC) ([id number])Ordered By: Billet Inspector on 07-05-2012 Iron binding capacity mass conc 265 ug/dL Normal 250-450 [facility] Work Phone: Comment on above: PATIENT NOT FASTINGP ERFORMED BY: [employer] Hlnidu[address] [facility] [id number] Information: [id number] Iron binding capacity.unsaturated mass conc 174 ug/dL Normal 150-375 [facility] Work Phone: Comment on above: PATIENT NOT FASTINGP ERFORMED BY: CB [facility] Lcbprl[address] RoadDublin [place] [id number] Information: [id number] Iron mass conc 91 ug/dL Normal 35-155 [facility] Work Phone: Comment on above: PATIENT NOT FASTINGP ERFORMED BY: CB [facility] Xtfyuv13[address] RoadDublin [place] [id number] Information: [id number] Iron saturation mass fraction 34 % Normal 15-55 [facility] Work Phone: Comment on above: PATIENT NOT FASTINGP ERFORMED BY: CB [facility] [id number] Mathis RoadDublin [place] [id number] Information: [id number] Vitamin D Hydroxy (15236)Ord ered By: Billet Inspector on 07-05-2012 25-Hydroxyvitamin D2+25-Hydroxyvitamin D3 mass conc 28.8 ng/mL Abnormal 30.0-100.0 [facility] Work Phone: Comment on above: Vitamin D deficiency has been defined by the [place] of[place] and an Endocrine Society practice guideline as alevel of serum 25-OH vitamin D less than 20 ng/mL (1,2).The Endocrine Society went on to further define vitamin Dinsufficiency as a level between 21 and 29 ng/mL (2).1. IOM ([place] of [employer]). 2010. Dietary reference intakes for calcium and D. [place]: The National Academies Press.2. Natalia MF, Jacklyn NC, Cinthya PEÑA, et al. Evaluation, treatment, and prevention of vitamin D deficiency: an Endocrine Society clinical practice guideline. JCEM. 2010; 96(7):1911-30. PATIENT NOT FASTINGP ERFORMED BY: CB [facility] [id number] [address] RoadDublin [place] [id number] Bacteria identified Cx Nom ( U)on 06-03-2012 Accession Number [id number] [facility] Culture <10,000 CFU/ml Possible Enterococcus(*) <10,000 CFU/ml Normal Urogenital jose Abnormal [facility] Culture Report [id number] FINAL [facility] Exam Type Urine Culture [facility] Specimen Description Urine midstream armaan an catch [facility] Specimen Request Byrd Top Armaanevens ricks [facility] VIT D,25 [id number] By: Sy stem Tugboat Operator on 06-17-2010 VIT D,25 81352 49.7 ng/mL Normal 32.0-100.0 Comprehens kelly Internal Medicine Work Phone: Comment on above: Recent studies consi mcaho the lower limit of 32.0 ng/mL to paty threshold for optimal health.Tyron ABREU. J Nutr. 2004;135(2):317-22.Performed at: [facility] [address] [id number] Director: Sue Enciso MD, Phone: [phone] LIPIDOrdered By: System Brandyshravan harrison on 04-16-2009 Cholesterol in HDL mass conc 61 mg/dL Normal [facility] Work Phone: Comment on above: Reference Range HDL <40 mg/dL Low HDL Cholesterol HDL >or= 60 mg/dL High HDL Cholesterol Cholesterol in LDL mass conc 73 mg/dL Normal 0-130 [facility] Work Phone: Cholesterol in VLDL mass conc 8 mg/dL Normal 5-40 [facility] Work Phone: Cholesterol mass conc 142 mg/dL Normal Com prehensive [facility] Work Phone: Comment on above: <200 mg/dL Desirable 200-240 mg/dL Borderline >240 mg/dL High Risk Triglyceride mass conc 41 mg/dL Normal [facility] Work Phone: Comment on above: Serum Triglycerides Reference Interval Normal <150 mg/dL Borderline high 150 - 199 mg/dL High 200 - 499 mg/dL Very High > or = 500 mg/dL TSHOrdered By: System Savalanche r on 04-16-2009 Thyrotropin Qn 1.53 {uIU/mL} Normal 0.358-3.74 Compreh ensive Internal Medicine Work Phone: VIT D,25 [id number] By: Nourish stem Tugboat Operator on 04-16-2009 VIT D,25 [id number] 31.7 ng/mL Abnormal 32.0-100.0 Comprehens kelly [facility] Work Phone: Comment on above: Recent studies consi macho the lower limit of 32.0 ng/mL to paty threshold for optimal health.Tyron ABREU. J Nutr. 2004;135(2):317-22.Performed At: [facility] [place], [place] [id number] VITAMIN P42Ccnattl By: Ilana Hazel on 04-16-2009 Cobalamin (Vitamin B12) mass conc 644 pg/mL Normal 254-1320 [facility] Work Phone: INFLUENZA IMMUNOASSY DIRECT OPTICAL OBSERV ([id number])Ordered By: Maria Alejandra Morris on 10-01-2008 FLUAV Ag IA Ql (Throat) Negative Normal [facility] Work Phone: Comment on above: aw negative INFLUENZA IMMUNOASSY DIRECT OPTICAL OBSERV ([id number])on 10-01-2008 FLUAV Ag IA Ql (Throat) Negative Normal [facility]; [facility] Work Phone: Comment on above: aw negative Urine Test, Office ([id number])Ordered By: SHARON Curry on 09-15-2007 Beta HCG ( test) Ql (U) Negative Normal [facility]; [facility] Work Phone: Comment on above: NEGATIVE HCG.beta subunit ( test) Ql (U) Negative Normal [facility] Work Phone: Comment on above: NEGATIVE Vital Signs Date Time Vital Sign Value Performing Clinician Facility 04-10-2025 09:45-0400 Body temperature 96.8 [degF] Dr. Yanely Purdy DO Work Phone: [facility] 04-10-2025 09:45-0400 Diastolic blood pressure 84 mm[Hg] Dr. Yanely Purdy DO Work Phone: [facility] 04-10-2025 09:45-0400 Heart rate 64 /min Dr. Yanely Purdy DO Work Phone: [facility] 04-10-2025 09:45-0400 Respiratory rate 18 /min Dr. Yanely Purdy DO Work Phone: [facility] 04-10-2025 09:45-0400 SaO2% (BldA) [Mass fraction] 100 % Dr. Yanely Purdy DO Work Phone: [facility] 04-10-2025 09:45-0400 Systolic blood pressure 163 mm[Hg] Dr. Yanely Purdy DO Work Phone: [facility] 04-10-2025 08:45-0400 Body height 160.[address] Yanely Purdy DO Work Phone: [facility] 04-10-2025 08:45-0400 Body mass index (BMI) [Ratio] 28 kg/m2 Dr. Yanely Purdy DO Work Phone: [facility] 04-10-2025 08:45-0400 Body weight 71.[address] Yanely Purdy DO Work Phone: [facility] 11-16-2024 12:35-0400 Body mass index (BMI) [Ratio] 29.68 kg/m2 Krislyn Aberegg PA Work Phone: [facility] 11-16-2024 12:35-0400 Body temperature 98.4 [degF] Krislyn Aberegg PA Work Phone: [facility] 11-16-2024 12:35-0400 Body weight 76 kg Krislyn Aberegg PA Work Phone: [facility] 11-16-2024 12:35-0400 Diastolic blood pressure 102 mm[Hg] Krislyn Aberegg PA Work Phone: [facility] 11-16-2024 12:35-0400 Heart rate 75 /min Krislyn Aberegg PA Work Phone: [facility] 11-16-2024 12:35-0400 Respiratory rate 20 /min Krislyn Aberegg PA Work Phone: [facility] 11-16-2024 12:35-0400 SaO2% (BldA) [Mass fraction] 99 % Alaina Schumacher PA Work Phone: [facility] 11-16-2024 12:35-0400 Systolic blood pressure 169 mm[Hg] Alaina Schumacher PA Work Phone: [facility] 11-15-2024 17:47-0400 Diastolic blood pressure 85 mm[Hg] Dr. Yanely Purdy DO Work Phone: [facility] 11-15-2024 17:47-0400 Systolic blood pressure 184 mm[Hg] Dr. Yanely Purdy DO Work Phone: [facility] 11-15-2024 15:47-0400 Body height 160.[address] Yanely Purdy DO Work Phone: [facility] 11-15-2024 15:47-0400 Body mass index (BMI) [Ratio] 28.3 kg/m2 Dr. Yanely Purdy DO Work Phone: [facility] 11-15-2024 15:47-0400 Body temperature 98.1 [degF] Dr. Yanely Purdy DO Work Phone: [facility] 11-15-2024 15:47-0400 Body weight 72.[address] Yanely Purdy DO Work Phone: [facility] 11-15-2024 15:47-0400 Heart rate 71 /min Dr. Yanely Purdy DO Work Phone: [facility] 11-15-2024 15:47-0400 Respiratory rate 15 /min Dr. Yanely Purdy DO Work Phone: [facility] 11-15-2024 15:47-0400 SaO2% (BldA) [Mass fraction] 98 % Dr. Yanely Purdy DO Work Phone: [facility] 01-24-2024 16:20-0400 Body mass index (BMI) [Ratio] 30.46 kg/m2 Krystal Sin APRN.CNP Work Phone: [facility] 01-24-2024 16:20-0400 Body temperature 98.4 [degF] Krystal Praisler-Wood SPINNING MULE TENDER.REVERSAL PRINT INSPECTOR Work Phone: [facility] 01-24-2024 16:20-0400 Body weight 78 kg Krystal Praisler-Wood SPINNING MULE TENDER.[facility] Work Phone: [facility] 01-24-2024 16:20-0400 Diastolic blood pressure 100 mm[Hg] Krystal Praisler-Wood SPINNING MULE TENDER.REVERSAL PRINT INSPECTOR Work Phone: [facility] 01-24-2024 16:20-0400 Heart rate 75 /min Krystal Praisler-Wood SPINNING MULE TENDER.[facility] Work Phone: [facility] 01-24-2024 16:20-0400 Respiratory rate 21 /min Krystal Praisler-Wood SPINNING MULE TENDER.[facility] Work Phone: [facility] 01-24-2024 16:20-0400 SaO2% (BldA) [Mass fraction] 97 % Krystal Praisler-Wood SPINNING MULE TENDER.[facility] Work Phone: [facility] 01-24-2024 16:20-0400 Systolic blood pressure 170 mm[Hg] Krystal Praisler-Wood SPINNING MULE TENDER.[facility] Work Phone: [facility] 08-20-2023 00:38-0500 Diastolic blood pressure 60 mm[Hg] [facility] 08-20-2023 00:38-0500 Heart rate 77 /min [facility] 08-20-2023 00:38-0500 Respiratory rate 16 /min [facility] 08-20-2023 00:38-0500 Systolic blood pressure 138 mm[Hg] [facility] 08-19-2023 22:35-0500 Body height 162.56 cm [facility] 08-19-2023 22:35-0500 Body mass index (BMI) [Ratio] 29.2 kg/m2 [facility] 08-19-2023 22:35-0500 Body temperature 97.8 [degF] [facility] 08-19-2023 22:35-0500 Body weight 77.15 kg [facility] 08-19-2023 22:35-0500 SaO2% (BldA) [Mass fraction] 98 % [facility] 04-14-2023 09:36-0400 Body height 162.56 cm Sandra Slarb RN OTOLARYNGOLOGY [facility]; [facility] Work Phone: 04-14-2023 09:36-0400 Body mass index (BMI) [Ratio] 29.35 kg/m2 Sandra Slarb RN OTOLARYNGOLOGY [facility]; [facility] Work Phone: 04-14-2023 09:36-0400 Body surface area Derived from formula 1.83 m2 Sandra Slarb RN OTOLARYNGOLOGY [facility]; [facility] Work Phone: 04-14-2023 09:36-0400 Body temperature 97.9 [degF] Sandra Slarb RN OTOLARYNGOLOGY [facility]; [facility] Work Phone: Comment on above: Method: Temporal 04-14-2023 09:36-0400 Body weight 77.57 kg Sandra Slarb RN OTOLARYNGOLOGY [facility]; [facility] Work Phone: 04-14-2023 09:36-0400 Diastolic blood pressure 86 mm[Hg] Sandra Slarb RN OTOLARYNGOLOGY [facility]; [facility] Work Phone: Comment on above: Patient Position: Sitting; Cuff Location : Left Arm; Cuff Size: Standard 04-14-2023 09:36-0400 Heart rate 67 /min Sandra Slarb RN OTOLARYNGOLOGY [facility]; [facility] Work Phone: Comment on above: Pattern: Regular 04-14-2023 09:36-0400 Respiratory rate 16 /min Sandra Slarb RN OTOLARYNGOLOGY [facility]; [facility] Work Phone: Comment on above: Pattern: Unlabored 04-14-2023 09:36-0400 SaO2% (BldA) [Mass fraction] 99 % Sandra Slarb RN OTOLARYNGOLOGY [facility]; [facility] Work Phone: Comment on above: Room air 04-14-2023 09:36-0400 Systolic blood pressure 130 mm[Hg] Sandra Caron RN OTOLARYNGOLOGY [facility]; [facility] Work Phone: Comment on above: Patient Position: Sitting; Cuff Location : Left Arm; Cuff Size: Standard 06-10-2022 15:00-0400 Body temperature 97.4 [degF] [facility] Work Phone: 06-10-2022 15:00-0400 Diastolic blood pressure 87 mm[Hg] [facility] Work Phone: 06-10-2022 15:00-0400 Heart rate 72 /min [facility] Work Phone: 06-10-2022 15:00-0400 Respiratory rate 16 /min [facility] Work Phone: 06-10-2022 15:00-0400 SaO2% (BldA) [Mass fraction] 97 % [facility] Work Phone: 06-10-2022 15:00-0400 Systolic blood pressure 164 mm[Hg] [facility] Work Phone: 06-10-2022 12:29-0400 Body height 160.02 cm [facility] Work Phone: 06-10-2022 12:29-0400 Body mass index (BMI) [Ratio] 29.2 kg/m2 [facility] Work Phone: 06-10-2022 12:29-0400 Body weight 74.84 kg [facility] Work Phone: 05-08-2022 18:51-0400 Diastolic blood pressure 93 mm[Hg] [facility] Work Phone: 05-08-2022 18:51-0400 Heart rate 72 /min [facility] Work Phone: 05-08-2022 18:51-0400 Respiratory rate 18 /min [facility] Work Phone: 05-08-2022 18:51-0400 SaO2% (BldA) [Mass fraction] 96 % [facility] Work Phone: 05-08-2022 18:51-0400 Systolic blood pressure 176 mm[Hg] [facility] Work Phone: 05-08-2022 15:51-0400 Body height 157.48 cm [facility] Work Phone: 05-08-2022 15:51-0400 Body mass index (BMI) [Ratio] 32 kg/m2 [facility] Work Phone: 05-08-2022 15:51-0400 Body temperature 97.7 [degF] [facility] Work Phone: 05-08-2022 15:51-0400 Body weight 79.37 kg [facility] Work Phone: 04-21-2022 10:49-0400 Body temperature 98.6 [degF] Raul Albaro SPINNING MULE TENDER.REVERSAL PRINT INSPECTOR Work Phone: [facility] 04-21-2022 10:49-0400 Body weight 76.66 kg Raul Albaro SPINNING MULE TENDER.REVERSAL PRINT INSPECTOR Work Phone: [facility] 04-21-2022 10:49-0400 Diastolic blood pressure 96 mm[Hg] Raul Albaro SPINNING MULE TENDER.REVERSAL PRINT INSPECTOR Work Phone: [facility] 04-21-2022 10:49-0400 Heart rate 76 /min Raul Albaro SPINNING MULE TENDER.REVERSAL PRINT INSPECTOR Work Phone: [facility] 04-21-2022 10:49-0400 Respiratory rate 16 /min Raul Albaro SPINNING MULE TENDER.REVERSAL PRINT INSPECTOR Work Phone: [facility] 04-21-2022 10:49-0400 SaO2% (BldA) [Mass fraction] 98 % Raul Albaro SPINNING MULE TENDER.REVERSAL PRINT INSPECTOR Work Phone: [facility] 04-21-2022 10:49-0400 Systolic blood pressure 162 mm[Hg] Raul Albaro SPINNING MULE TENDER.REVERSAL PRINT INSPECTOR Work Phone: [facility] 04-09-2022 13:36-0400 Body height 162.56 cm Yanely Rajwinder DO Work Phone: [facility]; [facility] Work Phone: 04-09-2022 13:36-0400 Body mass index (BMI) [Ratio] 29.35 kg/m2 Yanely Rajwinder DO Work Phone: [facility]; [facility] Work Phone: 04-09-2022 13:36-0400 Body surface area Derived from formula 1.83 m2 Yanely Rajwinder DO Work Phone: [facility]; [facility] Work Phone: 04-09-2022 13:36-0400 Body temperature 97.1 [degF] Yanely Rajwinder DO Work Phone: [facility]; [facility] Work Phone: Comment on above: Method: Infrared 04-09-2022 13:36-0400 Body weight 77.57 kg Yanely Rajwinder DO Work Phone: [facility]; [facility] Work Phone: 04-09-2022 13:36-0400 Diastolic blood pressure 88 mm[Hg] Yanely Rajwinder DO Work Phone: [facility]; [facility] Work Phone: Comment on above: Patient Position: Sitting; Cuff Location : Left Arm; Cuff Size: Standard 04-09-2022 13:36-0400 Heart rate 70 /min Yanely Rajwinder DO Work Phone: [facility]; [facility] Work Phone: Comment on above: Pattern: Regular 04-09-2022 13:36-0400 Respiratory rate 18 /min Yanely Rajwinder DO Work Phone: [facility]; [facility] Work Phone: Comment on above: Pattern: Unlabored 04-09-2022 13:36-0400 SaO2% (BldA) [Mass fraction] 98 % Yanely Purdy DO Work Phone: [facility]; [facility] Work Phone: Comment on above: Room air 04-09-2022 13:36-0400 Systolic blood pressure 131 mm[Hg] Yanely Purdy DO Work Phone: [facility]; [facility] Work Phone: Comment on above: Patient Position: Sitting; Cuff Location : Left Arm; Cuff Size: Standard 12-17-2021 09:17-0400 Body height 162.56 cm Codi MullerSkipjump [facility]; [facility] Work Phone: 12-17-2021 09:17-0400 Body mass index (BMI) [Ratio] 29.35 kg/m2 Codi MullerSkipjump [facility]; [facility] Work Phone: 12-17-2021 09:17-0400 Body surface area Derived from formula 1.83 m2 Coid MullerSkipjump [facility]; [facility] Work Phone: 12-17-2021 09:17-0400 Body temperature 97 [degF] Codi Mc [facility]; [facility] Work Phone: Comment on above: Method: Thermal Scan 12-17-2021 09:17-0400 Body weight 77.57 kg Codi Mc [facility]; [facility] Work Phone: 12-17-2021 09:17-0400 Diastolic blood pressure 84 mm[Hg] Codi Mc [facility]; [facility] Work Phone: Comment on above: Patient Position: Sitting; Cuff Location : Left Arm; Cuff Size: Standard 12-17-2021 09:17-0400 Heart rate 69 /min Codi MullerSkipjump [facility]; [facility] Work Phone: Comment on above: Pattern: Regular 12-17-2021 09:17-0400 Respiratory rate 16 /min Codi Mc [facility]; [facility] Work Phone: Comment on above: Pattern: Unlabored 12-17-2021 09:17-0400 SaO2% (BldA) [Mass fraction] 98 % Codi Mc [facility]; [facility] Work Phone: Comment on above: Room air 12-17-2021 09:17-0400 Systolic blood pressure 126 mm[Hg] Codi Mc [facility]; [facility] Work Phone: Comment on above: Patient Position: Sitting; Cuff Location : Left Arm; Cuff Size: Standard 03-19-2021 09:32-0400 Body height 162.56 cm Manjula Thompson [facility]; [facility] Work Phone: Comment on above: reported by pt 03-19-2021 09:32-0400 Body mass index (BMI) [Ratio] 25.92 kg/m2 Manjula Thompson [facility]; [facility] Work Phone: Comment on above: reported by pt 03-19-2021 09:32-0400 Body surface area Derived from formula 1.74 m2 Manjula Thompson [facility]; [facility] Work Phone: Comment on above: reported by pt 03-19-2021 09:32-0400 Body temperature 97.7 [degF] Manjula Thompson [facility]; [facility] Work Phone: Comment on above: reported by pt 03-19-2021 09:32-0400 Body weight 68.49 kg Manjula Thompson RN OTOLARYNGOLOGY [facility]; [facility] Work Phone: Comment on above: reported by pt 02-17-2021 08:14-0400 Body height 162.56 cm Lena López [facility] Work Phone: 02-17-2021 08:14-0400 Body mass index (BMI) [Ratio] 29.18 kg/m2 Lena López [facility]; [facility] Work Phone: 02-17-2021 08:14-0400 Body surface area Derived from formula 1.83 m2 [facility]; [facility] Work Phone: 02-17-2021 08:14-0400 Body weight 77.11 kg [facility] Work Phone: 02-10-2021 08:47-0400 Body height 162.56 cm [facility] Work Phone: 02-10-2021 08:47-0400 Body mass index (BMI) [Ratio] 29.18 kg/m2 [facility] Work Phone: 02-10-2021 08:47-0400 Body surface area Derived from formula 1.83 m2 [facility] Work Phone: 02-10-2021 08:47-0400 Body temperature 96.9 [degF] [facility]; [facility] Work Phone: Comment on above: Method: Thermal Scan 02-10-2021 08:47-0400 Body weight 77.11 kg [facility] Work Phone: 02-10-2021 08:47-0400 Diastolic blood pressure 74 mm[Hg] [facility]; [facility] Work Phone: Comment on above: Patient Position: Sitting; Cuff Location : Left Arm; Cuff Size: Standard 02-10-2021 08:47-0400 Heart rate 82 /min [facility] Work Phone: Comment on above: Pattern: Regular 02-10-2021 08:47-0400 Respiratory rate 16 /min [facility]; [facility] Work Phone: Comment on above: Pattern: Unlabored 02-10-2021 08:47-0400 SaO2% (BldA) [Mass fraction] 94 % [facility]; [facility] Work Phone: Comment on above: Room air 02-10-2021 08:47-0400 Systolic blood pressure 132 mm[Hg] Lena López LPN [facility]; [facility] Work Phone: Comment on above: Patient Position: Sitting; Cuff Location : Left Arm; Cuff Size: Standard 07-22-2020 15:56-0500 BMI (Body Mass Index) 27.29 kg/m2 Nilda Marr [facility] Work Phone: Comment on above: no vs taken as this is phone encounter d ue to covid 07-22-2020 15:56-0500 Body weight 72.12 kg Nilda Marr [facility] Work Phone: Comment on above: no vs taken as this is phone encounter d ue to covid 07-22-2020 15:56-0500 BSA (Body Surface Area) 1.77 m2 Nilda Marr [facility] Work Phone: Comment on above: no vs taken as this is phone encounter d ue to covid 07-22-2020 15:56-0500 Height 162.56 cm Nilda Marr [facility] Work Phone: Comment on above: no vs taken as this is phone encounter d ue to covid 12-01-2019 08:53-0400 BMI (Body Mass Index) 27.29 kg/m2 Neena Watkins RN Comprehens [facility] Internal Medicine Work Phone: 12-01-2019 08:53-0400 Body weight 72.12 kg Neena Watkins RN [facility] Work Phone: 12-01-2019 08:53-0400 BSA (Body Surface Area) 1.77 m2 Neena Watkins RN [facility] Work Phone: 12-01-2019 08:53-0400 Height 162.56 cm Neena Watkins RN [facility] Work Phone: 11-22-2019 09:55-0400 BMI (Body Mass Index) 27.29 kg/m2 Sandra Slarb RN OTOLARYNGOLOGY Comprehen sive Internal Medicine Work Phone: 11-22-2019 09:55-0400 Body Temperature 97.8 [degF] Sandra Bobrb RN OTOLARYNGOLOGY [facility] Work Phone: 11-22-2019 09:55-0400 Body weight 72.12 kg Sandra Bobrb RN OTOLARYNGOLOGY [facility] Work Phone: 11-22-2019 09:55-0400 BP Diastolic 78 mm[Hg] Sandra Slarb RN OTOLARYNGOLOGY [facility] Work Phone: Comment on above: Patient Position: Sitting; Cuff Location : Left Arm; Cuff Size: Standard 11-22-2019 09:55-0400 BP Systolic 118 mm[Hg] Sandra Slarb RN OTOLARYNGOLOGY [facility] Work Phone: Comment on above: Patient Position: Sitting; Cuff Location : Left Arm; Cuff Size: Standard 11-22-2019 09:55-0400 BSA (Body Surface Area) 1.77 m2 Sandra Slarb RN OTOLARYNGOLOGY [facility] Work Phone: 11-22-2019 09:55-0400 Height 162.56 cm Sandra Slarb RN OTOLARYNGOLOGY [facility] Work Phone: 11-22-2019 09:55-0400 Pulse (Heart Rate) 76 /min Sandra Bobrb RN OTOLARYNGOLOGY Comprehensiv e Internal Medicine Work Phone: Comment on above: Pattern: Regular 11-22-2019 09:55-0400 Pulse Oximetry 97 % Yanely Purdy [facility] Work Phone: Comment on above: Room air 11-22-2019 09:55-0400 Respiratory Rate 16 /min Sandra Bobrb RN OTOLARYNGOLOGY [facility] Work Phone: Comment on above: Pattern: Unlabored 11-22-2019 09:55-0400 SaO2% (BldA) [Mass fraction] 97 % Sandra Slarb RN OTOLARYNGOLOGY [facility]; [facility] Work Phone: Comment on above: Room air 06-24-2017 07:18-0400 BMI (Body Mass Index) 24.03 kg/m2 Nickie Wagoner RN [facility] Work Phone: 06-24-2017 07:18-0400 Body weight 63.5 kg Nickie Wagoner RN [facility] Work Phone: 06-24-2017 07:18-0400 BP Diastolic 64 mm[Hg] Nickie Wagoner RN [facility] Work Phone: Comment on above: Patient Position: Sitting; Cuff Location : Left Arm; Cuff Size: Standard 06-24-2017 07:18-0400 BP Systolic 118 mm[Hg] Nickie Wagoner RN [facility] Work Phone: Comment on above: Patient Position: Sitting; Cuff Location : Left Arm; Cuff Size: Standard 06-24-2017 07:18-0400 BSA (Body Surface Area) 1.68 m2 Nickie Wagoner RN [facility] Work Phone: 06-24-2017 07:18-0400 Height 162.56 cm Nickie Wagoner RN [facility] Work Phone: 06-24-2017 07:18-0400 Pulse (Heart Rate) 72 /min Nickie Wagoner RN [facility] Work Phone: Comment on above: Pattern: Regular 06-24-2017 07:18-0400 Pulse Oximetry 99 % Yanely Purdy [facility] Work Phone: Comment on above: Room air 06-24-2017 07:18-0400 Respiratory Rate 18 /min Nickie Wagoner RN [facility] Work Phone: Comment on above: Pattern: Unlabored 06-24-2017 07:18-0400 SaO2% (BldA) [Mass fraction] 99 % Nickie Wagoner RN [facility]; [facility] Work Phone: Comment on above: Room air 06-24-2017 07:18-0400 Weight 63.5 kg Yanely Purdy [facility] Work Phone: 06-14-2017 14:52-0400 BMI (Body Mass Index) 25.12 kg/m2 Nickie Wagoner RN [facility] Work Phone: 06-14-2017 14:52-0400 Body weight 66.4 kg Nickie Wagoner RN [facility] Work Phone: 06-14-2017 14:52-0400 BP Diastolic 82 mm[Hg] Nickie Wagoner RN [facility] Work Phone: Comment on above: Patient Position: Sitting; Cuff Location : Left Arm; Cuff Size: Standard 06-14-2017 14:52-0400 BP Systolic 138 mm[Hg] Nickie Wagoner RN [facility] Work Phone: Comment on above: Patient Position: Sitting; Cuff Location : Left Arm; Cuff Size: Standard 06-14-2017 14:52-0400 BSA (Body Surface Area) 1.71 m2 Nickie Wagoner RN [facility] Work Phone: 06-14-2017 14:52-0400 Height 162.56 cm Nickie Wagoner RN [facility] Work Phone: 06-14-2017 14:52-0400 Pulse (Heart Rate) 84 /min Nickie Wagoner RN [facility] Work Phone: Comment on above: Pattern: Regular 06-14-2017 14:52-0400 Pulse Oximetry 97 % Yanely Purdy [facility] Work Phone: Comment on above: Room air 06-14-2017 14:52-0400 Respiratory Rate 18 /min Nickie Wagoner RN [facility] Work Phone: Comment on above: Pattern: Unlabored 06-14-2017 14:52-0400 SaO2% (BldA) [Mass fraction] 97 % Nickie Wagoner RN [facility]; [facility] Work Phone: Comment on above: Room air 06-14-2017 14:52-0400 Weight 66.4 kg Yanely Rodriguezon [facility] Internal Medicine Work Phone: 12-26-2015 08:08-0400 BMI (Body Mass Index) 25.12 kg/m2 [facility] Work Phone: 12-26-2015 08:08-0400 Body Temperature 97.8 [degF] Celeste Jordan [facility] Internal Medicine Work Phone: Comment on above: Method: Tympanic 12-26-2015 08:08-0400 Body weight 66.4 kg Celeste Jordan [facility] Internal Medicine Work Phone: 12-26-2015 08:08-0400 BP Diastolic 62 mm[Hg] Celeste Jordan [facility] Internal Medicine Work Phone: Comment on above: Patient Position: Sitting; Cuff Location : Left Arm; Cuff Size: Standard 12-26-2015 08:08-0400 BP Systolic 116 mm[Hg] Celeste Jordan [facility] Internal Medicine Work Phone: Comment on above: Patient Position: Sitting; Cuff Location : Left Arm; Cuff Size: Standard 12-26-2015 08:08-0400 BSA (Body Surface Area) 1.71 m2 Celeste Jordan [facility] Internal Medicine Work Phone: 12-26-2015 08:08-0400 Height 162.56 cm Celeste Jordan [facility] Internal Medicine Work Phone: 12-26-2015 08:08-0400 Pulse (Heart Rate) 73 /min Celeste Jordan [facility] Internal Medicine Work Phone: Comment on above: Pattern: Regular 12-26-2015 08:08-0400 Pulse Oximetry 99 % Yanely Purdy [facility] Internal Medicine Work Phone: Comment on above: Room air 12-26-2015 08:08-0400 Respiratory Rate 18 /min Celeste Jordan [facility] Internal Medicine Work Phone: Comment on above: Pattern: Unlabored 12-26-2015 08:08-0400 SaO2% (BldA) [Mass fraction] 99 % Celeste Jordan [facility] Internal Medicine; [facility] Medicine Work Phone: Comment on above: Room air 12-26-2015 08:08-0400 Weight 66.4 kg Yanely Purdy [facility] Internal Medicine Work Phone: 12-11-2015 07:43-0400 BMI (Body Mass Index) 24.99 kg/m2 Neena Watkins RN [facility] Internal Medicine Work Phone: 12-11-2015 07:43-0400 Body Temperature 96.9 [degF] Neena Watkins RN [facility] Work Phone: Comment on above: Method: Temporal 12-11-2015 07:43-0400 Body weight 66.03 kg Neena Watkins RN [facility] Work Phone: 12-11-2015 07:43-0400 BP Diastolic 74 mm[Hg] Neena Watkins RN [facility] Work Phone: Comment on above: Patient Position: Sitting; Cuff Location : Left Arm; Cuff Size: Standard 12-11-2015 07:43-0400 BP Systolic 140 mm[Hg] Neena Watkins RN [facility] Work Phone: Comment on above: Patient Position: Sitting; Cuff Location : Left Arm; Cuff Size: Standard 12-11-2015 07:43-0400 BSA (Body Surface Area) 1.71 m2 Neena Watkins RN [facility] Work Phone: 12-11-2015 07:43-0400 Height 162.56 cm Neena Watkins RN [facility] Work Phone: 12-11-2015 07:43-0400 Pulse (Heart Rate) 85 /min Neena Watkins RN [facility] Work Phone: Comment on above: Pattern: Regular 12-11-2015 07:43-0400 Pulse Oximetry 98 % Yanely Rajwinder [facility] Work Phone: Comment on above: Room air 12-11-2015 07:43-0400 Respiratory Rate 16 /min Neena Watkins RN [facility] Work Phone: Comment on above: Pattern: Unlabored 12-11-2015 07:43-0400 SaO2% (BldA) [Mass fraction] 98 % Neena Watkins RN [facility]; [facility] Work Phone: Comment on above: Room air 12-11-2015 07:43-0400 Weight 66.03 kg Yanely Rajwinder [facility] Work Phone: 11-05-2015 07:56-0500 BMI (Body Mass Index) 24.99 kg/m2 Neena Watkins RN [facility] Internal Medicine Work Phone: 11-05-2015 07:56-0500 Body Temperature 98.2 [degF] Neena Watkins RN [facility] Work Phone: Comment on above: Method: Temporal 11-05-2015 07:56-0500 Body weight 66.03 kg Neena Watkins RN [facility] Work Phone: 11-05-2015 07:56-0500 BP Diastolic 74 mm[Hg] Neena Watkins RN [facility] Work Phone: Comment on above: Patient Position: Sitting; Cuff Location : Left Arm; Cuff Size: Standard 11-05-2015 07:56-0500 BP Systolic 124 mm[Hg] Neena Watkins RN [facility] Work Phone: Comment on above: Patient Position: Sitting; Cuff Location : Left Arm; Cuff Size: Standard 11-05-2015 07:56-0500 BSA (Body Surface Area) 1.71 m2 Neena Watkins RN [facility] Work Phone: 11-05-2015 07:56-0500 Height 162.56 cm Neena Watkins RN [facility] Work Phone: 11-05-2015 07:56-0500 Pulse (Heart Rate) 64 /min Neena Watkins RN [facility] Work Phone: Comment on above: Pattern: Regular 11-05-2015 07:56-0500 Pulse Oximetry 98 % Yanely Purdy [facility] Work Phone: Comment on above: Room air 11-05-2015 07:56-0500 Respiratory Rate 16 /min Neena Watkins RN [facility] Work Phone: Comment on above: Pattern: Unlabored 11-05-2015 07:56-0500 SaO2% (BldA) [Mass fraction] 98 % Neena Watkins RN [facility]; [facility] Work Phone: Comment on above: Room air 11-05-2015 07:56-0500 Weight 66.03 kg Yaenly Purdy [facility] Work Phone: 10-16-2015 15:53-0500 BMI (Body Mass Index) 24.99 kg/m2 Celeste Jordan [facility] Internal Medicine Work Phone: 10-16-2015 15:53-0500 Body Temperature 97.7 [degF] Celeste Jordan [facility] Internal Medicine Work Phone: Comment on above: Method: Tympanic 10-16-2015 15:53-0500 Body weight 66.03 kg Celeste Jordan [facility] Internal Medicine Work Phone: 10-16-2015 15:53-0500 BP Diastolic 80 mm[Hg] Celeste Jordan [facility] Internal Medicine Work Phone: Comment on above: Patient Position: Sitting; Cuff Location : Left Arm; Cuff Size: Standard 10-16-2015 15:53-0500 BP Systolic 140 mm[Hg] Celeste Jordan [facility] Internal Medicine Work Phone: Comment on above: Patient Position: Sitting; Cuff Location : Left Arm; Cuff Size: Standard 10-16-2015 15:53-0500 BSA (Body Surface Area) 1.71 m2 Celeste Jordan [facility] Internal Medicine Work Phone: 10-16-2015 15:53-0500 Height 162.56 cm Celeste Jordan [facility] Internal Medicine Work Phone: 10-16-2015 15:53-0500 Pulse (Heart Rate) 65 /min Celeste Jordan [facility] Internal Medicine Work Phone: Comment on above: Pattern: Regular 10-16-2015 15:53-0500 Pulse Oximetry 99 % Yanely Rodriguezon [facility] Internal Medicine Work Phone: Comment on above: Room air 10-16-2015 15:53-0500 Respiratory Rate 18 /min Celeste Jordan [facility] Internal Medicine Work Phone: Comment on above: Pattern: Unlabored 10-16-2015 15:53-0500 SaO2% (BldA) [Mass fraction] 99 % Celeste Jordan [facility]; [facility] Work Phone: Comment on above: Room air 10-16-2015 15:53-0500 Weight 66.03 kg Yanely Purdy [facility] Work Phone: 06-11-2014 16:30-0400 BMI (Body Mass Index) 21.72 kg/m2 Nickie Wagoner RN [facility] Work Phone: 06-11-2014 16:30-0400 Body weight 57.41 kg Nickie Wagoner RN [facility] Work Phone: 06-11-2014 16:30-0400 BP Diastolic 80 mm[Hg] Nickie Wagoner RN [facility] Work Phone: Comment on above: Patient Position: Sitting; Cuff Location : Left Arm; Cuff Size: Standard 06-11-2014 16:30-0400 BP Systolic 120 mm[Hg] Nickie Wagoner RN [facility] Work Phone: Comment on above: Patient Position: Sitting; Cuff Location : Left Arm; Cuff Size: Standard 06-11-2014 16:30-0400 BSA (Body Surface Area) 1.61 m2 Nickie Wagoner RN [facility] Work Phone: 06-11-2014 16:30-0400 Height 162.56 cm Nickie Wagoner RN [facility] Work Phone: 06-11-2014 16:30-0400 Pulse (Heart Rate) 64 /min Nickie Wagoner RN [facility] Work Phone: Comment on above: Pattern: Regular 06-11-2014 16:30-0400 Pulse Oximetry 98 % Yanely Purdy [facility] Work Phone: Comment on above: Room air 06-11-2014 16:30-0400 Respiratory Rate 18 /min Nickie Wagoner RN [facility] Work Phone: Comment on above: Pattern: Unlabored 06-11-2014 16:30-0400 SaO2% (BldA) [Mass fraction] 98 % Nickie Wagoner RN [facility]; [facility] Work Phone: Comment on above: Room air 06-11-2014 16:30-0400 Weight 57.41 kg Yanely Purdy [facility] Work Phone: 05-01-2014 15:36-0400 BMI (Body Mass Index) 24.95 kg/m2 [facility] Medicine Work Phone: 05-01-2014 15:36-0400 Body Temperature 98.5 [degF] Yanely Purdy [facility] Internal Medicine Work Phone: Comment on above: Method: Oral 05-01-2014 15:36-0400 Body weight 65.94 kg Yanely Purdy [facility] Internal [facility] Work Phone: 05-01-2014 15:36-0400 BP Diastolic 72 mm[Hg] Yanely Purdy [facility] Internal Medicine Work Phone: Comment on above: Patient Position: Sitting; Cuff Location : Left Arm; Cuff Size: Standard 05-01-2014 15:36-0400 BP Systolic 122 mm[Hg] Yanely Purdy [facility] Internal Medicine Work Phone: Comment on above: Patient Position: Sitting; Cuff Location : Left Arm; Cuff Size: Standard 05-01-2014 15:36-0400 BSA (Body Surface Area) 1.71 m2 Yanely Purdy [facility] Internal Medicine Work Phone: 05-01-2014 15:36-0400 Height 162.56 cm Yanely Purdy [facility] Work Phone: 05-01-2014 15:36-0400 Pulse (Heart Rate) 60 /min Yanely Purdy [facility] Internal [facility] Work Phone: Comment on above: Pattern: Regular 05-01-2014 15:36-0400 Pulse Oximetry 98 % Yanely Purdy [facility] Internal Medicine Work Phone: Comment on above: Room air 05-01-2014 15:36-0400 Respiratory Rate 16 /min Yanely Purdy [facility] Internal [facility] Work Phone: 05-01-2014 15:36-0400 SaO2% (BldA) [Mass fraction] 98 % Yanely Purdy DO Work Phone: [facility]; [facility] Work Phone: Comment on above: Room air 05-01-2014 15:36-0400 Weight 65.94 kg Yanely Purdy [facility] Internal Medicine Work Phone: 04-16-2014 08:00-0400 BMI (Body Mass Index) 24.95 kg/m2 Yanely Purdy [facility] Internal Medicine Work Phone: 04-16-2014 08:00-0400 Body Temperature 98.6 [degF] Yanely Purdy [facility] Internal Medicine Work Phone: Comment on above: Method: Oral 04-16-2014 08:00-0400 Body weight 65.94 kg Yanely Purdy [facility] Internal Medicine Work Phone: 04-16-2014 08:00-0400 BP Diastolic 72 mm[Hg] Yanely Purdy [facility] Internal Medicine Work Phone: Comment on above: Patient Position: Sitting; Cuff Location : Left Arm; Cuff Size: Standard 04-16-2014 08:00-0400 BP Systolic 120 mm[Hg] Yanely Purdy [facility] Internal Medicine Work Phone: Comment on above: Patient Position: Sitting; Cuff Location : Left Arm; Cuff Size: Standard 04-16-2014 08:00-0400 BSA (Body Surface Area) 1.71 m2 Yanely Purdy [facility] Internal Medicine Work Phone: 04-16-2014 08:00-0400 Height 162.56 cm Yanely Purdy [facility] Internal Medicine Work Phone: 04-16-2014 08:00-0400 Pulse (Heart Rate) 60 /min Yanely Purdy [facility] Internal Medicine Work Phone: Comment on above: Pattern: Regular 04-16-2014 08:00-0400 Pulse Oximetry 99 % Yanely Purdy [facility] Internal Medicine Work Phone: Comment on above: Room air 04-16-2014 08:00-0400 Respiratory Rate 15 /min Yanely Purdy [facility] Internal Medicine Work Phone: 04-16-2014 08:00-0400 SaO2% (BldA) [Mass fraction] 99 % Yanely Purdy DO Work Phone: [facility]; [facility] Work Phone: Comment on above: Room air 04-16-2014 08:00-0400 Weight 65.94 kg Yanely Purdy [facility] Internal Medicine Work Phone: 08-01-2012 13:43-0500 BMI (Body Mass Index) 24.95 kg/m2 Yanely Purdy [facility] Internal Medicine Work Phone: 08-01-2012 13:43-0500 Body Temperature 98.6 [degF] Yanely Purdy [facility] Internal Medicine Work Phone: Comment on above: Method: Oral 08-01-2012 13:43-0500 Body weight 65.94 kg Yanely Purdy [facility] Internal Medicine Work Phone: 08-01-2012 13:43-0500 BP Diastolic 80 mm[Hg] Yanely Purdy [facility] Internal Medicine Work Phone: Comment on above: Patient Position: Sitting; Cuff Location : Left Arm; Cuff Size: Standard 08-01-2012 13:43-0500 BP Systolic 122 mm[Hg] Yanely Purdy [facility] Internal Medicine Work Phone: Comment on above: Patient Position: Sitting; Cuff Location : Left Arm; Cuff Size: Standard 08-01-2012 13:43-0500 BSA (Body Surface Area) 1.71 m2 Yanely Purdy [facility] Internal Medicine Work Phone: 08-01-2012 13:43-0500 Height 162.56 cm Yanely Purdy [facility] Internal Medicine Work Phone: 08-01-2012 13:43-0500 Pulse (Heart Rate) 66 /min Yanely Purdy [facility] Internal Medicine Work Phone: Comment on above: Pattern: Regular 08-01-2012 13:43-0500 Respiratory Rate 16 /min Yanely Purdy [facility] Internal Medicine Work Phone: 08-01-2012 13:43-0500 Weight 65.94 kg Yanely Purdy [facility] Internal Medicine Work Phone: 07-05-2012 14:35-0400 BMI (Body Mass Index) 24.95 kg/m2 Nickie Wagoner RN [facility] Work Phone: 07-05-2012 14:35-0400 Body weight 65.94 kg Nickie Wagoner RN [facility] Work Phone: 07-05-2012 14:35-0400 BP Diastolic 82 mm[Hg] Nickie Wagoner RN [facility] Work Phone: Comment on above: Patient Position: Sitting; Cuff Location : Left Arm; Cuff Size: Standard 07-05-2012 14:35-0400 BP Systolic 124 mm[Hg] Nickie Wagoner RN [facility] Work Phone: Comment on above: Patient Position: Sitting; Cuff Location : Left Arm; Cuff Size: Standard 07-05-2012 14:35-0400 BSA (Body Surface Area) 1.71 m2 Nickie Wagoner RN [facility] Work Phone: 07-05-2012 14:35-0400 Height 162.56 cm Nickie Wagoner RN [facility] Work Phone: 07-05-2012 14:35-0400 Pulse (Heart Rate) 64 /min Nickie Wagoner RN [facility] Work Phone: Comment on above: Pattern: Regular 07-05-2012 14:35-0400 Respiratory Rate 20 /min Nickie Wagoner RN [facility] Work Phone: Comment on above: Pattern: Unlabored 07-05-2012 14:35-0400 Weight 65.94 kg Yanely Purdy [facility] Internal Medicine Work Phone: 08-28-2011 10:19-0500 BMI (Body Mass Index) 24.96 kg/m2 Noemí Grissom [facility] Internal Medicine Work Phone: 08-28-2011 10:19-0500 Body Temperature 98.7 [degF] Noemí Grissom [facility] Internal Medicine Work Phone: Comment on above: Method: Oral 08-28-2011 10:19-0500 Body weight 65.97 kg Noemí Grissom [facility] Internal Medicine Work Phone: 08-28-2011 10:19-0500 BP Diastolic 78 mm[Hg] [facility] Internal Medicine Work Phone: Comment on above: Patient Position: Supine; Cuff Location: Left Arm; Cuff Size: Standard 08-28-2011 10:19-0500 BP Systolic 130 mm[Hg] [facility] Internal Medicine Work Phone: Comment on above: Patient Position: Supine; Cuff Location: Left Arm; Cuff Size: Standard 08-28-2011 10:19-0500 BSA (Body Surface Area) 1.71 m2 [facility] Internal Medicine Work Phone: 08-28-2011 10:19-0500 Height 162.56 cm [facility] Internal Medicine Work Phone: 08-28-2011 10:19-0500 Pulse (Heart Rate) 60 /min [facility] Internal Medicine Work Phone: Comment on above: Pattern: Regular 08-28-2011 10:19-0500 Respiratory Rate 16 /min [facility] Internal Medicine Work Phone: Comment on above: Pattern: Unlabored 08-28-2011 10:19-0500 Weight 65.97 kg Yanely Purdy [facility] Internal Medicine Work Phone: 06-29-2011 11:49-0400 BMI (Body Mass Index) 24.96 kg/m2 Marry Bai [facility] Internal Medicine Work Phone: 06-29-2011 11:49-0400 Body Temperature 99.3 [degF] Marry Bai [facility] Internal Medicine Work Phone: 06-29-2011 11:49-0400 Body weight 65.97 kg Marry Bai [facility] Internal Medicine Work Phone: 06-29-2011 11:49-0400 BP Diastolic 82 mm[Hg] Marry Bai [facility] Internal Medicine Work Phone: Comment on above: Patient Position: Sitting; Cuff Location : Left Arm; Cuff Size: Standard 06-29-2011 11:49-0400 BP Systolic 138 mm[Hg] Marry Bai [facility] Internal Medicine Work Phone: Comment on above: Patient Position: Sitting; Cuff Location : Left Arm; Cuff Size: Standard 06-29-2011 11:49-0400 BSA (Body Surface Area) 1.71 m2 Marry Bai [facility] Work Phone: 06-29-2011 11:49-0400 Height 162.56 cm Marry Bai [facility] Work Phone: 06-29-2011 11:49-0400 Pulse (Heart Rate) 84 /min Marry Bai [facility] Work Phone: Comment on above: Pattern: Regular 06-29-2011 11:49-0400 Pulse Oximetry 99 % Yanely Purdy [facility] Work Phone: Comment on above: Room air 06-29-2011 11:49-0400 Respiratory Rate 18 /min Marry Bai [facility] Work Phone: Comment on above: Pattern: Unlabored 06-29-2011 11:49-0400 SaO2% (BldA) [Mass fraction] 99 % Marry Pradoan [facility]; [facility] Work Phone: Comment on above: Room air 06-29-2011 11:49-0400 Weight 65.97 kg Yanely Purdy [facility] Work Phone: 06-16-2010 14:55-0400 BMI (Body Mass Index) 21.7 kg/m2 Nickie Wagoner RN [facility] Work Phone: 06-16-2010 14:55-0400 Body weight 57.35 kg Nickie Wagoner RN [facility] Work Phone: 06-16-2010 14:55-0400 BP Diastolic 78 mm[Hg] Nickie Wagoner RN [facility] Work Phone: Comment on above: Patient Position: Sitting; Cuff Location : Left Arm; Cuff Size: Standard 06-16-2010 14:55-0400 BP Systolic 120 mm[Hg] Nickie Wagoner RN [facility] Work Phone: Comment on above: Patient Position: Sitting; Cuff Location : Left Arm; Cuff Size: Standard 06-16-2010 14:55-0400 BSA (Body Surface Area) 1.61 m2 Nickie Wagoner RN [facility] Work Phone: 06-16-2010 14:55-0400 Height 162.56 cm Nickie Wagoner RN [facility] Work Phone: 06-16-2010 14:55-0400 Pulse (Heart Rate) 60 /min Nickie Wagoner RN [facility] Work Phone: Comment on above: Pattern: Regular 06-16-2010 14:55-0400 Respiratory Rate 18 /min Nickie Wagoner RN [facility] Work Phone: Comment on above: Pattern: Unlabored 06-16-2010 14:55-0400 Weight 57.35 kg Yanely Purdy [facility] Work Phone: 04-16-2009 08:48-0400 BMI (Body Mass Index) 22.31 kg/m2 Nickie Wagoner RN [facility] Work Phone: 04-16-2009 08:48-0400 Body weight 58.97 kg Nickie Wagoner RN [facility] Work Phone: 04-16-2009 08:48-0400 BP Diastolic 60 mm[Hg] Nickie Wagoner RN [facility] Work Phone: Comment on above: Patient Position: Sitting; Cuff Location : Left Arm; Cuff Size: Large 04-16-2009 08:48-0400 BP Systolic 122 mm[Hg] Nickie Wagoner RN [facility] Work Phone: Comment on above: Patient Position: Sitting; Cuff Location : Left Arm; Cuff Size: Large 04-16-2009 08:48-0400 BSA (Body Surface Area) 1.63 m2 Nickie Wagoner RN [facility] Work Phone: 04-16-2009 08:48-0400 Head Circumference 0 cm Yanely Purdy [facility] Work Phone: 04-16-2009 08:48-0400 Head Occipital-frontal circumference 0 cm Nickie Wagoner RN [facility]; [facility] Work Phone: 04-16-2009 08:48-0400 Height 162.56 cm Nickie Wagoner RN [facility] Work Phone: 04-16-2009 08:48-0400 Pulse (Heart Rate) 60 /min Nickei Wagoner RN [facility] Work Phone: Comment on above: Pattern: Regular 04-16-2009 08:48-0400 Respiratory Rate 20 /min Nickie Wagoner RN [facility] Work Phone: Comment on above: Pattern: Unlabored 04-16-2009 08:48-0400 Weight 58.97 kg Yanely Purdy [facility] Work Phone: 10-01-2008 11:30-0500 BMI (Body Mass Index) 21.97 kg/m2 Nickie Wagoner RN [facility] Work Phone: 10-01-2008 11:30-0500 Body Temperature 99.4 [degF] Nickie Wagoner RN [facility] Work Phone: Comment on above: Method: Oral 10-01-2008 11:30-0500 Body weight 58.06 kg Nickie Wagoner RN [facility] Work Phone: 10-01-2008 11:30-0500 BP Diastolic 78 mm[Hg] Nickie Wagoner RN [facility] Work Phone: Comment on above: Patient Position: Sitting; Cuff Location : Left Arm; Cuff Size: Standard 10-01-2008 11:30-0500 BP Systolic 138 mm[Hg] Nickie Wagoner RN [facility] Work Phone: Comment on above: Patient Position: Sitting; Cuff Location : Left Arm; Cuff Size: Standard 10-01-2008 11:30-0500 BSA (Body Surface Area) 1.62 m2 Nickie Wagoner RN [facility] Work Phone: 10-01-2008 11:30-0500 Head Circumference 0 cm Yanely Purdy [facility] Work Phone: 10-01-2008 11:30-0500 Head Occipital-frontal circumference 0 cm Nickie Wagoner RN [facility]; [facility] Work Phone: 10-01-2008 11:30-0500 Height 162.56 cm Nickie Wagoner RN [facility] Work Phone: 10-01-2008 11:30-0500 Pulse (Heart Rate) 60 /min Nickie Wagoner RN [facility] Work Phone: Comment on above: Pattern: Regular 10-01-2008 11:30-0500 Respiratory Rate 16 /min Nickie Wagoner RN [facility] Work Phone: Comment on above: Pattern: Unlabored 10-01-2008 11:30-0500 Weight 58.06 kg Yanely Purdy [facility] Work Phone: 09-15-2007 15:26-0500 BMI (Body Mass Index) 21.97 kg/m2 Nickie Wagoner RN [facility] Work Phone: 09-15-2007 15:26-0500 Body weight 58.06 kg Nickie Wagoner RN [facility] Work Phone: 09-15-2007 15:26-0500 BP Diastolic 80 mm[Hg] Nickie Wagoner RN [facility] Work Phone: Comment on above: Patient Position: Sitting; Cuff Location : Left Arm; Cuff Size: Standard 09-15-2007 15:26-0500 BP Systolic 124 mm[Hg] Nickie Wagoner RN [facility] Work Phone: Comment on above: Patient Position: Sitting; Cuff Location : Left Arm; Cuff Size: Standard 09-15-2007 15:26-0500 BSA (Body Surface Area) 1.62 m2 Nickie Wagoner RN [facility] Work Phone: 09-15-2007 15:26-0500 Head Circumference 0 cm Yanely Purdy [facility] Work Phone: 09-15-2007 15:26-0500 Head Occipital-frontal circumference 0 cm Nickie Wagoner RN [facility]; [facility] Work Phone: 09-15-2007 15:26-0500 Height 162.56 cm Nickie Wagoner RN [facility] Work Phone: 09-15-2007 15:26-0500 Pulse (Heart Rate) 80 /min Nickie Wagoner RN [facility] Work Phone: Comment on above: Pattern: Regular 09-15-2007 15:26-0500 Respiratory Rate 20 /min Nickie Wagoner RN [facility] Work Phone: Comment on above: Pattern: Unlabored 09-15-2007 15:26-0500 Weight 58.06 kg Yanely Purdy [facility] Work Phone: 02-25-2007 10:30-0400 BMI (Body Mass Index) 21.11 kg/m2 SHARON Curry LPN [facility] Work Phone: 02-25-2007 10:30-0400 Body Temperature 97.6 [degF] SHARON Curry RN OTOLARYNGOLOGY [facility] Work Phone: Comment on above: Method: Oral 02-25-2007 10:30-0400 Body weight 55.79 kg SHARON Curry LPN [facility] Work Phone: 02-25-2007 10:30-0400 BP Diastolic 74 mm[Hg] SHARON Curry LPN [facility] Work Phone: Comment on above: Patient Position: Sitting; Cuff Location : Left Arm; Cuff Size: Standard 02-25-2007 10:30-0400 BP Systolic 110 mm[Hg] SHARON Curry LPN [facility] Work Phone: Comment on above: Patient Position: Sitting; Cuff Location : Left Arm; Cuff Size: Standard 02-25-2007 10:30-0400 BSA (Body Surface Area) 1.59 m2 SHARON Curry LPN [facility] Work Phone: 02-25-2007 10:30-0400 Head Circumference 0 cm Yanely Purdy [facility] Work Phone: 02-25-2007 10:30-0400 Head Occipital-frontal circumference 0 cm SHARON Curry RN OTOLARYNGOLOGY [facility]; [facility] Work Phone: 02-25-2007 10:30-0400 Height 162.56 cm SHARON Curry LPN [facility] Work Phone: 02-25-2007 10:30-0400 Pulse (Heart Rate) 70 /min SHARON Curry LPN [facility] Work Phone: Comment on above: Pattern: Regular 02-25-2007 10:30-0400 Respiratory Rate 20 /min SHARON Curry YOAV [facility] Work Phone: Comment on above: Pattern: Unlabored 02-25-2007 10:30-0400 Weight 55.79 kg Yanely Purdy [facility] Work Phone: Encounters Encounter Date Encounter Type Care Provider Facility Start: 04-20-2025 ambulatory Yanelydiane Purdy Facilit y:[facility] Start: 04-10-2025 End: 04-10-2025 Emergency department patient visit Dr. Yanely Purdy DO Work Phone: -Emergency Department Work Phone: Start: 11-17-2024 End: 11-17-2024 Follow-up encounter Gallo Garza APRN.REVERSAL PRINT INSPECTOR Work Phone: [facility] Start: 11-16-2024 End: 11-16-2024 ambulatory YANELY PURDY Facility:[facility] Start: 11-16-2024 End: 11-16-2024 Patient encounter procedure Alaina Schumacher PA Work Phone: [facility] Comment on above: Pelvic pain (Primary Dx) Start: 11-15-2024 End: 11-15-2024 Emergency department patient visit Dr. Yanely Purdy DO Work Phone: -Emergency Department Work Phone: Start: 05-26-2024 ambulatory Yanely Rajwinder Facilit y:[facility] Start: 05-26-2024 End: 05-26-2024 ambulatory Yanely Purdy Facility:[facility] Start: 05-22-2024 End: 05-22-2024 ambulatory Yanely Rajwinder Facility:[facility] Start: 05-15-2024 ambulatory [facility] Start: 01-24-2024 End: 01-24-2024 ambulatory YANELY PURDY Facility:[facility] Start: 01-24-2024 End: 01-24-2024 Patient encounter procedure Krystal Sin APRN.REVERSAL PRINT INSPECTOR Work Phone: [facility] Comment on above: Acute conjunctivitis of both eyes, unspecified acute conjunctivitis type (Primary Dx) Start: 08-19-2023 End: 08-20-2023 Emergency department patient visit [facility]-Emergency Department Work Phone: Start: 04-22-2023 End: 04-22-2023 Office outpatient visit 5 minutes Yanely Purdy DO Work Phone: [facility] Start: 04-14-2023 End: 04-14-[address] Yanely Purdy Work Phone: [facility] Comment on above: Grandfather had colo n cancer < age 50. Refer to Dr Martindmother had breast cancer <60. Last mammogram 1.5 years ago.MAYA:before hystercetromy.Most recent labs in 2011review labs with the patient.Hemoglobin 14, hematocrit 41.7, WBC 4.1, platelets 270.Sodium 143, potassium 4.3, chloride , bicarbonate 23, creatinine 0.84, glucose 81.AST 21 ELT 17 ALP 90 total bili 0.3.Hemoglobin A1c 5.1 TSH 1.43.Vitamin D 42.9. LDL 125 Start: 04-14-2023 End: 04-14-2023 Office outpatient visit 15 minutes Yanely Purdy DO Work Phone: [facility] Start: 04-09-2023 End: 04-09-[address] Yanely Purdy Work Phone: [facility] Work Phone: Start: 04-09-2023 End: 04-09-[address] Yanely Purdy Work Phone: [facility]-Outpatient Breast Imaging Work Phone: Start: 04-05-2023 End: 04-05-2023 Phone Encounter Yanely Purdy DO Work Phone: [facility] Start: 11-17-2022 End: 11-18-2022 Office outpatient visit 5 minutes Yanely Purdy DO Work Phone: [facility] Start: 10-29-2022 Review Yanely dye DO Work Phone: [facility] Start: 07-13-2022 End: 07-13-2022 ambulatory [facility] Work Phone: Start: 07-13-2022 End: 07-13-2022 Patient encounter procedure [facility] Start: 06-18-2022 End: 06-18-2022 Lab Order Yanely Purdy DO Work Phone: [facility] Start: 06-10-2022 End: 06-10-2022 Admission to same day surgery center [facility]-Surgical Day Care Start: 06-10-2022 End: 06-10-2022 ambulatory [facility] Work Phone: Start: 05-14-2022 End: 05-14-2022 ambulatory [facility] Work Phone: Start: 05-14-2022 End: 05-14-2022 Patient encounter procedure [facility]Radiology, [facility] Start: 05-08-2022 End: 05-08-2022 Emergency department patient visit [facility]-Emergency Department Start: 05-06-2022 End: 05-06-2022 Office outpatient visit 5 minutes Yanely Purdy DO Work Phone: [facility] Start: 04-21-2022 End: 04-21-2022 Patient encounter procedure Raul King CHANDANREVERSAL PRINT INSPECTOR Work Phone: [facility] Comment on above: Bee sting, accidenta l or unintentional, initial encounter (Primary Dx) Start: 04-13-2022 End: 04-13-2022 Annotation/Addendum Yanely Purdy DO Work Phone: [facility] Start: 04-09-2022 End: 04-09-2022 Office outpatient visit 25 minutes Yanely Purdy DO Work Phone: [facility] Start: 04-09-2022 Review Yanely Kraus n DO Work Phone: [facility] Start: 04-07-2022 End: 04-07-2022 Patient encounter procedure [facility]Outpatient Breast Imaging Start: 03-16-2022 End: 03-16-2022 Phone Encounter Yanely Rajwinder DO Work Phone: [facility] Start: 12-17-2021 End: 12-17-2021 Office outpatient visit 15 minutes Yanely Rajwinder DO Work Phone: [facility] Start: 03-19-2021 End: 03-19-2021 Office outpatient visit 15 minutes Yanely Rajwinder DO Work Phone: [facility] Start: 02-17-2021 End: 02-17-2021 Office outpatient visit 15 minutes Yanely Rajwinder DO Work Phone: [facility] Start: 02-17-2021 Review Yanely Fearo n DO Work Phone: [facility] Start: 02-10-2021 End: 02-10-2021 Office outpatient visit 25 minutes Yanely Rajwinder DO Work Phone: [facility] Start: 02-10-2021 Review Yanely Fearo n DO Work Phone: [facility] Start: 10-28-2020 End: 10-28-2020 Office outpatient visit 5 minutes Yanely Rajwinder [facility] Start: 07-22-2020 End: 07-22-2020 Office outpatient visit 15 minutes Yanely Rajwinder [facility] Start: 01-04-2020 End: 01-04-2020 Office outpatient visit 5 minutes Yanely Rajwinder [facility] Start: 12-01-2019 End: 12-01-2019 Office outpatient visit 15 minutes Yanely Rajwinder [facility] Start: 11-22-2019 End: 11-22-2019 Office outpatient visit 25 minutes Yanely Rajwinder [facility] Start: 11-12-2017 End: 11-12-2017 Phone Encounter Yanely Rajwinder [facility] Start: 09-03-2017 Ambulatory NORMAN KATE Facility:[facility] Start: 07-23-2017 End: 07-23-2017 Ambulatory NORMAN KATE [facility] Start: 07-02-2017 End: 07-02-2017 Ambulatory NORMAN KATE [facility] Start: 06-24-2017 End: 06-24-2017 Office outpatient visit 25 minutes Yanely Purdy [facility] Start: 06-14-2017 End: 06-14-2017 Office outpatient visit 15 minutes Yanely Purdy [facility] Start: 05-29-2017 End: 06-01-2017 Ambulatory NORMAN KATE [facility] Start: 05-29-2017 End: 06-01-2017 Evaluation and management of inpatient NO REFERRING DR Facility:[facility] Start: 02-24-2016 End: 02-24-2016 Phone Encounter Yanely Purdy [facility] Start: 12-26-2015 End: 12-26-2015 Patient encounter Yanely Purdy [facility] Start: 12-11-2015 End: 12-11-2015 Patient encounter Yanely Purdy [facility] Start: 11-05-2015 End: 11-05-2015 Patient encounter Yanely Rajwinder [facility] Start: 10-16-2015 End: 10-16-2015 Patient encounter Yanely Purdy [facility] Start: 06-11-2014 End: 06-11-2014 Office outpatient visit 10 minutes Yanely Purdy [facility] Start: 05-01-2014 End: 05-01-2014 Office outpatient visit 15 minutes Yanely Purdy [facility] Start: 04-16-2014 End: 04-16-2014 Office outpatient visit 10 minutes Yanely Purdy [facility] Start: 08-01-2012 End: 08-01-2012 Office outpatient visit 15 minutes Yanely Purdy [facility] Start: 07-11-2012 End: 07-11-2012 Annotation/Addendum Yanely Purdy [facility] Start: 07-05-2012 End: 07-05-2012 Patient encounter Yanely Purdy [facility] Start: 05-25-2012 End: 05-25-2012 Telephone encounter Adair Lopez Work Phone: Gynecology Start: 08-28-2011 End: 08-28-2011 Office outpatient visit 15 minutes Yanely Purdy [facility] Start: 06-29-2011 End: 06-29-2011 Office outpatient visit 25 minutes Yanely Purdy [facility] Start: 06-16-2010 End: 06-16-2010 Patient encounter Yanely Purdy [facility] Start: 04-16-2009 End: 04-16-2009 Patient encounter Yanely Purdy [facility] Start: 10-02-2008 End: 10-02-2008 Patient encounter Yanely Purdy [facility] Start: 10-01-2008 End: 10-01-2008 Patient encounter Yanely Purdy [facility] Start: 09-15-2007 End: 09-15-2007 Patient encounter Yanely Purdy [facility] Start: 02-25-2007 End: 02-25-2007 Office outpatient visit 15 minutes Yanely Purdy [facility] Start: 02-24-2007 End: 02-24-2007 Historical Summary Yanely Purdy [facility] Patient encounter procedure [facility]; [facility] Work Phone: Comment on above: Grandfather had colo n cancer < age 50. Refer to Dr Martínez had breast cancer <60. Last mammogram 1.5 years ago.MAYA:before hystercetromy.Most recent labs in 2012review labs with the patient.Hemoglobin 14, hematocrit 41.7, WBC 4.1, platelets 270.Sodium 143, potassium 4.3, chloride , bicarbonate 23, creatinine 0.84, glucose 81.AST 21 ELT 17 ALP 90 total bili 0.3.Hemoglobin A1c 5.1 TSH 1.43.Vitamin D 42.9. LDL 125 Patient encounter procedure Lena López [facility] [address] [facility]; [facility] Work Phone: Comment on above: Grandfather had colo n cancer < age 50. Refer [address] Martínez had breast cancer <60. Last mammogram 1.5 years ago.MAYA:before hystercetromy.Most recent labs in 2012review labs with the patient.Hemoglobin 14, hematocrit 41.7, WBC 4.1, platelets 270.Sodium 143, potassium 4.3, chloride , bicarbonate 23, creatinine 0.84, glucose 81.AST 21 ELT 17 ALP 90 total bili 0.3.Hemoglobin A1c 5.1 TSH 1.43.Vitamin D 42.9. LDL 125 Patient encounter procedure Manjula Thompson [facility] [address] [facility]; [facility] Work Phone: Comment on above: Grandfather had colo n cancer < age 50. Refer [address] Martínez had breast cancer <60. Last mammogram 1.5 years ago.MAYA:before hystercetromy.Most recent labs in 2011review labs with the patient.Hemoglobin 14, hematocrit 41.7, WBC 4.1, platelets 270.Sodium 143, potassium 4.3, chloride , bicarbonate 23, creatinine 0.84, glucose 81.AST 21 ELT 17 ALP 90 total bili 0.3.Hemoglobin A1c 5.1 TSH 1.43.Vitamin D 42.9. LDL 125 Patient encounter procedure Antonia Mc [facility]; [facility] Work Phone: Comment on above: Grandfather had colo n cancer < age 50. [address] Martínez had breast cancer <60. Last mammogram 1.5 years ago.MAYA:before hystercetromy.Most recent labs in 2011review labs with the patient.Hemoglobin 14, hematocrit 41.7, WBC 4.1, platelets 270.Sodium 143, potassium 4.3, chloride , bicarbonate 23, creatinine 0.84, glucose 81.AST 21 ELT 17 ALP 90 total bili 0.3.Hemoglobin A1c 5.1 TSH 1.43.Vitamin D 42.9. LDL 125 Patient encounter procedure Nilda urbina [facility]; [facility] Work Phone: Comment on above: Grandfather had colo n cancer < age 50. Refer to [address] Martínez had breast cancer <60. Last mammogram 1.5 years ago.MAYA:before hystercetromy.Most recent labs in 2011review labs with the patient.Hemoglobin 14, hematocrit 41.7, WBC 4.1, platelets 270.Sodium 143, potassium 4.3, chloride , bicarbonate 23, creatinine 0.84, glucose 81.AST 21 ELT 17 ALP 90 total bili 0.3.Hemoglobin A1c 5.1 TSH 1.43.Vitamin D 42.9. LDL 125 Procedures Date Procedure Procedure Detail Performing Clinician Start: 04-10-2025 CT of abdomen and pelvis without contrast Dr. Yanely Purdy DO Work Phone: Start: 04-10-[address] Yanely Purdy DO Work Phone: Start: 04-10-2025 Urnls dip stick/tablet reagent auto microscopy Dr. Yanely Purdy DO Work Phone: Start: 11-16-2024 Urnls dip stick/tablet rgnt auto w/o microscopy Samira Roman APRN.REVERSAL PRINT INSPECTOR Work Phone: Start: 11-15-2024 CT of abdomen and pelvis without contrast Dr. Yanely Purdy DO Work Phone: Start: 04-14-2023 End: 04-15-2023 Cerv Spine 2 or 3 Views Procedure Note: See Note; NOTES: [facility] [address] [place] [address] Cerv Spine 2 or 3 Views MR#: [id number] Acct: [id number] Name: TOMEKA QUARLES Rep #: [id number] : 1970 F 52 From: Vani Ricks PCP: Dr. Yanely Purdy, Status: DEP AMB Study: Cerv Spine 2 or 3 Views Date of Exam: 04/14/23 Exam# [id number] Ordering Dr: Aminata Cardenas [employer] MANAGER[employer] INDICATION: PAIN PAIN AND NUMBNESS INTO RIGHT ARM X 3 WEEKS EXAMINATION/TECHNIQUE: X-RAY - XR Spine Cervical 2 or 3 Views COMPARISON: None. FINDINGS: The vertebral bodies are normal in height. No definite fracture demonstrated. No subluxation. C1-2 alignment is maintained. Mild disc space narrowing with osteophytes C5-C6. Prevertebral soft tissues are unremarkable. RAD/Cerv Spine 2 or 3 Views IMPRESSION: No evidence of fracture or subluxation. Mild degenerative changes. MRI may be helpful for further evaluation. Electronically Signed: Vani Lanza MD at 0:41 EDT , CC: [employer] MANAGER[employer] Cardenas; Dr. Yanely Purdy DO Job Change Crew Member: Signed Aminata Cardenas CNP Work Phone: Start: 04-09-[address] Yanely dye Work Phone: Start: 04-09-2023 End: 04-09-2023 SCRN MAMM (CAD)W/ROWENA BILAT Procedure Note: See Note; NOTES: [facility] Imaging Services [address] [place] [address] SCRN MAMM (CAD)W/ROWENA BILAT MR#: [id number] Acct: [id number] Name: TOMEKA QUARLES Rep #: [id number] : 1970 F 52 From: Jaydon suarez MD PCP: Dr. Yanely Purdy DO Status: REG CLI Study: SCRN MAMM (CAD)W/ROWENA BILAT Date of Exam: 12/27 Exam# [id number] Ordering Dr: Yanely Purdy DO MAMMOGRAPHY - BILATERAL SCREENING REASON FOR EXAM: Female, 52 years old. Routine annual screening examination. PERTINENT HISTORY: Grandmother with breast cancer. Aunt with breast cancer. TECHNIQUE: Digital bilateral breast rowena (3D mammographic acquisition) in the CC and MLO projections. 2-D mediolateral oblique (MLO) and craniocaudad (CC) views of both breasts were obtained. CAD: Full Field Digital Mammography with Computer Added Detection was performed. COMPARISON: Comparison is made with prior study April 07, 2022 and November 28, 2019. FINDINGS: Breast Composition: The breasts are heterogeneously dense, which may obscure small masses. There are no dominant masses or suspicious calcifications. No other significant abnormalities are identified. There has been no significant change since the prior study. BI/SCRN MAMM (CAD)W/ROWENA BILAT IMPRESSION: Stable bilateral screening mammogram. Yearly follow-up mammogram recommended. (A) ASSESSMENT CATEGORY: BIRADS Category 1: Negative. A letter regarding these results will be sent to the patient by the facility within 30 days. Approximately 10% of breast cancers are not detected by mammography. A normal mammogram should not delay biopsy of a clinically suspicious abnormality. [id number] Electronically Signed: Jaydon Up MD at 11:22 EDT , CC: Dr. Yanely Purdy DO Job Change Crew Member: Signed Yanely Purdy DO Work Phone: Start: 06-10-2022 End: 06-10-2022 Discharge Instruction Procedure Note: See Note; NOTES: [facility] Medical Records Department [address] [place] [address] Instructions for Home/Discharge Instructions 06/10/22 1433 MR#: [id number] Acct: [id number] Name: TOMEKA QUARLES Rep #: [id number] : 1970 52 From: Yusuf Ghosh MD PCP: Dr. Yanely Purdy DO Status:REG [facility] Discharge Instructions Diet Discharge Diet: No restrictions Activity Discharge Activity: Return to Normal Activity Follow Up Care Please Follow Up With: Yusuf Ghosh MD When: call for appt next week to remove stent Test Results: Test results from this visit will be discussed in further detail at your follow-up appointment, if applicable. Discharge Plan Admission Primary Reason for Your Visit: cysto and right stent and right ESWL Attending Provider: Yusuf Ghosh Primary Care Provider: Yanely Purdy Discharge Orders/Prescriptions Prescriptions: New ciprofloxacin HCl [Cipro] 500 mg tablet 500 mg PO BID Qty: 6 0RF oxycodone-acetaminophen 5-325 mg tablet 1 tab PO Q6H PRN (Reason: pain) 7 Days Qty: 14 0RF No Action multivitamin 1 EACH tablet 1 ea PO DAILY calcium carbonate-vitamin D3 1 EACH tablet 2 ea PO DAILY bupropion HCl 100 MG tablet 100 mg PO DAILY escitalopram oxalate 20 MG tablet 20 mg PO DAILY ibuprofen 600 mg tablet 600 mg PO Q8H PRN PRN (Reason: pain) Qty: 20 0RF hydrocodone-acetaminophen 5-325 mg tablet 1 tab PO Q6H PRN (Reason: pain) 3 Days Qty: 10 0RF ondansetron 4 mg tablet,disintegrating 4 mg PO Q8H PRN (Reason: nausea and vomiting) Qty: 10 0RF buspirone 15 mg tablet 15 mg PO DAILY rosuvastatin 10 mg tablet 10 mg PO DAILY Referrals / Follow Up: Yusuf Ghosh MD [Med Staff - Active Staff] - Yanely Purdy DO [Primary Care Provider] - Disposition Disposition (needs filled in before D/C Order can be placed): Home, Self Care 06/10/22 1433<Electronically signed by Yusuf Ghosh MD>Yusuf Ghosh MD CC: Dr. Yanely Purdy DO Signed Yanely Purdy DO Work Phone: Start: 06-10-2022 End: 06-10-2022 Operative Report Procedure Note: See Note; NOTES: [facility] Medical Records Department [address] [place] [address] Operative Report 06/10/22 1433 MR#: [id number] Acct: [id number] Name: TOMEKA QUARLES Rep #: [id number] : 1970 52 From: Yusuf Ghosh MD PCP: Dr. Yanely Purdy DO Status:[facility] Location: [place] [address] Report of Operation Date of Procedure: 06/10/22 Pre-Operative Diagnosis: Right kidney stone Post-Operative Diagnosis: Same Surgery/Procedure Performed:: Cystoscopy right stent placement and right extracorporal shockwave lithotripsy Description of Surgical Findings:: Patient presents to the hospital for treatment of a kidney stone with shockwave lithotripsy. In the preoperative area and x-ray was done to confirm the location of the stone. The x-ray was reviewed and the stone location was reviewed. In the preoperative setting I spoke with the patient regarding the treatment of the stone how the treatment would be conducted and the expectations after surgery. The patient understands there is a risk of bleeding and infection. Also discussed the very rare risk of hematoma or damage to the kidney. We also discussed the risk that the shockwave machine will fail to break the stone adequately and that the patient may need other surgical procedures. We also discussed the possibility that the patient may need a stent after the procedure. After reviewing the procedure with the patient, the patient is signed the consent form all the patient's questions were addressed and was taken back to the operating room for treatment of a kidney stone. Patient was taken back to the operating room, patient was identified by the nursing staff, we identified the side of the treatment and the patient side of treatment had been marked by my initials. The patient underwent general anesthetic and was placed supine on the lithotripter table. We then used fluoroscopy to identify the stone on the Right side. The urethra and genitals were prepped and draped in usual sterile fashion. Using a 21 Taiwanese rigid cystourethroscope the entire length of the urethra was normal then went into the bladder. Identified the trigone the left and right ureteral orifice. I then cannulated the right orifice and advanced a wire up into the kidney. I then backloaded a 5 Taiwanese open ended catheter over the wire and injected contrast to delineate the anatomy. After the retrograde was performed I then used fluoroscopic images and guidance to advanced a wire up into the kidney and over the 0.038 glidewire I advanced a 6 Taiwanese by 26 cm double pigtail stent. I then pulled the 0.038 Glidewire off and the stent coiled in the kidney bladder good position. The bladder was then drained. We confirmed the position of the stent by fluoroscopy. We then positioned the patient under the lithotripter and we used triangulation technique to identify the location of the stone and then we made sure that the stone was engaged in the F2 focal point of F2 Donier lithoprior machine. Once the patient was positioned appropriately and the stone was identified and placed in the F2 focal point of the lithotripter machine we then proceeded with shockwave lithotripsy. In the beginning the shockwave was delivered at a rate of 90 shocks per minute, we monitor the EKG for any ectopy. The power was slowly increased to 5 kV and subsequently at the 7 kV. We then proceeded with the treatment we move the therapy had around during the treatment to make sure the stone stayed in the F2 focal point during the entire treatment and after 3000 shockwaves were delivered to the stone under fluoroscopic guidance the treatment was completed. The patient was given instructions to call the office to make an a follow-up appointment with an xray to evaluate the success of the treatment, pateint understands that its possible the stones may need another procedure.At this point the patient's anesthetic was reversed patient was extubated and taken back to the PACU in stable condition. Surgeon: Yusuf Ghohs Type of Anesthesia: General Drains: stent Admit VTE Documentation VTE Present on Admission: No VTE Mechan Device Prophylaxis: SCD's VTE Pharm Prophylaxis ordered?: No 06/10/22 1435 <Electronically signed by Yusuf Ghosh MD> Cosigner Signature (if applicable): CC: Dr. Yusuf Ghosh MD; Dr. Yanely Purdy, Signed Yanely Purdy DO Work Phone: Start: 06-10-2022 End: 06-10-2022 History and Physical Exam Procedure Note: See Note; NOTES: [facility] Medical Records Department [address] [place] [address] History Physical Exam 06/10/22 1432 MR#: [id number] Acct: [id number] Name: TOMEKA QUARLES Rep #: [id number] : 1970 52 From: Yusuf Ghosh MD PCP: Dr. Yanely Purdy DO Status:[facility] Location: [place] [address] HPI - General General Date of Service: 06/10/22 HPI Narrative TOMEKA QUARLES, is a 52 F who presents for treatment of a right kidney stone and stent placement [facility] Medical History (Updated 06/10/22 @ 14:[address] Yusuf Ghosh MD) Anxiety Depression Gastric reflux Heartburn High cholesterol History of echocardiogram History of endometriosis History of stress test Non-smoker Restless legs Wears glasses Home Medications bupropion HCl 100 mg tablet 100 mg PO DAILY 06/01/19 [History Last Taken 06/10/22 10:00] calcium carbonate 600 mg-vitamin D3 5 mcg (200 unit) tablet 2 ea PO DAILY 06/01/19 [History Last Taken Unknown] escitalopram oxalate 20 mg tablet 20 mg PO DAILY 06/01/19 [History Last Taken Unknown] multivitamin 1 ea PO DAILY 06/01/19 [History Last Taken Unknown] hydrocodone-acetaminophen 5-325mg 5mg-325mg 1 tab PO Q6H PRN pain 3 days #10 tabs 05/08/22 [Rx Last Taken Unknown] ibuprofen 600 mg tablet 600 mg PO Q8H PRN PRN pain #20 tabs 05/08/22 [Rx Last Taken Unknown] ondansetron 4 mg disintegrating tablet 4 mg PO Q8H PRN nausea and vomiting #10 tabs 05/08/22 [Rx Last Taken Unknown] buspirone 15 mg tablet 15 mg PO DAILY 06/03/22 [History Last Taken Unknown] rosuvastatin 10 mg tablet 10 mg PO DAILY 06/03/22 [History Last Taken Unknown] ciprofloxacin HCl 500 mg tablet (Cipro) 500 mg PO BID #6 tabs 06/10/22 [Rx Last Taken Unknown] oxycodone-acetaminophen 5 mg-325 mg tablet 1 tab PO Q6H PRN pain 7 days #14 tabs 06/10/22 [Rx Last Taken Unknown] Allergy/AdvReac Type Severity Reaction Status Date / Time adhesive tape AdvReac Rash Verified 06/10/22 12:24 Surgical History History of hysterectomy Social History Smoking Status: Never smoker Vital Signs Vital Signs Vital Signs: 06/10/22 12:26 06/10/22 12:29 Temperature 97.4 F L Temperature Source Temporal Pulse Rate 66 Respiratory Rate 18 Respiratory Pattern Normal Blood Pressure 152/89 H Blood Pressure Mean 110 Blood Pressure Source Monitor Blood Pressure Position Semi-Fowlers Blood Pressure Location Right Arm Pulse Ox 100 Oxygen Delivery Method Room Air Weight Weight: 74.843 kg Body Mass Index (BMI) 29.2 06/10/22 1433 <Electronically signed by Yusuf Ghosh MD> Cosigner Signature (if applicable): CC: Dr. Yusuf Ghosh MD; Dr. Yanely Purdy, DO Signed Yanely Purdy DO Work Phone: Start: 06-10-2022 Extracorporeal shockwave lithotripsy Start: 06-10-2022 Diagnostic radiography of abdomen Start: 06-10-2022 End: 06-10-2022 Abdomen Single View Procedure Note: See Note; NOTES: [facility] Imaging Services [address] [place] [address] Abdomen Single View MR#: [id number] Acct: [id number] Name: TOMEKA QUARLES Rep #: [id number] : 1970 F 52 From: Kaden lares MD PCP: Dr. Yanely Purdy DO Status: [facility] Study: Abdomen Single View Date of Exam: 06/10/22 Exam# [id number] Ordering Dr: Yusuf Ghosh MD INDICATION: PREOP EXAMINATION/TECHNIQUE: X-RAY - XR Abdomen 1 View COMPARISON: None FINDINGS: BOWEL GAS PATTERN: Non-obstructive. No bowel or stomach distention. FREE AIR: Not assessed on a single supine view. ORGANOMEGALY: Not seen. CALCIFICATIONS: 6 mm and 4 mm calcifications project over the right kidney. LOWER CHEST: No acute pathology. BONES AND SOFT TISSUES: No acute pathology. Intertrochanteric screws in the left proximal femur. RAD/Abdomen Single View IMPRESSION: Non-obstructive bowel gas pattern. 6 mm and 4 mm calcifications project over the right kidney. Electronically Signed: Kaden Fong MD at 18:05 EDT , CC: Dr. Yusuf Ghosh MD; Dr. Yanely Purdy DO Job Change Crew Member: Signed Yanely Purdy DO Work Phone: Start: 05-14-2022 End: 05-15-2022 Abdomen Single View Procedure Note: See Note; NOTES: [facility] Imaging Services [address] [place] [address] Abdomen Single View MR#: [id number] Acct: [id number] Name: TOMEKA QUARLES Rep #: [id number] : 1970 F 51 From: Jorge Luis Hall MD PCP: Dr. Yanely Puryd DO Status: REG CLI Study: Abdomen Single View Date of Exam: 05/14/22 Exam# [id number] Ordering Dr: Kasia Giang N P-C INDICATION: ABD PAIN EXAMINATION/TECHNIQUE: X-RAY - XR Abdomen 1 View: 2 images AP abdomen COMPARISON: May 28, 2022 FINDINGS: BOWEL GAS PATTERN: Nonspecific non-obstructive bowel gas pattern. No focal stomach or bowel distention. Large colonic stool burden. FREE AIR: Not well assessed on a supine view. ORGANOMEGALY: Not seen. CALCIFICATIONS: Right renal 7 mm 3 mm stones. No suspicious calcification along the expected ureteral course. Mild pelvic atherosclerosis. LOWER CHEST: Mild subsegmental atelectasis in the left lower lung.. BONES AND SOFT TISSUES: No acute pathology. Prior left femoral neck internal fixation without evidence of hardware failure. RAD/Abdomen Single View IMPRESSION: Large colonic stool burden as can be seen with constipation. Right nephrolithiasis. Non-obstructive bowel gas pattern. Electronically Signed: Jorge Luis Hall MD at 3:04 EDT Reading Location ID and State: [facility] / [place] Tel , Service support , CC: KATHARINA Giang; Dr. Yanely Purdy DO Job Change Crew Member: Signed Yanely Purdy DO Work Phone: Start: 05-14-2022 Diagnostic radiography of abdomen Start: 05-08-2022 End: 05-09-2022 Emergency Department Summary Procedure Note: See Note; NOTES: [facility] Medical Records Department [address] [place] [address] Emergency Department Summary 05/08/22 MR#: [id number] Acct: [id number] Name: TOMEKA QUARLES Rep #: [id number] : 1970 51 From: Dayana Bains MD PCP: Dr. Yanely Purdy, DO Status:DEP ER Location: ED HPI History of Present Illness Chief Complaint: Abd Pain Informant: patient Onset/Context/Timing Onset: Today Current Severity: Moderate Maximum Severity: Moderate Narrative Narrative: Patient present secondary to right upper quadrant abdominal pain with nausea and vomiting. She states symptoms for started after eating breakfast this morning. She had cereal and milk. After eating lunch pain worsened again. She is had nausea and vomiting. No fever. No known history of gallbladder disease. No urinary symptoms. [facility] Medical History (Updated 05/08/22 @ 20:[address] Dayana Bains MD) History of endometriosis Home Medications bupropion HCl 100 mg tablet 100 mg PO DAILY 06/01/19 [History Last Taken Unknown] calcium carbonate 600 mg-vitamin D3 5 mcg (200 unit) tablet 2 ea PO DAILY 06/01/19 [History Last Taken Unknown] escitalopram oxalate 20 mg tablet 20 mg PO DAILY 06/01/19 [History Last Taken Unknown] multivitamin 1 ea PO DAILY 06/01/19 [History Last Taken Unknown] hydrocodone-acetaminophen 5-325mg 5mg-325mg 1 tab PO Q6H PRN pain 3 days #10 tabs 05/08/22 [Rx Last Taken Unknown] ibuprofen 600 mg tablet 600 mg PO Q8H PRN PRN pain #20 tabs 05/08/22 [Rx Last Taken Unknown] ondansetron 4 mg disintegrating tablet 4 mg PO Q8H PRN nausea and vomiting #10 tabs 05/08/22 [Rx Last Taken Unknown] Allergy/AdvReac Type Severity Reaction Status Date / Time No Known Allergies Allergy Verified 05/08/22 15:52 Surgical History (Updated 05/08/22 @ 16:[address] Dayana Bains MD) History of hysterectomy Social History Smoking Status: Never smoker ROS ROS ED Constitutional Constitutional ED: Denies chills or fever(s) Eyes Eyes: Denies change in vision or discharge from eye(s) ENT ENT ED: Denies discharge from eye(s), rhinorrhea or sore throat Cardiovascular Cardiovascular: Denies chest pain or palpitations Respiratory/Chest Respiratory/Chest: Denies cough or dyspnea Gastrointestinal Gastrointestinal: Reports abdominal pain, nausea and vomiting; Denies diarrhea Genitourinary Genitourinary ED: Denies difficulty urinating or dysuria Musculoskeletal Musculoskeletal: Denies back pain or extremity pain Integumentary Denies Abrasions or rash Neurologic Neurologic: Denies headache(s) or weakness Psychiatric Psychiatric: Denies anxiety or depression Allergic/Immunologic Allergic/Immunologic ED: Denies lip swelling or urticaria EXAM Physical Exam Const Vital Signs: 05/08/22 15:51 05/08/22 18:51 Temperature 97.7 F L Temperature Source Temporal Pulse Rate 77 72 Respiratory Rate 16 18 Blood Pressure 185/97 H 176/93 H Blood Pressure Mean 126 120 Pulse Ox 98 96 Oxygen Delivery Method Room Air Room Air Positive well nourished and well developed General Appearance ED: well developed HEENT Reports normocephalic and head/scalp atraumatic Eyes PERRL and EOMs intact bilaterally Neck supple Chest Wall inspection of chest normal and palpation of chest normal Resp normal respiratory effort and clear to auscultation bilaterally Cardio regular rate and regular rhythm GI Palpation: soft and tender RUQ Back/Spine no CVA tenderness Extremity normal to inspection Neuro oriented x3 and no sensory deficits noted Sensorium / Orientation: alert Motor Exam: strength 5/5 throughout Psych mental status grossly normal Skin no rashes or lesions noted MDM MDM MDM Narrative Medical decision making narrative: Patient given morphine and Zofran along with IV fluids. Lab work obtained along with right upper quadrant ultrasound. Lab Data Attestation: I reviewed the patient's lab results. Labs: Laboratory Results - last 24 hr 05/08/22 05/08/22 16:51 16:51 WBC 10.1 RBC 4.91 Hgb 14.4 Hct 42.7 MCV 87.0 MCH 29.3 MCHC 33.7 RDW Std Deviation 41.9 RDW Coeff of Key 13.1 Plt Count 266 MPV 9.3 Immature Gran % (Auto) 0.200 Neut % (Auto) 83.1 H Lymph % (Auto) 11.6 L Forrest % (Auto) 4.3 Eos % (Auto) 0.6 Baso % (Auto) 0.2 Absolute Neuts (auto) 8.4 H Absolute Lymphs (auto) 1.18 Nucleated RBC % 0 Sodium 142 Potassium 4.4 Chloride 109 H Carbon Dioxide 25.0 Anion Gap 8 BUN 20 H Creatinine 1.17 H Estim Creat Clear Calc 43.98 Est GFR (MDRD) Af Amer 62 Est GFR (MDRD) Non-Af 51 L BUN/Creatinine Ratio 17.1 Glucose 100 Calcium 9.7 Total Bilirubin 0.50 Direct Bilirubin 0.14 AST 25 ALT 35 Alkaline Phosphatase 99 Total Protein 8.1 Albumin 4.2 Globulin 3.9 Lipase 201 Radiography Diagnostic Testing: Clinical Impression(s) from Imaging Studies Gallbladder Ultrasound 05/08/22 16:33 IMPRESSION: Right renal calculi with mild hydronephrosis. Electronically Signed: Ermelinda Cai MD at 19:19 EDT Reading Location ID and State: [id number] / Tel , Service support , Treatment and Re-Evaluation Narrative: On repeat evaluation patient much improved. Lab work is unremarkable. Right upper quadrant ultrasound reveals right renal calculi with mild hydronephrosis. Test results are discussed with patient and family at bedside. I believe she likely does have a kidney stone, however with her symptoms well controlled at this time I do not think getting a CT scan at this time will change her treatment. If she is not improving and returns we can always obtain imaging at that time. Patient agrees with this plan. I will write her pain and nausea medication to sent to the pharmacy. Return instructions provided. Discharge Plan Triage Chief Complaint: Abd Pain ED Provider: Dayana Bains Dx/Rx/DC Orders Clinical Impression: Kidney stone Instructions: ED Kidney Stone w/ Colic Prescriptions: New ibuprofen 600 mg tablet 600 mg PO Q8H PRN PRN (Reason: pain) Qty: 20 0RF hydrocodone-acetaminophen 5-325 mg tablet 1 tab PO Q6H PRN (Reason: pain) 3 Days Qty: 10 0RF ondansetron 4 mg tablet,disintegrating 4 mg PO Q8H PRN (Reason: nausea and vomiting) Qty: 10 0RF No Action multivitamin 1 EACH tablet 1 ea PO DAILY calcium carbonate-vitamin D3 1 EACH tablet 2 ea PO DAILY bupropion HCl 100 MG tablet 100 mg PO DAILY escitalopram oxalate 20 MG tablet 20 mg PO DAILY Primary Care Provider: Yanely Purdy Referrals: Yusuf Ghosh MD [Med Staff - Active Staff] - 1 Week if not improving Yanely Purdy DO [Primary Care Provider] - Disposition Disposition: Home, Self Care What to do if you have Problems For any increased pain, shortness of breath, bleeding, nausea or vomiting, chest pain, or any unexpected problems, contact your Primary Care Provider. Call [facility] ([phone]) or report to the closest Emergency Room. Call 911 if necessary. 05/09/22 0004 <Electronically signed by Dayana Bains MD> Cosigner Signature (if applicable): CC: Dr. Yanely Purdy, Signed Yanely Purdy DO Work Phone: Start: 05-08-2022 End: 05-08-2022 Gallbladder Procedure Note: See Note; NOTES: [facility] Imaging Services [address] [place] [address] Gallbladder MR#: [id number] Acct: [id number] Name: TOMEKA QUARLES Rep #: [id number] : 1970 F 51 From: Ermelinda urbina MD PCP: Dr. Yanely Purdy DO Status: REG ER Study: Gallbladder Date of Exam: 05/08/22 Exam# [id number] Ordering Dr: Dayana Bains MD EXAM: US ABDOMEN LIMITED, RIGHT UPPER QUADRANT CLINICAL INDICATION: pain -- RT ABD PAIN TECHNIQUE: Real-time ultrasound of the right upper quadrant with image documentation. This report was created using Banyan report generation technology. COMPARISON: None. FINDINGS: LIVER: Liver is normal in size and echogenicity measuring 12.5 cm. No intrahepatic biliary ductal dilation. GALLBLADDER: Unremarkable. No shadowing gallstone. No gallbladder wall thickening is demonstrated. No pericholecystic fluid. Negative sonographic Mcmullen''s sign. COMMON BILE DUCT: Unremarkable as visualized. The proximal common bile duct is within normal limits for the patient''s age. PANCREAS: Unremarkable as visualized. No focal abnormality is demonstrated in the pancreas. No pancreatic ductal dilatation. RIGHT KIDNEY: Right kidney is normal in size and echogenicity measuring 10.3 x 5.5 x 5.3 cm. Renal cortical thickness is normal. Mild hydronephrosis. Shadowing renal calculi are noted measuring up to 8 mm in diameter. No focal lesion or perinephric collection is demonstrated. US/Gallbladder IMPRESSION: Right renal calculi with mild hydronephrosis. Electronically Signed: Ermelinda Cai MD at 19:19 EDT Reading Location ID and State: [id number] / Tel , Service support , CC: Dr. Dayana Bains MD; Dr. Yanely Purdy DO Job Change Crew Member: Signed Yanely Purdy DO Work Phone: Start: 05-08-2022 US scan of gallbladder Start: 04-07-2022 Screening mammography Start: 04-07-2022 End: 04-08-2022 SCRN MAMM (CAD)W/ROWENA BILAT Comments: See Note; NOTES: [facility] Imaging Services [address] [place] [address] SCRN MAMM (CAD)W/ROWENA BILAT MR#: [id number] Acct: [id number] Name: TOMEKA QUARLES Rep #: [id number] : 1970 F 51 From: Sae Borja MD PCP: Dr. Yanely Purdy DO Status: REG CLI Study: SCRN MAMM (CAD)W/ROWENA BILAT Date of Exam: 10/28 Exam# [id number] Ordering Dr: Yanely Purdy DO MAMMOGRAPHY - BILATERAL SCREENING 3-D TOMOSYNTHESIS REASON FOR EXAM: Female, 51 years old. Annual screening mammogram. PERTINENT HISTORY: Grandmother and aunt with breast cancer. TECHNIQUE: 2-D mammograms and 3-D Tomosynthesis of the breast (s) were performed. CAD was performed. COMPARISON: 11/28/2019, 10/07/2017, 11/21/2015. FINDINGS: The breast composition is heterogeneously dense that can obscure small breast masses. Several lymph nodes. No dense spiculated masses or suspicious microcalcifications are identified. No architectural distortion is identified. There is no skin thickening or retraction. BI/SCRN MAMM (CAD)W/ROWENA BILAT IMPRESSION: No interval change and no mammographic signs of malignancy. Routine yearly mammograms recommended. ASSESSMENT CATEGORY: BIRADS Category 2: Benign. A letter regarding these results will be sent to the patient by the facility within 30 days. FOLLOW UP RECOMMENDATION: Yearly follow up mammogram recommended. (A) Approximately 10% of breast cancers are not detected by mammography. A normal mammogram should not delay biopsy of a clinically suspicious abnormality. Electronically Signed: Sae Borja MD at 10:34 EDT , CC: Dr. Yanely Purdy DO Job Change Crew Member: Signed Yanely Purdy DO Work Phone: Start: 11-28-2019 End: 11-28-2019 Dexa Bone Density Study Comments: See Note; NOTES: [facility] Imaging Services [address] [place] [address] Dexa Bone Density Study MR#: [id number] Acct: [id number] Name: TOMEKA QUARLES Rep #: [id number] : 1970 F 49 From: Jaydon Up MD PCP: Yanely Purdy DO Status: [facility] Study: Dexa Bone Density Study Date of Exam: 11/28/19 Exam# [id number] Ordering Dr: Yanely Purdy DO STUDY: DUAL ENERGY X-RAY ABSORPTIOMETRY / DXA REASON FOR EXAM: Female, 49 years old. 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 COMPARISON: Comparison is made with prior study dated June 17, 2017. FINDINGS: Lumbar Spine (L1-L4): g/cm2 (0.931) / T-score (-2.2) / Z-score (-1.7) Findings are suggestive of osteopenia with a high fracture risk. Right Femur Total: g/cm2 (0.749) / T-score (-2.0) / Z-score (-1.5) Right Femoral Neck: g/cm2 (0.682) / T-score (-2.6) / Z-score (-1.7) The T-Scores on the most recent prior examination were: Lumbar Spine (L1-L4): There has been improvement of bone density since the previous examination. Right Femur Total: which represents a worsening of 0.3%. BD/Dexa Bone Density Study IMPRESSION: The patient is considered osteoporotic as outlined below according to World See Organization (WHO) criteria with a high fracture risk. There has been of bone density since the previous examination. Reference Information: The T-score is the number of standard deviations above or below the standard which is normal for young adults at their peak bone mineral density. The World Health Organization (WHO) interprets the T-scores as follows: Above -1 Normal bone density Between -1 and -2.5 Osteopenia Equal to / or below -2.5 Osteoporosis As a practical clinical guideline, osteopenia may be graded as follows: Mild -1 through -1.5 Moderate -1.6 through -2.0 Severe -2.1 through -2.4 The Z-score is the number of standard deviations above or below age-matched controls. A Z-score of less than -1.5 would be considered abnormal. References: 1. NIH Osteoporosis and Related Bone Diseases http://www.osteo.org 2. International Society for Clinical Densitometry http://www.iscd.org 3. National Osteoporosis Foundation http://www.nof.org Electronically Signed: Jaydon Up, at 11:06 EDT , Service support , CC: Yanely Purdy DO Job Change Crew Member: Signed Yanely Purdy Work Phone: Start: 11-28-2019 End: 11-28-2019 SCREEN MAMM (CAD) W/ROWENA BILAT Comments: See Note; NOTES: [facility] Imaging Services [address] [place] [address] SCREEN MAMM (CAD) W/ROWENA BILAT MR#: [id number] Acct: [id number] Name: TOMEKA QUARLES Rep #: [id number] : 1970 F 49 From: Jaydon Up MD PCP: Yanely Purdy DO Status: REG CLI Study: SCREEN MAMM (CAD) W/ROWENA BILAT Date of Exam: 11/28/19 Exam# [id number] Ordering Dr: Yanely Purdy DO MAMMOGRAPHY - BILATERAL SCREENING REASON FOR EXAM: Female, 49 years old. Routine annual screening examination. PERTINENT HISTORY: Grandmother with breast cancer. Aunt with breast cancer. TECHNIQUE: Digital bilateral breast rowena (3D mammographic acquisition) in the CC and MLO projections. 2-D mediolateral oblique (MLO) and craniocaudad (CC) views of both breasts were obtained. CAD: Full Field Digital Mammography with Computer Added Detection was performed. COMPARISON: Comparison is made with prior study dated October 07, 2017 and November 21, 2015. FINDINGS: Breast Composition: The breasts are heterogeneously dense, which may obscure small masses. There are no dominant masses or suspicious calcifications. No other significant abnormalities are identified. There has been no significant change since the prior study. BI/SCREEN MAMM (CAD) W/ROWENA BILAT IMPRESSION: Stable bilateral screening mammogram. Yearly follow-up mammogram recommended. (A) ASSESSMENT CATEGORY: BIRADS Category 1: Negative. A letter regarding these results will be sent to the patient by the facility within 30 days. Approximately 10% of breast cancers are not detected by mammography. A normal mammogram should not delay biopsy of a clinically suspicious abnormality. [id number] Electronically Signed: Jaydon Up, at 11:40 EDT , Service support , CC: Yanely Purdy DO Job Change Crew Member: Signed Yanely Purdy Work Phone: Start: 06-01-2019 End: 06-04-2019 Discharge Instruction Comments: See Note; NOTES: [facility] Medical Records Department [address] [place] [address] Discharge Instruction 06/01/19 1630 MR#: [id number] Acct: [id number] Name: TOMEKA QUARLES Rep #: [id number] : 1970 48 From: Cleve Vail DO PCP: Yanely Purdy DO Status: REG ER ED Disposition - Plan for ED Patient: Instructions: Wrist Sprain Referrals: Yanely Purdy DO [Primary Care Provider] - 5-7 Days What to do if you have Problems For any increased pain, shortness of breath, bleeding, nausea or vomiting, chest pain, or any unexpected problems, contact your Primary Care Provider. Call [facility] ([phone]) or report to the closest Emergency Room. Call 911 if necessary. 06/01/19 1630 <Electronically signed by Cleve Vail DO> Date Cleve Vail DO Cosigner Signature (If Indicated): Date CC: Yanely Davis Start: 06-01-2019 End: 06-04-2019 Emergency Department Summary Comments: See Note; NOTES: [facility] Medical Records Department [address] [place] [address] Emergency Department Summary 06/01/19 1628 MR#: [id number] Acct: [id number] Name: TOMEKA QUARLES Rep #: [id number] : 1970 48 From: Cleve Vail DO PCP: Yanely Purdy DO Status: PRE ER - ER Visit Summary Date of Service: 06/01/19 Chief Complaint: [Injury to right wrist] History of Present Illness: The patient is a 48 F [the emergency department with an injury to the right wrist that initially occurred 2 weeks ago. Patient states that she slipped in her driveway and injured her wrist. Patient has history of osteoporosis. Patient yesterday lifted the bottom of a fish tank and noticed increased discomfort to the same area of her wrist. Today she was advised by coworkers to get her wrist evaluated. Patient is right-hand dominant.] Physical Examination: [Wrist-patient has point tenderness over the ulnar styloid. There is no obvious deformity. Patient has good range of motion flexion extension of the wrist. She is neurovascular intact distally. Normal range of motion of all digits. No pain over the distal radius.] Test Results: [X-rays of the right wrist obtained were normal] Emergency Department Course and Treatment: [Patient states that she has a wrist splint and does not need one from the emergency department.] Treatment Plan: [Patient will follow-up with her primary care physician in 5 to 7 days. Patient will use ibuprofen for discomfort.] Disposition: [Discharged home in stable condition.] Impression: [Right wrist sprain] This note was generated with [employer] dictation software. It may contain incorrect words, spelling, and punctuation that were not noted in review of the chart prior to signing ED Disposition - Plan for ED Patient: Referrals: Yanely Purdy, [Primary Care Provider] - What to do if you have Problems For any increased pain, shortness of breath, bleeding, nausea or vomiting, chest pain, or any unexpected problems, contact your Primary Care Provider. Call [facility] ([phone]) or report to the closest Emergency Room. Call 911 if necessary. 06/01/19 1630 <Electronically signed by Cleve Vail DO> Date Cleve Vail DO Cosigner Signature (If Indicated): Date CC: Yanely Davis Start: 06-01-2019 End: 06-04-2019 Wrist min 3 Views Comments: See Note; NOTES: [facility] Imaging Services [address] [place] [address] Wrist min 3 Views MR#: [id number] Acct: [id number] Name: TOMEKA QUARLES Rep #: [id number] : 1970 F 48 From: Jonathan Bloom MD PCP: Yanely Purdy DO Status: PRE ER Study: Wrist min 3 Views Date of Exam: 06/01/19 Exam# [id number] Ordering Dr: Cleve Vail DO STUDY: X-RAY - RIGHT WRIST REASON FOR EXAM: Female, 48 years old. Injury. TECHNIQUE: 3 view(s) of the wrist were obtained. COMPARISON: None. FINDINGS: Normal visualized distal radius and ulna. Normal radiocarpal articulation. Normal distal radioulnar articulation. Normal carpal bones. Normal carpal articulations. Normal carpometacarpal articulation of the thumb. Normal second through fifth carpometacarpal articulations. Normal visualized metacarpal bones. The soft tissue structures are unremarkable. There is no demonstrated acute fracture. RAD/Wrist min 3 Views IMPRESSION: Normal x-ray examination of the wrist. Electronically Signed: Jonathan Bloom MD at 16:24 EDT , Service support , CC: Yanely Purdy DO; Cleve Vail DO Job Change Crew Member: Signed Yanely Purdy Start: 10-07-2017 End: 10-08-2017 SCREENING MAMM (CAD), BILAT Comments: See Note; NOTES: [facility] Imaging Services [address] [place] [address] SCREENING MAMM (CAD), BILAT MR#: [id number] Acct: [id number] Name: TOMEKA QUARLES Rep #: [id number] : 1970 F 47 From: Jaydon Up MD PCP: Yanely Purdy DO Status: REG CLI Study: SCREENING MAMM (CAD), BILAT Date of Exam: 10/07/17 Exam# [id number] Ordering Dr: Yanely Purdy DO MAMMOGRAPHY - BILATERAL SCREENING REASON FOR EXAM: Female, 47 years old. Routine annual screening examination. PERTINENT HISTORY: Grandmother with breast cancer. Aunt with breast cancer. TECHNIQUE: Digital bilateral breast rowena (3D mammographic acquisition) in the CC and MLO projections. 2-D mediolateral oblique (MLO) and craniocaudad (CC) views of both breasts were obtained. CAD: Full Field Digital Mammography with Computer Added Detection was performed. COMPARISON: Comparison is made with prior examination dated November 21, 2015. FINDINGS: Breast Composition: The breasts are heterogeneously dense, which may obscure small masses. There are no dominant masses or suspicious calcifications. No other significant abnormalities are identified. There has been no significant change since the prior study. HPBI/SCREENING MAMM (CAD), BILAT IMPRESSION: Stable bilateral screening mammogram. Yearly follow-up mammogram recommended. (A) ASSESSMENT CATEGORY: BIRADS Category 1: Negative. A letter regarding these results will be sent to the patient by the facility within 30 days. Approximately 10% of breast cancers are not detected by mammography. A normal mammogram should not delay biopsy of a clinically suspicious abnormality. [id number] Electronically Signed: Jaydon Up MD at 8:28 EST Tel [phone], Service support , CC: Yanely Purdy DO Job Change Crew Member: Signed Yanely Purdy Work Phone: Start: 07-20-2017 End: 07-20-2017 Bone Length Comments: See Note; NOTES: [facility] Imaging Services [address] [facility] [place] [place] [address] Bone Length MR#: [id number] Acct: [id number] Name: TOMEKA QUARLES Rep #: [id number] : 1970 F 47 From: Aldair uBckley MD PCP: Yanely Purdy DO Status: REG CLI Study: Bone Length Date of Exam: 07/20/17 Exam# [id number] Ordering Dr: Denver English DPM STUDY: X-RAY - BILATERAL LOWER EXTREMITY, SCANOGRAM REASON FOR EXAM: Female, 47 years old. The length difference. Left shorter than the right. Surgery in May. Probable walking since then. TECHNIQUE: AP view(s) of the lower extremity were obtained with the patient standing and a ruler in place COMPARISON: None. FINDINGS: The patient is status post pinning of the left femoral neck with 3 cannulated screws. The right femur measures 47.5 cm. The right tibia measures 36 cm. The right lower extremity measures 83.5 cm. The left femur measures 44.5 cm. The left tibia measures 37.5 cm. The left lower extremity measures 81 cm. RAD/Bone Length IMPRESSION: Leg length discrepancy of about 2.5 cm being the left shorter than the right Electronically Signed: Aldair Buckley MD, FACR at 12:34 EST , Service support , CC: Denver English DPM; Yanely Purdy DO Job Change Crew Member: Signed Yanely Purdy Start: 06-17-2017 End: 06-17-2017 Dexa Bone Density Study (HP) Comments: See Note; NOTES: [facility] Imaging Services [address] [place] [address] Dexa Bone Density Study (HP) MR#: [id number] Acct: [id number] Name: TOMEKA QUARLES Rep #: [id number] : 1970 F 47 From: Jaydon Up MD PCP: Yanely Purdy DO Status: [facility] CLI Study: Dexa Bone Density Study (HP) Date of Exam: 06/17/17 Exam# [id number] Ordering Dr: Yanely Purdy DO STUDY: DUAL ENERGY X-RAY ABSORPTIOMETRY / DXA REASON FOR EXAM: Female, 47 years old. Early menopause. Loss of height. TECHNIQUE: Bone Mineral Density (BMD) measurements of lumbar spine and right hip were obtained. COMPARISON: None. FINDINGS: Lumbar Spine (L1-L4): g/cm2 (0.836) / T-score (-2.9) / Z-score (-2.5) Findings are suggestive of osteoporosis with a high fracture risk. Right Femur Total: g/cm2 (0.751) / T-score (-2.0) / Z-score (-1.6) Right Femoral Neck: g/cm2 (0.729) / T-score (-2.2) / Z-score (-1.5) HPBD/Dexa Bone Density Study (HP) IMPRESSION: The patient is considered osteoporotic as outlined below according to World See Organization (WHO) criteria with a high fracture risk. Reference Information: The T-score is the number of standard deviations above or below the standard which is normal for young adults at their peak bone mineral density. The World Health Organization (WHO) interprets the T-scores as follows: Above -1 Normal bone density Between -1 and -2.5 Osteopenia Equal to / or below -2.5 Osteoporosis As a practical clinical guideline, osteopenia may be graded as follows: Mild -1 through -1.5 Moderate -1.6 through -2.0 Severe -2.1 through -2.4 The Z-score is the number of standard deviations above or below age-matched controls. A Z-score of less than -1.5 would be considered abnormal. References: 1. NIH Osteoporosis and Related Bone Diseases http://www.osteo.org 2. International Society for Clinical Densitometry http://www.iscd.org 3. National Osteoporosis Foundation http://www.nof.org Electronically Signed: Jaydon Up MD at 10:18 EDT Tel [phone], Service support , CC: Yanely Purdy DO Job Change Crew Member: Signed Yanely Purdy Work Phone: Start: 12-11-2015 End: 12-11-2015 Foot min 3 Views Comments: See Note; NOTES: [facility] Imaging Services [address] [place] [address] Verdana 4d Foot min 3 Views MR#: [id number] Acct: [id number] Name: TOMEKA QUARLES Rep #: [id number] : 1970 F 45 From: Aldair Buckley MD PCP: Marciano Hayden Status: REG CLI Study: Foot min 3 Views Date of Exam: 12/11/15 Exam# [id number] Ordering Dr: Marciano Hayden STUDY: X-RAY - LEFT FOOT CLINICAL: Female, 45 years old. Hit second toe 5 weeks ago and still hurting TECHNIQUE: 3 view(s) of the foot. COMPARISON: None. FINDINGS: Normal talus, calcaneus, and tarsal bones. There is a small plantar calcaneal enthesophyte Normal visualized subtalar, talonavicular, calcaneocuboid, tarsal and tarsometatarsal articulations. Normal metatarsi. Normal metatarsophalangeal joint of the great toe. Normal tibial and fibular sesamoid bones. Normal interphalangeal joint of the great toe. Normal phalanges of the great toe. Normal second through fifth metatarsophalangeal joints. There is a nondisplaced fracture of the distal phalanx of the second toe The soft tissue structures are unremarkable. IMPRESSION: Nondisplaced fracture of the distal phalanx of the second toe. Electronically Signed: Aldair Buckley MD, FACR at 19:52 EDT , Service support [phone], RAD/Foot min 3 Views IMPRESSION: Nondisplaced fracture of the distal phalanx of the second toe. Electronically Signed: Aldair Buckley MD, FACR at 19:52 EDT , Service support [phone], CC: Marciano Hayden Job Change Crew Member: Signed Marciano Hayden Work Phone: Start: 11-21-2015 End: 11-22-2015 Bilat Scrn Digital AND CAD Comments: See Note; NOTES: [facility] Imaging Services [address] [place] [address] Verdana 4d Bilat Scrn Digital AND CAD MR#: [id number] Acct: [id number] Name: TOMEKA QUARLES Rep #: [id number] : 1970 F 45 From: Jaydon Up MD PCP: Marciano Hayden Status: REG CLI Study: Maryann Palacios Digital AND CAD Date of Exam: 11/21/15 Exam# [id number] Ordering Dr: Marciano Hayden MAMMOGRAPHY - BILATERAL SCREENING REASON FOR EXAM: Female, 45 years old. Routine annual screening examination. PERTINENT HISTORY: Grandmother with breast cancer. TECHNIQUE: Digital examination. Mediolateral oblique (MLO) and craniocaudad (CC) views of both breasts were obtained. CAD: CAD was performed on this study. COMPARISON: Comparison is made with prior outside examination dated September 13, 2014. FINDINGS: Breast Composition: The breasts are heterogeneously dense, which may obscure small masses. There are no dominant masses or suspicious calcifications. No other significant abnormalities are identified. There has been no significant change since the prior study. IMPRESSION: Stable bilateral screening mammogram. Yearly follow-up mammogram recommended. (A) ASSESSMENT CATEGORY: BIRADS Category 1: Negative. A letter regarding these results will be sent to the patient by the facility within 30 days. Approximately 10% of breast cancers are not detected by mammography. A normal mammogram should not delay biopsy of a clinically suspicious abnormality. [id number] Electronically Signed: Jaydon Up MD at 8:07 EDT Tel [phone], Service support [phone], CC: Marciano Hayden Job Change Crew Member: Katalina Hayden Work Phone: Start: 11-29-2014 End: 11-29-2014 PT Discharge Summary Comments: See Note; NOTES: [facility] [address] [place], [place] [address] Fax REHABILITATION SERVICES DISCHARGE SUMMARY MR#: [id number] Acct: [id number] Name: TOMEKA QUARLES Rep #: [id number] : 1970 44 From: Antonino Cardenas Referring Dr.: Jayce Burch Status: REG RCR Eval Date: Discharge Date: DATE OF SERVICE: PHYSICIAN: Dr. Burch. DIAGNOSIS: Right medial gastroc tear. DATE OF DISCHARGE: November 28, 2014. Tomeka Quarles was seen in my office for a total of 9 visits. She was seen initially on September 14, 2014 with the latest visit being on November 05, 2014 and was treated with ultrasound, stretching, strengthening, range of motion, return to function activities, including a video motion analysis and corrective exercise prescription. Her last visit was November 05, 2014 where she was a little bit sore after running for video motion analysis in the bilateral quads and knees, but did not have any calf symptoms. She had met the goal of being independent in appropriate home exercises and not having her calf pain for a period of 1 week. She had started jogging again and according to her notes felt independent with appropriate corrective exercise prescription, continued stretching and gradual return to jogging. She was to call if she had any problems after that last visit. At this point, it has been over 3 weeks. She has not called and I am discontinuing her from my care, but would be happy to see her again in the future if found appropriate by physician. Antonino Cardenas, PT T: NTS JOB: [id number] <Electronically signed by Antonino Cardenas > 11/29/14 0935 CC: Signed Yanely Purdy Start: 09-17-2014 End: 09-17-2014 Inital Evaluation - PT Comments: See Note; NOTES: [facility] [address] [place] [address] Fax REHABILITATION SERVICES INITIAL EVALUATION MR#: [id number] Acct: [id number] Name: TOMEKA QUARLES Rep #: [id number] : 1970 44 From: Antonino Cardenas Referring DrRomario: Jayce Burch Status: REG RCR Insurance: [employer] Eval Date: DATE OF SERVICE: 09/14/2014 DIAGNOSIS: Right medial gastroc tear. PHYSICIAN: Dr. Burch. SUBJECTIVE: Tomeka Quarles is a 44-year-old female who presents today with right medial knee pain. She states that she was training last April for a half marathon to be run in the fall and the inside of her right knee started hurting. Actually in April, she felt a lump, went to get it checked out, was not a problem, but she kept running on it and it started hurting in June. Whenever she ran that day and the next day it bothered her very much and so she had to stop training. In July, she saw Dr. Burch, he did an MRI, which she says showed right gastroc tear and no other problems, so she had to stop running. It looks like her prescription is dated from July, but she is just getting into therapy now. She has tried to run once about a month ago, but it bothered her right medial knee too much. She states that is 4-5/10. Currently it hurts intermittently. There are days where she has no pain and other days where it is 1 or 2/10. She rates it at 1/ 10 today. 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 Most of her home daily activities are not a problem. Her activities are pretty normal. Steps do not hurt. She is unable to train however for a half marathon, which she would like to do this year. She has not really had any treatments for this. She would like to start training on a treadmill and she is not following up with Dr. Burch. She is otherwise healthy. OBJECTIVE: The patient ambulates into physical therapy, no acute distress. She transfers normally, ambulates normally. No evidence of antalgia today, although she does say it hurts at 1/10. She has tenderness in the right medial gastroc muscle belly up into the tendon as well as in the hamstring tendon and pes anserine area. She has negative Homans test. She is painful with toe walking, not painful with heel walking. She has 0 degrees of dorsiflexion with her knee straight, bilaterally. Flexed knee gives her 5+ degrees of dorsiflexion. She does have some obvious tightness in the gastroc, not necessarily in the soleus. Otherwise, range of motion at the ankle, knee and hip are within normal limits and pain free. Resisted testing shows that she has 4+/5 ankle strength bilaterally without any resisted pain. Knee flexion, knee extension are pain-free at 4/5 and hip rotations are 4-/5 without pain. Hip abduction is 4-/5 without pain. She does have a mild amount of pes planus bilaterally. ASSESSMENT: At this point, the patient does have signs and symptoms consistent with the right medial gastroc diagnosis, appropriate for therapy with a fair prognosis. GOALS: 1. She will have no pain for a period of 1 week with ambulating and have much less tenderness. 2. She will be able to start jogging again without increased pain. 3. She will have appropriate video motion analysis and begin appropriate corrective exercise program appropriately. 4. She will be independent in appropriate corrective exercise program and resume training for half marathon. PLAN: At this point, I plan to see this patient 2-3 times a week as needed for up to 6-8 weeks. I have instructed her on appropriate home exercise and activity modification today. I plan to treat her with ultrasound, massage, stretching and eccentric strengthening initially to help with her healing process and once she is able to jogging, we will consider video motion analysis and corrective exercise prescription and progression of her running for training. She was agreeable to this course of therapy. Antonino Cardenas, PT T: NTS JOB: [id number] <Electronically signed by Antonino Cardenas > 09/17/14 0646 CC: Signed For Medicare only, by signing this I certify the plan of care. Physicians Signature Date Yanely Purdy Start: 09-13-2014 Mammography Adair Lopez Work Phone: Start: 07-18-2014 End: 07-18-2014 Lower Ext Joint Only (Routine) Comments: See Note; NOTES: [facility] Imaging Services [address] [place] [address] MRI Report MR#: [id number] Acct: [id number] Name: TOMEKA QUARLES Rep #: [id number] : 1970 F 44 From: Aldair Buckley MD PCP: Yanely Purdy DO Status: REG CLI Study: Lower Ext Joint Only (Routine) Date of Exam: 07/18/14 Exam# [id number] Ordering Dr: Jayce Burch DO STUDY: MRI RIGHT KNEE REASON FOR EXAM: Female, 44 years old. Lump in the medial anterior aspect of the knee. Pain and some swelling of time since April 2014 TECHNIQUE: Standardized fat and water weighted pulse sequences were obtained in all 3 orthogonal planes. COMPARISON: X-rays of the right knee on 07-06-14 FINDINGS: Normal medial meniscus. Normal hyaline cartilage of the medial femorotibial compartment. Normal medial femoral condyle and tibial plateau. Normal medial collateral ligamentous complex (MCL). Normal distal semimembranosus, gracilis and semitendinosus tendons. Normal lateral meniscus. Normal hyaline cartilage of the lateral femorotibial compartment. Normal lateral femoral condyle and tibial plateau. Normal proximal tibiofibular articulation. Normal lateral collateral (fibular) ligament. Normal popliteus tendon. Normal biceps femoris tendon. Normal anterior cruciate ligament (ACL). Normal posterior cruciate ligament (PCL). Normal congruent patellofemoral articulation. Normal hyaline cartilage of the patellofemoral compartment. Normal medial and lateral patellar retinaculum. Normal quadriceps tendon. Normal patellar tendon. Normal Hoffa's fat pad. There is no joint effusion. There is a myotendinous strain of the medial gastrocnemius with a partial tear and focal edema/hematoma. (coronal T2 series 7 image 8 and axial T2 series image 6) The otherwise visualized osseous structures are unremarkable. IMPRESSION: Myotendinous a strain of the medial gastrocnemius with partial tear and focal edema and hematoma. No signs of internal derangement otherwise noted. No masses are noted in the subcutaneous soft tissues. Electronically Signed: Aldair Buckley MD, FACR at 16:58 EST , Service support [phone], CC: Yanely Purdy DO; Jayce Burch Job Change Crew Member: Signed Yanely Rajwinder Start: 07-06-2014 End: 07-06-2014 Knee 4 or More Views Comments: See Note; NOTES: [facility] Imaging Services [address] [place] [address] Radiology Report MR#: [id number] Acct: [id number] Name: TOMEKA QUARLES Rep #: [id number] : 1970 F 44 From: Jose Loredo MD PCP: Yanely Purdy DO Status: PRE CLI Study: Knee 4 or More Views Date of Exam: 07/06/14 Exam# [id number] Ordering Dr: Jayce Burch DO STUDY: X-RAY - RIGHT KNEE REASON FOR EXAM: Female, 44 years old. Pain. TECHNIQUE: 4 views, AP and lateral views are weightbearing. COMPARISON: None. FINDINGS: Normal visualized distal femur. Normal visualized proximal tibia and fibula. Normal proximal tibiofibular articulation. Normal medial femorotibial compartment. Normal lateral femorotibial compartment. Normal patellofemoral articulation. There is no effusion in the suprapatellar bursa. There is no loose body. The soft tissue structures are unremarkable. IMPRESSION: Normal knee. Electronically Signed: Jose Loredo MD at 19:04 EDT Tel , Service support [phone], RAD/Knee 4 or More Views IMPRESSION: Normal knee. Electronically Signed: Jose Loredo MD at 19:04 EDT Tel , Service support [phone], CC: Yanely Purdy DO; Jayce Burch Job Change Crew Member: Signed Yanely Purdy Start: 06-01-2012 Bacteria identified in Urine by Culture Tasneem Jp Work Phone: Start: 05-23-2012 H/O: hysterectomy Hysterectomy Lena Cross RN OTOLARYNGOLOGY Start: 08-27-2004 Lipid 1996 panel - Serum or Plasma Krystal Sin APRN.REVERSAL PRINT INSPECTOR Work Phone: Plan of Treatment Date Care Activity Detail Author Start: 04-10-2025 [facility] Start: 11-15-2024 End: 11-15-2024 [facility] Start: 05-07-2024 Covid-19 Vaccine ( season) Covid-19 Vaccine () [facility] Start: 05-07-2024 Influenza vaccination [facility] Start: 09-06-2023 Behavioral Health Screening Behavioral Health Screening [facility] Start: 08-20-2023 [facility] Start: 05-07-2023 Covid-19 Vaccine ( season) Covid-19 Vaccine () [facility] Start: 04-14-2023 Patient Education Cervical Radiculop athy [facility] Work Phone: Start: 04-14-2023 Procedure Education Eprescribe d prescriptions (G8553) [facility] Work Phone: Start: 04-14-2023 Provider Instruction s for Treatment Follow up if no improvement or if symptoms worsen [facility] Work Phone: Start: 04-14-2023 X-ray of cervical spine Cerv S pine 2 or 3 Views [facility] Start: 04-14-2023 XR Cervical spine 2 or 3 Views [facility] Start: 11-18-2022 Provider Instruction s for Treatment Continue Current Prescription(s) [facility] Work Phone: Start: 06-18-2022 Lipid panel LIPID PANEL (06291) [facility]; [facility] Work Phone: Start: 06-10-2022 Ambulation without limitation [facility] Work Phone: Start: 06-10-2022 Medication education [facility] Work Phone: Start: 06-10-2022 Patient discharge [facility] Work Phone: Start: 06-10-2022 Taking patient vital signs [facility] Work Phone: Start: 06-10-2022 [facility] Work Phone: Start: 06-10-2022 Anes trurl fragmntj manj&/rmvl ureteral calculus ANESTH STONE REMOVAL [facility] Work Phone: Start: 06-10-2022 Diagnostic radiograp hy of abdomen Abdomen Single View [facility] Work Phone: Start: 06-10-2022 XR Abdomen Single view [facility] Work Phone: Start: 05-07-2022 Influenza vaccination INFLUENZA (#1) [facility] Start: 04-13-2022 Hepatic function panel HEPATIC FUNCTION PANEL (58727) [facility] Work Phone: Comment on above: Do In june Start: 04-13-2022 Lipid panel LIPID PANEL (04974) [facility]; [facility] Work Phone: Start: 04-09-2022 Procedure Education Eprescribe d prescriptions (G8553) [facility] Work Phone: Start: 04-09-2022 Provider Instruction s for Treatment [facility] Work Phone: Start: 04-09-2022 Iron binding capacity IRON BIN DING CAPACITY (TIBC) (09552) [facility] Work Phone: Start: 04-09-2022 Assay of iron IRON (39244) [facility]; [facility] Work Phone: Start: 04-09-2022 Assay of ferritin FERRITIN (06051) [facility] Work Phone: Start: 04-09-2022 25 hydroxy includes fractions if performed CALCIFIDIOL (05487) VIT D 25 [facility]; [facility] Work Phone: Start: 04-09-2022 Assay of thyroid stimulating hormone tsh TSH (23625) [facility]; [facility] Work Phone: Start: 04-09-2022 Comprehensive metabo lic panel METABOLIC PANEL, COMPREHENSIVE (87326) [facility] Work Phone: Start: 04-09-2022 Blood count complete auto&auto difrntl wbc CBC W/AUTO DIFF WBC (88892) [facility] Work Phone: Start: 04-09-2022 Lipid panel LIPID PANEL (55936) [facility] Work Phone: Start: 12-17-2021 Procedure Education Eprescribe d prescriptions (G8553) [facility] Work Phone: Start: 12-17-2021 Provider Instruction s for Treatment Follow up in 1 month with KF [facility] Work Phone: Start: 10-20-2021 COVID-19 VACCINE (4 - Booster for Pfizer series) COVID-19 VACCINE (4 - Booster for Pfizer series) [facility] Start: 05-07-2021 Influenza vaccination INFLUENZ A (Season Ended) [facility] Start: 03-19-2021 Procedure Education Eprescribe d prescriptions (G8553) [facility] Work Phone: Start: 03-19-2021 Provider Instruction s for Treatment [facility] Work Phone: Start: 02-17-2021 Procedure Education Eprescribe d prescriptions (G8553) [facility] Work Phone: Start: 02-17-2021 Provider Instruction s for Treatment [facility] Work Phone: Start: 02-10-2021 Procedure Education Eprescribe d prescriptions (G8553) [facility] Work Phone: Start: 02-10-2021 Provider Instruction s for Treatment [facility] Work Phone: Start: 02-10-2021 Urine albumin quantitative MICROALBUMIN: CREATININE RATIO (73254) AND (74019) [facility] Work Phone: Start: 02-10-2021 25 hydroxy includes fractions if performed CALCIFIDIOL (44475) VIT D 25 [facility] Work Phone: Start: 02-10-2021 Assay of thyroid stimulating hormone tsh TSH (24260) [facility] Work Phone: Start: 02-10-2021 Lipid panel LIPID PANEL (02362) [facility]; [facility] Work Phone: Start: 02-10-2021 Comprehensive metabo lic panel METABOLIC PANEL, COMPREHENSIVE (36028) [facility]; [facility] Work Phone: Start: 02-10-2021 Blood count complete auto&auto difrntl wbc CBC W/AUTO DIFF WBC (12448) [facility]; [facility] Work Phone: Start: 07-22-2020 [place]oo influenza 2019 Novel Coronavirus (COVID-19), SOY (79758) [facility] Work Phone: Start: 07-22-2020 Procedure Education Eprescribe d prescriptions (G8553) [facility] Work Phone: Start: 07-22-2020 Virus centrifuge enh ncd id imfluor stain ea Influenza A&B Viral Culture (04973) [facility] Work Phone: Start: 06-01-2020 DIABETES SCREEN DIABETES SCREEN [facility] Start: 06-01-2020 Diabetes Screening Diabetes Screenin g [facility] Start: 12-01-2019 Provider Instruction s for Treatment Reviewed Diagnostic Tests [facility] Work Phone: Start: 11-22-2019 Procedure Education Eprescribe d prescriptions (G8553) [facility] Work Phone: Start: 11-22-2019 Provider Instruction s for Treatment GERD Education [facility] Work Phone: Start: 2018 Pneumococcal Vaccine : 50+ (1 of 1 - PCV) Pneumococcal Vaccine: 50+ (1 of 1 - PCV) [facility] Start: 2018 Screening for malign ant neoplasm of colon [facility] Start: 2018 SHINGRIX VACCINE (1 of 2) SHINGRIX VACCINE (1 of 2) [facility] Start: 06-24-2017 Procedure Education Eprescribe d prescriptions (G8553) [facility] Work Phone: Start: 06-24-2017 Provider Instruction s for Treatment [facility] Work Phone: Start: 06-24-2017 Assay of iron IRON (28270) [facility]; [facility] Work Phone: Start: 06-24-2017 Iron mass conc IRON (59150) [facility] Work [facility]: Start: 06-24-2017 ALP enzyme act/vol ALKALINE PH OSPHATASE (39550) [facility] Work Phone: Start: 06-24-2017 Assay of phosphatase alkaline ALKALINE PHOSPHATASE (09400) [facility]; [facility] Work Phone: Start: 06-14-2017 25 hydroxy includes fractions if performed CALCIFEDIOL (76650) [facility] Work Phone: Start: 06-14-2017 Provider Instruction s for Treatment Reviewed [employer] Licensee Letter [facility] Work Phone: Start: 12-26-2015 Procedure Education Eprescribe d prescriptions (G8553) [facility] Work Phone: Start: 12-26-2015 Provider Instruction s for Treatment Follow up in 2 months [facility] Work Phone: Start: 12-11-2015 Procedure Education Eprescribe d prescriptions (G8553) [facility] Work Phone: Start: 12-11-2015 Provider Instruction s for Treatment Follow up in 2 weeks [facility] Work Phone: Start: 11-05-2015 Procedure Education Eprescribe d prescriptions (G8553) [facility] Work Phone: Start: 11-05-2015 Provider Instruction s for Treatment [facility] Work Phone: Start: 10-16-2015 Assay of iron IRON (57397) [facility]; [facility] Work Phone: Start: 10-16-2015 Iron mass conc IRON (30929) [facility] Work Phone: Start: 10-16-2015 Procedure Education Eprescribe d prescriptions (G8553) [facility] Work Phone: Start: 10-16-2015 Provider Instruction s for Treatment [facility] Work Phone: Start: 09-13-2015 Mammography MAMMOGRAM [facility] Start: 09-13-2015 Screening for malign ant neoplasm of breast Mammogram Screening [facility] Start: 08-12-2014 HPV TESTING HPV TESTING [facility] Start: 08-12-2014 PAP TESTING PAP TESTING [facility] Start: 08-12-2014 Screening for malign ant neoplasm of cervix [facility] Start: 05-01-2014 Provider Instruction s for Treatment [facility] Work Phone: Start: 2013 COLOGUARD (FIT-DNA) COLOGUARD (FIT-D NA) [facility] Start: 2013 Colonoscopy COLONOSCOPY [facility] Start: 2013 COLORECTAL CANCER SCREENING COLORECTAL CANCER SCREENING [facility] Start: [address] COLONOGRAPHY [facility] Start: 2013 FECAL OCCULT BLOOD FECAL OCCULT BLOO D [facility] Start: 2013 Lipid panel Lipid Screening [facility] Start: 2013 LIPID SCREEN LIPID SCREEN [facility] Start: 2013 Screening for malign ant neoplasm of colon [facility] Start: 2013 SIGMOIDOSCOPY SIGMOIDOSCOPY [facility] Start: 08-01-2012 Patient Education Sore throat: diagnosis and treatment [facility] Work Phone: Start: 07-06-2012 Lipid panel LIPID PANEL (44719) [facility] Work Phone: Start: 07-05-2012 Assay of iron IRON (70358) [facility]; [facility] Work Phone: Start: 07-05-2012 Iron mass conc IRON (04138) [facility] Work Phone: Start: 07-05-2012 Provider Instruction s for Treatment [facility] Work Phone: Start: 08-28-2011 Provider Instruction s for Treatment *Conjunctivitis Education [facility] Work Phone: Start: 06-29-2011 Provider Instruction s for Treatment [facility] Work Phone: Start: 06-16-2010 25 hydroxy includes fractions if performed CALCIFIDIOL (20309) VIT D 25 [facility] Work Phone: Start: 06-16-2010 Provider Instruction s for Treatment [facility] Work Phone: Start: 04-16-2009 Provider Instruction s for Treatment [facility] Work Phone: Start: 04-16-2009 Cobalamin (Vitamin B 12) mass conc VITAMIN B-12 (CYANOCOBALAMIN) (77526) [facility] Work Phone: Start: 04-16-2009 Cyanocobalamin vitam in b-12 VITAMIN B-12 (CYANOCOBALAMIN) (72403) [facility]; [facility] Work Phone: Start: 04-16-2009 Assay of thyroid stimulating hormone tsh TSH (09279) [facility]; [facility] Work Phone: Start: 04-16-2009 Thyrotropin Qn TSH (13524) [facility] Work Phone: Start: 04-16-2009 25 hydroxy includes fractions if performed Vitamin D Hydroxy (88352) [facility] Work Phone: Start: 04-16-2009 Lipid panel LIPID PANEL (95507) [facility] Work Phone: Start: 09-15-2007 Lipid panel LIPID PANEL (69694) [facility] Work Phone: Start: 09-15-2007 Provider Instruction s for Treatment GERD Education [facility] Work Phone: Start: 02-25-2007 Provider Instruction s for Treatment GERD Education [facility] Work Phone: Start: 1987 Hepatitis B Vaccine (1 of 3 - 19+ 3-dose series) Hepatitis B Vaccine (1 of 3 - 19+ 3-dose series) [facility] Start: 1987 Urine microalbumin profile [facility] Start: 1986 Anxiety Screening Anxiety Screening [facility] Start: 1986 Depression Screening Depression Scre ening [facility] Start: 1980 Adult depression screening assessment DEPRESSION SCREENING [facility] Start: 1968 HEPATITIS B (1 of 3 - 3-dose series) HEPATITIS B (1 of 3 - 3-dose series) [facility] Bacteria identified in Urine by Culture BACTERIAL CULTURE, URINE Microbiology Routine Pelvic pain Ordered: 11/16/2024 [facility] Work Phone: Comment on above: Ordered: 11/16/2024 BACTERIAL VAGINOSIS NAAT BACTERI AL VAGINOSIS NAAT Lab Routine Pelvic pain Ordered: 11/16/2024 [facility] Comment on above: Ordered: 11/16/2024 LLUVIA/TRICHOMONAS NAAT LLUVIA /TRICHOMONAS NAAT Lab Routine Pelvic pain Ordered: 11/16/2024 [facility] Comment on above: Ordered: 11/16/2024 Chlamydia trachomatis+Neisseria gonorrhoeae DNA [Presence] in Unspecified specimen by SOY with probe detection GONORRHEA/CHLAMYDIA NAAT Lab Routine Pelvic pain Ordered: 11/16/2024 [facility] Comment on above: Ordered: 11/16/2024 Patient referral [facility] Work Phone: Urine culture [facility] XR Abdomen Single view [facility] Work Phone: [facility] Work Phone: [facility] Work Phone[facility] Work Phone[facility] Work Phone: [facility] Work Phone[facility] Work Phone: [facility] Work Phone: [facility] Work Phone: [facility] Work Phone: [facility] Work Phone: [facility] Work Phone: [facility] Work Phone[facility] Work Phone: [facility] Work Phone[facility] Work Phone: [facility] Work Phone: [facility] Work Phone: [facility] Work Phone: [facility] Work Phone: [facility] Work Phone: [facility] Work Phone: [facility] Work Phone: [facility] Work Phone: [facility] Work Phone: Immunizations Immunization Date Immunization Notes Care Provider [facility] 11-22-2020 COVID-19 (Pfizer) Yanely vogt DO Work Phone: [facility]; [facility] Work Phone: 11-01-2020 COVID-19 (Pfizer) Yanely vogt DO Work Phone: [facility]; [facility] Work Phone: Payers Date Payer Category Payer Self-pay [id number] 2021 Private Health Insurance MMO [employer] PPO Member Subscriber Plan / Payer (Effective 2021-Present) Name: Tomeka Quarles Relation to Subscriber: Self Name: Tomeka Quarles Payer ID: Not on file Type: PPO Address: [place] [id number] 2021 Unknown 2007 Unknown [id number] 2002 Unknown MMO [employer] [facility] PLUS [id number] 2002-2016 PPO [id number] Unknown [id number] Unknown [id number] Unknown [id number] Unknown [id number] Unknown [id number] Unknown [id number] Unknown 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 Start: 05-18-2012 End: 04-10-2025 Tobacco smoking status NHIS Never smoker [facility] Work Phone: Start: 05-18-2012 Tobacco use and exposure Never used [facility] Work Phone: Start: 05-18-2012 Alcohol intake Current non-dr registered health nurse of alcohol (finding) [facility] Start: 1970 Sex Assigned At Not on file [facility] Start: 04-21-2022 End: 11-16-2024 Alcohol intake Current drinker of alcohol (finding) [facility] Start: 09-13-2014 History SDOH Alcohol Comment occ [facility] Start: 04-11-2022 End: 04-21-2022 Exposure to SARS-CoV-2 (event) Not sure [facility] Work Phone: Start: 05-08-2022 End: 08-19-2023 Tobacco smoking status NHIS Unknown if ever smoked [facility] Start: 03-17-2022 Homeless [facility] Start: 06-01-2019 Non-smoker [facility] Start: 1970 Sex Assigned At Female [facility] Start: 01-24-2024 End: 11-16-2024 Tobacco use panel [facility] Start: 11-15-2024 Sex Female (finding) [facility] Medical Equipment Procedure Code Equipment Code Equipment Origin al Text Equipment Identifier Dates Lithotripsy, [id number] ([id number]) Polymeric uret eral stent [id number] FDA Start: 06-10-2022 Goals Date Patient Goal Desired Activity /State Functional Status Date Assessment Result Facility 09-13-2014 Are you deaf, or do you have serious difficulty hearing No 09/13/2014 2:31 PM [facility] Valeri Henry MS No [facility] 09-13-2014 Are you blind, or do you have serious difficulty seeing, even when wearing glasses No 09/13/2014 2:31 PM [facility] Valeri Henry MS No [facility] 09-13-2014 Do you have serious difficulty walking or climbing stairs No 09/13/2014 2:31 PM [facility] Valeri Henry [facility] 09-13-2014 Do you have difficul ty dressing or bathing No 09/13/2014 2:31 PM [facility] Valeri Henry MS No [facility] 09-13-2014 Because of a physica l, mental, or emotional condition, do you have difficulty doing errands alone such as visiting a physician's office or shopping No 09/13/2014 2:31 PM [facility] Valeri Henry [facility] Mental Status Date Assessment Result Facility 06-10-2022 Cognitive function Voice/Name [facility] Work Phone: 09-13-2014 Because of a physica l, mental, or emotional condition, do you have serious difficulty concentrating, remembering, or making decisions No 09/13/2014 2:31 PM [facility] Valeri Henry [facility] Clinical Notes 06-06-2012 to 04-10-2025 Telephone Encounter - Dinah Peoples LPN - 11/17/2024 7:55 AM EDTTelephone Encounter - Dinah Peoples LPN - 11/17/2024 7:55 AM EDTTelephone Encounter - Dinah Peoples LPN - 11/17/2024 7:52 AM EDT Note Date & Type Note Facility 04-10-2025 Radiology Diagnostic study note [facility] [address], [place] [address] Abdomen/Pelvis without Cont MR#: [id number] Acct: [id number] Name: TOMEKA QUARLES Rep #: [id number] : [id number] F 54 From: Kristopher Up MD PCP: Dr. Yanely Purdy, DO Status: RE G ER Study:Abdomen/Pelvis without Cont Date of Exa m: 04/10/25 Exam# [id number] Ordering Dr: Antonino Gardner DO PROCEDURE: ABDOMEN/PELVIS WITHOUT CONT 04/10/2025 REASON FOR EXAM: LEFT FLANK PAIN TECHNIQUE: ABDOMEN/PELVIS WITHOUT CONT Noncontrast technique limits evaluation of the abdominal and pelvic viscera. Coronal and Sagittal reconstruction series were provided. One or more dose reduction techniques were used (e.g., Automated exposure control, adjustment of the mA and/or kV according to patient size, use of iterative reconstruction technique). RADIATION DOSE SUMMARY: CTDlvol: 8.04 mGy DLP: 385.41 mGycm COMPARISON: Prior study dated November 15, 2024. FINDINGS: Lung bases: The lung bases are clear. No evidence of coronary artery calcification. Liver: Normal size. No obvious mass. Gallbladder: I suspect small gallstones within the gallbladder lumen. Spleen: Normal size. Pancreas: Normal size. No surrounding inflammation. Adrenals: Unremarkable Kidneys: Mild degree of left hydronephrosis and left hydroureter due to a 2 mm calculus at the left ureterovesical junction. The previously seen calculus in the lower pole of the left kidney is not seen at this time within the kidney. Left parapelvic cysts. Bladder: Urinary bladder is empty. Reproductive Organs: Prior hysterectomy. Adnexal regions are unremarkable. Bowel: No bowel obstruction. Appendix: Unremarkable Lymph nodes: Unremarkable. Vasculature: Mild diffuse atherosclerotic calcifications are noted. Peritoneum / Retroperitoneum: Unremarkable Bones: No significant abnormality is seen. CT/Abdomen/Pelvis without Cont IMPRESSION: Mild degree of left hydronephrosis and left hydroureter due to a punctate calculus in the left ureterovesical junction. The previously seen calculus in the inferior pole of the left kidney is not seen at this time. Reading Location: [id number] CC: Dr. Antonino Gardner DO; Dr. Yanely Purdy DO ~ Job Change Crew Member: Signed [facility] 11-17-2024 Telephone encounter Note Patient given results and verbalized understanding of instructions given. Dinah Peoples LPN [facility] 11-17-2024 Miscellaneous Notes Patient given results and verbalized understanding of instructions given. Dinah Peoples LPN ----- Message from Gallo Garza APRN.REVERSAL PRINT INSPECTOR sent at 11/17/2024 7:13 AM EDT ----- Please inform patient that testing so far was negative for gonorrhea, chlamydia, bacterial vaginosis, and yeast. Urine culture is still pending at this time documented in this encounter [facility] 11-17-2024 Telephone encounter Note ----- Message from Gallo Garza APRN.REVERSAL PRINT INSPECTOR sent at 11/17/2024 7:13 AM EDT ----- Please inform patient that testing so far was negative for gonorrhea, chlamydia, bacterial vaginosis, and yeast. Urine culture is still pending at this time [facility] 11-16-2024 Note HNO ID: [id number] Author: ALAINA SCHUMACHER PA Service: ? Author Type: Physician Vessel Master Type: Progress Notes Filed: 11/16/2024 13:00 Note Text: [facility] Subjective Tomeka Quarles is a 54 year old female. Patient presents with: UTI: R lower abd pain x 3 days HPI 54-year-old female presents for right lower abdominal pain. Patient was seen yesterday at the emergency room and had a CT scan done which was negative. She was concerned about a kidney stone, but CT was normal. She also had a urine done which she states was told was abnormal, they were waiting for urine culture. Patient comes in today due to concern for UTI. She states she started getting dysuria this morning. She denies any fevers, vomiting, back pain. No vaginal discharge or itching. She states she has had kidney stones in the past which is why she thought this pain yesterday was due to that. She states the abdominal pain today is improved. She has not taken anything for symptoms. ER did not give her any prescriptions. No other complaint PAST MEDICAL HISTORY Diagnosis Date Depression Dysmenorrhea Dyspareunia Endometriosis Endometriosis 05/23/12 stage II GERD (gastroesophageal reflux disease) PAST SURGICAL HISTORY Procedure Laterality Date DILATION AND CURETTAGE DXAND/THER NONOBSTETRIC menorhagia EXTRACTION, ERUPTED TOOTH OR EXPOSED ROOT (ELEVATION AND/OR FORCEPS REMOVAL) 1986 wisdom teeth HYSTERECTOMY HX 05/23/2012 endometriosis LAPS ABD PRTMANDOMENTUM DX W/WO SPEC BR/WA SPX [place], [place]. endo., stage III PAST SURGICAL HISTORY OF Left 05/30/2017 Left hip ALLERGIES Patient has no known allergies. MEDICATIONS buPROPion SR (WELLBUTRIN SR) 100 mg 12 hr tablet busPIRone (BUSPAR) 15 mg tablet Take 15 mg by mouth two times a day. denosumab (PROLIA) 60 mg/mL Inject 60 mg subcutaneously one time only. rosuvastatin (CRESTOR) 10 mg tablet Take 10 mg by mouth daily at bedtime. Teriparatide 20 mcg/dose (600mcg/2.4mL) Inject subcutaneously. (Patient not taking: Reported on 04/21/2022) omeprazole (PRILOSEC) 20 mg capsule (Patient not taking: Reported on 04/21/2022) cholecalciferol, vitamin D3, 100 mcg (4,000 unit) cap Take by mouth. MULTIVIT-MINERALS/FERROUS FUM (MULTI VITAMIN ORAL) Take by mouth. oxyCODONE-acetaminophen (PERCOCET) 5-325 mg tablet (Patient not taking: Reported on 01/24/2024) traMADol (ULTRAM) 50 mg tablet 1 to 2 tab(s) every 8 hours as needed for pain. (Patient not taking: Reported on 04/21/2022) escitalopram (LEXAPRO) 20 mg tablet take 1/2 pill qam (Patient taking differently: Take 20 mg by mouth once daily.) famotidine(PEPCID AC 10 MG TAB) Take one tablet daily. (Patient not taking: Reported on 01/24/2024) FAMILY HISTORY Problem Relation Age of Onset Hypertension Mother Cancer Father skin Heart Father stent inserted Cancer Paternal Grandfather colon Breast Cancer Paternal Grandmother Stroke Maternal Grandfather other (scizophrenia) Sister Breast Cancer Paternal Aunt lump removed precancerous lesion Social History Tobacco Use Smoking status: Never Smokeless tobacco: Never Substance Use Topics Alcohol use: Yes Comment: occ Drug use: No Review of Systems Constitutional: Negative for chills and fever. HENT: Negative for congestion, ear pain and sore throat. Respiratory: Negative for cough and shortness of breath. Cardiovascular: Negative for chest pain. Gastrointestinal: Positive for abdominal pain. Negative for diarrhea and vomiting. Genitourinary: Positive for dysuria. Negative for frequency, hematuria and urgency. Objective BP 169/102 Pulse 75 Temp 36.9 ?C (98.4 ?F) Resp 20 Wt 76 kg (167 lb 8.8 oz) LMP 02/25/2012 SpO2 99% BMI 29.68 kg/m? Physical Exam Vitals and nursing note reviewed. Constitutional: General: She is not in acute distress. Appearance: Normal appearance. She is not toxic-appearing. HENT: Nose: Nose normal. Mouth/Throat: Mouth: Mucous membranes are moist. Eyes: Conjunctiva/sclera: Conjunctivae normal. Cardiovascular: Rate and Rhythm: Normal rate and regular rhythm. Pulmonary: Effort: Pulmonary effort is normal. Breath sounds: Normal breath sounds. Abdominal: General: Abdomen is flat. Palpations: Abdomen is soft. Tenderness: There is no abdominal tenderness. There is no right CVA tenderness, left CVA tenderness, guarding or rebound. Skin: General: Skin is warm and dry. Neurological: Mental Status: She is alert. ASSESSMENT/PLAN: 1. Pelvic pain - ICD9: [id number], ICD10: R10.2 -Reviewed prior now that patient brought from ER yesterday. She had lab testing and CT completed. CT results revealed no kidney stone. Normal appendix. Pain improved today. -UA here reveals large blood, 30 protein, small leukocytes. -Will treat for UTI. Rx for Macrobid given. -Vaginal swabs pending. -Did advise patient if abdominal pain returns or worsens, go to ER - UA (more content not included)... [facility] 11-16-2024 History of Present illness Narrative [facility] Subjective Tomeka Quarles is a 54 year old female. Patient presents with: UTI: R lower abd pain x 3 days HPI 54-year-old female presents for right lower abdominal pain. Patient was seen yesterday at the emergency room and had a CT scan done which was negative. She was concerned about a kidney stone, but CT was normal. She also had a urine done which she states was told was abnormal, they were waiting for urine culture. Patient comes in today due to concern for UTI. She states she started getting dysuria this morning. She denies any fevers, vomiting, back pain. No vaginal discharge or itching. She states she has had kidney stones in the past which is why she thought this pain yesterday was due to that. She states the abdominal pain today is improved. She has not taken anything for symptoms. ER did not give her any prescriptions. No other complaint PAST MEDICAL HISTORY Diagnosis Date Depression Dysmenorrhea Dyspareunia Endometriosis Endometriosis 05/23/12 stage II GERD (gastroesophageal reflux disease) PAST SURGICAL HISTORY Procedure Laterality Date DILATION & CURETTAGE DX&/THER NONOBSTETRIC menorhagia EXTRACTION, ERUPTED TOOTH OR EXPOSED ROOT (ELEVATION AND/OR FORCEPS REMOVAL) 1986 wisdom teeth HYSTERECTOMY HX 05/23/2012 endometriosis LAPS ABD PRTM&OMENTUM DX W/WO SPEC BR/WA SPX [place], [place]. endo., stage III PAST SURGICAL HISTORY OF Left 05/30/2017 Left hip ALLERGIES Patient has no known allergies. MEDICATIONS buPROPion SR (WELLBUTRIN SR) 100 mg 12 hr tablet busPIRone (BUSPAR) 15 mg tablet Take 15 mg by mouth two times a day. denosumab (PROLIA) 60 mg/mL Inject 60 mg subcutaneously one time only. rosuvastatin (CRESTOR) 10 mg tablet Take 10 mg by mouth daily at bedtime. Teriparatide 20 mcg/dose (600mcg/2.4mL) Inject subcutaneously. (Patient not taking: Reported on 04/21/2022) omeprazole (PRILOSEC) 20 mg capsule (Patient not taking: Reported on 04/21/2022) cholecalciferol, vitamin D3, 100 mcg (4,000 unit) cap Take by mouth. MULTIVIT-MINERALS/FERROUS FUM (MULTI VITAMIN ORAL) Take by mouth. oxyCODONE-acetaminophen (PERCOCET) 5-325 mg tablet (Patient not taking: Reported on 01/24/2024) traMADol (ULTRAM) 50 mg tablet 1 to 2 tab(s) every 8 hours as needed for pain. (Patient not taking: Reported on 04/21/2022) escitalopram (LEXAPRO) 20 mg tablet take 1/2 pill qam (Patient taking differently: Take 20 mg by mouth once daily.) famotidine(PEPCID AC 10 MG TAB) Take one tablet daily. (Patient not taking: Reported on 01/24/2024) FAMILY HISTORY Problem Relation Age of Onset Hypertension Mother Cancer Father skin Heart Father stent inserted Cancer Paternal Grandfather colon Breast Cancer Paternal Grandmother Stroke Maternal Grandfather other (scizophrenia) Sister Breast Cancer Paternal Aunt lump removed precancerous lesion Social History Tobacco Use Smoking status: Never Smokeless tobacco: Never Substance Use Topics Alcohol use: Yes Comment: occ Drug use: No Review of Systems Constitutional: Negative for chills and fever. HENT: Negative for congestion, ear pain and sore throat. Respiratory: Negative for cough and shortness of breath. Cardiovascular: Negative for chest pain. Gastrointestinal: Positive for abdominal pain. Negative for diarrhea and vomiting. Genitourinary: Positive for dysuria. Negative for frequency, hematuria and urgency. Objective BP 169/102 Pulse 75 Temp 36.9 C (98.4 F) Resp 20 Wt 76 kg (167 lb 8.8 oz) LMP 02/25/2012 SpO2 99% BMI 29.68 kg/m Physical Exam Vitals and nursing note reviewed. Constitutional: General: She is not in acute distress. Appearance: Normal appearance. She is not toxic-appearing. HENT: Nose: Nose normal. Mouth/Throat: Mouth: Mucous membranes are moist. Eyes: Conjunctiva/sclera: Conjunctivae normal. Cardiovascular: Rate and Rhythm: Normal rate and regular rhythm. Pulmonary: Effort: Pulmonary effort is normal. Breath sounds: Normal breath sounds. Abdominal: General: Abdomen is flat. Palpations: Abdomen is soft. Tenderness: There is no abdominal tenderness. There is no right CVA tenderness, left CVA tenderness, guarding or rebound. Skin: General: Skin is warm and dry. Neurological: Mental Status: She is alert. ASSESSMENT/PLAN: 1. Pelvic pain - ICD9: [id number], ICD10: R10.2 -Reviewed prior now that patient brought from ER yesterday. She had lab testing and CT completed. CT results revealed no kidney stone. Normal appendix. Pain improved today. -UA here reveals large blood, 30 protein, small leukocytes. -Will treat for UTI. Rx for Macrobid given. -Vaginal swabs pending. -Did advise patient if abdominal pain returns or worsens, go to ER - UA DIP, URINE (POC) - BACTERIAL CULTURE, URINE - GONORRHEA/CHLAMYDIA NAAT - LLUVIA/TRICHOMONAS NAAT - BACTERIAL VAGINOSIS NAAT Diagnosis and treatment plan were discussed and questions were answered to the patient's satisfaction. Pt acknowledged understanding of concepts and follow up plan. Specific signs and symptoms that would indicate the need for higher level of care were discussed in detail warranting prompt ER evaluation. PRUDENCIO Cain History and Record Review External record(s) reviewed: other (see comments). Findings from review of other records: Patient brought in ER visit with CT result from yesterday. CT negative for ureterolithiasis. Normal appendix. No other acute findings. Differential Diagnoses - UTI is more likely for the following reason(s): suggested by H&P - Appendicitis is less likely for the following reason(s): H&P not suggestive - Pyelonephritis is less likely for the following reason(s): H&P not suggestive Disposition The patient was discharged. Procedures documented in this encounter [facility] 11-15-2024 Radiology Diagnostic study note [facility] Imaging Services [address] [place] [id number] Abdomen/Pelvis without Cont MR#: [id number] Acct: [id number] Name: TOMEKA QUARLES Rep #: [id number] : 1970 F 54 From: Rodo Martinez DO PCP: Dr. Yanely Purdy DO Status: RE G ER Study:Abdomen/Pelvis without Cont Date of Exa m: 11/15/24 Exam# [id number] Ordering Dr: Efra Koehler DO PROCEDURE: ABDOMEN/PELVIS WITHOUT CONT REASON FOR EXAM: Pain, calculus TECHNIQUE: Multiple contiguous axial images through the abdomen and pelvis were obtained without the administration of intravenous contrast. Two-dimensional coronal and sagittal reformatted images were reconstructed. Low-dose imaging technique was utilized. COMPARISON: None. FINDINGS: Lung bases are clear. Unenhanced liver, spleen, pancreas and adrenal glands areintact. Gallbladder is contracted. No significant biliary ductal dilation. Punctate nonobstructing left renal calculus. A couple small left peripelvic cysts. No right renal calculi. No hydronephrosis. Urinary bladder is within normal limits. No bowel obstruction, focal bowel wall thickening or significant perienteric inflammation. Normal appendix. No pelvicfree fluid. No free air. No abdominal aortic aneurysm or suspicious adenopathy. Superficial soft tissues are within normal limits. No acute osseous abnormality. 2 fixation screws in the left femoral neck. CT/Abdomen/Pelvis without Cont IMPRESSION: 1. No acute process. 2. Left nephrolithiasis. One or more dose reduction techniques were used (e.g., Automated exposure control, adjustment of the mA and/or kV according to patient size, use of iterative reconstruction technique). Reading Location: [facility] CC: Dr. Yanely Purdy DO; Dr. Efra Koehler DO ~ Job Change Crew Member: Signed [facility] 05-26-2024 Note [facility] Medical Records Department [address] [place] [address] History Physical Exam 05/26/2445 MR#: [id number] Acct: [id number] Name: TOMEKA QUARLES Rep #: [id number] : 1970 53 From: Pierre Espinoza MD PCP: Dr. Yanely Purdy DO Status:[facility] Location: 05/30/24 1115 Cosigner Signature (if applicable): CC: Dr. Yanely Purdy DO; Dr. Pierre Espinoza MD Signed [facility] 05-26-2024 Note [facility] Medical Records Department [address] [place] [address] History Physical Exam 05/26/24 0945 MR#: [id number] Acct: [id number] Name: TOMEKA QUARLES Rep #: [id number] : 1970 53 From: Pierre Espinoza MD PCP: Dr. Yanely Purdy, DO Status:[facility] Location: [address] - General General Date of Service: 05/26/24 HPI Narrative TOMEKA QUARLES, is a 53 F who presents for screening colonoscopy. Her last colonoscopy was about 10 years ago. She had no polyps at that time. She does have a family history of colon cancer in her paternal grandfather. It sounds as though some other family members had colon polyps. She herself denies any GI issues or complaints currently or recently. [facility] Medical History PONV (postoperative nausea and vomiting) History of kidney stones Family history of colon cancer Wears glasses Depression Anxiety High cholesterol Restless legs Gastric reflux Heartburn Non-smoker History of echocardiogram History of stress test History of endometriosis Home Medications ???Medication ???Instructions ???Recorded ???Last Taken ???Type bupropion HCl 100 mg tablet 100 mg PO DAILY 06/01/19 05/25/24 History calcium carbonate 600 mg-vitamin 2 ea PO DAILY 06/01/19 05/23/24 History D3 5 mcg (200 unit) tablet escitalopram oxalate 20 mg tablet 20 mg PO DAILY 06/01/19 05/26/24 History multivitamin 1 ea PO DAILY 06/01/19 05/25/24 History ibuprofen 600 mg tablet 600 mg PO Q8H PRN PRN pain #20 tabs 05/08/22 Unknown Rx buspirone 15 mg tablet 15 mg PO DAILY 06/03/22 05/26/24 History rosuvastatin 10 mg tablet 10 mg PO DAILY 06/03/22 05/25/24 History denosumab 60 mg/mL subcutaneous 60 mg subcut [id number] 05/15/24 05/23/24 History syringe (Prolia) Allergy/AdvReac Type Severity Reaction Status Date / Time adhesive tape AdvReac Rash Verified 05/26/24 09:02 Family History Grandfather Colon cancer Before 60yrs. Surgical History Hx of colonoscopy History of hysterectomy Social History household members: spouse current occupational status: employed current occupation: [employer] Smoking Status: Never smoker substance use type: does not use Vital Signs Vital Signs Vital Signs: 05/26/24 09:06 05/26/24 09:06 Temperature 97 F L Temperature Source Temporal Pulse Rate 67 Respiratory Rate 18 Respiratory Pattern Normal Blood Pressure 158/80 H Blood Pressure Mean 106 Blood Pressure Source Monitor Blood Pressure Position Semi-Fowlers Blood Pressure Location Right Arm Pulse Ox 99 Oxygen Delivery Method Room Air Weight Weight: 165 lb Body Mass Index (BMI) 29.2 Physical Exam Const alert, oriented x3 and no apparent distress General Appearance: cooperative and comfortable Orientation / Consciousness: awake and oriented to person HEENT normocephalic Eyes PERRL Resp Auscultation: clear to auscultation bilaterally Cardio regular rate and regular rhythm Assessment Plan Assessment/Plan (1) Encounter for screening for malignant neoplasm of colon: PLAN: Plan The patient is a 53-year-old female who presents today for screening colonoscopy. She does have a family history of colon polyps and colon cancer. We discussed the details of the planned procedure including the risks, benefits and alternatives. She wishes to proceed. Colonoscopy will begin momentarily. 05/26/24 09 Cosigner Signature (if applicable): CC: Dr. Yanely Purdy DO; Dr. Pierre Espinoza MD Signed [facility] 01-24-2024 Note HNO ID: [id number] Author: KRYSTAL SIN APRN.REVERSAL PRINT INSPECTOR Service: ? Author Type: Nurse Practitioner Type: Progress Notes Filed: 01/24/2024 16:29 Note Text: Subjective Eye Problem Pertinent negatives include no fever or rash. Tomeka Quarles is a 53 year old female who presents with bilateral eye redness for the past 2 days. She states she was exposed to pink eye over a week ago. She denies drainage from her eyes. States her eyes were stinging today when she had her windows rolled down in her car. She rolled them up and the stinging resolved. She has not had any medication for this at home. States occasionally has blurred vision due to increased tearing. Review of Systems Constitutional: Negative for fever. HENT: Negative for ear pain. Eyes: Positive for blurred vision, pain (stinging) and redness. Negative for double vision, photophobia and discharge. Skin: Negative for itching and rash. BP 170/100 Pulse 75 Temp 36.9 ?C (98.4 ?F) Resp 21 Wt 78 kg (171 lb 15.3 oz) LMP 02/25/2012 SpO2 97% BMI 30.46 kg/m? PAST MEDICAL HISTORY Diagnosis Date Depression Dysmenorrhea Dyspareunia Endometriosis Endometriosis 05/23/12 stage II GERD (gastroesophageal reflux disease) PAST SURGICAL HISTORY Procedure Laterality Date DILATION AND CURETTAGE DXAND/THER NONOBSTETRIC menorhagia EXTRACTION, ERUPTED TOOTH OR EXPOSED ROOT (ELEVATION AND/OR FORCEPS REMOVAL) 1986 wisdom teeth HYSTERECTOMY HX 05/23/2012 endometriosis LAPS ABD PRTMANDOMENTUM DX W/WO SPEC BR/WA SPX [place], [place]. endo., stage III PAST SURGICAL HISTORY OF Left 05/30/2017 Left hip ALLERGIES Patient has no known allergies. MEDICATIONS denosumab (PROLIA) 60 mg/mL Inject 60 mg subcutaneously one time only. rosuvastatin (CRESTOR) 10 mg tablet Take 10 mg by mouth daily at bedtime. cholecalciferol, vitamin D3, 100 mcg (4,000 unit) cap Take by mouth. MULTIVIT-MINERALS/FERROUS FUM (MULTI VITAMIN ORAL) Take by mouth. buPROPion SR (WELLBUTRIN SR) 100 mg 12 hr tablet escitalopram (LEXAPRO) 20 mg tablet take 1/2 pill qam olopatadine (PATANOL) 0.1 % ophthalmic solution Use 1 Drop in both eyes two times a day for 30 days. Teriparatide 20 mcg/dose (600mcg/2.4mL) Inject subcutaneously. (Patient not taking: Reported on 04/21/2022) omeprazole (PRILOSEC) 20 mg capsule (Patient not taking: Reported on 04/21/2022) oxyCODONE-acetaminophen (PERCOCET) 5-325 mg tablet (Patient not taking: Reported on 01/24/2024) traMADol (ULTRAM) 50 mg tablet 1 to 2 tab(s) every 8 hours as needed for pain. (Patient not taking: Reported on 04/21/2022) famotidine(PEPCID AC 10 MG TAB) Take one tablet daily. (Patient not taking: Reported on 01/24/2024) FAMILY HISTORY Problem Relation Age of Onset Hypertension Mother Cancer Father skin Heart Father stent inserted Cancer Paternal Grandfather colon Breast Cancer Paternal Grandmother Stroke Maternal Grandfather other (scizophrenia) Sister Breast Cancer Paternal Aunt lump removed precancerous lesion Social History Tobacco Use Smoking status: Never Smokeless tobacco: Never Substance Use Topics Alcohol use: Yes Comment: occ Drug use: No Objective Physical Exam Vitals and nursing note reviewed. Constitutional: Appearance: Normal appearance. Eyes: General: Lids are normal. Vision grossly intact. Gaze aligned appropriately. No allergic shiner. Right eye: No foreign body, discharge or hordeolum. Left eye: No foreign body, discharge or hordeolum. Extraocular Movements: Extraocular movements intact. Conjunctiva/sclera: Conjunctivae normal. Right eye: Right conjunctiva is not injected. No chemosis, exudate or hemorrhage. Left eye: Left conjunctiva is not injected. No chemosis, exudate or hemorrhage. Cardiovascular: Rate and Rhythm: Normal rate. Pulmonary: Effort: Pulmonary effort is normal. Skin: General: Skin is warm and dry. Findings: No erythema or rash. Neurological: Mental Status: She is alert. ASSESSMENT/PLAN: 1. Acute conjunctivitis of both eyes, unspecified acute conjunctivitis type - ICD9: 372.00, ICD10: H10.33 Allergic - see medication orders - course and contagiousness issues discussed, including hand washing. - Instructed to call if high fever, development of periorbital redness or swelling, eye pain, visual changes, concerns or if symptoms persist. - OLOPATADINE 0.1 % EYE DROPS - Follow-up with your PCP in 3-5 days if symptoms have not improved or sooner if symptoms worsen - Discussed red flags and need for immediate medical evaluation if any occur. - Discussed supportive care treatment with fluids, rest and analgesia. - Discussed expected course of illness Krystal Sin APRN.[facility] 01-24-2024 History of Present illness Narrative Subjective Eye Problem Pertinent negatives include no fever or rash. Tomeka Quarles is a 53 year old female who presents with bilateral eye redness for the past 2 days. She states she was exposed to pink eye over a week ago. She denies drainage from her eyes. States her eyes were stinging today when she had her windows rolled down in her car. She rolled them up and the stinging resolved. She has not had any medication for this at home. States occasionally has blurred vision due to increased tearing. Review of Systems Constitutional: Negative for fever. HENT: Negative for ear pain. Eyes: Positive for blurred vision, pain (stinging) and redness. Negative for double vision, photophobia and discharge. Skin: Negative for itching and rash. BP 170/100 Pulse 75 Temp 36.9 C (98.4 F) Resp 21 Wt 78 kg (171 lb 15.3 oz) LMP 02/25/2012 SpO2 97% BMI 30.46 kg/m PAST MEDICAL HISTORY Diagnosis Date Depression Dysmenorrhea Dyspareunia Endometriosis Endometriosis 05/23/12 stage II GERD (gastroesophageal reflux disease) PAST SURGICAL HISTORY Procedure Laterality Date DILATION & CURETTAGE DX&/THER NONOBSTETRIC menorhagia EXTRACTION, ERUPTED TOOTH OR EXPOSED ROOT (ELEVATION AND/OR FORCEPS REMOVAL) 1986 wisdom teeth HYSTERECTOMY HX 05/23/2012 endometriosis LAPS ABD PRTM&OMENTUM DX W/WO SPEC BR/WA SPX [place], [place]. endo., stage III PAST SURGICAL HISTORY OF Left 05/30/2017 Left hip ALLERGIES Patient has no known allergies. MEDICATIONS denosumab (PROLIA) 60 mg/mL Inject 60 mg subcutaneously one time only. rosuvastatin (CRESTOR) 10 mg tablet Take 10 mg by mouth daily at bedtime. cholecalciferol, vitamin D3, 100 mcg (4,000 unit) cap Take by mouth. MULTIVIT-MINERALS/FERROUS FUM (MULTI VITAMIN ORAL) Take by mouth. buPROPion SR (WELLBUTRIN SR) 100 mg 12 hr tablet escitalopram (LEXAPRO) 20 mg tablet take 1/2 pill qam olopatadine (PATANOL) 0.1 % ophthalmic solution Use 1 Drop in both eyes two times a day for 30 days. Teriparatide 20 mcg/dose (600mcg/2.4mL) Inject subcutaneously. (Patient not taking: Reported on 04/21/2022) omeprazole (PRILOSEC) 20 mg capsule (Patient not taking: Reported on 04/21/2022) oxyCODONE-acetaminophen (PERCOCET) 5-325 mg tablet (Patient not taking: Reported on 01/24/2024) traMADol (ULTRAM) 50 mg tablet 1 to 2 tab(s) every 8 hours as needed for pain. (Patient not taking: Reported on 04/21/2022) famotidine(PEPCID AC 10 MG TAB) Take one tablet daily. (Patient not taking: Reported on 01/24/2024) FAMILY HISTORY Problem Relation Age of Onset Hypertension Mother Cancer Father skin Heart Father stent inserted Cancer Paternal Grandfather colon Breast Cancer Paternal Grandmother Stroke Maternal Grandfather other (scizophrenia) Sister Breast Cancer Paternal Aunt lump removed precancerous lesion Social History Tobacco Use Smoking status: Never Smokeless tobacco: Never Substance Use Topics Alcohol use: Yes Comment: occ Drug use: No Objective Physical Exam Vitals and nursing note reviewed. Constitutional: Appearance: Normal appearance. Eyes: General: Lids are normal. Vision grossly intact. Gaze aligned appropriately. No allergic shiner. Right eye: No foreign body, discharge or hordeolum. Left eye: No foreign body, discharge or hordeolum. Extraocular Movements: Extraocular movements intact. Conjunctiva/sclera: Conjunctivae normal. Right eye: Right conjunctiva is not injected. No chemosis, exudate or hemorrhage. Left eye: Left conjunctiva is not injected. No chemosis, exudate or hemorrhage. Cardiovascular: Rate and Rhythm: Normal rate. Pulmonary: Effort: Pulmonary effort is normal. Skin: General: Skin is warm and dry. Findings: No erythema or rash. Neurological: Mental Status: She is alert. ASSESSMENT/PLAN: 1. Acute conjunctivitis of both eyes, unspecified acute conjunctivitis type - ICD9: 372.00, ICD10: H10.33 Allergic - see medication orders - course and contagiousness issues discussed, including hand washing. - Instructed to call if high fever, development of periorbital redness or swelling, eye pain, visual changes, concerns or if symptoms persist. - OLOPATADINE 0.1 % EYE DROPS - Follow-up with your PCP in 3-5 days if symptoms have not improved or sooner if symptoms worsen - Discussed red flags and need for immediate medical evaluation if any occur. - Discussed supportive care treatment with fluids, rest and analgesia. - Discussed expected course of illness Krystal Sin APRN.TRAVIS documented in this encounter [facility] [place] 01-24-2024 Instructions Krystal Sin APRN.TRAVIS - 01/24/2024 4:26 PM EDT ASSESSMENT/PLAN: 1. Acute conjunctivitis of both eyes, unspecified acute conjunctivitis type - ICD9: 372.00, ICD10: H10.33 Allergic - see medication orders - course and contagiousness issues discussed, including hand washing. - Instructed to call if high fever, development of periorbital redness or swelling, eye pain, visual changes, concerns or if symptoms persist. - OLOPATADINE 0.1 % EYE DROPS - Follow-up with your PCP in 3-5 days if symptoms have not improved or sooner if symptoms worsen - Discussed red flags and need for immediate medical evaluation if any occur. - Discussed supportive care treatment with fluids, rest and analgesia. - Discussed expected course of illness Krystal Sin APRN.REVERSAL PRINT INSPECTOR documented in this encounter [facility] [place] 04-21-2022 History of Present illness Narrative Images from the original note were not included. Subjective HPI HPI Tomeka Quarles is a 51 year old female who presents today for CC of bee sting of left leg. This started 2 days ago. Has tried otc medication without relief. Symptoms are worsened by nothign. Risk factors hx of bad reactions to stings. Denies trouble breathing/swallowing. .Patient presents with: Insect Bite: bee sting left inner thigh x 2 days PAST MEDICAL HISTORY Diagnosis Date Depression Dysmenorrhea Dyspareunia Endometriosis Endometriosis 05/23/12 stage II GERD (gastroesophageal reflux disease) PAST SURGICAL HISTORY Procedure Laterality Date DILATION & CURETTAGE DX&/THER NONOBSTETRIC menorhagia EXTRACTION, ERUPTED TOOTH OR EXPOSED ROOT (ELEVATION AND/OR FORCEPS REMOVAL) 1986 wisdom teeth HYSTERECTOMY HX 05/23/2012 endometriosis LAPS ABD PRTM&OMENTUM DX W/WO SPEC BR/WA SPX [place], [place]. endo., stage III PAST SURGICAL HISTORY OF Left 05/30/2017 Left hip ALLERGIES Patient has no known allergies. MEDICATIONS cholecalciferol, vitamin D3, 100 mcg (4,000 unit) cap Take by mouth. MULTIVIT-MINERALS/FERROUS FUM (MULTI VITAMIN ORAL) Take by mouth. buPROPion SR (WELLBUTRIN SR) 100 mg 12 hr tablet escitalopram (LEXAPRO) 20 mg tablet take 1/2 pill qam famotidine(PEPCID AC 10 MG TAB) Take one tablet daily. denosumab (PROLIA) 60 mg/mL Inject 60 mg subcutaneously one time only. rosuvastatin (CRESTOR) 10 mg tablet Take 10 mg by mouth daily at bedtime. methylPREDNISolone (MEDROL, CARMEN,) 4 mg Dose-Pack Follow dosing instructions, take with food. Teriparatide 20 mcg/dose (600mcg/2.4mL) Inject subcutaneously. (Patient not taking: Reported on 04/21/2022) omeprazole (PRILOSEC) 20 mg capsule (Patient not taking: Reported on 04/21/2022) oxyCODONE-acetaminophen (PERCOCET) 5-325 mg tablet traMADol (ULTRAM) 50 mg tablet 1 to 2 tab(s) every 8 hours as needed for pain. (Patient not taking: Reported on 04/21/2022) FAMILY HISTORY Problem Relation Age of Onset Hypertension Mother Cancer Father skin Heart Father stent inserted Cancer Paternal Grandfather colon Breast Cancer Paternal Grandmother Stroke Maternal Grandfather other (scizophrenia) Sister Breast Cancer Paternal Aunt lump removed precancerous lesion Social History Tobacco Use Smoking status: Never Smokeless tobacco: Never Substance Use Topics Alcohol use: Yes Comment: occ Drug use: No ROS Objective Blood pressure 162/96, pulse 76, temperature 37 C (98.6 F), resp. rate 16, weight 76.7 kg (169 lb), last menstrual period 02/25/2012, SpO2 98 %. Patient reports hx of white coat syndrome, has been checking bp at home sbp no higher than 130 on home cuff. Physical Exam Constitutional: General: She is not in acute distress. Appearance: She is not toxic-appearing or diaphoretic. HENT: Head: Normocephalic and atraumatic. Cardiovascular: Rate and Rhythm: Normal rate and regular rhythm. Heart sounds: Normal heart sounds, S1 normal and S2 normal. Pulmonary: Effort: Pulmonary effort is normal. Breath sounds: Normal breath sounds. Skin: Neurological: Mental Status: She is alert and oriented to person, place, and time. Gait: Gait is intact. ASSESSMENT/PLAN: 1. Bee sting, accidental or unintentional, initial encounter - ICD9: 989.5, E905.3, ICD10: T63.441A Check bp before taking steroid, if remains high do not take. F/u with pcp if s/s persist/worsen/change. -If you experience chest pain/shortness of breath go to ER - METHYLPREDNISOLONE 4 MG TABLETS IN A DOSE PACK Agrees to plan Raul Irvin APRN.TRAVIS documented in this encounter [facility] [place] 06-06-2012 Miscellaneous Notes Specimen Description (Final): Urine midstream clean catch Exam Type (Final): Urine Culture Accession Number (Final): [id number] Specimen Request (Final): Byrd Top Culture (Abnormal) (Final): <10,000 CFU/ml Possible Enterococcus(*) <10,000 CFU/ml Normal Urogenital jose Culture Report (Final): [id number] FINAL Called pt to check in. She still has some frequency of urination and lower abdominal aching. She took all Bactrim, no worse but no better. Discussed and she would like to try a different antibiotic. Pt will continue to drink moderate fluids and call later in the week with update. The following approved medication requests have been transmitted electronically. Approved Prescriptions Disp Refills nitrofurantoin (MACRODANTIN) 100 mg capsule 10 capsule 0 Sig: Take 1 capsule by mouth twice daily. Authorizing Provider: TOMEKA MENDOZA (KATHARINA) Tomeka Mendoza RN RE[employer]AL PRINT INSPECTOR Called pt and states about 4 days ago started more persistent sx of feeling like she in snot able to empty bladder completely and painfrul at the end of urination. and frequency. Never had UTI before. Will drop off urine for C&S at [place] and will call for results. The following approved medication requests have been transmitted electronically. Approved Prescriptions Disp Refills sulfamethoxazole-trimethoprim (BACTRIM DS) 800-160 mg per tablet 6 tablet 0 Sig: Take 1 tablet by mouth twice daily for 3 days. Authorizing Provider: TASNEEM JAIME (KATHARINA) Tasneem Jaime CNP [phone] - Had surgery . May have urinary tract infection. Can't empty bladder fully and has pain at the end. Pharm: [facility] in [place] [phone] Called pt to check in and see how she is doing. Pt went to the [place] ER, ended up staying overnight for impaction): She is feeling much better now though having very loose stools at this point. She is only taking Ibuprofen bid, no Percocet. Offered to call and check in but she will call us if needed. [place] recommended MOM hs until resolved. elieser Lopez. [phone] - Went to hospital over the weekend but ok now. Called pt and reviewed surgical path report to pt. Pt. states passing gas , deinies nausea and vomiting or rigid abd. States has appetite. Only taking percocet once today and taking colace Advised to increase fluids, avoid fats, increase fiber and miralax and physical movement. Reviewed warning sx and to call if problems otherwise on Wednesday with update. [phone] - Still hasn't had a bowel movement since surgery on Wednesday. Called pt to check in and see how she is doing. The number below is , so spoke to him but he is out of town. Called pt. She is doing well. NO problems with urination or incisions. No bowel movement yet but she is eating, walking around and feeling better than she expected. Discussed fiber foods and if no bowel movement by tomorrow afternoon or Wednesday pt should call for advice. Pathology is still pending. elieser Lopez Called pt and left a message explaining Ibuprofen and oxycodone use, take with food and will call back later to try to reach pt, apologized for not getting back to pt earlier [phone] - Jayce - calling. Tomeka had surgery on Wednesday and he has a question regarding the combination of medications. How should she take it. Oxycodon and Ibuprofen. Should they stagger it or take it together for the pain. documented in this encounter [facility] [place] Evaluation note Diagnosis Dys[facility]- [facility] Diagnosis Bee sting, accidental or unintentional, initial encounter- Primary [facility] assessment information availableW[facility] Work Phone: Evaluation note* Diagnosis Acute conjunctivitis of both eyes, unspecified acute conjunctivitis type- [facility] Diagnosis Pelvic pain- Primary [facility] Additional Instructions Im[facility] Used?: [facility] Work Phone: Hospital Discharge instructions Additional Instructions Your CT scan no kidney stones that is obstructive on right labs were normal. You have a nonobstructive left-sided stone in the kidney. Urine culture pending. Continue Shahriar Motrin as needed. Follow-up with your doctor. Normal appendix on [facility] Work Phone: Instructions* Name Dates Details How to Access Health Informa tion Online using Patient Portal and [employer] Apps Indication:Non-smoker Start:10-Feb-2021 Instruction Type:Patient Education Patient Instructions Indication:Non-smoker Start:10-Feb-2021 Instruction Type:Provider Instructions for Treatment How to access health informa tion online Indication:Non-smoker Start:22-Jul-2020 Instruction Type:Patient Education How to access health informa tion online - Detail Indication:Non-smoker Start:22-Jul-2020 Instruction Type:Patient Education Patient Instructions Indication:Non-smoker Start:22-Jul-2020 Instruction Type:Provider Instructions for Treatment Patient Instructions Indication:Osteoporosis Start:01-Dec-2019 Instruction Type:Provider Instructions for Treatment How to access health informa tion online Indication:Non-smoker Start:22-Nov-2019 Instruction Type:Patient Education How to access health informa tion online - Detail Indication:Non-smoker Start:22-Nov-2019 Instruction Type:Patient Education Patient Instructions Indication:Non-smoker Start:22-Nov-2019 Instruction Type:Provider Instructions for Treatment How to access health informa tion online Indication:BMI 24.0-24.9, adult Start:24-Jun-2017 Instruction Type:Patient Education Patient Instructions Indication:BMI 24.0-24.9, adult Start:24-Jun-2017 Instruction Type:Provider Instructions for Treatment How to access health informa tion online Indication:Non-smoker Start:14-Jun-2017 Instruction Type:Patient Education How to access health informa tion online - Detail Indication:Non-smoker Start:14-Jun-2017 Instruction Type:Patient Education Patient Instructions Indication:Non-smoker Start:14-Jun-2017 Instruction Type:Provider Instructions for Treatment How to access health informa tion online Indication:Anxiety Start:26-Dec-2015 Instruction Type:Patient Education How to access health informa tion online - Detail Indication:Anxiety Start:26-Dec-2015 Instruction Type:Patient Education Patient Instructions Indication:Anxiety Start:26-Dec-2015 Instruction Type:Provider Instructions for Treatment How to access health informa tion online Indication:Anxiety Start:11-Dec-2015 Instruction Type:Patient Education How to access health informa tion online - Detail Indication:Anxiety Start:11-Dec-2015 Instruction Type:Patient Education Patient Instructions Indication:Anxiety Start:11-Dec-2015 Instruction Type:Provider Instructions for Treatment How to access health informa tion online Indication:Anxiety Start:05-Nov-2015 Instruction Type:Patient Education How to access health informa tion online - Detail Indication:Anxiety Start:05-Nov-2015 Instruction Type:Patient Education Patient Instructions Indication:Anxiety Start:05-Nov-2015 Instruction Type:Provider Instructions for Treatment How to access health informa tion online Indication:Infection of both eyes Start:16-Oct-2015 Instruction Type:Patient Education How to access health informa tion online - Detail Indication:Infection of both eyes Start:16-Oct-2015 Instruction Type:Patient Education Patient Instructions Indication:Infection of both eyes Start:16-Oct-2015 Instruction Type:Provider Instructions for Treatment Patient Instructions Indication:Skin texture changes Start:16-Apr-2014 Instruction Type:Provider Instructions for Treatment [facility] Work Phone: Instructions* Name Dates Details How to Access Health Informa tion Online using Patient Portal and [employer] Apps Indication:Non-smoker Start:10-Feb-2021 Instruction Type:Patient Education Patient Instructions Indication:Non-smoker Start:10-Feb-2021 Instruction Type:Provider Instructions for Treatment How to access health informa tion online Indication:Non-smoker Start:22-Jul-2020 Instruction Type:Patient Education How to access health informa tion online - Detail Indication:Non-smoker Start:22-Jul-2020 Instruction Type:Patient Education Patient Instructions Indication:Non-smoker Start:22-Jul-2020 Instruction Type:Provider Instructions for Treatment Patient Instructions Indication:Osteoporosis Start:01-Dec-2019 Instruction Type:Provider Instructions for Treatment How to access health informa tion online Indication:Non-smoker Start:22-Nov-2019 Instruction Type:Patient Education How to access health informa tion online - Detail Indication:Non-smoker Start:22-Nov-2019 Instruction Type:Patient Education Patient Instructions Indication:Non-smoker Start:22-Nov-2019 Instruction Type:Provider Instructions for Treatment How to access health informa tion online Indication:BMI 24.0-24.9, adult Start:24-Jun-2017 Instruction Type:Patient Education Patient Instructions Indication:BMI 24.0-24.9, adult Start:24-Jun-2017 Instruction Type:Provider Instructions for Treatment How to access health informa tion online Indication:Non-smoker Start:14-Jun-2017 Instruction Type:Patient Education How to access health informa tion online - Detail Indication:Non-smoker Start:14-Jun-2017 Instruction Type:Patient Education Patient Instructions Indication:Non-smoker Start:14-Jun-2017 Instruction Type:Provider Instructions for Treatment How to access health informa tion online Indication:Anxiety Start:26-Dec-2015 Instruction Type:Patient Education How to access health informa tion online - Detail Indication:Anxiety Start:26-Dec-2015 Instruction Type:Patient Education Patient Instructions Indication:Anxiety Start:26-Dec-2015 Instruction Type:Provider Instructions for Treatment How to access health informa tion online Indication:Anxiety Start:11-Dec-2015 Instruction Type:Patient Education How to access health informa tion online - Detail Indication:Anxiety Start:11-Dec-2015 Instruction Type:Patient Education Patient Instructions Indication:Anxiety Start:11-Dec-2015 Instruction Type:Provider Instructions for Treatment How to access health informa tion online Indication:Anxiety Start:05-Nov-2015 Instruction Type:Patient Education How to access health informa tion online - Detail Indication:Anxiety Start:05-Nov-2015 Instruction Type:Patient Education Patient Instructions Indication:Anxiety Start:05-Nov-2015 Instruction Type:Provider Instructions for Treatment How to access health informa tion online Indication:Infection of both eyes Start:16-Oct-2015 Instruction Type:Patient Education How to access health informa tion online - Detail Indication:Infection of both eyes Start:16-Oct-2015 Instruction Type:Patient Education Patient Instructions Indication:Infection of both eyes Start:16-Oct-2015 Instruction Type:Provider Instructions for Treatment Patient Instructions Indication:Skin texture changes Start:16-Apr-2014 Instruction Type:Provider Instructions for Treatment [facility]; [facility] Work Phone: Instructions* Name Dates Details How to Access Health Informa tion Online using Patient Portal and [employer] Apps Indication:Non-smoker Start:10-Feb-2021 Instruction Type:Patient Education Patient Instructions Indication:Non-smoker Start:10-Feb-2021 Instruction Type:Provider Instructions for Treatment How to access health informa tion online Indication:Non-smoker Start:22-Jul-2020 Instruction Type:Patient Education How to access health informa tion online - Detail Indication:Non-smoker Start:22-Jul-2020 Instruction Type:Patient Education Patient Instructions Indication:Non-smoker Start:22-Jul-2020 Instruction Type:Provider Instructions for Treatment Patient Instructions Indication:Osteoporosis Start:01-Dec-2019 Instruction Type:Provider Instructions for Treatment How to access health informa tion online Indication:Non-smoker Start:22-Nov-2019 Instruction Type:Patient Education How to access health informa tion online - Detail Indication:Non-smoker Start:22-Nov-2019 Instruction Type:Patient Education Patient Instructions Indication:Non-smoker Start:22-Nov-2019 Instruction Type:Provider Instructions for Treatment How to access health informa tion online Indication:BMI 24.0-24.9, adult Start:24-Jun-2017 Instruction Type:Patient Education Patient Instructions Indication:BMI 24.0-24.9, adult Start:24-Jun-2017 Instruction Type:Provider Instructions for Treatment How to access health informa tion online Indication:Non-smoker Start:14-Jun-2017 Instruction Type:Patient Education How to access health informa tion online - Detail Indication:Non-smoker Start:14-Jun-2017 Instruction Type:Patient Education Patient Instructions Indication:Non-smoker Start:14-Jun-2017 Instruction Type:Provider Instructions for Treatment How to access health informa tion online Indication:Anxiety Start:26-Dec-2015 Instruction Type:Patient Education How to access health informa tion online - Detail Indication:Anxiety Start:26-Dec-2015 Instruction Type:Patient Education Patient Instructions Indication:Anxiety Start:26-Dec-2015 Instruction Type:Provider Instructions for Treatment How to access health informa tion online Indication:Anxiety Start:11-Dec-2015 Instruction Type:Patient Education How to access health informa tion online - Detail Indication:Anxiety Start:11-Dec-2015 Instruction Type:Patient Education Patient Instructions Indication:Anxiety Start:11-Dec-2015 Instruction Type:Provider Instructions for Treatment How to access health informa tion online Indication:Anxiety Start:05-Nov-2015 Instruction Type:Patient Education How to access health informa tion online - Detail Indication:Anxiety Start:05-Nov-2015 Instruction Type:Patient Education Patient Instructions Indication:Anxiety Start:05-Nov-2015 Instruction Type:Provider Instructions for Treatment How to access health informa tion online Indication:Infection of both eyes Start:16-Oct-2015 Instruction Type:Patient Education How to access health informa tion online - Detail Indication:Infection of both eyes Start:16-Oct-2015 Instruction Type:Patient Education Patient Instructions Indication:Infection of both eyes Start:16-Oct-2015 Instruction Type:Provider Instructions for Treatment Patient Instructions Indication:Skin texture changes Start:16-Apr-2014 Instruction Type:Provider Instructions for Treatment [facility]; [facility] Work Phone: Instructions* Name Dates Details How to Access Health Informa tion Online using Patient Portal and [employer] Apps Indication:Non-smoker Start:17-Feb-2021 Instruction Type:Patient Education Patient Instructions Indication:Non-smoker Start:17-Feb-2021 Instruction Type:Provider Instructions for Treatment How to Access Health Informa tion Online using Patient Portal and [employer] Apps Indication:Non-smoker Start:10-Feb-2021 Instruction Type:Patient Education Patient Instructions Indication:Non-smoker Start:10-Feb-2021 Instruction Type:Provider Instructions for Treatment How to access health informa tion online Indication:Non-smoker Start:22-Jul-2020 Instruction Type:Patient Education How to access health informa tion online - Detail Indication:Non-smoker Start:22-Jul-2020 Instruction Type:Patient Education Patient Instructions Indication:Non-smoker Start:22-Jul-2020 Instruction Type:Provider Instructions for Treatment Patient Instructions Indication:Osteoporosis Start:01-Dec-2019 Instruction Type:Provider Instructions for Treatment How to access health informa tion online Indication:Non-smoker Start:22-Nov-2019 Instruction Type:Patient Education How to access health informa tion online - Detail Indication:Non-smoker Start:22-Nov-2019 Instruction Type:Patient Education Patient Instructions Indication:Non-smoker Start:22-Nov-2019 Instruction Type:Provider Instructions for Treatment How to access health informa tion online Indication:BMI 24.0-24.9, adult Start:24-Jun-2017 Instruction Type:Patient Education Patient Instructions Indication:BMI 24.0-24.9, adult Start:24-Jun-2017 Instruction Type:Provider Instructions for Treatment How to access health informa tion online Indication:Non-smoker Start:14-Jun-2017 Instruction Type:Patient Education How to access health informa tion online - Detail Indication:Non-smoker Start:14-Jun-2017 Instruction Type:Patient Education Patient Instructions Indication:Non-smoker Start:14-Jun-2017 Instruction Type:Provider Instructions for Treatment How to access health informa tion online Indication:Anxiety Start:26-Dec-2015 Instruction Type:Patient Education How to access health informa tion online - Detail Indication:Anxiety Start:26-Dec-2015 Instruction Type:Patient Education Patient Instructions Indication:Anxiety Start:26-Dec-2015 Instruction Type:Provider Instructions for Treatment How to access health informa tion online Indication:Anxiety Start:11-Dec-2015 Instruction Type:Patient Education How to access health informa tion online - Detail Indication:Anxiety Start:11-Dec-2015 Instruction Type:Patient Education Patient Instructions Indication:Anxiety Start:11-Dec-2015 Instruction Type:Provider Instructions for Treatment How to access health informa tion online Indication:Anxiety Start:05-Nov-2015 Instruction Type:Patient Education How to access health informa tion online - Detail Indication:Anxiety Start:05-Nov-2015 Instruction Type:Patient Education Patient Instructions Indication:Anxiety Start:05-Nov-2015 Instruction Type:Provider Instructions for Treatment How to access health informa tion online Indication:Infection of both eyes Start:16-Oct-2015 Instruction Type:Patient Education How to access health informa tion online - Detail Indication:Infection of both eyes Start:16-Oct-2015 Instruction Type:Patient Education Patient Instructions Indication:Infection of both eyes Start:16-Oct-2015 Instruction Type:Provider Instructions for Treatment Patient Instructions Indication:Skin texture changes Start:16-Apr-2014 Instruction Type:Provider Instructions for Treatment [facility]; [facility] Work Phone: Instructions* Name Dates Details How to Access Health Informa tion Online using Patient Portal and [employer] Indication:Non-smoker Start:17-Feb-2021 Instruction Type:Patient Education Patient Instructions Indication:Non-smoker Start:17-Feb-2021 Instruction Type:Provider Instructions for Treatment How to Access Health Informa tion Online using Patient Portal and [employer] Apps Indication:Non-smoker Start:10-Feb-2021 Instruction Type:Patient Education Patient Instructions Indication:Non-smoker Start:10-Feb-2021 Instruction Type:Provider Instructions for Treatment How to access health informa tion online Indication:Non-smoker Start:22-Jul-2020 Instruction Type:Patient Education How to access health informa tion online - Detail Indication:Non-smoker Start:22-Jul-2020 Instruction Type:Patient Education Patient Instructions Indication:Non-smoker Start:22-Jul-2020 Instruction Type:Provider Instructions for Treatment Patient Instructions Indication:Osteoporosis Start:01-Dec-2019 Instruction Type:Provider Instructions for Treatment How to access health informa tion online Indication:Non-smoker Start:22-Nov-2019 Instruction Type:Patient Education How to access health informa tion online - Detail Indication:Non-smoker Start:22-Nov-2019 Instruction Type:Patient Education Patient Instructions Indication:Non-smoker Start:22-Nov-2019 Instruction Type:Provider Instructions for Treatment How to access health informa tion online Indication:BMI 24.0-24.9, adult Start:24-Jun-2017 Instruction Type:Patient Education Patient Instructions Indication:BMI 24.0-24.9, adult Start:24-Jun-2017 Instruction Type:Provider Instructions for Treatment How to access health informa tion online Indication:Non-smoker Start:14-Jun-2017 Instruction Type:Patient Education How to access health informa tion online - Detail Indication:Non-smoker Start:14-Jun-2017 Instruction Type:Patient Education Patient Instructions Indication:Non-smoker Start:14-Jun-2017 Instruction Type:Provider Instructions for Treatment How to access health informa tion online Indication:Anxiety Start:26-Dec-2015 Instruction Type:Patient Education How to access health informa tion online - Detail Indication:Anxiety Start:26-Dec-2015 Instruction Type:Patient Education Patient Instructions Indication:Anxiety Start:26-Dec-2015 Instruction Type:Provider Instructions for Treatment How to access health informa tion online Indication:Anxiety Start:11-Dec-2015 Instruction Type:Patient Education How to access health informa tion online - Detail Indication:Anxiety Start:11-Dec-2015 Instruction Type:Patient Education Patient Instructions Indication:Anxiety Start:11-Dec-2015 Instruction Type:Provider Instructions for Treatment How to access health informa tion online Indication:Anxiety Start:05-Nov-2015 Instruction Type:Patient Education How to access health informa tion online - Detail Indication:Anxiety Start:05-Nov-2015 Instruction Type:Patient Education Patient Instructions Indication:Anxiety Start:05-Nov-2015 Instruction Type:Provider Instructions for Treatment How to access health informa tion online Indication:Infection of both eyes Start:16-Oct-2015 Instruction Type:Patient Education How to access health informa tion online - Detail Indication:Infection of both eyes Start:16-Oct-2015 Instruction Type:Patient Education Patient Instructions Indication:Infection of both eyes Start:16-Oct-2015 Instruction Type:Provider Instructions for Treatment Patient Instructions Indication:Skin texture changes Start:16-Apr-2014 Instruction Type:Provider Instructions for Treatment [facility]; [facility] Work Phone: Instructions* Name Dates Details How to Access Health Informa tion Online using Patient Portal and [employer] Indication:Non-smoker Start:17-Feb-2021 Instruction Type:Patient Education Patient Instructions Indication:Non-smoker Start:17-Feb-2021 Instruction Type:Provider Instructions for Treatment How to Access Health Informa tion Online using Patient Portal and [employer] Apps Indication:Non-smoker Start:10-Feb-2021 Instruction Type:Patient Education Patient Instructions Indication:Non-smoker Start:10-Feb-2021 Instruction Type:Provider Instructions for Treatment How to access health informa tion online Indication:Non-smoker Start:22-Jul-2020 Instruction Type:Patient Education How to access health informa tion online - Detail Indication:Non-smoker Start:22-Jul-2020 Instruction Type:Patient Education Patient Instructions Indication:Non-smoker Start:22-Jul-2020 Instruction Type:Provider Instructions for Treatment Patient Instructions Indication:Osteoporosis Start:01-Dec-2019 Instruction Type:Provider Instructions for Treatment How to access health informa tion online Indication:Non-smoker Start:22-Nov-2019 Instruction Type:Patient Education How to access health informa tion online - Detail Indication:Non-smoker Start:22-Nov-2019 Instruction Type:Patient Education Patient Instructions Indication:Non-smoker Start:22-Nov-2019 Instruction Type:Provider Instructions for Treatment How to access health informa tion online Indication:BMI 24.0-24.9, adult Start:24-Jun-2017 Instruction Type:Patient Education Patient Instructions Indication:BMI 24.0-24.9, adult Start:24-Jun-2017 Instruction Type:Provider Instructions for Treatment How to access health informa tion online Indication:Non-smoker Start:14-Jun-2017 Instruction Type:Patient Education How to access health informa tion online - Detail Indication:Non-smoker Start:14-Jun-2017 Instruction Type:Patient Education Patient Instructions Indication:Non-smoker Start:14-Jun-2017 Instruction Type:Provider Instructions for Treatment How to access health informa tion online Indication:Anxiety Start:26-Dec-2015 Instruction Type:Patient Education How to access health informa tion online - Detail Indication:Anxiety Start:26-Dec-2015 Instruction Type:Patient Education Patient Instructions Indication:Anxiety Start:26-Dec-2015 Instruction Type:Provider Instructions for Treatment How to access health informa tion online Indication:Anxiety Start:11-Dec-2015 Instruction Type:Patient Education How to access health informa tion online - Detail Indication:Anxiety Start:11-Dec-2015 Instruction Type:Patient Education Patient Instructions Indication:Anxiety Start:11-Dec-2015 Instruction Type:Provider Instructions for Treatment How to access health informa tion online Indication:Anxiety Start:05-Nov-2015 Instruction Type:Patient Education How to access health informa tion online - Detail Indication:Anxiety Start:05-Nov-2015 Instruction Type:Patient Education Patient Instructions Indication:Anxiety Start:05-Nov-2015 Instruction Type:Provider Instructions for Treatment How to access health informa tion online Indication:Infection of both eyes Start:16-Oct-2015 Instruction Type:Patient Education How to access health informa tion online - Detail Indication:Infection of both eyes Start:16-Oct-2015 Instruction Type:Patient Education Patient Instructions Indication:Infection of both eyes Start:16-Oct-2015 Instruction Type:Provider Instructions for Treatment Patient Instructions Indication:Skin texture changes Start:16-Apr-2014 Instruction Type:Provider Instructions for Treatment [facility]; [facility] Work Phone: Instructions* Name Dates Details Patient Instructions Indication:Elevated blood pressure reading Start:19-Mar-2021 Instruction Type:Provider Instructions for Treatment How to Access Health Informa tion Online using Patient Portal and [employer] Apps Indication:Elevated blood pressure reading Start:19-Mar-2021 Instruction Type:Patient Education How to Access Health Informa tion Online using Patient Portal and [employer] Apps Indication:Non-smoker Start:17-Feb-2021 Instruction Type:Patient Education Patient Instructions Indication:Non-smoker Start:17-Feb-2021 Instruction Type:Provider Instructions for Treatment How to Access Health Informa tion Online using Patient Portal and [employer] Apps Indication:Non-smoker Start:10-Feb-2021 Instruction Type:Patient Education Patient Instructions Indication:Non-smoker Start:10-Feb-2021 Instruction Type:Provider Instructions for Treatment How to access health informa tion online Indication:Non-smoker Start:22-Jul-2020 Instruction Type:Patient Education How to access health informa tion online - Detail Indication:Non-smoker Start:22-Jul-2020 Instruction Type:Patient Education Patient Instructions Indication:Non-smoker Start:22-Jul-2020 Instruction Type:Provider Instructions for Treatment Patient Instructions Indication:Osteoporosis Start:01-Dec-2019 Instruction Type:Provider Instructions for Treatment How to access health informa tion online Indication:Non-smoker Start:22-Nov-2019 Instruction Type:Patient Education How to access health informa tion online - Detail Indication:Non-smoker Start:22-Nov-2019 Instruction Type:Patient Education Patient Instructions Indication:Non-smoker Start:22-Nov-2019 Instruction Type:Provider Instructions for Treatment How to access health informa tion online Indication:BMI 24.0-24.9, adult Start:24-Jun-2017 Instruction Type:Patient Education Patient Instructions Indication:BMI 24.0-24.9, adult Start:24-Jun-2017 Instruction Type:Provider Instructions for Treatment How to access health informa tion online Indication:Non-smoker Start:14-Jun-2017 Instruction Type:Patient Education How to access health informa tion online - Detail Indication:Non-smoker Start:14-Jun-2017 Instruction Type:Patient Education Patient Instructions Indication:Non-smoker Start:14-Jun-2017 Instruction Type:Provider Instructions for Treatment How to access health informa tion online Indication:Anxiety Start:26-Dec-2015 Instruction Type:Patient Education How to access health informa tion online - Detail Indication:Anxiety Start:26-Dec-2015 Instruction Type:Patient Education Patient Instructions Indication:Anxiety Start:26-Dec-2015 Instruction Type:Provider Instructions for Treatment How to access health informa tion online Indication:Anxiety Start:11-Dec-2015 Instruction Type:Patient Education How to access health informa tion online - Detail Indication:Anxiety Start:11-Dec-2015 Instruction Type:Patient Education Patient Instructions Indication:Anxiety Start:11-Dec-2015 Instruction Type:Provider Instructions for Treatment How to access health informa tion online Indication:Anxiety Start:05-Nov-2015 Instruction Type:Patient Education How to access health informa tion online - Detail Indication:Anxiety Start:05-Nov-2015 Instruction Type:Patient Education Patient Instructions Indication:Anxiety Start:05-Nov-2015 Instruction Type:Provider Instructions for Treatment How to access health informa tion online Indication:Infection of both eyes Start:16-Oct-2015 Instruction Type:Patient Education How to access health informa tion online - Detail Indication:Infection of both eyes Start:16-Oct-2015 Instruction Type:Patient Education Patient Instructions Indication:Infection of both eyes Start:16-Oct-2015 Instruction Type:Provider Instructions for Treatment Patient Instructions Indication:Skin texture changes Start:16-Apr-2014 Instruction Type:Provider Instructions for Treatment [facility]; [facility] Work Phone: Instructions* Name Dates Details Patient Instructions Indication:Elevated blood pressure reading Start:19-Mar-2021 Instruction Type:Provider Instructions for Treatment How to Access Health Informa tion Online using Patient Portal and [employer] Apps Indication:Elevated blood pressure reading Start:19-Mar-2021 Instruction Type:Patient Education How to Access Health Informa tion Online using Patient Portal and [employer] Apps Indication:Non-smoker Start:17-Feb-2021 Instruction Type:Patient Education Patient Instructions Indication:Non-smoker Start:17-Feb-2021 Instruction Type:Provider Instructions for Treatment How to Access Health Informa tion Online using Patient Portal and [employer] Apps Indication:Non-smoker Start:10-Feb-2021 Instruction Type:Patient Education Patient Instructions Indication:Non-smoker Start:10-Feb-2021 Instruction Type:Provider Instructions for Treatment How to access health informa tion online Indication:Non-smoker Start:22-Jul-2020 Instruction Type:Patient Education How to access health informa tion online - Detail Indication:Non-smoker Start:22-Jul-2020 Instruction Type:Patient Education Patient Instructions Indication:Non-smoker Start:22-Jul-2020 Instruction Type:Provider Instructions for Treatment Patient Instructions Indication:Osteoporosis Start:01-Dec-2019 Instruction Type:Provider Instructions for Treatment How to access health informa tion online Indication:Non-smoker Start:22-Nov-2019 Instruction Type:Patient Education How to access health informa tion online - Detail Indication:Non-smoker Start:22-Nov-2019 Instruction Type:Patient Education Patient Instructions Indication:Non-smoker Start:22-Nov-2019 Instruction Type:Provider Instructions for Treatment How to access health informa tion online Indication:BMI 24.0-24.9, adult Start:24-Jun-2017 Instruction Type:Patient Education Patient Instructions Indication:BMI 24.0-24.9, adult Start:24-Jun-2017 Instruction Type:Provider Instructions for Treatment How to access health informa tion online Indication:Non-smoker Start:14-Jun-2017 Instruction Type:Patient Education How to access health informa tion online - Detail Indication:Non-smoker Start:14-Jun-2017 Instruction Type:Patient Education Patient Instructions Indication:Non-smoker Start:14-Jun-2017 Instruction Type:Provider Instructions for Treatment How to access health informa tion online Indication:Anxiety Start:26-Dec-2015 Instruction Type:Patient Education How to access health informa tion online - Detail Indication:Anxiety Start:26-Dec-2015 Instruction Type:Patient Education Patient Instructions Indication:Anxiety Start:26-Dec-2015 Instruction Type:Provider Instructions for Treatment How to access health informa tion online Indication:Anxiety Start:11-Dec-2015 Instruction Type:Patient Education How to access health informa tion online - Detail Indication:Anxiety Start:11-Dec-2015 Instruction Type:Patient Education Patient Instructions Indication:Anxiety Start:11-Dec-2015 Instruction Type:Provider Instructions for Treatment How to access health informa tion online Indication:Anxiety Start:05-Nov-2015 Instruction Type:Patient Education How to access health informa tion online - Detail Indication:Anxiety Start:05-Nov-2015 Instruction Type:Patient Education Patient Instructions Indication:Anxiety Start:05-Nov-2015 Instruction Type:Provider Instructions for Treatment How to access health informa tion online Indication:Infection of both eyes Start:16-Oct-2015 Instruction Type:Patient Education How to access health informa tion online - Detail Indication:Infection of both eyes Start:16-Oct-2015 Instruction Type:Patient Education Patient Instructions Indication:Infection of both eyes Start:16-Oct-2015 Instruction Type:Provider Instructions for Treatment Patient Instructions Indication:Skin texture changes Start:16-Apr-2014 Instruction Type:Provider Instructions for Treatment [facility]; [facility] Work Phone: Instructions* Name Dates Details Patient Instructions Indication:BMI 29.0-29.9,adult Start:17-Dec-2021 Instruction Type:Provider Instructions for Treatment How to Access Health Informa tion Online using Patient Portal and [employer] Apps Indication:BMI 29.0-29.9,adult Start:17-Dec-2021 Instruction Type:Patient Education Patient Instructions Indication:Elevated blood pressure reading Start:19-Mar-2021 Instruction Type:Provider Instructions for Treatment How to Access Health Informa tion Online using Patient Portal and [employer] Apps Indication:Elevated blood pressure reading Start:19-Mar-2021 Instruction Type:Patient Education How to Access Health Informa tion Online using Patient Portal and [employer] Apps Indication:Non-smoker Start:17-Feb-2021 Instruction Type:Patient Education Patient Instructions Indication:Non-smoker Start:17-Feb-2021 Instruction Type:Provider Instructions for Treatment How to Access Health Informa tion Online using Patient Portal and [employer] Apps Indication:Non-smoker Start:10-Feb-2021 Instruction Type:Patient Education Patient Instructions Indication:Non-smoker Start:10-Feb-2021 Instruction Type:Provider Instructions for Treatment How to access health informa tion online Indication:Non-smoker Start:22-Jul-2020 Instruction Type:Patient Education How to access health informa tion online - Detail Indication:Non-smoker Start:22-Jul-2020 Instruction Type:Patient Education Patient Instructions Indication:Non-smoker Start:22-Jul-2020 Instruction Type:Provider Instructions for Treatment Patient Instructions Indication:Osteoporosis Start:01-Dec-2019 Instruction Type:Provider Instructions for Treatment How to access health informa tion online Indication:Non-smoker Start:22-Nov-2019 Instruction Type:Patient Education How to access health informa tion online - Detail Indication:Non-smoker Start:22-Nov-2019 Instruction Type:Patient Education Patient Instructions Indication:Non-smoker Start:22-Nov-2019 Instruction Type:Provider Instructions for Treatment How to access health informa tion online Indication:BMI 24.0-24.9, adult Start:24-Jun-2017 Instruction Type:Patient Education Patient Instructions Indication:BMI 24.0-24.9, adult Start:24-Jun-2017 Instruction Type:Provider Instructions for Treatment How to access health informa tion online Indication:Non-smoker Start:14-Jun-2017 Instruction Type:Patient Education How to access health informa tion online - Detail Indication:Non-smoker Start:14-Jun-2017 Instruction Type:Patient Education Patient Instructions Indication:Non-smoker Start:14-Jun-2017 Instruction Type:Provider Instructions for Treatment How to access health informa tion online Indication:Anxiety Start:26-Dec-2015 Instruction Type:Patient Education How to access health informa tion online - Detail Indication:Anxiety Start:26-Dec-2015 Instruction Type:Patient Education Patient Instructions Indication:Anxiety Start:26-Dec-2015 Instruction Type:Provider Instructions for Treatment How to access health informa tion online Indication:Anxiety Start:11-Dec-2015 Instruction Type:Patient Education How to access health informa tion online - Detail Indication:Anxiety Start:11-Dec-2015 Instruction Type:Patient Education Patient Instructions Indication:Anxiety Start:11-Dec-2015 Instruction Type:Provider Instructions for Treatment How to access health informa tion online Indication:Anxiety Start:05-Nov-2015 Instruction Type:Patient Education How to access health informa tion online - Detail Indication:Anxiety Start:05-Nov-2015 Instruction Type:Patient Education Patient Instructions Indication:Anxiety Start:05-Nov-2015 Instruction Type:Provider Instructions for Treatment How to access health informa tion online Indication:Infection of both eyes Start:16-Oct-2015 Instruction Type:Patient Education How to access health informa tion online - Detail Indication:Infection of both eyes Start:16-Oct-2015 Instruction Type:Patient Education Patient Instructions Indication:Infection of both eyes Start:16-Oct-2015 Instruction Type:Provider Instructions for Treatment Patient Instructions Indication:Skin texture changes Start:16-Apr-2014 Instruction Type:Provider Instructions for Treatment [facility]; [facility] Work Phone: Instructions* Name Dates Details Patient Instructions Indication:Non-smoker Start:09-Apr-2022 Instruction Type:Provider Instructions for Treatment How to Access Health Informa tion Online using Patient Portal and [employer] Apps Indication:Non-smoker Start:09-Apr-2022 Instruction Type:Patient Education Patient Instructions Indication:BMI 29.0-29.9,adult Start:17-Dec-2021 Instruction Type:Provider Instructions for Treatment How to Access Health Informa tion Online using Patient Portal and [employer] Apps Indication:BMI 29.0-29.9,adult Start:17-Dec-2021 Instruction Type:Patient Education Patient Instructions Indication:Elevated blood pressure reading Start:19-Mar-2021 Instruction Type:Provider Instructions for Treatment How to Access Health Informa tion Online using Patient Portal and [employer] Apps Indication:Elevated blood pressure reading Start:19-Mar-2021 Instruction Type:Patient Education How to Access Health Informa tion Online using Patient Portal and [employer] Apps Indication:Non-smoker Start:17-Feb-2021 Instruction Type:Patient Education Patient Instructions Indication:Non-smoker Start:17-Feb-2021 Instruction Type:Provider Instructions for Treatment How to Access Health Informa tion Online using Patient Portal and [employer] Indication:Non-smoker Start:10-Feb-2021 Instruction Type:Patient Education Patient Instructions Indication:Non-smoker Start:10-Feb-2021 Instruction Type:Provider Instructions for Treatment How to access health informa tion online Indication:Non-smoker Start:22-Jul-2020 Instruction Type:Patient Education How to access health informa tion online - Detail Indication:Non-smoker Start:22-Jul-2020 Instruction Type:Patient Education Patient Instructions Indication:Non-smoker Start:22-Jul-2020 Instruction Type:Provider Instructions for Treatment Patient Instructions Indication:Osteoporosis Start:01-Dec-2019 Instruction Type:Provider Instructions for Treatment How to access health informa tion online Indication:Non-smoker Start:22-Nov-2019 Instruction Type:Patient Education How to access health informa tion online - Detail Indication:Non-smoker Start:22-Nov-2019 Instruction Type:Patient Education Patient Instructions Indication:Non-smoker Start:22-Nov-2019 Instruction Type:Provider Instructions for Treatment How to access health informa tion online Indication:BMI 24.0-24.9, adult Start:24-Jun-2017 Instruction Type:Patient Education Patient Instructions Indication:BMI 24.0-24.9, adult Start:24-Jun-2017 Instruction Type:Provider Instructions for Treatment How to access health informa tion online Indication:Non-smoker Start:14-Jun-2017 Instruction Type:Patient Education How to access health informa tion online - Detail Indication:Non-smoker Start:14-Jun-2017 Instruction Type:Patient Education Patient Instructions Indication:Non-smoker Start:14-Jun-2017 Instruction Type:Provider Instructions for Treatment How to access health informa tion online Indication:Anxiety Start:26-Dec-2015 Instruction Type:Patient Education How to access health informa tion online - Detail Indication:Anxiety Start:26-Dec-2015 Instruction Type:Patient Education Patient Instructions Indication:Anxiety Start:26-Dec-2015 Instruction Type:Provider Instructions for Treatment How to access health informa tion online Indication:Anxiety Start:11-Dec-2015 Instruction Type:Patient Education How to access health informa tion online - Detail Indication:Anxiety Start:11-Dec-2015 Instruction Type:Patient Education Patient Instructions Indication:Anxiety Start:11-Dec-2015 Instruction Type:Provider Instructions for Treatment How to access health informa tion online Indication:Anxiety Start:05-Nov-2015 Instruction Type:Patient Education How to access health informa tion online - Detail Indication:Anxiety Start:05-Nov-2015 Instruction Type:Patient Education Patient Instructions Indication:Anxiety Start:05-Nov-2015 Instruction Type:Provider Instructions for Treatment How to access health informa tion online Indication:Infection of both eyes Start:16-Oct-2015 Instruction Type:Patient Education How to access health informa tion online - Detail Indication:Infection of both eyes Start:16-Oct-2015 Instruction Type:Patient Education Patient Instructions Indication:Infection of both eyes Start:16-Oct-2015 Instruction Type:Provider Instructions for Treatment Patient Instructions Indication:Skin texture changes Start:16-Apr-2014 Instruction Type:Provider Instructions for Treatment [facility]; [facility] Work Phone: Instructions* Name Dates Details Patient Instructions Indication:Non-smoker Start:09-Apr-2022 Instruction Type:Provider Instructions for Treatment How to Access Health Informa tion Online using Patient Portal and [employer] Apps Indication:Non-smoker Start:09-Apr-2022 Instruction Type:Patient Education Patient Instructions Indication:BMI 29.0-29.9,adult Start:17-Dec-2021 Instruction Type:Provider Instructions for Treatment How to Access Health Informa tion Online using Patient Portal and [employer] Apps Indication:BMI 29.0-29.9,adult Start:17-Dec-2021 Instruction Type:Patient Education Patient Instructions Indication:Elevated blood pressure reading Start:19-Mar-2021 Instruction Type:Provider Instructions for Treatment How to Access Health Informa tion Online using Patient Portal and [employer]rd [employer] Apps Indication:Elevated blood pressure reading Start:19-Mar-2021 Instruction Type:Patient Education How to Access Health Informa tion Online using Patient Portal and [employer]rd [employer] Apps Indication:Non-smoker Start:17-Feb-2021 Instruction Type:Patient Education Patient Instructions Indication:Non-smoker Start:17-Feb-2021 Instruction Type:Provider Instructions for Treatment How to Access Health Informa tion Online using Patient Portal and [employer]rd [employer] Apps Indication:Non-smoker Start:10-Feb-2021 Instruction Type:Patient Education Patient Instructions Indication:Non-smoker Start:10-Feb-2021 Instruction Type:Provider Instructions for Treatment How to access health informa tion online Indication:Non-smoker Start:22-Jul-2020 Instruction Type:Patient Education How to access health informa tion online - Detail Indication:Non-smoker Start:22-Jul-2020 Instruction Type:Patient Education Patient Instructions Indication:Non-smoker Start:22-Jul-2020 Instruction Type:Provider Instructions for Treatment Patient Instructions Indication:Osteoporosis Start:01-Dec-2019 Instruction Type:Provider Instructions for Treatment How to access health informa tion online Indication:Non-smoker Start:22-Nov-2019 Instruction Type:Patient Education How to access health informa tion online - Detail Indication:Non-smoker Start:22-Nov-2019 Instruction Type:Patient Education Patient Instructions Indication:Non-smoker Start:22-Nov-2019 Instruction Type:Provider Instructions for Treatment How to access health informa tion online Indication:BMI 24.0-24.9, adult Start:24-Jun-2017 Instruction Type:Patient Education Patient Instructions Indication:BMI 24.0-24.9, adult Start:24-Jun-2017 Instruction Type:Provider Instructions for Treatment How to access health informa tion online Indication:Non-smoker Start:14-Jun-2017 Instruction Type:Patient Education How to access health informa tion online - Detail Indication:Non-smoker Start:14-Jun-2017 Instruction Type:Patient Education Patient Instructions Indication:Non-smoker Start:14-Jun-2017 Instruction Type:Provider Instructions for Treatment How to access health informa tion online Indication:Anxiety Start:26-Dec-2015 Instruction Type:Patient Education How to access health informa tion online - Detail Indication:Anxiety Start:26-Dec-2015 Instruction Type:Patient Education Patient Instructions Indication:Anxiety Start:26-Dec-2015 Instruction Type:Provider Instructions for Treatment How to access health informa tion online Indication:Anxiety Start:11-Dec-2015 Instruction Type:Patient Education How to access health informa tion online - Detail Indication:Anxiety Start:11-Dec-2015 Instruction Type:Patient Education Patient Instructions Indication:Anxiety Start:11-Dec-2015 Instruction Type:Provider Instructions for Treatment How to access health informa tion online Indication:Anxiety Start:05-Nov-2015 Instruction Type:Patient Education How to access health informa tion online - Detail Indication:Anxiety Start:05-Nov-2015 Instruction Type:Patient Education Patient Instructions Indication:Anxiety Start:05-Nov-2015 Instruction Type:Provider Instructions for Treatment How to access health informa tion online Indication:Infection of both eyes Start:16-Oct-2015 Instruction Type:Patient Education How to access health informa tion online - Detail Indication:Infection of both eyes Start:16-Oct-2015 Instruction Type:Patient Education Patient Instructions Indication:Infection of both eyes Start:16-Oct-2015 Instruction Type:Provider Instructions for Treatment Patient Instructions Indication:Skin texture changes Start:16-Apr-2014 Instruction Type:Provider Instructions for Treatment [facility]; [facility] Work Phone: Instructions* Name Dates Details Patient Instructions Indication:Non-smoker Start:09-Apr-2022 Instruction Type:Provider Instructions for Treatment How to Access Health Informa tion Online using Patient Portal and [employer]rd [employer] Apps Indication:Non-smoker Start:09-Apr-2022 Instruction Type:Patient Education Patient Instructions Indication:BMI 29.0-29.9,adult Start:17-Dec-2021 Instruction Type:Provider Instructions for Treatment How to Access Health Informa tion Online using Patient Portal and [employer]rd [employer] Apps Indication:BMI 29.0-29.9,adult Start:17-Dec-2021 Instruction Type:Patient Education Patient Instructions Indication:Elevated blood pressure reading Start:19-Mar-2021 Instruction Type:Provider Instructions for Treatment How to Access Health Informa tion Online using Patient Portal and [employer] Apps Indication:Elevated blood pressure reading Start:19-Mar-2021 Instruction Type:Patient Education How to Access Health Informa tion Online using Patient Portal and [employer] Apps Indication:Non-smoker Start:17-Feb-2021 Instruction Type:Patient Education Patient Instructions Indication:Non-smoker Start:17-Feb-2021 Instruction Type:Provider Instructions for Treatment How to Access Health Informa tion Online using Patient Portal and [employer] Apps Indication:Non-smoker Start:10-Feb-2021 Instruction Type:Patient Education Patient Instructions Indication:Non-smoker Start:10-Feb-2021 Instruction Type:Provider Instructions for Treatment How to access health informa tion online Indication:Non-smoker Start:22-Jul-2020 Instruction Type:Patient Education How to access health informa tion online - Detail Indication:Non-smoker Start:22-Jul-2020 Instruction Type:Patient Education Patient Instructions Indication:Non-smoker Start:22-Jul-2020 Instruction Type:Provider Instructions for Treatment Patient Instructions Indication:Osteoporosis Start:01-Dec-2019 Instruction Type:Provider Instructions for Treatment How to access health informa tion online Indication:Non-smoker Start:22-Nov-2019 Instruction Type:Patient Education How to access health informa tion online - Detail Indication:Non-smoker Start:22-Nov-2019 Instruction Type:Patient Education Patient Instructions Indication:Non-smoker Start:22-Nov-2019 Instruction Type:Provider Instructions for Treatment How to access health informa tion online Indication:BMI 24.0-24.9, adult Start:24-Jun-2017 Instruction Type:Patient Education Patient Instructions Indication:BMI 24.0-24.9, adult Start:24-Jun-2017 Instruction Type:Provider Instructions for Treatment How to access health informa tion online Indication:Non-smoker Start:14-Jun-2017 Instruction Type:Patient Education How to access health informa tion online - Detail Indication:Non-smoker Start:14-Jun-2017 Instruction Type:Patient Education Patient Instructions Indication:Non-smoker Start:14-Jun-2017 Instruction Type:Provider Instructions for Treatment How to access health informa tion online Indication:Anxiety Start:26-Dec-2015 Instruction Type:Patient Education How to access health informa tion online - Detail Indication:Anxiety Start:26-Dec-2015 Instruction Type:Patient Education Patient Instructions Indication:Anxiety Start:26-Dec-2015 Instruction Type:Provider Instructions for Treatment How to access health informa tion online Indication:Anxiety Start:11-Dec-2015 Instruction Type:Patient Education How to access health informa tion online - Detail Indication:Anxiety Start:11-Dec-2015 Instruction Type:Patient Education Patient Instructions Indication:Anxiety Start:11-Dec-2015 Instruction Type:Provider Instructions for Treatment How to access health informa tion online Indication:Anxiety Start:05-Nov-2015 Instruction Type:Patient Education How to access health informa tion online - Detail Indication:Anxiety Start:05-Nov-2015 Instruction Type:Patient Education Patient Instructions Indication:Anxiety Start:05-Nov-2015 Instruction Type:Provider Instructions for Treatment How to access health informa tion online Indication:Infection of both eyes Start:16-Oct-2015 Instruction Type:Patient Education How to access health informa tion online - Detail Indication:Infection of both eyes Start:16-Oct-2015 Instruction Type:Patient Education Patient Instructions Indication:Infection of both eyes Start:16-Oct-2015 Instruction Type:Provider Instructions for Treatment Patient Instructions Indication:Skin texture changes Start:16-Apr-2014 Instruction Type:Provider Instructions for Treatment [facility]; [facility] Work Phone: Instructions* Name Dates Details Patient Instructions Indication:Non-smoker Start:09-Apr-2022 Instruction Type:Provider Instructions for Treatment How to Access Health Informa tion Online using Patient Portal and [employer] Apps Indication:Non-smoker Start:09-Apr-2022 Instruction Type:Patient Education Patient Instructions Indication:BMI 29.0-29.9,adult Start:17-Dec-2021 Instruction Type:Provider Instructions for Treatment How to Access Health Informa tion Online using Patient Portal and [employer] Apps Indication:BMI 29.0-29.9,adult Start:17-Dec-2021 Instruction Type:Patient Education Patient Instructions Indication:Elevated blood pressure reading Start:19-Mar-2021 Instruction Type:Provider Instructions for Treatment How to Access Health Informa tion Online using Patient Portal and [employer] Apps Indication:Elevated blood pressure reading Start:19-Mar-2021 Instruction Type:Patient Education How to Access Health Informa tion Online using Patient Portal and [employer] Apps Indication:Non-smoker Start:17-Feb-2021 Instruction Type:Patient Education Patient Instructions Indication:Non-smoker Start:17-Feb-2021 Instruction Type:Provider Instructions for Treatment How to Access Health Informa tion Online using Patient Portal and [employer] Apps Indication:Non-smoker Start:10-Feb-2021 Instruction Type:Patient Education Patient Instructions Indication:Non-smoker Start:10-Feb-2021 Instruction Type:Provider Instructions for Treatment How to access health informa tion online Indication:Non-smoker Start:22-Jul-2020 Instruction Type:Patient Education How to access health informa tion online - Detail Indication:Non-smoker Start:22-Jul-2020 Instruction Type:Patient Education Patient Instructions Indication:Non-smoker Start:22-Jul-2020 Instruction Type:Provider Instructions for Treatment Patient Instructions Indication:Osteoporosis Start:01-Dec-2019 Instruction Type:Provider Instructions for Treatment How to access health informa tion online Indication:Non-smoker Start:22-Nov-2019 Instruction Type:Patient Education How to access health informa tion online - Detail Indication:Non-smoker Start:22-Nov-2019 Instruction Type:Patient Education Patient Instructions Indication:Non-smoker Start:22-Nov-2019 Instruction Type:Provider Instructions for Treatment How to access health informa tion online Indication:BMI 24.0-24.9, adult Start:24-Jun-2017 Instruction Type:Patient Education Patient Instructions Indication:BMI 24.0-24.9, adult Start:24-Jun-2017 Instruction Type:Provider Instructions for Treatment How to access health informa tion online Indication:Non-smoker Start:14-Jun-2017 Instruction Type:Patient Education How to access health informa tion online - Detail Indication:Non-smoker Start:14-Jun-2017 Instruction Type:Patient Education Patient Instructions Indication:Non-smoker Start:14-Jun-2017 Instruction Type:Provider Instructions for Treatment How to access health informa tion online Indication:Anxiety Start:26-Dec-2015 Instruction Type:Patient Education How to access health informa tion online - Detail Indication:Anxiety Start:26-Dec-2015 Instruction Type:Patient Education Patient Instructions Indication:Anxiety Start:26-Dec-2015 Instruction Type:Provider Instructions for Treatment How to access health informa tion online Indication:Anxiety Start:11-Dec-2015 Instruction Type:Patient Education How to access health informa tion online - Detail Indication:Anxiety Start:11-Dec-2015 Instruction Type:Patient Education Patient Instructions Indication:Anxiety Start:11-Dec-2015 Instruction Type:Provider Instructions for Treatment How to access health informa tion online Indication:Anxiety Start:05-Nov-2015 Instruction Type:Patient Education How to access health informa tion online - Detail Indication:Anxiety Start:05-Nov-2015 Instruction Type:Patient Education Patient Instructions Indication:Anxiety Start:05-Nov-2015 Instruction Type:Provider Instructions for Treatment How to access health informa tion online Indication:Infection of both eyes Start:16-Oct-2015 Instruction Type:Patient Education How to access health informa tion online - Detail Indication:Infection of both eyes Start:16-Oct-2015 Instruction Type:Patient Education Patient Instructions Indication:Infection of both eyes Start:16-Oct-2015 Instruction Type:Provider Instructions for Treatment Patient Instructions Indication:Skin texture changes Start:16-Apr-2014 Instruction Type:Provider Instructions for Treatment [facility]; [facility] Work Phone: Instructions* Name Dates Details Patient Instructions Indication:Non-smoker Start:09-Apr-2022 Instruction Type:Provider Instructions for Treatment How to Access Health Informa tion Online using Patient Portal and [employer]rd [employer] Apps Indication:Non-smoker Start:09-Apr-2022 Instruction Type:Patient Education Patient Instructions Indication:BMI 29.0-29.9,adult Start:17-Dec-2021 Instruction Type:Provider Instructions for Treatment How to Access Health Informa tion Online using Patient Portal and [employer]rd [employer] Apps Indication:BMI 29.0-29.9,adult Start:17-Dec-2021 Instruction Type:Patient Education Patient Instructions Indication:Elevated blood pressure reading Start:19-Mar-2021 Instruction Type:Provider Instructions for Treatment How to Access Health Informa tion Online using Patient Portal and [employer] Apps Indication:Elevated blood pressure reading Start:19-Mar-2021 Instruction Type:Patient Education How to Access Health Informa tion Online using Patient Portal and [employer] Apps Indication:Non-smoker Start:17-Feb-2021 Instruction Type:Patient Education Patient Instructions Indication:Non-smoker Start:17-Feb-2021 Instruction Type:Provider Instructions for Treatment How to Access Health Informa tion Online using Patient Portal and [employer] Apps Indication:Non-smoker Start:10-Feb-2021 Instruction Type:Patient Education Patient Instructions Indication:Non-smoker Start:10-Feb-2021 Instruction Type:Provider Instructions for Treatment How to access health informa tion online Indication:Non-smoker Start:22-Jul-2020 Instruction Type:Patient Education How to access health informa tion online - Detail Indication:Non-smoker Start:22-Jul-2020 Instruction Type:Patient Education Patient Instructions Indication:Non-smoker Start:22-Jul-2020 Instruction Type:Provider Instructions for Treatment Patient Instructions Indication:Osteoporosis Start:01-Dec-2019 Instruction Type:Provider Instructions for Treatment How to access health informa tion online Indication:Non-smoker Start:22-Nov-2019 Instruction Type:Patient Education How to access health informa tion online - Detail Indication:Non-smoker Start:22-Nov-2019 Instruction Type:Patient Education Patient Instructions Indication:Non-smoker Start:22-Nov-2019 Instruction Type:Provider Instructions for Treatment How to access health informa tion online Indication:BMI 24.0-24.9, adult Start:24-Jun-2017 Instruction Type:Patient Education Patient Instructions Indication:BMI 24.0-24.9, adult Start:24-Jun-2017 Instruction Type:Provider Instructions for Treatment How to access health informa tion online Indication:Non-smoker Start:14-Jun-2017 Instruction Type:Patient Education How to access health informa tion online - Detail Indication:Non-smoker Start:14-Jun-2017 Instruction Type:Patient Education Patient Instructions Indication:Non-smoker Start:14-Jun-2017 Instruction Type:Provider Instructions for Treatment How to access health informa tion online Indication:Anxiety Start:26-Dec-2015 Instruction Type:Patient Education How to access health informa tion online - Detail Indication:Anxiety Start:26-Dec-2015 Instruction Type:Patient Education Patient Instructions Indication:Anxiety Start:26-Dec-2015 Instruction Type:Provider Instructions for Treatment How to access health informa tion online Indication:Anxiety Start:11-Dec-2015 Instruction Type:Patient Education How to access health informa tion online - Detail Indication:Anxiety Start:11-Dec-2015 Instruction Type:Patient Education Patient Instructions Indication:Anxiety Start:11-Dec-2015 Instruction Type:Provider Instructions for Treatment How to access health informa tion online Indication:Anxiety Start:05-Nov-2015 Instruction Type:Patient Education How to access health informa tion online - Detail Indication:Anxiety Start:05-Nov-2015 Instruction Type:Patient Education Patient Instructions Indication:Anxiety Start:05-Nov-2015 Instruction Type:Provider Instructions for Treatment How to access health informa tion online Indication:Infection of both eyes Start:16-Oct-2015 Instruction Type:Patient Education How to access health informa tion online - Detail Indication:Infection of both eyes Start:16-Oct-2015 Instruction Type:Patient Education Patient Instructions Indication:Infection of both eyes Start:16-Oct-2015 Instruction Type:Provider Instructions for Treatment Patient Instructions Indication:Skin texture changes Start:16-Apr-2014 Instruction Type:Provider Instructions for Treatment [facility]; [facility] Work Phone: Instructions* Name Dates Details Patient Instructions Indication:Non-smoker Start:09-Apr-2022 Instruction Type:Provider Instructions for Treatment How to Access Health Informa tion Online using Patient Portal and [employer] Apps Indication:Non-smoker Start:09-Apr-2022 Instruction Type:Patient Education Patient Instructions Indication:BMI 29.0-29.9,adult Start:17-Dec-2021 Instruction Type:Provider Instructions for Treatment How to Access Health Informa tion Online using Patient Portal and [employer]rd [employer] Apps Indication:BMI 29.0-29.9,adult Start:17-Dec-2021 Instruction Type:Patient Education Patient Instructions Indication:Elevated blood pressure reading Start:19-Mar-2021 Instruction Type:Provider Instructions for Treatment How to Access Health Informa tion Online using Patient Portal and [employer] Apps Indication:Elevated blood pressure reading Start:19-Mar-2021 Instruction Type:Patient Education How to Access Health Informa tion Online using Patient Portal and [employer] Apps Indication:Non-smoker Start:17-Feb-2021 Instruction Type:Patient Education Patient Instructions Indication:Non-smoker Start:17-Feb-2021 Instruction Type:Provider Instructions for Treatment How to Access Health Informa tion Online using Patient Portal and [employer] Apps Indication:Non-smoker Start:10-Feb-2021 Instruction Type:Patient Education Patient Instructions Indication:Non-smoker Start:10-Feb-2021 Instruction Type:Provider Instructions for Treatment How to access health informa tion online Indication:Non-smoker Start:22-Jul-2020 Instruction Type:Patient Education How to access health informa tion online - Detail Indication:Non-smoker Start:22-Jul-2020 Instruction Type:Patient Education Patient Instructions Indication:Non-smoker Start:22-Jul-2020 Instruction Type:Provider Instructions for Treatment Patient Instructions Indication:Osteoporosis Start:01-Dec-2019 Instruction Type:Provider Instructions for Treatment How to access health informa tion online Indication:Non-smoker Start:22-Nov-2019 Instruction Type:Patient Education How to access health informa tion online - Detail Indication:Non-smoker Start:22-Nov-2019 Instruction Type:Patient Education Patient Instructions Indication:Non-smoker Start:22-Nov-2019 Instruction Type:Provider Instructions for Treatment How to access health informa tion online Indication:BMI 24.0-24.9, adult Start:24-Jun-2017 Instruction Type:Patient Education Patient Instructions Indication:BMI 24.0-24.9, adult Start:24-Jun-2017 Instruction Type:Provider Instructions for Treatment How to access health informa tion online Indication:Non-smoker Start:14-Jun-2017 Instruction Type:Patient Education How to access health informa tion online - Detail Indication:Non-smoker Start:14-Jun-2017 Instruction Type:Patient Education Patient Instructions Indication:Non-smoker Start:14-Jun-2017 Instruction Type:Provider Instructions for Treatment How to access health informa tion online Indication:Anxiety Start:26-Dec-2015 Instruction Type:Patient Education How to access health informa tion online - Detail Indication:Anxiety Start:26-Dec-2015 Instruction Type:Patient Education Patient Instructions Indication:Anxiety Start:26-Dec-2015 Instruction Type:Provider Instructions for Treatment How to access health informa tion online Indication:Anxiety Start:11-Dec-2015 Instruction Type:Patient Education How to access health informa tion online - Detail Indication:Anxiety Start:11-Dec-2015 Instruction Type:Patient Education Patient Instructions Indication:Anxiety Start:11-Dec-2015 Instruction Type:Provider Instructions for Treatment How to access health informa tion online Indication:Anxiety Start:05-Nov-2015 Instruction Type:Patient Education How to access health informa tion online - Detail Indication:Anxiety Start:05-Nov-2015 Instruction Type:Patient Education Patient Instructions Indication:Anxiety Start:05-Nov-2015 Instruction Type:Provider Instructions for Treatment How to access health informa tion online Indication:Infection of both eyes Start:16-Oct-2015 Instruction Type:Patient Education How to access health informa tion online - Detail Indication:Infection of both eyes Start:16-Oct-2015 Instruction Type:Patient Education Patient Instructions Indication:Infection of both eyes Start:16-Oct-2015 Instruction Type:Provider Instructions for Treatment Patient Instructions Indication:Skin texture changes Start:16-Apr-2014 Instruction Type:Provider Instructions for Treatment [facility] Work Phone: [phone]* Name Dates Details Patient Instructions Indication:Non-smoker Start:09-Apr-2022 Instruction Type:Provider Instructions for Treatment How to Access Health Informa tion Online using Patient Portal and [employer] Apps Indication:Non-smoker Start:09-Apr-2022 Instruction Type:Patient Education Patient Instructions Indication:BMI 29.0-29.9,adult Start:17-Dec-2021 Instruction Type:Provider Instructions for Treatment How to Access Health Informa tion Online using Patient Portal and [employer] Apps Indication:BMI 29.0-29.9,adult Start:17-Dec-2021 Instruction Type:Patient Education Patient Instructions Indication:Elevated blood pressure reading Start:19-Mar-2021 Instruction Type:Provider Instructions for Treatment How to Access Health Informa tion Online using Patient Portal and [employer] Apps Indication:Elevated blood pressure reading Start:19-Mar-2021 Instruction Type:Patient Education How to Access Health Informa tion Online using Patient Portal and [employer] Apps Indication:Non-smoker Start:17-Feb-2021 Instruction Type:Patient Education Patient Instructions Indication:Non-smoker Start:17-Feb-2021 Instruction Type:Provider Instructions for Treatment How to Access Health Informa tion Online using Patient Portal and [employer] Apps Indication:Non-smoker Start:10-Feb-2021 Instruction Type:Patient Education Patient Instructions Indication:Non-smoker Start:10-Feb-2021 Instruction Type:Provider Instructions for Treatment How to access health informa tion online Indication:Non-smoker Start:22-Jul-2020 Instruction Type:Patient Education How to access health informa tion online - Detail Indication:Non-smoker Start:22-Jul-2020 Instruction Type:Patient Education Patient Instructions Indication:Non-smoker Start:22-Jul-2020 Instruction Type:Provider Instructions for Treatment Patient Instructions Indication:Osteoporosis Start:01-Dec-2019 Instruction Type:Provider Instructions for Treatment How to access health informa tion online Indication:Non-smoker Start:22-Nov-2019 Instruction Type:Patient Education How to access health informa tion online - Detail Indication:Non-smoker Start:22-Nov-2019 Instruction Type:Patient Education Patient Instructions Indication:Non-smoker Start:22-Nov-2019 Instruction Type:Provider Instructions for Treatment How to access health informa tion online Indication:BMI 24.0-24.9, adult Start:24-Jun-2017 Instruction Type:Patient Education Patient Instructions Indication:BMI 24.0-24.9, adult Start:24-Jun-2017 Instruction Type:Provider Instructions for Treatment How to access health informa tion online Indication:Non-smoker Start:14-Jun-2017 Instruction Type:Patient Education How to access health informa tion online - Detail Indication:Non-smoker Start:14-Jun-2017 Instruction Type:Patient Education Patient Instructions Indication:Non-smoker Start:14-Jun-2017 Instruction Type:Provider Instructions for Treatment How to access health informa tion online Indication:Anxiety Start:26-Dec-2015 Instruction Type:Patient Education How to access health informa tion online - Detail Indication:Anxiety Start:26-Dec-2015 Instruction Type:Patient Education Patient Instructions Indication:Anxiety Start:26-Dec-2015 Instruction Type:Provider Instructions for Treatment How to access health informa tion online Indication:Anxiety Start:11-Dec-2015 Instruction Type:Patient Education How to access health informa tion online - Detail Indication:Anxiety Start:11-Dec-2015 Instruction Type:Patient Education Patient Instructions Indication:Anxiety Start:11-Dec-2015 Instruction Type:Provider Instructions for Treatment How to access health informa tion online Indication:Anxiety Start:05-Nov-2015 Instruction Type:Patient Education How to access health informa tion online - Detail Indication:Anxiety Start:05-Nov-2015 Instruction Type:Patient Education Patient Instructions Indication:Anxiety Start:05-Nov-2015 Instruction Type:Provider Instructions for Treatment How to access health informa tion online Indication:Infection of both eyes Start:16-Oct-2015 Instruction Type:Patient Education How to access health informa tion online - Detail Indication:Infection of both eyes Start:16-Oct-2015 Instruction Type:Patient Education Patient Instructions Indication:Infection of both eyes Start:16-Oct-2015 Instruction Type:Provider Instructions for Treatment Patient Instructions Indication:Skin texture changes Start:16-Apr-2014 Instruction Type:Provider Instructions for Treatment [facility] Work Phone: Instructions* Name Dates Details Patient Instructions Indication:Non-smoker Start:09-Apr-2022 Instruction Type:Provider Instructions for Treatment How to Access Health Informa tion Online using Patient Portal and [employer] Apps Indication:Non-smoker Start:09-Apr-2022 Instruction Type:Patient Education Patient Instructions Indication:BMI 29.0-29.9,adult Start:17-Dec-2021 Instruction Type:Provider Instructions for Treatment How to Access Health Informa tion Online using Patient Portal and [employer] Apps Indication:BMI 29.0-29.9,adult Start:17-Dec-2021 Instruction Type:Patient Education Patient Instructions Indication:Elevated blood pressure reading Start:19-Mar-2021 Instruction Type:Provider Instructions for Treatment How to Access Health Informa tion Online using Patient Portal and [employer] Apps Indication:Elevated blood pressure reading Start:19-Mar-2021 Instruction Type:Patient Education How to Access Health Informa tion Online using Patient Portal and [employer] Apps Indication:Non-smoker Start:17-Feb-2021 Instruction Type:Patient Education Patient Instructions Indication:Non-smoker Start:17-Feb-2021 Instruction Type:Provider Instructions for Treatment How to Access Health Informa tion Online using Patient Portal and [employer] Apps Indication:Non-smoker Start:10-Feb-2021 Instruction Type:Patient Education Patient Instructions Indication:Non-smoker Start:10-Feb-2021 Instruction Type:Provider Instructions for Treatment How to access health informa tion online Indication:Non-smoker Start:22-Jul-2020 Instruction Type:Patient Education How to access health informa tion online - Detail Indication:Non-smoker Start:22-Jul-2020 Instruction Type:Patient Education Patient Instructions Indication:Non-smoker Start:22-Jul-2020 Instruction Type:Provider Instructions for Treatment Patient Instructions Indication:Osteoporosis Start:01-Dec-2019 Instruction Type:Provider Instructions for Treatment How to access health informa tion online Indication:Non-smoker Start:22-Nov-2019 Instruction Type:Patient Education How to access health informa tion online - Detail Indication:Non-smoker Start:22-Nov-2019 Instruction Type:Patient Education Patient Instructions Indication:Non-smoker Start:22-Nov-2019 Instruction Type:Provider Instructions for Treatment How to access health informa tion online Indication:BMI 24.0-24.9, adult Start:24-Jun-2017 Instruction Type:Patient Education Patient Instructions Indication:BMI 24.0-24.9, adult Start:24-Jun-2017 Instruction Type:Provider Instructions for Treatment How to access health informa tion online Indication:Non-smoker Start:14-Jun-2017 Instruction Type:Patient Education How to access health informa tion online - Detail Indication:Non-smoker Start:14-Jun-2017 Instruction Type:Patient Education Patient Instructions Indication:Non-smoker Start:14-Jun-2017 Instruction Type:Provider Instructions for Treatment How to access health informa tion online Indication:Anxiety Start:26-Dec-2015 Instruction Type:Patient Education How to access health informa tion online - Detail Indication:Anxiety Start:26-Dec-2015 Instruction Type:Patient Education Patient Instructions Indication:Anxiety Start:26-Dec-2015 Instruction Type:Provider Instructions for Treatment How to access health informa tion online Indication:Anxiety Start:11-Dec-2015 Instruction Type:Patient Education How to access health informa tion online - Detail Indication:Anxiety Start:11-Dec-2015 Instruction Type:Patient Education Patient Instructions Indication:Anxiety Start:11-Dec-2015 Instruction Type:Provider Instructions for Treatment How to access health informa tion online Indication:Anxiety Start:05-Nov-2015 Instruction Type:Patient Education How to access health informa tion online - Detail Indication:Anxiety Start:05-Nov-2015 Instruction Type:Patient Education Patient Instructions Indication:Anxiety Start:05-Nov-2015 Instruction Type:Provider Instructions for Treatment How to access health informa tion online Indication:Infection of both eyes Start:16-Oct-2015 Instruction Type:Patient Education How to access health informa tion online - Detail Indication:Infection of both eyes Start:16-Oct-2015 Instruction Type:Patient Education Patient Instructions Indication:Infection of both eyes Start:16-Oct-2015 Instruction Type:Provider Instructions for Treatment Patient Instructions Indication:Skin texture changes Start:16-Apr-2014 Instruction Type:Provider Instructions for Treatment [facility] Work Phone: Instructions* Name Dates Details Patient Instructions Indication:Non-smoker Start:09-Apr-2022 Instruction Type:Provider Instructions for Treatment How to Access Health Informa tion Online using Patient Portal and [employer] Apps Indication:Non-smoker Start:09-Apr-2022 Instruction Type:Patient Education Patient Instructions Indication:BMI 29.0-29.9,adult Start:17-Dec-2021 Instruction Type:Provider Instructions for Treatment How to Access Health Informa tion Online using Patient Portal and [employer] Apps Indication:BMI 29.0-29.9,adult Start:17-Dec-2021 Instruction Type:Patient Education Patient Instructions Indication:Elevated blood pressure reading Start:19-Mar-2021 Instruction Type:Provider Instructions for Treatment How to Access Health Informa tion Online using Patient Portal and [employer] Apps Indication:Elevated blood pressure reading Start:19-Mar-2021 Instruction Type:Patient Education How to Access Health Informa tion Online using Patient Portal and [employer] Apps Indication:Non-smoker Start:17-Feb-2021 Instruction Type:Patient Education Patient Instructions Indication:Non-smoker Start:17-Feb-2021 Instruction Type:Provider Instructions for Treatment How to Access Health Informa tion Online using Patient Portal and [employer] Apps Indication:Non-smoker Start:10-Feb-2021 Instruction Type:Patient Education Patient Instructions Indication:Non-smoker Start:10-Feb-2021 Instruction Type:Provider Instructions for Treatment How to access health informa tion online Indication:Non-smoker Start:22-Jul-2020 Instruction Type:Patient Education How to access health informa tion online - Detail Indication:Non-smoker Start:22-Jul-2020 Instruction Type:Patient Education Patient Instructions Indication:Non-smoker Start:22-Jul-2020 Instruction Type:Provider Instructions for Treatment Patient Instructions Indication:Osteoporosis Start:01-Dec-2019 Instruction Type:Provider Instructions for Treatment How to access health informa tion online Indication:Non-smoker Start:22-Nov-2019 Instruction Type:Patient Education How to access health informa tion online - Detail Indication:Non-smoker Start:22-Nov-2019 Instruction Type:Patient Education Patient Instructions Indication:Non-smoker Start:22-Nov-2019 Instruction Type:Provider Instructions for Treatment How to access health informa tion online Indication:BMI 24.0-24.9, adult Start:24-Jun-2017 Instruction Type:Patient Education Patient Instructions Indication:BMI 24.0-24.9, adult Start:24-Jun-2017 Instruction Type:Provider Instructions for Treatment How to access health informa tion online Indication:Non-smoker Start:14-Jun-2017 Instruction Type:Patient Education How to access health informa tion online - Detail Indication:Non-smoker Start:14-Jun-2017 Instruction Type:Patient Education Patient Instructions Indication:Non-smoker Start:14-Jun-2017 Instruction Type:Provider Instructions for Treatment How to access health informa tion online Indication:Anxiety Start:26-Dec-2015 Instruction Type:Patient Education How to access health informa tion online - Detail Indication:Anxiety Start:26-Dec-2015 Instruction Type:Patient Education Patient Instructions Indication:Anxiety Start:26-Dec-2015 Instruction Type:Provider Instructions for Treatment How to access health informa tion online Indication:Anxiety Start:11-Dec-2015 Instruction Type:Patient Education How to access health informa tion online - Detail Indication:Anxiety Start:11-Dec-2015 Instruction Type:Patient Education Patient Instructions Indication:Anxiety Start:11-Dec-2015 Instruction Type:Provider Instructions for Treatment How to access health informa tion online Indication:Anxiety Start:05-Nov-2015 Instruction Type:Patient Education How to access health informa tion online - Detail Indication:Anxiety Start:05-Nov-2015 Instruction Type:Patient Education Patient Instructions Indication:Anxiety Start:05-Nov-2015 Instruction Type:Provider Instructions for Treatment How to access health informa tion online Indication:Infection of both eyes Start:16-Oct-2015 Instruction Type:Patient Education How to access health informa tion online - Detail Indication:Infection of both eyes Start:16-Oct-2015 Instruction Type:Patient Education Patient Instructions Indication:Infection of both eyes Start:16-Oct-2015 Instruction Type:Provider Instructions for Treatment Patient Instructions Indication:Skin texture changes Start:16-Apr-2014 Instruction Type:Provider Instructions for Treatment [facility] Work Phone: Instructions* Name Dates Details Patient Instructions Indication:Non-smoker Start:14-Apr-2023 Instruction Type:Provider Instructions for Treatment How to Access Health Informa tion Online using Patient Portal and [employer] Apps Indication:Non-smoker Start:14-Apr-2023 Instruction Type:Patient Education Patient Instructions Indication:Non-smoker Start:09-Apr-2022 Instruction Type:Provider Instructions for Treatment How to Access Health Informa tion Online using Patient Portal and [employer] Apps Indication:Non-smoker Start:09-Apr-2022 Instruction Type:Patient Education Patient Instructions Indication:BMI 29.0-29.9,adult Start:17-Dec-2021 Instruction Type:Provider Instructions for Treatment How to Access Health Informa tion Online using Patient Portal and [employer] Apps Indication:BMI 29.0-29.9,adult Start:17-Dec-2021 Instruction Type:Patient Education Patient Instructions Indication:Elevated blood pressure reading Start:19-Mar-2021 Instruction Type:Provider Instructions for Treatment How to Access Health Informa tion Online using Patient Portal and [employer] Apps Indication:Elevated blood pressure reading Start:19-Mar-2021 Instruction Type:Patient Education How to Access Health Informa tion Online using Patient Portal and [employer] Apps Indication:Non-smoker Start:17-Feb-2021 Instruction Type:Patient Education Patient Instructions Indication:Non-smoker Start:17-Feb-2021 Instruction Type:Provider Instructions for Treatment How to Access Health Informa tion Online using Patient Portal and [employer] Apps Indication:Non-smoker Start:10-Feb-2021 Instruction Type:Patient Education Patient Instructions Indication:Non-smoker Start:10-Feb-2021 Instruction Type:Provider Instructions for Treatment How to access health informa tion online Indication:Non-smoker Start:22-Jul-2020 Instruction Type:Patient Education How to access health informa tion online - Detail Indication:Non-smoker Start:22-Jul-2020 Instruction Type:Patient Education Patient Instructions Indication:Non-smoker Start:22-Jul-2020 Instruction Type:Provider Instructions for Treatment Patient Instructions Indication:Osteoporosis Start:01-Dec-2019 Instruction Type:Provider Instructions for Treatment How to access health informa tion online Indication:Non-smoker Start:22-Nov-2019 Instruction Type:Patient Education How to access health informa tion online - Detail Indication:Non-smoker Start:22-Nov-2019 Instruction Type:Patient Education Patient Instructions Indication:Non-smoker Start:22-Nov-2019 Instruction Type:Provider Instructions for Treatment How to access health informa tion online Indication:BMI 24.0-24.9, adult Start:24-Jun-2017 Instruction Type:Patient Education Patient Instructions Indication:BMI 24.0-24.9, adult Start:24-Jun-2017 Instruction Type:Provider Instructions for Treatment How to access health informa tion online Indication:Non-smoker Start:14-Jun-2017 Instruction Type:Patient Education How to access health informa tion online - Detail Indication:Non-smoker Start:14-Jun-2017 Instruction Type:Patient Education Patient Instructions Indication:Non-smoker Start:14-Jun-2017 Instruction Type:Provider Instructions for Treatment How to access health informa tion online Indication:Anxiety Start:26-Dec-2015 Instruction Type:Patient Education How to access health informa tion online - Detail Indication:Anxiety Start:26-Dec-2015 Instruction Type:Patient Education Patient Instructions Indication:Anxiety Start:26-Dec-2015 Instruction Type:Provider Instructions for Treatment How to access health informa tion online Indication:Anxiety Start:11-Dec-2015 Instruction Type:Patient Education How to access health informa tion online - Detail Indication:Anxiety Start:11-Dec-2015 Instruction Type:Patient Education Patient Instructions Indication:Anxiety Start:11-Dec-2015 Instruction Type:Provider Instructions for Treatment How to access health informa tion online Indication:Anxiety Start:05-Nov-2015 Instruction Type:Patient Education How to access health informa tion online - Detail Indication:Anxiety Start:05-Nov-2015 Instruction Type:Patient Education Patient Instructions Indication:Anxiety Start:05-Nov-2015 Instruction Type:Provider Instructions for Treatment How to access health informa tion online Indication:Infection of both eyes Start:16-Oct-2015 Instruction Type:Patient Education How to access health informa tion online - Detail Indication:Infection of both eyes Start:16-Oct-2015 Instruction Type:Patient Education Patient Instructions Indication:Infection of both eyes Start:16-Oct-2015 Instruction Type:Provider Instructions for Treatment Patient Instructions Indication:Skin texture changes Start:16-Apr-2014 Instruction Type:Provider Instructions for Treatment [facility] Work Phone: Instructions* Name Dates Details Patient Instructions Indication:Non-smoker Start:14-Apr-2023 Instruction Type:Provider Instructions for Treatment How to Access Health Informa tion Online using Patient Portal and [employer] Apps Indication:Non-smoker Start:14-Apr-2023 Instruction Type:Patient Education Patient Instructions Indication:Non-smoker Start:09-Apr-2022 Instruction Type:Provider Instructions for Treatment How to Access Health Informa tion Online using Patient Portal and [employer] Apps Indication:Non-smoker Start:09-Apr-2022 Instruction Type:Patient Education Patient Instructions Indication:BMI 29.0-29.9,adult Start:17-Dec-2021 Instruction Type:Provider Instructions for Treatment How to Access Health Informa tion Online using Patient Portal and [employer] Apps Indication:BMI 29.0-29.9,adult Start:17-Dec-2021 Instruction Type:Patient Education Patient Instructions Indication:Elevated blood pressure reading Start:19-Mar-2021 Instruction Type:Provider Instructions for Treatment How to Access Health Informa tion Online using Patient Portal and [employer] Apps Indication:Elevated blood pressure reading Start:19-Mar-2021 Instruction Type:Patient Education How to Access Health Informa tion Online using Patient Portal and [employer] Apps Indication:Non-smoker Start:17-Feb-2021 Instruction Type:Patient Education Patient Instructions Indication:Non-smoker Start:17-Feb-2021 Instruction Type:Provider Instructions for Treatment How to Access Health Informa tion Online using Patient Portal and [employer] Apps Indication:Non-smoker Start:10-Feb-2021 Instruction Type:Patient Education Patient Instructions Indication:Non-smoker Start:10-Feb-2021 Instruction Type:Provider Instructions for Treatment How to access health informa tion online Indication:Non-smoker Start:22-Jul-2020 Instruction Type:Patient Education How to access health informa tion online - Detail Indication:Non-smoker Start:22-Jul-2020 Instruction Type:Patient Education Patient Instructions Indication:Non-smoker Start:22-Jul-2020 Instruction Type:Provider Instructions for Treatment Patient Instructions Indication:Osteoporosis Start:01-Dec-2019 Instruction Type:Provider Instructions for Treatment How to access health informa tion online Indication:Non-smoker Start:22-Nov-2019 Instruction Type:Patient Education How to access health informa tion online - Detail Indication:Non-smoker Start:22-Nov-2019 Instruction Type:Patient Education Patient Instructions Indication:Non-smoker Start:22-Nov-2019 Instruction Type:Provider Instructions for Treatment How to access health informa tion online Indication:BMI 24.0-24.9, adult Start:24-Jun-2017 Instruction Type:Patient Education Patient Instructions Indication:BMI 24.0-24.9, adult Start:24-Jun-2017 Instruction Type:Provider Instructions for Treatment How to access health informa tion online Indication:Non-smoker Start:14-Jun-2017 Instruction Type:Patient Education How to access health informa tion online - Detail Indication:Non-smoker Start:14-Jun-2017 Instruction Type:Patient Education Patient Instructions Indication:Non-smoker Start:14-Jun-2017 Instruction Type:Provider Instructions for Treatment How to access health informa tion online Indication:Anxiety Start:26-Dec-2015 Instruction Type:Patient Education How to access health informa tion online - Detail Indication:Anxiety Start:26-Dec-2015 Instruction Type:Patient Education Patient Instructions Indication:Anxiety Start:26-Dec-2015 Instruction Type:Provider Instructions for Treatment How to access health informa tion online Indication:Anxiety Start:11-Dec-2015 Instruction Type:Patient Education How to access health informa tion online - Detail Indication:Anxiety Start:11-Dec-2015 Instruction Type:Patient Education Patient Instructions Indication:Anxiety Start:11-Dec-2015 Instruction Type:Provider Instructions for Treatment How to access health informa tion online Indication:Anxiety Start:05-Nov-2015 Instruction Type:Patient Education How to access health informa tion online - Detail Indication:Anxiety Start:05-Nov-2015 Instruction Type:Patient Education Patient Instructions Indication:Anxiety Start:05-Nov-2015 Instruction Type:Provider Instructions for Treatment How to access health informa tion online Indication:Infection of both eyes Start:16-Oct-2015 Instruction Type:Patient Education How to access health informa tion online - Detail Indication:Infection of both eyes Start:16-Oct-2015 Instruction Type:Patient Education Patient Instructions Indication:Infection of both eyes Start:16-Oct-2015 Instruction Type:Provider Instructions for Treatment Patient Instructions Indication:Skin texture changes Start:16-Apr-2014 Instruction Type:Provider Instructions for Treatment [facility]; [facility] Work Phone: Instructions* Name Dates Details Patient Instructions Indication:Non-smoker Start:14-Apr-2023 Instruction Type:Provider Instructions for Treatment How to Access Health Informa tion Online using Patient Portal and [employer] Apps Indication:Non-smoker Start:14-Apr-2023 Instruction Type:Patient Education Patient Instructions Indication:Non-smoker Start:09-Apr-2022 Instruction Type:Provider Instructions for Treatment How to Access Health Informa tion Online using Patient Portal and 3rd [employer] Apps Indication:Non-smoker Start:09-Apr-2022 Instruction Type:Patient Education Patient Instructions Indication:BMI 29.0-29.9,adult Start:17-Dec-2021 Instruction Type:Provider Instructions for Treatment How to Access Health Informa tion Online using Patient Portal and 3rd [employer] Apps Indication:BMI 29.0-29.9,adult Start:17-Dec-2021 Instruction Type:Patient Education Patient Instructions Indication:Elevated blood pressure reading Start:19-Mar-2021 Instruction Type:Provider Instructions for Treatment How to Access Health Informa tion Online using Patient Portal and 3rd [employer] Apps Indication:Elevated blood pressure reading Start:19-Mar-2021 Instruction Type:Patient Education How to Access Health Informa tion Online using Patient Portal and 3rd [employer] Apps Indication:Non-smoker Start:17-Feb-2021 Instruction Type:Patient Education Patient Instructions Indication:Non-smoker Start:17-Feb-2021 Instruction Type:Provider Instructions for Treatment How to Access Health Informa tion Online using Patient Portal and 3rd [employer] Apps Indication:Non-smoker Start:10-Feb-2021 Instruction Type:Patient Education Patient Instructions Indication:Non-smoker Start:10-Feb-2021 Instruction Type:Provider Instructions for Treatment How to access health informa tion online Indication:Non-smoker Start:22-Jul-2020 Instruction Type:Patient Education How to access health informa tion online - Detail Indication:Non-smoker Start:22-Jul-2020 Instruction Type:Patient Education Patient Instructions Indication:Non-smoker Start:22-Jul-2020 Instruction Type:Provider Instructions for Treatment Patient Instructions Indication:Osteoporosis Start:01-Dec-2019 Instruction Type:Provider Instructions for Treatment How to access health informa tion online Indication:Non-smoker Start:22-Nov-2019 Instruction Type:Patient Education How to access health informa tion online - Detail Indication:Non-smoker Start:22-Nov-2019 Instruction Type:Patient Education Patient Instructions Indication:Non-smoker Start:22-Nov-2019 Instruction Type:Provider Instructions for Treatment How to access health informa tion online Indication:BMI 24.0-24.9, adult Start:24-Jun-2017 Instruction Type:Patient Education Patient Instructions Indication:BMI 24.0-24.9, adult Start:24-Jun-2017 Instruction Type:Provider Instructions for Treatment How to access health informa tion online Indication:Non-smoker Start:14-Jun-2017 Instruction Type:Patient Education How to access health informa tion online - Detail Indication:Non-smoker Start:14-Jun-2017 Instruction Type:Patient Education Patient Instructions Indication:Non-smoker Start:14-Jun-2017 Instruction Type:Provider Instructions for Treatment How to access health informa tion online Indication:Anxiety Start:26-Dec-2015 Instruction Type:Patient Education How to access health informa tion online - Detail Indication:Anxiety Start:26-Dec-2015 Instruction Type:Patient Education Patient Instructions Indication:Anxiety Start:26-Dec-2015 Instruction Type:Provider Instructions for Treatment How to access health informa tion online Indication:Anxiety Start:11-Dec-2015 Instruction Type:Patient Education How to access health informa tion online - Detail Indication:Anxiety Start:11-Dec-2015 Instruction Type:Patient Education Patient Instructions Indication:Anxiety Start:11-Dec-2015 Instruction Type:Provider Instructions for Treatment How to access health informa tion online Indication:Anxiety Start:05-Nov-2015 Instruction Type:Patient Education How to access health informa tion online - Detail Indication:Anxiety Start:05-Nov-2015 Instruction Type:Patient Education Patient Instructions Indication:Anxiety Start:05-Nov-2015 Instruction Type:Provider Instructions for Treatment How to access health informa tion online Indication:Infection of both eyes Start:16-Oct-2015 Instruction Type:Patient Education How to access health informa tion online - Detail Indication:Infection of both eyes Start:16-Oct-2015 Instruction Type:Patient Education Patient Instructions Indication:Infection of both eyes Start:16-Oct-2015 Instruction Type:Provider Instructions for Treatment Patient Instructions Indication:Skin texture changes Start:16-Apr-2014 Instruction Type:Provider Instructions for Treatment [facility] Work Phone: reason for referral (narrative)No reason for [facility]: Summary Purpose Family History No Family History Records FoundUnknown Family Member Name Dates Details Family Members In General Comments:Parkinson's, endome triosis, Cancer, Emotional problems, Heart/Lung, HBP, kidney stones Status:Active Unknown Family Member Name Dates Details Family Members In General Comments:Parkinson's, endome triosis, Cancer, Emotional problems, Heart/Lung, HBP, kidney stones Status:Active Unknown Family Member Name Dates Details Family Members In General Comments:Parkinson's, endome triosis, Cancer, Emotional problems, Heart/Lung, HBP, kidney stones Status:Active Unknown Family Member Name Dates Details Family Members In General Comments:Parkinson's, endome triosis, Cancer, Emotional problems, Heart/Lung, HBP, kidney stones Status:Active Mother Comments:CVA Status:Active Unknown Family Member Name Dates Details Family Members In General Comments:Parkinson's, endome triosis, Cancer, Emotional problems, Heart/Lung, HBP, kidney stones Status:Active Mother Comments:CVA Status:Active Unknown Family Member Name Dates Details Family Members In General Comments:Parkinson's, endome triosis, Cancer, Emotional problems, Heart/Lung, HBP, kidney stones Status:Active Mother Comments:CVA Status:Active Unknown Family Member Name Dates Details Family Members In General Comments:Parkinson's, endome triosis, Cancer, Emotional problems, Heart/Lung, HBP, kidney stones Status:Active Mother Comments:CVA Status:Active Unknown Family Member Name Dates Details Family Members In General Comments:Parkinson's, endome triosis, Cancer, Emotional problems, Heart/Lung, HBP, kidney stones Status:Active Mother Comments:CVA Status:Active Unknown Family Member Name Dates Details Family Members In General Comments:Parkinson's, endome triosis, Cancer, Emotional problems, Heart/Lung, HBP, kidney stones Status:Active Mother Comments:CVA Status:Active Unknown Family Member Name Dates Details Family Members In General Comments:Parkinson's, endome triosis, Cancer, Emotional problems, Heart/Lung, HBP, kidney stones Status:Active Mother Comments:CVA Status:Active Unknown Family Member Name Dates Details Family Members In General Comments:Parkinson's, endome triosis, Cancer, Emotional problems, Heart/Lung, HBP, kidney stones Status:Active Mother Comments:CVA Status:Active Unknown Family Member Name Dates Details Family Members In General Comments:Parkinson's, endome triosis, Cancer, Emotional problems, Heart/Lung, HBP, kidney stones Status:Active Mother Comments:CVA Status:Active Unknown Family Member Name Dates Details Family Members In General Comments:Parkinson's, endome triosis, Cancer, Emotional problems, Heart/Lung, HBP, kidney stones Status:Active Mother Comments:CVA Status:Active Unknown Family Member Name Dates Details Family Members In General Comments:Parkinson's, endome triosis, Cancer, Emotional problems, Heart/Lung, HBP, kidney stones Status:Active Mother Comments:CVA Status:Active Unknown Family Member Name Dates Details Family Members In General Comments:Parkinson's, endome triosis, Cancer, Emotional problems, Heart/Lung, HBP, kidney stones Status:Active Mother Comments:CVA Status:Active Unknown Family Member Name Dates Details Family Members In General Comments:Parkinson's, endome triosis, Cancer, Emotional problems, Heart/Lung, HBP, kidney stones Status:Active Mother Comments:CVA Status:Active Unknown Family Member Name Dates Details Family Members In General Comments:Parkinson's, endome triosis, Cancer, Emotional problems, Heart/Lung, HBP, kidney stones Status:Active Mother Comments:CVA Status:Active Unknown Family Member Name Dates Details Family Members In General Comments:Parkinson's, endome triosis, Cancer, Emotional problems, Heart/Lung, HBP, kidney stones Status:Active Mother Comments:CVA Status:Active Unknown Family Member Name Dates Details Family Members In General Comments:Parkinson's, endome triosis, Cancer, Emotional problems, Heart/Lung, HBP, kidney stones Status:Active Mother Comments:CVA Status:Active Unknown Family Member Name Dates Details Family Members In General Comments:Parkinson's, endome triosis, Cancer, Emotional problems, Heart/Lung, HBP, kidney stones Status:Active Mother Comments:CVA Status:Active Unknown Family Member Name Dates Details Family Members In General Comments:Parkinson's, endome triosis, Cancer, Emotional problems, Heart/Lung, HBP, kidney stones Status:Active Mother Comments:CVA Status:Active Unknown Family Member Name Dates Details Family Members In General Comments:Parkinson's, endome triosis, Cancer, Emotional problems, Heart/Lung, HBP, kidney stones Status:Active Mother Comments:CVA Status:Active Unknown Family Member Name Dates Details Family Members In General Comments:Parkinson's, endome triosis, Cancer, Emotional problems, Heart/Lung, HBP, kidney stones Status:Active Mother Comments:CVA Status:Active Unknown Family Member Name Dates Details Family Members In General Comments:Parkinson's, endome triosis, Cancer, Emotional problems, Heart/Lung, HBP, kidney stones Status:Active Mother Comments:CVA Status:Active Unknown Family Member Name Dates Details Family Members In General Comments:Parkinson's, endome triosis, Cancer, Emotional problems, Heart/Lung, HBP, kidney stones Status:Active Mother Comments:CVA Status:Active Unknown Family Member Name Dates Details Family Members In General Comments:Parkinson's, endome triosis, Cancer, Emotional problems, Heart/Lung, HBP, kidney stones Status:Active Mother Comments:CVA Status:Active Unknown Family Member Name Dates Details Family Members In General Comments:Parkinson's, endome triosis, Cancer, Emotional problems, Heart/Lung, HBP, kidney stones Status:Active Mother Comments:CVA Status:Active Unknown Family Member Name Dates Details Family Members In General Comments:Parkinson's, endome triosis, Cancer, Emotional problems, Heart/Lung, HBP, kidney stones Status:Active Mother Comments:CVA Status:Active Relationship Condition Age at Onset Recorded Date/T tigre grandfather Malignant neoplasm of colon Unknown Advance Directives No Advanced Directives Records Found Name Dates Details Immunization Registry [place] - Effective on 02/10/2021. Expiration date unspecified Effective:10-Feb-2021 Name Dates Details Immunization Registry [place] - Effective on 02/10/2021. Expiration date unspecified Effective:10-Feb-2021 Name Dates Details Immunization Registry [place] - Effective on 02/10/2021. Expiration date unspecified Effective:10-Feb-2021 Name Dates Details Immunization Registry [place] - Effective on 02/10/2021. Expiration date unspecified Effective:10-Feb-2021 Name Dates Details Immunization Registry [place] - Effective on 02/10/2021. Expiration date unspecified Effective:10-Feb-2021 Name Dates Details Immunization Registry [place] - Effective on 02/10/2021. Expiration date unspecified Effective:10-Feb-2021 Name Dates Details Immunization Registry [place] - Effective on 02/10/2021. Expiration date unspecified Effective:10-Feb-2021 Name Dates Details Immunization Registry [place] - Effective on 02/10/2021. Expiration date unspecified Effective:10-Feb-2021 Name Dates Details Immunization Registry [place] - Effective on 02/10/2021. Expiration date unspecified Effective:10-Feb-2021 Name Dates Details Immunization Registry [place] - Effective on 02/10/2021. Expiration date unspecified Effective:10-Feb-2021 Name Dates Details Immunization Registry [place] - Effective on 02/10/2021. Expiration date unspecified Effective:10-Feb-2021 Advance Directive Response Recorded Date/ Time Name of Medical Power of Fabrication Mig Welder Jayce Quarles May 08, 2022 4:01pm Living Will Yes May 08 4:01pm Power of Fabrication Mig Welder Yes May 08, 2022 4:01pm Name Dates Details Immunization Registry [place] - Effective on 02/10/2021. Expiration date unspecified Effective:10-Feb-2021 Advance Directive Response Recorded Date/ Time Name of Medical Power of Fabrication Mig Welder Jayce Quarles May 08, 2022 4:01pm Living Will No June 03, 2022 2:51pm Power of Fabrication Mig Welder No May 2:51pm Name Dates Details Immunization Registry [place] - Effective on 02/10/2021. Expiration date unspecified Effective:10-Feb-2021 Name Dates Details Immunization Registry [place] - Effective on 02/10/2021. Expiration date unspecified Effective:10-Feb-2021 Advance Directive Response Recorded Date/ Time Name of Medical Power of Fabrication Mig Welder Jayce Quarles May 08, 2022 3:01pm Living Will No June 03, 2022 1:51pm Power of Fabrication Mig Welder No May 1:51pm Name Dates Details Immunization Registry [place] - Effective on 02/10/2021. Expiration date unspecified Effective:10-Feb-2021 Name Dates Details Immunization Registry [place] - Effective on 02/10/2021. Expiration date unspecified Effective:10-Feb-2021 Advance Directive Response Recorded Date/ Time Living Will No June 03, 2022 2:51pm Power of Fabrication Mig Welder No May 2:51pm Name Dates Details Immunization Registry [place] - Effective on 02/10/2021. Expiration date unspecified Effective:10-Feb-2021 Name Dates Details Immunization Registry [place] - Effective on 02/10/2021. Expiration date unspecified Effective:10-Feb-2021 Name Dates Details Immunization Registry [place] - Effective on 02/10/2021. Expiration date unspecified Effective:10-Feb-2021 Advance Directive Response Recorded Date/ Time Living Will Yes August 19, 023 10:39pm Power of Fabrication Mig [employer]der Yes August 19, 2023 10:39pm Name of Medical Power of Fabrication Mig Welder August 19, 2023 10:39pm Advance Directive Response Recorded Date/ Time Living Will No November 15, 2024 4:41pm Power of Fabrication Mig Welder No November 15 4:41pm Advance Directive Response Recorded Date/ Time Do you have a Healthcare Power of Fabrication Mig Welder? No April 10, 2025 9:45am Instructions Name Dates Details BMI 24.0-24.9, adult : How t o access health information online Indication:BMI 24.0-24.9, adult BMI 24.0-24.9, adult : Patie nt Instructions Indication:BMI 24.0-24.9, adult Non-smoker : How to access h ealth information online Indication:Non-smoker Non-smoker : How to access h ealth information online - Detail Indication:Non-smoker Non-smoker : Patient Instruc tions Indication:Non-smoker Anxiety : How to access heal th information online Indication:Anxiety Anxiety : How to access heal th information online - Detail Indication:Anxiety Anxiety : Patient Instructio ns Indication:Anxiety Infection of both eyes : How to access health information online Indication:Infection of both eyes Infection of both eyes : How to access health information online - Detail Indication:Infection of both eyes Infection of both eyes : Pat ient Instructions Indication:Infection of both eyes Skin texture changes : Patie nt Instructions Indication:Skin texture changes Name Dates Details BMI 24.0-24.9, adult : How t o access health information online Indication:BMI 24.0-24.9, adult BMI 24.0-24.9, adult : Patie nt Instructions Indication:BMI 24.0-24.9, adult Non-smoker : How to access h ealth information online Indication:Non-smoker Non-smoker : How to access h ealth information online - Detail Indication:Non-smoker Non-smoker : Patient Instruc tions Indication:Non-smoker Anxiety : How to access heal th information online Indication:Anxiety Anxiety : How to access heal th information online - Detail Indication:Anxiety Anxiety : Patient Instructio ns Indication:Anxiety Infection of both eyes : How to access health information online Indication:Infection of both eyes Infection of both eyes : How to access health information online - Detail Indication:Infection of both eyes Infection of both eyes : Pat ient Instructions Indication:Infection of both eyes Skin texture changes : Patie nt Instructions Indication:Skin texture changes Name Dates Details How to access health informa tion online Indication:BMI 24.0-24.9, adult Start:24-Jun-2017 Instruction Type:Patient Education Patient Instructions Indication:BMI 24.0-24.9, adult Start:24-Jun-2017 Instruction Type:Provider Instructions for Treatment How to access health informa tion online Indication:Non-smoker Start:14-Jun-2017 Instruction Type:Patient Education How to access health informa tion online - Detail Indication:Non-smoker Start:14-Jun-2017 Instruction Type:Patient Education Patient Instructions Indication:Non-smoker Start:14-Jun-2017 Instruction Type:Provider Instructions for Treatment How to access health informa tion online Indication:Anxiety Start:26-Dec-2015 Instruction Type:Patient Education How to access health informa tion online - Detail Indication:Anxiety Start:26-Dec-2015 Instruction Type:Patient Education Patient Instructions Indication:Anxiety Start:26-Dec-2015 Instruction Type:Provider Instructions for Treatment How to access health informa tion online Indication:Anxiety Start:11-Dec-2015 Instruction Type:Patient Education How to access health informa tion online - Detail Indication:Anxiety Start:11-Dec-2015 Instruction Type:Patient Education Patient Instructions Indication:Anxiety Start:11-Dec-2015 Instruction Type:Provider Instructions for Treatment How to access health informa tion online Indication:Anxiety Start:05-Nov-2015 Instruction Type:Patient Education How to access health informa tion online - Detail Indication:Anxiety Start:05-Nov-2015 Instruction Type:Patient Education Patient Instructions Indication:Anxiety Start:05-Nov-2015 Instruction Type:Provider Instructions for Treatment How to access health informa tion online Indication:Infection of both eyes Start:16-Oct-2015 Instruction Type:Patient Education How to access health informa tion online - Detail Indication:Infection of both eyes Start:16-Oct-2015 Instruction Type:Patient Education Patient Instructions Indication:Infection of both eyes Start:16-Oct-2015 Instruction Type:Provider Instructions for Treatment Patient Instructions Indication:Skin texture changes Start:16-Apr-2014 Instruction Type:Provider Instructions for Treatment Name Dates Details Patient Instructions Indication:Osteoporosis Start:01-Dec-2019 Instruction Type:Provider Instructions for Treatment How to access health informa tion online Indication:Non-smoker Start:22-Nov-2019 Instruction Type:Patient Education How to access health informa tion online - Detail Indication:Non-smoker Start:22-Nov-2019 Instruction Type:Patient Education Patient Instructions Indication:Non-smoker Start:22-Nov-2019 Instruction Type:Provider Instructions for Treatment How to access health informa tion online Indication:BMI 24.0-24.9, adult Start:24-Jun-2017 Instruction Type:Patient Education Patient Instructions Indication:BMI 24.0-24.9, adult Start:24-Jun-2017 Instruction Type:Provider Instructions for Treatment How to access health informa tion online Indication:Non-smoker Start:14-Jun-2017 Instruction Type:Patient Education How to access health informa tion online - Detail Indication:Non-smoker Start:14-Jun-2017 Instruction Type:Patient Education Patient Instructions Indication:Non-smoker Start:14-Jun-2017 Instruction Type:Provider Instructions for Treatment How to access health informa tion online Indication:Anxiety Start:26-Dec-2015 Instruction Type:Patient Education How to access health informa tion online - Detail Indication:Anxiety Start:26-Dec-2015 Instruction Type:Patient Education Patient Instructions Indication:Anxiety Start:26-Dec-2015 Instruction Type:Provider Instructions for Treatment How to access health informa tion online Indication:Anxiety Start:11-Dec-2015 Instruction Type:Patient Education How to access health informa tion online - Detail Indication:Anxiety Start:11-Dec-2015 Instruction Type:Patient Education Patient Instructions Indication:Anxiety Start:11-Dec-2015 Instruction Type:Provider Instructions for Treatment How to access health informa tion online Indication:Anxiety Start:05-Nov-2015 Instruction Type:Patient Education How to access health informa tion online - Detail Indication:Anxiety Start:05-Nov-2015 Instruction Type:Patient Education Patient Instructions Indication:Anxiety Start:05-Nov-2015 Instruction Type:Provider Instructions for Treatment How to access health informa tion online Indication:Infection of both eyes Start:16-Oct-2015 Instruction Type:Patient Education How to access health informa tion online - Detail Indication:Infection of both eyes Start:16-Oct-2015 Instruction Type:Patient Education Patient Instructions Indication:Infection of both eyes Start:16-Oct-2015 Instruction Type:Provider Instructions for Treatment Patient Instructions Indication:Skin texture changes Start:16-Apr-2014 Instruction Type:Provider Instructions for Treatment Name Dates Details How to access health informa tion online Indication:Non-smoker Start:22-Jul-2020 Instruction Type:Patient Education How to access health informa tion online - Detail Indication:Non-smoker Start:22-Jul-2020 Instruction Type:Patient Education Patient Instructions Indication:Non-smoker Start:22-Jul-2020 Instruction Type:Provider Instructions for Treatment Patient Instructions Indication:Osteoporosis Start:01-Dec-2019 Instruction Type:Provider Instructions for Treatment How to access health informa tion online Indication:Non-smoker Start:22-Nov-2019 Instruction Type:Patient Education How to access health informa tion online - Detail Indication:Non-smoker Start:22-Nov-2019 Instruction Type:Patient Education Patient Instructions Indication:Non-smoker Start:22-Nov-2019 Instruction Type:Provider Instructions for Treatment How to access health informa tion online Indication:BMI 24.0-24.9, adult Start:24-Jun-2017 Instruction Type:Patient Education Patient Instructions Indication:BMI 24.0-24.9, adult Start:24-Jun-2017 Instruction Type:Provider Instructions for Treatment How to access health informa tion online Indication:Non-smoker Start:14-Jun-2017 Instruction Type:Patient Education How to access health informa tion online - Detail Indication:Non-smoker Start:14-Jun-2017 Instruction Type:Patient Education Patient Instructions Indication:Non-smoker Start:14-Jun-2017 Instruction Type:Provider Instructions for Treatment How to access health informa tion online Indication:Anxiety Start:26-Dec-2015 Instruction Type:Patient Education How to access health informa tion online - Detail Indication:Anxiety Start:26-Dec-2015 Instruction Type:Patient Education Patient Instructions Indication:Anxiety Start:26-Dec-2015 Instruction Type:Provider Instructions for Treatment How to access health informa tion online Indication:Anxiety Start:11-Dec-2015 Instruction Type:Patient Education How to access health informa tion online - Detail Indication:Anxiety Start:11-Dec-2015 Instruction Type:Patient Education Patient Instructions Indication:Anxiety Start:11-Dec-2015 Instruction Type:Provider Instructions for Treatment How to access health informa tion online Indication:Anxiety Start:05-Nov-2015 Instruction Type:Patient Education How to access health informa tion online - Detail Indication:Anxiety Start:05-Nov-2015 Instruction Type:Patient Education Patient Instructions Indication:Anxiety Start:05-Nov-2015 Instruction Type:Provider Instructions for Treatment How to access health informa tion online Indication:Infection of both eyes Start:16-Oct-2015 Instruction Type:Patient Education How to access health informa tion online - Detail Indication:Infection of both eyes Start:16-Oct-2015 Instruction Type:Patient Education Patient Instructions Indication:Infection of both eyes Start:16-Oct-2015 Instruction Type:Provider Instructions for Treatment Patient Instructions Indication:Skin texture changes Start:16-Apr-2014 Instruction Type:Provider Instructions for Treatment Name Dates Details How to access health informa tion online Indication:Non-smoker Start:22-Jul-2020 Instruction Type:Patient Education How to access health informa tion online - Detail Indication:Non-smoker Start:22-Jul-2020 Instruction Type:Patient Education Patient Instructions Indication:Non-smoker Start:22-Jul-2020 Instruction Type:Provider Instructions for Treatment Patient Instructions Indication:Osteoporosis Start:01-Dec-2019 Instruction Type:Provider Instructions for Treatment How to access health informa tion online Indication:Non-smoker Start:22-Nov-2019 Instruction Type:Patient Education How to access health informa tion online - Detail Indication:Non-smoker Start:22-Nov-2019 Instruction Type:Patient Education Patient Instructions Indication:Non-smoker Start:22-Nov-2019 Instruction Type:Provider Instructions for Treatment How to access health informa tion online Indication:BMI 24.0-24.9, adult Start:24-Jun-2017 Instruction Type:Patient Education Patient Instructions Indication:BMI 24.0-24.9, adult Start:24-Jun-2017 Instruction Type:Provider Instructions for Treatment How to access health informa tion online Indication:Non-smoker Start:14-Jun-2017 Instruction Type:Patient Education How to access health informa tion online - Detail Indication:Non-smoker Start:14-Jun-2017 Instruction Type:Patient Education Patient Instructions Indication:Non-smoker Start:14-Jun-2017 Instruction Type:Provider Instructions for Treatment How to access health informa tion online Indication:Anxiety Start:26-Dec-2015 Instruction Type:Patient Education How to access health informa tion online - Detail Indication:Anxiety Start:26-Dec-2015 Instruction Type:Patient Education Patient Instructions Indication:Anxiety Start:26-Dec-2015 Instruction Type:Provider Instructions for Treatment How to access health informa tion online Indication:Anxiety Start:11-Dec-2015 Instruction Type:Patient Education How to access health informa tion online - Detail Indication:Anxiety Start:11-Dec-2015 Instruction Type:Patient Education Patient Instructions Indication:Anxiety Start:11-Dec-2015 Instruction Type:Provider Instructions for Treatment How to access health informa tion online Indication:Anxiety Start:05-Nov-2015 Instruction Type:Patient Education How to access health informa tion online - Detail Indication:Anxiety Start:05-Nov-2015 Instruction Type:Patient Education Patient Instructions Indication:Anxiety Start:05-Nov-2015 Instruction Type:Provider Instructions for Treatment How to access health informa tion online Indication:Infection of both eyes Start:16-Oct-2015 Instruction Type:Patient Education How to access health informa tion online - Detail Indication:Infection of both eyes Start:16-Oct-2015 Instruction Type:Patient Education Patient Instructions Indication:Infection of both eyes Start:16-Oct-2015 Instruction Type:Provider Instructions for Treatment Patient Instructions Indication:Skin texture changes Start:16-Apr-2014 Instruction Type:Provider Instructions for Treatment Name Dates Details How to access health informa tion online Indication:Non-smoker Start:22-Jul-2020 Instruction Type:Patient Education How to access health informa tion online - Detail Indication:Non-smoker Start:22-Jul-2020 Instruction Type:Patient Education Patient Instructions Indication:Non-smoker Start:22-Jul-2020 Instruction Type:Provider Instructions for Treatment Patient Instructions Indication:Osteoporosis Start:01-Dec-2019 Instruction Type:Provider Instructions for Treatment How to access health informa tion online Indication:Non-smoker Start:22-Nov-2019 Instruction Type:Patient Education How to access health informa tion online - Detail Indication:Non-smoker Start:22-Nov-2019 Instruction Type:Patient Education Patient Instructions Indication:Non-smoker Start:22-Nov-2019 Instruction Type:Provider Instructions for Treatment How to access health informa tion online Indication:BMI 24.0-24.9, adult Start:24-Jun-2017 Instruction Type:Patient Education Patient Instructions Indication:BMI 24.0-24.9, adult Start:24-Jun-2017 Instruction Type:Provider Instructions for Treatment How to access health informa tion online Indication:Non-smoker Start:14-Jun-2017 Instruction Type:Patient Education How to access health informa tion online - Detail Indication:Non-smoker Start:14-Jun-2017 Instruction Type:Patient Education Patient Instructions Indication:Non-smoker Start:14-Jun-2017 Instruction Type:Provider Instructions for Treatment How to access health informa tion online Indication:Anxiety Start:26-Dec-2015 Instruction Type:Patient Education How to access health informa tion online - Detail Indication:Anxiety Start:26-Dec-2015 Instruction Type:Patient Education Patient Instructions Indication:Anxiety Start:26-Dec-2015 Instruction Type:Provider Instructions for Treatment How to access health informa tion online Indication:Anxiety Start:11-Dec-2015 Instruction Type:Patient Education How to access health informa tion online - Detail Indication:Anxiety Start:11-Dec-2015 Instruction Type:Patient Education Patient Instructions Indication:Anxiety Start:11-Dec-2015 Instruction Type:Provider Instructions for Treatment How to access health informa tion online Indication:Anxiety Start:05-Nov-2015 Instruction Type:Patient Education How to access health informa tion online - Detail Indication:Anxiety Start:05-Nov-2015 Instruction Type:Patient Education Patient Instructions Indication:Anxiety Start:05-Nov-2015 Instruction Type:Provider Instructions for Treatment How to access health informa tion online Indication:Infection of both eyes Start:16-Oct-2015 Instruction Type:Patient Education How to access health informa tion online - Detail Indication:Infection of both eyes Start:16-Oct-2015 Instruction Type:Patient Education Patient Instructions Indication:Infection of both eyes Start:16-Oct-2015 Instruction Type:Provider Instructions for Treatment Patient Instructions Indication:Skin texture changes Start:16-Apr-2014 Instruction Type:Provider Instructions for Treatment Chief Complaint and Reason for Visit Chief Complaint SCREENING ABD PAIN Chief Complaint SCREENING ABD PAIN ABD PAIN Chief Complaint SCREENING ABD PAIN ABD PAIN RT ESWL STENT Chief Complaint SCREENING XRAY Chief Complaint accidental od? Chief Complaint Admit Date R FLANK PAIN November 15, 2024 3:4 6pm Chief Complaint Admit Date flank April 10, 2025 8:4 4am Additional Source Comments INFORMATION SOURCE (unrecogn ized section and content) DATE CREATED AUTHOR 03/01/2018 [facility] DATE CREATED AUTHOR AUTHOR'S ORGANIZ ATION 03/01/2018 [facility] DATE CREATED AUTHOR AUTHOR'S ORGANIZ ATION 11/19/2024 [facility] DATE CREATED AUTHOR AUTHOR'S ORGANIZ ATION 04/12/2025 [facility] Source Comments (unrecognize d section and content) In the event this informatio n is protected by the Federal Confidentiality of Alcohol and Drug Abuse Patient Records regulations: The Federal rules restrict any use of the information to criminally investigate or prosecute any alcohol or drug abuse patient.[facility] [place] the event this information is protected by the Federal Confidentiality of Alcohol and Drug Abuse Patient Records regulations: The Federal rules restrict any use of the information to criminally investigate or prosecute any alcohol or drug abuse patient.[facility] [place] the event this information is protected by the Federal Confidentiality of Alcohol and Drug Abuse Patient Records regulations: The Federal rules restrict any use of the information to criminally investigate or prosecute any alcohol or drug abuse patient.[facility] [place] the event this information is protected by the Federal Confidentiality of Alcohol and Drug Abuse Patient Records regulations: The Federal rules restrict any use of the information to criminally investigate or prosecute any alcohol or drug abuse patient.[facility] [place] the event this information is protected by the Federal Confidentiality of Alcohol and Drug Abuse Patient Records regulations: The Federal rules restrict any use of the information to criminally investigate or prosecute any alcohol or drug abuse patient.[facility] [place] Reason for Visit (unrecogniz ed section and content) Reason Comments Insect Bite bee sting left inner thigh x 2 days Reason Comments Eye Problem Possible bilateral p ink eye, eye redness, discharge, discomfort x 2 days Reason Comments UTI R lower abd pain x 3 days Care Teams (unrecognized sec tion and content) [employer] Relationship Specialty Start Date End Date Yanely Purdy DO PCP - General 02/11/10 Team Status: Active Member Role Status Dates Dr. Yanely Purdy DO Family Provider Active Dr. Yanely Purdy DO Primary Care Provider Active Team Status: Inactive Member Role Status Dates Dr. Yanely Purdy DO Primary Care Provider Active Dr. Yuri Soto MD Attending Provider Active Team Status: Inactive Member Role Status Dates Dr. Yanely Purdy DO Primary Care Pr ovider, Attending Provider, Referring Provider Active [employer] Relationship Specialty Start Date End Date Yanely Purdy DO PCP - General 02/11/10 Team Status: Inactive Member Role Status Dates Dr. Yanely Purdy DO Primary Care Provider Active Dr. Efra Koehler DO Emergency Provider Active [employer] Relationship Specialty Start Date End Date Yanely Purdy DO PCP - General 02/11/10 [employer] Relationship Specialty Start Date End Date Yanely Purdy DO PCP - General 02/11/10 Team Status: Active Member Role Status Dates Dr. Yanely Purdy DO Primary Care Provider Active Team Status: Inactive Member Role Status Dates Dr. Yanely Purdy DO Primary Care Provider Active Start: November 15, 2024 End: November 15, 2024 Dr. Efra Koehler , DO Emergency Provider Active Start : November 15, 2024 End: November 15, 2024 Team Status: Active Member Role/Relationship Status Dates Dr. Yanely Purdy DO Primary Care Provider Active Team Status: Inactive Member Role/Relationship Status Dates Dr. Yanely Purdy DO Primary Care Provider Active Start: April 10, 2025 End: April 10, 2025 Dr. Antonino Gardner , DO Emergency Provider Active Start: April 10, 2025 End: April 10, 2025 Goals (unrecognized section and content) Goals may be documented in a n alternate sectionGoals may be documented in an alternate sectionGoals may be documented in an alternate sectionGoals may be documented in an alternate sectionGoals may be documented in an alternate sectionGoals may be documented in an alternate section FOR RECORDS PERTAINING TO PATIENTS WHO ARE OR HAVE BEEN ENROLLED IN A CHEMICAL DEPENDENCY/SUBSTANCEABUSE PROGRAM, SOME INFORMATION MAY BE OMITTED. This clinical summary was aggregated from multiple sources. Caution should be exercised in using it in the provision of clinical care. This summary normalizes information from multiple sources, and as a consequence, information in this document may materially change the coding, format and clinical context of patient data. In addition, data may be omitted in some cases. CLINICAL DECISIONS SHOULD BE BASED ON THE PRIMARY CLINICAL RECORDS. [facility] provides no warranty or guarantee of the accuracy or completeness of information in this document.
[2025-04-15 01:49] LABS: Red Blood Cells-Urine 0-5 SEEN /hpf (0-5); Squamous Epithelial Cells - UA 0-5 SEEN /hpf (5-10)
[2025-04-15 02:46] LABS: Anion Gap 15 (5-15); BUN 19 mg/dL (4-19); BUN/Creat Ratio 14.8 RATIO (10-20); Calcium,Total 10.0 mg/dL (7.6-11.0); Carbon Dioxide 21.1 mmol/L (21.0-32.0); Chloride 103 mmol/L (98-108); Estimated Creatinine Clearance 46.79 ml/min (50-250); Glucose 108 mg/dL (70-99); Potassium 4.6 mmol/L (3.3-5.1)
[2025-04-15 02:52] VITALS: BP 188/83; PULSE 71; RESP 16; O2SAT 100
[2025-04-15 02:56] VITALS: BP 188/83; PULSE 71; RESP 16; TEMP 37; O2SAT 100
--- NOTE | 2025-04-15 02:56 | EX.ED.DYSGE1 ---
HPI History of Present Illness Chief Complaint: Flank Pain Informant: patient and spouse/S.O. Narrative Narrative: Patient is a 54-year-old female with past medical history of anxiety and depression and recent diagnosis of kidney stone. She states that she is scheduled to follow-up with urology next week. She states that she is taking [place] which was prescribed for pain but despite doing so she has had increasing pain this evening which is led to bouts of nausea and vomiting. Secondary to the worsening symptoms she presents for evaluation [facility] Medical History (Updated 04/15/25 @ 06:[address] Jose Keenan, DO) Post-menopausal PONV (postoperative nausea and vomiting) History of kidney stones Family history of colon cancer Wears glasses Depression Anxiety High cholesterol Restless legs Gastric reflux Heartburn Non-smoker History of echocardiogram History of stress test History of endometriosis Home Medications ?Medication ?Instructions ?Recorded ?Last Taken ?Type bupropion HCl 100 mg tablet 100 mg PO DAILY 06/01/19 05/25/24 History calcium 600 mg (as 2 ea PO DAILY 06/01/19 05/23/24 History carbonate)-vitamin D3 5 mcg (200 unit) tablet escitalopram oxalate 20 mg tablet 20 mg PO DAILY 06/01/19 05/26/24 History multivitamin 1 ea PO DAILY 06/01/19 05/25/24 History ibuprofen 600 mg tablet 600 mg PO Q8H PRN PRN pain #20 tabs 05/08/22 Unknown Rx buspirone 15 mg tablet 15 mg PO DAILY 06/03/22 05/26/24 History rosuvastatin 10 mg tablet 10 mg PO DAILY 06/03/22 05/25/24 History denosumab 60 mg/mL subcutaneous 60 mg subcut [id number] 05/15/24 05/23/24 History syringe (Prolia) hydrocodone-acetaminophen 5-325mg 1 tab PO Q6H PRN PRN Pain 3 days 04/10/25 Unknown Rx 5mg-325mg #10 TABLETS ketorolac 10 mg tablet 10 mg PO 4X/DAY PRN pain 5 days 04/15/25 Unknown Rx #20 tabs ondansetron 4 mg disintegrating 4 mg PO TID PRN nausea and 04/15/25 Unknown Rx tablet vomiting #21 tabs oxycodone-acetaminophen 5 mg-325 1 tab PO Q6H PRN pain 5 days #20 04/15/25 Unknown Rx mg tablet (Endocet) tabs tamsulosin 0.4 mg capsule (Flomax) 0.4 mg PO DAILY 14 days #14 caps 04/15/25 Unknown Rx Allergy/AdvReac Type Severity Reaction Status Date / Time adhesive tape AdvReac Rash Verified 04/13/25 08:11 Family History Grandfather Colon cancer Before 60yrs. Surgical History Hx of colonoscopy History of hysterectomy Social History household members: spouse current occupational status: employed current occupation: [employer] Smoking Status: Never smoker substance use type: does not use ROS ROS ED Constitutional Constitutional ED: Denies chills or fever(s) ENT ENT ED: Denies sore throat Cardiovascular Cardiovascular: Denies chest pain Respiratory/Chest Respiratory/Chest: Denies cough or dyspnea Gastrointestinal Gastrointestinal: Reports abdominal pain, nausea and vomiting; Denies diarrhea Genitourinary Genitourinary ED: Reports hematuria; Denies dysuria Musculoskeletal Musculoskeletal: Reports back pain Integumentary Denies rash Neurologic Neurologic: Denies headache(s) Psychiatric Psychiatric: Reports anxiety and depression Hematologic/Lymphatic Hematologic/Lymphatic: Denies easy bleeding or easy bruising EXAM Physical Exam Const Vital Signs: 04/15/25 00:53 04/15/25 02:52 04/15/25 02:56 Temperature 98.6 F 98.6 F Temperature Source Oral Pulse Rate 72 71 71 Respiratory Rate 22 H 16 16 Blood Pressure 202/101 H 188/83 H 188/83 H Blood Pressure Mean 134 118 118 Pulse Ox 100 100 100 Oxygen Delivery Method Room Air Room Air Positive well nourished and well developed General Appearance ED: well developed; Negative for pallor HEENT HEENT Narrative: Normocephalic atraumatic No tongue or lip swelling no oral lesions no airway edema or compromise Eyes PERRL and EOMs intact bilaterally General Eye ED: Negative for scleral icterus Neck supple Resp normal respiratory effort and clear to auscultation bilaterally Cardio regular rate and regular rhythm Rate: other Other Details: Heart is regular rate and rhythm without murmurs rubs or gallops Radial and carotid pulses are equal and symmetric GI non-distended and no masses GI Narrative: Abdomen is soft and nondistended with hypoactive bowel sounds. There is diffuse pain along the left lateral abdomen without voluntary guarding or rigidity. No pulsatile mass or fluid wave. No peritoneal signs Auscultation: hypoactive bowel sounds Palpation: soft Back/Spine Back/Spine Narrative: Positive left CVA pain noted Extremity normal to inspection Neuro oriented x3, CN's II-XII intact bilaterally and no sensory deficits noted Sensorium / Orientation: alert Motor Exam: strength 5/5 throughout Psych mental status grossly normal Skin no rashes or lesions noted and no wounds General Skin Exam: Negative for jaundice or pallor MDM MDM MDM Narrative Medical decision making narrative: Patient presented to the ER hypertensive but is in pain so this physiologic responses to be expected and otherwise vitals are stable. She has a recent CT scan showing a known left-sided kidney stone. As she presents with increased pain and intractable nausea and vomiting there is concern for acute kidney injury urosepsis or clinically significant electrolyte abnormality. Secondary to this basic laboratory studies were obtained. Workup revealed no sign of UTI/urosepsis and no signs of DELPHINE. Electrolytes were within normal limits as well. After receiving IV fluids and treatment/Toradol she reported near resolution of her pain and there was improvement of her hypertension as well. Therefore at this time with improvement of her pain no further bouts of nausea and vomiting and laboratory studies showing no signs of DELPHINE or urosepsis there is no need for emergent urology consultation or admission. The patient will have her home medications adjusted for improved pain and nausea control. However with improvement of symptoms and negative workup this can still be treated as an outpatient and she will be discharged home with urology follow-up History & Record Review Discussion w/independent historian: Patient Lab Data Attestation: I reviewed the patient's lab results. Labs: Laboratory Results - last 24 hr 04/15/25 04/15/25 01:16 01:18 WBC 10.6 RBC 4.60 Hgb 13.8 Hct 40.1 MCV 87.2 MCH 30.0 MCHC 34.4 RDW Std Deviation 40.8 RDW Coeff of Key 12.9 Plt Count 243 MPV 9.4 Immature Gran % (Auto) 0.400 Neut % (Auto) 78.6 H Lymph % (Auto) 12.9 L Logan % (Auto) 7.1 Eos % (Auto) 0.6 Baso % (Auto) 0.4 Absolute Neuts (auto) 8.3 H Absolute Lymphs (auto) 1.36 Nucleated RBC % 0 Sodium 139 Potassium 4.6 Chloride 103 Carbon Dioxide 21.1 Anion Gap 15 BUN 19 Creatinine 1.28 H Estim Creat Clear Calc 46.79 L Est GFR (MDRD) Non-Af 49 L BUN/Creatinine Ratio 14.8 Glucose 108 H Calcium 10.0 Urine Color Yellow Urine Clarity Clear Urine pH 6.5 Ur Specific [place] 1.015 Urine Protein 15 H Urine Glucose (UA) Normal Urine Ketones 15 H Urine Occult Blood 250 H Urine Nitrite Negative Urine Bilirubin Negative Urine Urobilinogen Normal Ur Leukocyte Esterase 100 H Urine RBC 0-5 SEEN Urine WBC 0-5 SEEN Ur Squamous Epith Cells 0-5 SEEN Urine Bacteria 0 SEEN Urine Mucus 0 SEEN Discharge Plan Triage Chief Complaint: Flank Pain ED Provider: Jose Keenan Dx/Rx/DC Orders Clinical Impression: Kidney stone, Renal colic, Nausea and vomiting, Hypertension Instructions: ED Kidney Stone with Pain Prescriptions: New oxycodone-acetaminophen [Endocet] 5-325 mg tablet 1 tab PO Q6H PRN (Reason: pain) 5 Days Qty: 20 0RF ketorolac 10 mg tablet 10 mg PO 4X/DAY PRN (Reason: pain) 5 Days Qty: 20 0RF ondansetron 4 mg tablet,disintegrating 4 mg PO TID PRN (Reason: nausea and vomiting) Qty: 21 0RF tamsulosin [Flomax] 0.4 mg capsule 0.4 mg PO DAILY 14 Days Qty: 14 0RF No Action Prolia 60 mg/mL syringe 60 mg subcut [id number] multivitamin 1 EACH tablet 1 ea PO DAILY calcium carbonate-vitamin D3 1 EACH tablet 2 ea PO DAILY bupropion HCl 100 MG tablet 100 mg PO DAILY escitalopram oxalate 20 MG tablet 20 mg PO DAILY ibuprofen 600 mg tablet 600 mg PO Q8H PRN PRN (Reason: pain) Qty: 20 0RF buspirone 15 mg tablet 15 mg PO DAILY rosuvastatin 10 mg tablet 10 mg PO DAILY hydrocodone-acetaminophen 5-325 mg tablet 1 tab PO Q6H PRN PRN (Reason: Pain) 3 Days Qty: 10 0RF Primary Care Provider: Yanely Thayer Referrals: Yusuf Ghosh MD [Med Staff - Active Staff] - Yanely Thayer DO [Primary Care Provider] - Activity Restrictions/Additional Instructions: Please stop the [place]/hydrocodone and begin taking the Percocet and Toradol as directed to help control your pain better. If you develop a fever of 100.4 or higher or intractable pain despite taking your medications please return to the ER for repeat evaluation Print Language: Nigerian Disposition Disposition: Home, Self Care Discharge Date/Time: 04/15/25 03:10
== END 2025-04-15 03:10 | disposition home or self-care (01) ==
PROVIDERS: Emergency Provider Emergency Medicine; PCP Internal Medicine; Visit Provider Emergency Medicine
DX: N20.0 Calculus of kidney (principal); I10 Essential (primary) hypertension; E78.00 Pure hypercholesterolemia, unspecified; R11.2 Nausea with vomiting, unspecified; F41.9 Anxiety disorder, unspecified; K21.9 Gastro-esophageal reflux disease without esophagitis; F32.A Depression, unspecified
CPT/HCPCS: 80048; 81001; 85025; 96361; 96374; 96375; 96376; 99283; A4216; J2405

== ENCOUNTER 2025-04-20 11:52 | Day surgery (SDC) | payer OTHER, SELFPAY ==
--- NOTE | 2025-04-13 14:41 | PAT.ANESEVAL ---
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 When Was Last Pacemaker Check QUESTION #4 FULL TEXT: You/Your Family Experience fever (hyperthermia) with Anesthesia Last Oral Intake Last Oral intake: Last Oral Intake NPO since Meds taken in AM with sips of water? 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 - coping machine assembler: PONV - coping machine assembler Female Yes 04/13/25 08:16 HX of Motion Sickness Yes 04/13/25 08:16 HX of N/V After Surgery Yes 04/13/25 08:16 Non-Smoker Yes 04/13/25 08:16 Duration of Surgery greater No 04/13/25 08:16 than 60 minutes Number of Risk Factors 4 04/13/25 08:16 PONV Score Severe Risk 04/13/25 08:16 Height & Weight Height & Weight: Anesthesia: Height & Weight Height 5 ft 3 in 04/10/25 08:45 Respiratory Assessment Respiratory Assessment - coping machine assembler: Respiratory Tract Infection Hx - coping machine assembler Hx Respiratory Tract Infection No 04/13/25 08:16 STOP Sleep Apnea STOP Sleep Apnea - coping machine assembler: STOP Sleep Apnea - coping machine assembler Hx Hypertension No 04/13/25 08:16 Hx Sleep Apnea No 04/13/25 08:16 CPAP BIPAP Do you snore loudly (louder No 04/13/25 08:16 than talking or can be heard Do you often feel tired/ No 04/13/25 08:16 fatigued/ sleepy during daytime? Has anyone observed you stop No 04/13/25 08:16 breathing during sleep? STOP Results Negative 04/13/25 08:16 QUESTION #5 FULL TEXT : Do you snore loudly (louder than talking or can be heard through closed doors)? 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 Specify any problems Hx of Preganancy in last 3 No 04/13/25 08:16 Months Nurse Filling Out Transfusion JZOLLINGE 04/13/25 08:16 & Questions: Date: 04/13/25 04/13/25 08:16 Time: 08:18 04/13/25 08:16 Patient unable to answer at this time (ie. confused, unrespo /Reproduction History /Reproductive History - coping machine assembler: /Reproductive Hx- coping machine assembler Hx Now No 04/13/25 08:16 Gestational Age (in weeks): EDC: Hx Hx Para Hx Section SAB No 04/13/25 08:16 PFSH Medical History (Updated 04/13/25 @ 08:16 by Neena Delarosa) Post-menopausal PONV (postoperative nausea and vomiting) History of kidney stones Family history of colon cancer Wears glasses Depression Anxiety High cholesterol Restless legs Gastric reflux Heartburn Non-smoker History of echocardiogram History of stress test History of endometriosis Home Medications ?Medication ?Instructions ?Recorded ?Last Taken ?Type bupropion HCl 100 mg tablet 100 mg PO DAILY 06/01/19 05/25/24 History calcium 600 mg (as 2 ea PO DAILY 06/01/19 05/23/24 History carbonate)-vitamin D3 5 mcg (200 unit) tablet escitalopram oxalate 20 mg tablet 20 mg PO DAILY 06/01/19 05/26/24 History multivitamin 1 ea PO DAILY 06/01/19 05/25/24 History ibuprofen 600 mg tablet 600 mg PO Q8H PRN PRN pain #20 tabs 05/08/22 Unknown Rx buspirone 15 mg tablet 15 mg PO DAILY 06/03/22 05/26/24 History rosuvastatin 10 mg tablet 10 mg PO DAILY 06/03/22 05/25/24 History denosumab 60 mg/mL subcutaneous 60 mg subcut [id number] 05/15/24 05/23/24 History syringe (Prolia) hydrocodone-acetaminophen 5-325mg 1 tab PO Q6H PRN PRN Pain 3 days 04/10/25 Unknown Rx 5mg-325mg #10 TABLETS Allergy/AdvReac Type Severity Reaction Status Date / Time adhesive tape AdvReac Rash Verified 04/13/25 08:11 Family History Grandfather Colon cancer Before 60yrs. Surgical History Hx of colonoscopy History of hysterectomy Social History household members: spouse current occupational status: employed current occupation: [employer] Smoking Status: Never smoker substance use type: does not use Audit: Pertinent Findings Pertinent Findings EKG Perinent findings: 08/19/2023. Normal sinus rhythm. Nonspecific ST abnormality. Recommendation Anesthesia Recommendation Anesthesia recommendation: OPTIMIZED for anesthesia
[2025-04-20] VITALS (13 sets, daily range): BP systolic 131–201; BP diastolic 83–99; PULSE 65–85; RESP 16–18; TEMP 36.1–36.8; O2SAT 95–100; BMI 27.1
[2025-04-20] MEDS: Lactated Ringers 1,000 ML 15 ML IV (12:19)
--- NOTE | 2025-04-20 12:21 | PCM.PRE.AN2 ---
ASA Classification* ASA Classification ASA Classification: 2 Assessment & Plan Anesthesia* Anesthesia Assessment Anesthesia Assessment: Discussed sedation and/or anesthesia options, risks, benefits, and alternatives with patient/parents/legal guardian/POA. Questions invited. The patient/parents/legal guardian/POA seems to understand and agrees to proceed with anesthesia plan. Reviewed the physical assessment, medical history, allergy history and patient home medications list prior to surgery/procedure/anesthetic and documented any changes. Performed airway and anesthesia risk assessments. Anesthesia Type Anesthesia Type: General History Source History Obtained from:: Patient and Chart Anesthesia Focused Assessment* Temperature: 96.9 F Pulse Rate: 65 Blood Pressure: 131/84 Respiratory Rate: 18 Pulse Ox: 99 Airway Assessment Mouth opens: >3 cm Mallampati Score: I Teeth Condition: Intact Neck Range of motion (ROM): Full ROM Labs Anesthesia Preop lab: CBC WBC 10.6 K/mm3 (4.4-11.0) 04/15/25 01:16 04/15/25 RBC 4.60 M/mm3 (4.2-5.4) 04/15/25 01:16 04/15/25 Hgb 13.8 g/dL (12.0-15.0) 04/15/25 01:16 04/15/25 Hct 40.1 % (37-47) 04/15/25 01:16 04/15/25 Plt Count 243 K/mm3 (150-450) 04/15/25 01:16 04/15/25 CHEMISTRY Potassium 4.6 mmol/L (3.3-5.1) 04/15/25 01:16 04/15/25 Sodium 139 mmol/L (133-145) 04/15/25 01:16 04/15/25 BUN 19 mg/dL (4-19) 04/15/25 01:16 04/15/25 Creatinine 1.28 mg/dL (0.70-1.20) H 04/15/25 01:16 04/15/25 Glucose 108 mg/dL (70-99) H 04/15/25 01:16 04/15/25 COAG Pre-Assessment Diagnosis/Proposed Procedure Planned Operative Procedure(s): (L) ESWL,Cystocopy Insertion Stent Anesthesia History 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 When Was Last Pacemaker Check QUESTION #4 FULL TEXT: You/Your Family Experience fever (hyperthermia) with Anesthesia Last Oral Intake Last Oral intake: Last Oral Intake NPO since 00:00 04/20/25 12:11 Meds taken in AM with sips of Yes 04/20/25 12:11 water? 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 - sterile supply technician: PONV - sterile supply technician Female Yes 04/13/25 08:16 HX of Motion Sickness Yes 04/13/25 08:16 HX of N/V After Surgery Yes 04/13/25 08:16 Non-Smoker Yes 04/13/25 08:16 Duration of Surgery greater No 04/13/25 08:16 than 60 minutes Number of Risk Factors 4 04/13/25 08:16 PONV Score Severe Risk 04/13/25 08:16 Height & Weight Height & Weight: Anesthesia: Height & Weight Height 5 ft 3 in 04/20/25 12:11 Weight: 69.6 kg 04/20/25 12:11 Body Mass Index (BMI) 27.1 04/20/25 12:11 Respiratory Assessment Respiratory Assessment - sterile supply technician: Respiratory Tract Infection Hx - sterile supply technician Hx Respiratory Tract Infection No 04/13/25 08:16 STOP Sleep Apnea STOP Sleep Apnea - sterile supply technician: STOP Sleep Apnea - sterile supply technician Hx Hypertension No 04/13/25 08:16 Hx Sleep Apnea No 04/13/25 08:16 CPAP BIPAP Do you snore loudly (louder No 04/13/25 08:16 than talking or can be heard Do you often feel tired/ No 04/13/25 08:16 fatigued/ sleepy during daytime? Has anyone observed you stop No 04/13/25 08:16 breathing during sleep? STOP Results Negative 04/13/25 08:16 QUESTION #5 FULL TEXT : Do you snore loudly (louder than talking or can be heard through closed doors)? 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 Specify any problems Hx of Preganancy in last 3 No 04/13/25 08:16 Months Nurse Filling Out Transfusion JZOLLCHASE 04/13/25 08:16 & Questions: Date: 04/13/25 04/13/25 08:16 Time: 08:18 04/13/25 08:16 Patient unable to answer at this time (ie. confused, unrespo /Reproduction History /Reproductive History - sterile supply technician: /Reproductive Hx- sterile supply technician Hx Now No 04/13/25 08:16 Gestational Age (in weeks): EDC: Hx Hx Para Hx Section SAB No 04/13/25 08:16 Active Medications Active Medications: Current Medications Generic Name Dose Route Start Last Admin Trade Name Freq PRN Reason Stop Dose Admin Cefazolin Sodium 2 gm/ Sodium 110 mls @ 200 mls/hr 04/20/25 14:05 Chloride IV 04/20/25 14:37 INTRAOP ONE Lactated Ringer's 1,000 mls @ 15 mls/hr 04/20/25 12:15 04/20/25 12:19 IV 15 mls/hr .Q48H ANTHONY Administration PFSH Medical History (Updated 04/18/25 @ 00:00 by Background Daemon) Post-menopausal PONV (postoperative nausea and vomiting) History of kidney stones Family history of colon cancer Wears glasses Depression Anxiety High cholesterol Restless legs Gastric reflux Heartburn Non-smoker History of echocardiogram History of stress test History of endometriosis Home Medications ?Medication ?Instructions ?Recorded ?Last Taken ?Type bupropion HCl 100 mg tablet 100 mg PO DAILY 06/01/19 04/20/25 History calcium 600 mg (as 2 ea PO DAILY 06/01/19 04/19/25 History carbonate)-vitamin D3 5 mcg (200 unit) tablet escitalopram oxalate 20 mg tablet 20 mg PO DAILY 06/01/19 05/26/24 History multivitamin 1 ea PO DAILY 06/01/19 04/19/25 History ibuprofen 600 mg tablet 600 mg PO Q8H PRN PRN pain #20 tabs 05/08/22 Unknown Rx buspirone 15 mg tablet 15 mg PO DAILY 06/03/22 04/19/25 History rosuvastatin 10 mg tablet 10 mg PO DAILY 06/03/22 04/19/25 History denosumab 60 mg/mL subcutaneous 60 mg subcut [id number] 05/15/24 05/23/24 History syringe (Prolia) ketorolac 10 mg tablet 10 mg PO 4X/DAY PRN pain 5 days 04/15/25 Unknown Rx #20 tabs ondansetron 4 mg disintegrating 4 mg PO TID PRN nausea and 04/15/25 04/19/25 Rx tablet vomiting #21 tabs oxycodone-acetaminophen 5 mg-325 1 tab PO Q6H PRN pain 5 days #20 04/15/25 Unknown Rx mg tablet (Endocet) tabs tamsulosin 0.4 mg capsule (Flomax) 0.4 mg PO DAILY 14 days #14 caps 04/15/25 04/19/25 Rx Allergy/AdvReac Type Severity Reaction Status Date / Time adhesive tape AdvReac Rash Verified 04/20/25 12:09 Family History Grandfather Colon cancer Before 60yrs. Surgical History Hx of colonoscopy History of hysterectomy Social History household members: spouse current occupational status: employed current occupation: [employer] Smoking Status: Never smoker substance use type: does not use Review of Systems (Anesthesia) ROS Narrative System reviewed and no additional complaints, except as documented.
[2025-04-20] MEDS: Ketorolac 30 MG/ML Syringe IV (14:20)
--- NOTE | 2025-04-20 14:21 | PCM.DC ---
Discharge Instructions DC O2, CPAP, BIPAP needs Home O2 Discharge instructions: No Dressing / Incision Discharge Activity: Return to Normal Activity and May Not Drive (while taking narcotic pain medications.) Dressing / Incision Call your doctor if you observe: Fever of 101 or Higher Follow Up Care Please Follow Up With: Yusuf Ghosh MD When: Call [phone] for an appointment Test Results: Test results from this visit will be discussed in further detail at your follow-up appointment, if applicable. Discharge Plan Admission Primary Reason for Your Visit: ESWL Attending Provider: Yusuf Ghosh Primary Care Provider: Yanely Thayer Instructions Print Language: Lithuanian Discharge Orders/Prescriptions Prescriptions: Continued Prolia 60 mg/mL syringe 60 mg subcut [id number] multivitamin 1 EACH tablet 1 ea PO DAILY calcium carbonate-vitamin D3 1 EACH tablet 2 ea PO DAILY bupropion HCl 100 MG tablet 100 mg PO DAILY escitalopram oxalate 20 MG tablet 20 mg PO DAILY ibuprofen 600 mg tablet 600 mg PO Q8H PRN PRN (Reason: pain) Qty: 20 0RF buspirone 15 mg tablet 15 mg PO DAILY rosuvastatin 10 mg tablet 10 mg PO DAILY oxycodone-acetaminophen [Endocet] 5-325 mg tablet 1 tab PO Q6H PRN (Reason: pain) 5 Days Qty: 20 0RF ketorolac 10 mg tablet 10 mg PO 4X/DAY PRN (Reason: pain) 5 Days Qty: 20 0RF ondansetron 4 mg tablet,disintegrating 4 mg PO TID PRN (Reason: nausea and vomiting) Qty: 21 0RF tamsulosin [Flomax] 0.4 mg capsule 0.4 mg PO DAILY 14 Days Qty: 14 0RF Referrals / Follow Up: Yusuf Ghosh MD [Med Staff - Active Staff] - Yanely Thayer DO [Primary Care Provider] - Disposition Disposition (needs filled in before D/C Order can be placed): Home, Self Care
--- NOTE | 2025-04-20 14:21 | PCM.OPRPT ---
Operative Report (Standard) Operative Information Date of Procedure: 04/20/25 Pre-Operative Diagnosis: left ureteral calculi Post-Operative Diagnosis: same Surgery/Procedure Performed: left ESWL [employer] floorperson: No Type of Anesthesia: General RN Documented Start/Stop Times: Operation Date: 04/20/25 14:05 Case Time Into Pre-Op 04/20/25 12:03 Out of Pre-Op 04/20/25 14:29 Anesthesia Start 04/20/25 14:32 Into Room 04/20/25 14:32 Procedure Start 04/20/25 14:44 Procedure Start Time: 14:44 Procedure Stop Time: 15:05 Select all DRAINS/GRAFTS/IMPLANTS that apply: None Estimated Blood Loss: 0 Specimen collected: No Description of surgery: Patient presents to the hospital for treatment of a kidney stone with shockwave lithotripsy. In the preoperative area and x-ray was done to confirm the location of the stone. The x-ray was reviewed and the stone location was reviewed. In the preoperative setting I spoke with the patient regarding the treatment of the stone how the treatment would be conducted and the expectations after surgery. The patient understands there is a risk of bleeding and infection. Also discussed the very rare risk of hematoma or damage to the kidney. We also discussed the risk that the shockwave machine will fail to break the stone adequately and that the patient may need other surgical procedures. I also discussed the possibility that the patient may need a stent after the procedure. After reviewing the procedure with the patient, the patient is signed the consent form all the patient's questions were addressed and was taken back to the operating room for treatment of a kidney stone. Patient was taken back to the operating room, the patient was identified by the nursing staff, I identified the side of the treatment and the patient side of treatment had been marked by my initials. The patient underwent general anesthetic and was placed supine on the lithotripter table. I then used fluoroscopy to identify the stone on the left side in the distal uretere. I then positioned the patient under the lithotripter and I used triangulation technique to identify the location of the stone and then I made sure that the stone was engaged in the F2 focal point of F2 Donier lithoprior machine. Once the patient was positioned appropriately and the stone was identified and placed in the F2 focal point of the lithotripter machine I then proceeded with shockwave lithotripsy. In the beginning the shockwave was delivered at a rate of 90 shocks per minute, anesthesia monitored the EKG for any ectopy. The power was slowly increased to 5 kV and subsequently at the 7 kV. I then proceeded with the treatment with shock wave therapy and around during the treatment to make sure the stone stayed in the F2 focal point during the entire treatment and after 3000 shockwaves were delivered to the stone under fluoroscopic guidance the treatment was completed. The patient was given instructions to call the office to make an a follow-up appointment with an x-ray to evaluate the success of the treatment, patient understands that its possible the stones may need another procedure. At this point the patient's anesthetic was reversed patient was extubated and taken back to the PACU in stable condition. Surgical Findings: stone in distal left ureter treated Complications Complications: No Admit VTE Documentation VTE Present on Admission: No VTE Mechan Device Prophylaxis: SCD's
[2025-04-20] MEDS: Lactated Ringers 1,000 ML 1000 ML IV (14:34)
[2025-04-20] MEDS: Cefazolin 1 GM/5 ML Vial 2 GM IV (14:35)
[2025-04-20] MEDS: Lidocaine 1% (5 ml sdv) 5 ML Vial 10 ML IV (14:37)
[2025-04-20] MEDS: fentaNYL 100 MCG/2 ML Ampul IV (15:10)
--- NOTE | 2025-04-20 15:16 | PCM.POST.ANE ---
Anesthesia: Postop Eval I Current Vital Signs Temperature: 97.5 F Pulse Rate: 85 Blood Pressure: 184/89 Respiratory Rate: 18 Pulse Ox: 100 Oxygen Delivery Method: Room Air Assessment Airway patent: Yes Spontaneous unlabored respirations: Yes Mental status: Awake and Calm nausea: No Vomiting: No Anesthesia Complication: No Fluid Hydration Crystalloid volume administer (ml): 700 Total IV fluid infused: 700 Progress Note Anesthesia document: Postop Eval 1 completed: Yes
--- NOTE | 2025-04-20 15:29 | POSTOPAN2_ITS ---
Anesthesia Postop Eval I Sum Postop Eval Completion status Anesthesia document: Postop Eval 1 completed: Yes Anesthesia Postop Eval I Summary Anesthesia Postop Eval I Summary: Anesthesia Postop Eval I: Assessment Summary Airway patent Yes 04/20/25 15:17 [email or web address] Spontaneous unlabored Yes 04/20/25 15:17 LEAD [email or web address] respirations Mental status Awake,Calm 04/20/25 15:17 [email or web address] [email or web address] nausea No 04/20/25 15:17 LEAD [email or web address] Vomiting No 04/20/25 15:17 LEAD [email or web address] Anesthesia Postop Eval I: Fluid Summary Crystalloid volume administer 700 04/20/25 15:17 LEAD [email or web address] (ml) Colloids volume administered ( ml) Blood Product volume administered (ml) Total IV fluid infused 700 04/20/25 15:17 LEAD [email or web address] Anesthesia Postop Eval I: Summary Notes Anesthesia Complication No 04/20/25 15:17 LEAD [email or web address] Anesthesia Complication Comment: Post-operative progress note Anesthesia: Postop Eval II Evaluation Mental status: Awake and Calm Pain Level: 0 nausea: No Vomiting: No Complications Anesthesia Complication: No
--- NOTE | 2025-04-20 15:29 | PCM.POSTANE2 ---
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 PATHOLOGY [email or web address] Spontaneous unlabored Yes 04/20/25 15:17 ANIMAL PATHOLOGY TEACHER.JBOR respirations Mental status Awake,Calm 04/20/25 15:17 ANIMAL PATHOLOGY [email or web address] nausea No 04/20/25 15:17 ANIMAL PATHOLOGY TEACHER.JBOR Vomiting No 04/20/25 15:17 ANIMAL PATHOLOGY [email or web address] Anesthesia Postop Eval I: Fluid Summary Crystalloid volume administer 700 04/20/25 15:17 ANIMAL PATHOLOGY TEACHER.JBOR (ml) Colloids volume administered ( ml) Blood Product volume administered (ml) Total IV fluid infused 700 04/20/25 15:17 ANIMAL PATHOLOGY [email or web address].[email or web address] Anesthesia Postop Eval I: Summary Notes Anesthesia Complication No 04/20/25 15:17 ANIMAL PATHOLOGY [email or web address].[email or web address] Anesthesia Complication Comment: Post-operative progress note Anesthesia: Postop Eval II Evaluation Mental status: Awake and Calm Pain Level: 0 nausea: No Vomiting: No Complications Anesthesia Complication: No
== END 2025-04-20 17:03 | disposition home or self-care (01) ==
LOC: SDC 11:52 → AC 11:53
PROVIDERS: PCP Internal Medicine; Referring Provider Urology; Visit Provider Urology
PROC: (CPT 50590; principal; 2025-04-20 13:55)
DX: N20.2 Calculus of kidney with calculus of ureter (principal); F41.9 Anxiety disorder, unspecified; I10 Essential (primary) hypertension; F32.A Depression, unspecified; K21.9 Gastro-esophageal reflux disease without esophagitis; G25.81 Restless legs syndrome; E78.00 Pure hypercholesterolemia, unspecified; Z79.899 Other long term (current) drug therapy
CPT/HCPCS: 00873; J2405

== ENCOUNTER → 2025-05-28 | Outpatient (CLI) | payer OTHER, SELFPAY ==
--- NOTE | 2025-05-28 11:30 | CALC_PTH ---
PATIENT: FANY MULLER LOC: [facility] U#:[id number] AGE/SX: 54/F ROOM: RE05/28/[address]: Dr. Yusuf Ghosh MD : 1970 BED: DIS: 05/28/2025 SPEC #: [id number] RECD: 05/28/25 11:45 STATUS: NIECY REMargaret #: [id number] JOSE: 05/28/25 11:[address]: Yusuf Ghosh DEPT: SURGICAL PATHOLOGY RECD BY: Collin Medellin ENTERED: 05/28/25 13:57 SP TYPE: Calculi OTHR DR: Dr. Yanely Thayer, DO Tissues: A - CALCULI Procedures: Surgery Specimen Level I HEADER OPERATION: Not noted PRE-OP DIAGNOSIS: Calculus of kidney TISSUE SUBMITTED: A- Calculi for analysis GROSS DIAGNOSIS A. Calculi, kidney: - Urolithiasis (gross examination only). - Chemical analysis is pending and a separate report will follow. COMMENT The calculus is submitted in its entirety for chemical stone analysis. The results from this study will be reported separately. GROSS DESCRIPTION A. Received fresh labeled with the patient's name and date of . Designated as stone analysis are 2 light brown irregular calculi, 0.1 cm each. No sections are submitted. Gross examination only. Specimen sent for stone analysis. OK 05/28/2025 CPT:19307
[2025-06-05 16:09] LABS: Ca Oxalate, Dihydrate 40 % (.); Ca Oxalate, Monohydrate 60 % (.)
== END | disposition home or self-care (01) ==
PROVIDERS: PCP Internal Medicine; Referring Provider Urology; Visit Provider Urology
DX: N20.0 Calculus of kidney (principal)
CPT/HCPCS: 82360; 88300

== ENCOUNTER → 2025-06-20 | Outpatient (CLI) | payer OTHER, SELFPAY ==
--- NOTE | 2025-06-20 16:04 | BD_ITS ---
PROCEDURE: DEXA BONE DENSITY STUDY 06/20/2025 REASON FOR EXAM: F, age 55 y/o . Postmenopausal. TECHNIQUE: Procedure Code: BDDBD Modality: DX Procedure: DEXA BONE DENSITY STUDY COMPARISON: November 28, 2019 FINDINGS: BMD and T-SCORES Lumbar spine: 0.893 g/cm2, T-score -1.4 Levels: L1 through L4 Change from prior: Improvement of 8.8%. Right femoral neck: 0.603 g/cm2, T-score -2.2 Femoral neck comparison data not recommended for monitoring change. Right total hip: 0.798 g/cm2, T-score -1.2 Change from prior: Improvement of 15.5%. The World Health Organization has defined the following categories based on bone density: Normal bone density: T-score equal to or greater than -1.0 Osteopenia: T-score between -1.0 and -2.5 Osteoporosis: T-score equal to or less than -2.5 FRAX (or Comparable) Fracture Risk Assessment: 10 Year Probability of Fracture: Major Osteoporotic Fracture: 28% Hip Fracture: 2.4% (Note: FRAX is not to be reported in setting of normal range bone density, osteoporosis on DEXA, known history of osteoporosis, prior osteoporotic hip or vertebral fracture, or for any patient undergoing pharmacological treatment for bone loss.) The National Osteoporosis Foundation (NOF) recommends pharmacological treatment for patients with a FRAX 10-year risk of 3% or higher for a hip fracture, or 20% or higher for a major osteoporotic fracture, to prevent osteoporosis and reduce fracture risk. The patient does meet the pharmacological treatment recommendations for prevention of osteoporosis. BD/Dexa Bone Density Study IMPRESSION: OSTEOPENIA. Recommend follow-up as clinically warranted. Reading Location: [place] [id number]
== END | disposition home or self-care (01) ==
LOC: OPBD 15:48
PROVIDERS: PCP Internal Medicine; Referring Provider Internal Medicine; Visit Provider Internal Medicine
DX: Z78.0 Asymptomatic menopausal state (principal)
CPT/HCPCS: 77080

== ENCOUNTER → 2025-06-29 | Outpatient (CLI) | payer OTHER, SELFPAY ==
[2025-06-29 08:04] LABS: Hematocrit 41.6 % (37-47); Hemoglobin 14.3 g/dL (12.0-15.0); Immature Granulocytes Count 0.010 X10^3/uL (0.0-0.0); Mean Corp Hgb Conc 34.4 g/dL (32-36); Mean Corpuscular Volume 87.2 fL (81-99); Mean Platelet Vol. 9.4 fl (6.2-12.0); NRBC Flagged by Analyzer 0 % (0-5); Platelet Count 249 K/mm3 (150-450); RBC Distribution Width CV 13.1 % (11.6-14.6); RBC Distribution Width SD 41.8 fl (35.1-43.9); Red Blood Count 4.77 M/mm3 (4.2-5.4); White Blood Count 5.2 K/mm3 (4.4-11.0)
[2025-06-29 08:50] LABS: AST(SGOT) 30 U/L (<=31); Alanine Aminotransfer ALT/SGPT 21 U/L (<=34); Albumin, Serum 4.5 g/dL (3.5-5.0); Alkaline Phosphatase 62 U/L (35-104); Anion Gap 10 (5-15); BUN 16 mg/dL (4-19); BUN/Creat Ratio 16.8 RATIO (10-20); Calcium,Total 9.3 mg/dL (7.6-11.0); Carbon Dioxide 27.2 mmol/L (21.0-32.0); Chloride 104 mmol/L (98-108); Cholesterol 157 mg/dL (<=200); Globulin 2.8 g/dL (2.2-4.2); Glucose 98 mg/dL (70-99); Low Density Lipoprotein Calc. 79 mg/dL; Potassium 3.9 mmol/L (3.3-5.1); Triglycerides 109 mg/dL; Very Low Density Lipoprotein 22 mg/dL (5-40); Vitamin D,25 Hydroxy 62.7 ng/mL (30-100); cholesterol:hdl ratio screen 2.71
== END | disposition home or self-care (01) ==
LOC: LAB 07:12
PROVIDERS: PCP Internal Medicine; Referring Provider Internal Medicine; Visit Provider Internal Medicine
DX: E55.9 Vitamin D deficiency, unspecified (principal); E78.5 Hyperlipidemia, unspecified; M81.0 Age-related osteoporosis without current pathological fracture; Z82.49 Family history of ischemic heart disease and other diseases of the circulatory system
CPT/HCPCS: 36415; 80053; 80061; 82306; 83695; 84443; 85025

== ENCOUNTER → 2025-07-17 | Outpatient (CLI) | payer OTHER, SELFPAY ==
--- NOTE | 2025-07-17 15:40 | BI_ITS ---
EXAM: SCRN MAMM (CAD)W/ROWENA BILAT DATE: 07/17/2025 CLINICAL HISTORY: F, Age 55 y/o , SCREENING Grandmother with breast cancer. Aunt with breast cancer. TECHNIQUE: Procedure Code: [id number] Modality: MG Procedure: SCRN MAMM (CAD)W/ROWENA BILAT COMPARISON: Prior exam(s) dated May 22, 2024.. FINDINGS: TISSUE DENSITY: The breasts are heterogeneously dense, which may obscure small masses. Bilateral Breast Mammographic Findings: Focal asymmetrical density is seen in the upper lateral aspect of the left breast. The patient will be recalled for additional views including 90 degree lateral and compression spot views. BI/SCRN MAMM (CAD)W/ROWENA BILAT IMPRESSION: Focal asymmetrical density in the upper lateral aspect of the left breast as de scribed. The patient OVERALL FINAL ASSESSMENT BI-RADS 0: INCOMPLETE - NEED ADDITIONAL IMAGING EVALUATION. RECOMMENDATION: Additional Views obtained/call backs Additional Recommendation none A letter with findings and recommendations will be mailed to the patient. Reading Location: [place] [address]
== END | disposition home or self-care (01) ==
LOC: OPBI 15:38
PROVIDERS: PCP Internal Medicine; Referring Provider Internal Medicine; Visit Provider Internal Medicine
DX: Z12.31 Encounter for screening mammogram for malignant neoplasm of breast (principal)
CPT/HCPCS: 77063; 77067

== ENCOUNTER → 2025-07-24 | Outpatient (CLI) | payer OTHER, SELFPAY ==
--- NOTE | 2025-07-24 12:55 | BI_ITS ---
EXAM: DIAG MAMM W/CAD, UNILAT N/A CLINICAL HISTORY: F, Age 55 y/o , ABN MAMM TECHNIQUE: Procedure Code: [id number] Modality: MG Procedure: DIAG MAMM W/CAD, UNILAT.. Compression spot views and 90 degree lateral view of the left breast were obtained. COMPARISON: Prior exam(s) dated July 17, 2025.. FINDINGS: TISSUE DENSITY: The breasts are heterogeneously dense, which may obscure small masses. Bilateral Breast Mammographic Findings: No significant masses, calcifications or other abnormalities are identified. The area of focal asymmetry is not well seen at this time. Sonographic correlation recommended. BI/DIAG MAMM W/CAD, UNILAT IMPRESSION: Normal diagnostic mammogram. OVERALL FINAL ASSESSMENT BI-RADS 0: INCOMPLETE - NEED ADDITIONAL IMAGING EVALUATION. RECOMMENDATION: Ultrasound Recommended Additional Recommendation none A letter with findings and recommendations will be mailed to the patient. Reading Location: [id number]
--- NOTE | 2025-07-24 12:55 | US_ITS ---
PROCEDURE: BREAST LIMITED UNILATERAL 07/24/2025 REASON FOR EXAM: F, Age 55 y/o , ABN MAMM Abnormal screening mammogram. COMPARISON: Prior mammogram dated July 24, 2025 and July 17, 2025.. TECHNIQUE: Procedure Code: USBRSTLIMIT Modality: US Procedure: BREAST LIMITED UNILATERAL. The upper-outer quadrant of the left breast was examined with ultrasound. FINDINGS: Heterogeneously dense breast tissue. No sonographic abnormality is seen. US/Breast Limited Unilateral IMPRESSION: No sonographic abnormality is seen. BI-RADS 1: NEGATIVE RECOMMENDATION: Routine annual follow-up in 1 Year Reading Location: [id number]
== END | disposition home or self-care (01) ==
LOC: OPBI 12:54
PROVIDERS: PCP Internal Medicine; Referring Provider Internal Medicine; Visit Provider Internal Medicine
DX: R92.8 Other abnormal and inconclusive findings on diagnostic imaging of breast (principal)
CPT/HCPCS: 76642; 77061; 77065; G0279